=== PATIENT | female | born 1990 | race Caucasian/White ===

== ENCOUNTER 2019-05-29 17:33 | Outpatient (CLI) | payer OTHER, SELFPAY ==
--- NOTE | ~2019-05-29 | XR_ITS ---
EXAMINATION: XR foot RT min 3V EXAM DATE: 05/29/2019 17:55 INDICATION: Pain in right first metatarsal region, after kicking ball. Initial encounter. TECHNIQUE: Right foot dorsoplantar, lateral and oblique projections obtained and reviewed. There is no prior study for comparison. FINDINGS: Right metatarsal bones unremarkable. There are no acute fractures or dislocations identifi ed. There is no subcutaneous gas. The soft tissue is unremarkable. There are no radiopaque foreig n bodies. IMPRESSION: 1. Unremarkable XR foot RT min 3V exam. Reviewed, dictated and finalized at location A.
== END 2019-05-29 17:34 | disposition home or self-care (01) ==
LOC: ANHIMG 17:42
PROVIDERS: PCP Internal Medicine; Visit Provider Physician Assistant
DX: S99.921A Unspecified injury of right foot, initial encounter (principal)
CPT/HCPCS: 73630

== ENCOUNTER 2019-09-03 17:40 | Emergency (ER) | payer OTHER, SELFPAY ==
--- NOTE | ~2019-09-03 | XR_ITS ---
XR foot RT min 3V 09/03/2019 18:22 Indication: Right foot pain Procedure: 4 views right foot Comparison: 05/29/2019 Findings: No fracture, subluxation or dislocation. Lisfranc joint intact. No significant soft tissue abnormality. No radiopaque foreign bodies. Impression: 1: No acute bone or joint abnormality. Reviewed, dictated and finalized at location A. Impression: 1: No acute bone or joint abnormality.
--- NOTE | 2019-09-03 17:53 | ED.GENADULT ---
HPI - General Adult General Chief complaint: Extremity Injury, Lower Stated complaint: right big toe injury Time Seen by Provider: 09/03/19 18:01 Source: patient Mode of arrival: ambulatory Limitations: no limitations History of Present Illness HPI narrative: 29-year-old female patient presents to the [facility] with complaints of right great toe pain x3 weeks. Patient states about 3 weeks ago she was at work and kicked a medicine ball and since then has been having pain to the right great toe. Patient states it hurts worse when flexing the toe back towards the foot. Patient denies any numbness or tingling. Denies any ankle pain. Patient states she has been walking on it with a steady gait. Related Data Home Medications Medication Instructions Recorded Confirmed norgestrel-ethinyl estradiol 1 tablet PO DAILY 02/05/19 09/03/19 [Low-Ogestrel (28)] Allergies Allergy/AdvReac Type Severity Reaction Status Date / Time No Known Allergies Allergy Verified 09/03/19 18:01 Review of Systems Review of Systems: Narrative: CONSTITUTIONAL: Denies fever, chills, or sweats. EYES: Denies visual changes, redness, or discharge. ENT: Denies rhinorrhea, congestion, sore throat, or otalgia. CARDIOVASCULAR: Denies chest pain, palpitations, or edema. RESPIRATORY: Denies cough or dyspnea. GASTROINTESTINAL: Denies abdominal pain, nausea, vomiting, or diarrhea. GENITOURINARY: Denies dysuria or hematuria. SKIN: Denies rash or itching. MUSCULOSKELETAL: Denies back pain, joint pain, or myalgia. Positive right great toe pain NEUROLOGIC: Denies headache, numbness, or weakness. PSYCHIATRIC: Denies anxiety or depression. [facility] Family History Family History Father Hypertension Family history of elevated blood lipids Mother Patient's mother is in good health Sibling Patient's brother is in good health Social History Social History Smoking status: Never smoker Second hand tobacco smoke exposure: Yes Alcohol intake: never Comments At the time of my signature I agree with nursing past medical history, surgical, social, and family history. There is no relevant family history pertinent to the presenting complaint. Exam Narrative: Exam Narrative: GENERAL: Well-appearing, well-nourished, and in no acute distress. HEAD: Normocephalic, atraumatic. EYES: PERRLA and EOMI. ENT: Nares clear, no rhinorrhea or epistaxis. Mucous membranes moist. NECK: Supple. No lymphadenopathy CHEST: Clear to auscultation. No respiratory distress. HEART: Regular rate and rhythm. No murmur heard. Normal peripheral pulses. ABDOMEN: Soft, nontender, nondistended, normal active bowel sounds. EXTREMITIES: Patient able to bear weight and ambulate without pain. No surface trauma, ecchymosis, erythema, lesions, ulcers or break in skin integrity. The R foot is without obvious asymmetry or deformity when compared to the L foot. Patient does have some swelling to the lateral side of the left great toe. No bony step-off, tender to palpation over the right first metatarsal., No tenderness over the midfoot or hindfoot or sole. Pain with dorsiflexion of the right great toe, no pain is noted during inversion/eversion. Distal motor and neurovascular status are intact SKIN: Warm, dry, no rash. NEURO: No focal deficits. Alert and oriented x3. Course Reevaluation(s) Reevaluation #1: Reevaluated patient. Discussed with her that her x-ray is negative. Discussed with her that we will go ahead and Balbir wrap the foot to see if it helps with the pain and swelling. Discussed patient she can take Tylenol and ibuprofen as needed for the pain as well as elevates the foot. Discussed patient if she has continued difficulty with the foot that she will need to see her primary doctor. Patient verbalized understanding denies any other questions or concerns at this time. Date:
[2019-09-03 17:58] VITALS: BP 98/64; PULSE 90; RESP 18; TEMP 37.6; O2SAT 99
== END 2019-09-03 18:35 | disposition home or self-care (01) ==
PROVIDERS: Emergency Provider Nurse Practitioner Family; PCP Internal Medicine
DX: M79.674 Pain in right toe(s) (principal)
CPT/HCPCS: 73630; 99213; G0463

== ENCOUNTER 2019-09-07 16:26 | Outpatient (CLI) | payer OTHER, SELFPAY ==
[2019-09-07 17:32] LABS: Add Urine Microscopic? YES; Appearance Urine Clear (Clear); Bacteria Urine Trace /hpf; Bilirubin Urine Negative (Negative); Blood Urine 1+ (Negative); Color Urine Yellow (Yellow); Glucose Urine UA Negative (Negative); Ketones Urine Negative (Negative); Leukocyte Esterase Ur Negative LEU/UL (NEGATIVE); Mucus Urine Heavy /lpf; Nitrate Urine Negative (Negative); Protein Urine Negative (Negative); RBC Urine 0-2 /hpf (0-2); Specific Grav Ur 1.018 (1.001-1.035); Squamous Epithelial Cell Urine Few /hpf (Few); Urobilinogen Urine Negative mg/dL (<2.0); WBC Urine 0-3 /hpf (0-3)
== END 2019-09-07 16:27 | disposition home or self-care (01) ==
PROVIDERS: PCP Internal Medicine; Visit Provider Physician Assistant
DX: M54.5 Low back pain (principal); R68.83 Chills (without fever)
CPT/HCPCS: 81001; 87086

== ENCOUNTER 2020-01-22 11:09 | Outpatient (CLI) | payer OTHER, SELFPAY ==
--- NOTE | ~2020-01-22 | XR_ITS ---
EXAMINATION: XR chest 2V EXAM DATE: 01/22/2020 11:28 INDICATION: R06.02 - Shortness of breath TECHNIQUE: Frontal and lateral projections of the chest obtained and reviewed. Comparison is made to prior examination from 05/16/2012. FINDINGS: The lungs are clear. There are no pleural effusions. The cardiomediastinal silhouette is within normal limits. There is no pneumothorax suspected. The bones and soft tissues are unremarkab le. IMPRESSION: Unremarkable chest x-ray exam. Reviewed, dictated and finalized at location B. [employer]
== END 2020-01-22 11:10 | disposition home or self-care (01) ==
PROVIDERS: PCP Physician Assistant; Visit Provider Physician Assistant
DX: R06.02 Shortness of breath (principal)
CPT/HCPCS: 71046

== ENCOUNTER → 2020-04-24 07:00 | Outpatient (CLI) | payer OTHER, SELFPAY ==
[2020-04-24 20:38] LABS: SARS-CoV-2 RNA PCR Negative
== END ==
PROVIDERS: PCP Internal Medicine; Visit Provider Physician Assistant
DX: Z20.822 Contact with and (suspected) exposure to COVID-19 (principal)
CPT/HCPCS: C9803; U0003; U0005

== ENCOUNTER 2020-06-02 12:32 | Outpatient (CLI) | payer OTHER, SELFPAY ==
--- NOTE | ~2020-06-02 | US_ITS ---
EXAMINATION: US soft tissue groin LT DATE: 06/02/2020 13:49 INDICATION: Left groin mass. TECHNIQUE: Multiple grayscale and Doppler ultrasound images of the left inguinal region were obtained . COMPARISON: None FINDINGS: There is a normal lymph node in the left inguinal region in the patient's area of concern. The patient does not currently feel an abnormal lump. IMPRESSION: 1. No abnormal mass or lymphadenopathy. Reviewed, dictated and finalized at location A.
== END 2020-06-02 12:33 | disposition home or self-care (01) ==
PROVIDERS: PCP Internal Medicine; Visit Provider Student in an Organized Health Care Education/Training Program
DX: R22.9 Localized swelling, mass and lump, unspecified (principal)
CPT/HCPCS: 76882

== ENCOUNTER 2020-07-13 13:03 | Emergency (ER) | payer OTHER, SELFPAY ==
[2020-07-13 13:10] VITALS: BP 103/68; PULSE 90; RESP 16; TEMP 36.8; O2SAT 100
--- NOTE | 2020-07-13 13:15 | ED.URI ---
HPI - URI/Sore Throat General Chief Complaint: Dizziness Stated Complaint: Congestion,Dizzy Time Seen by Provider: 07/13/20 13:15 Source: patient and RN notes reviewed Mode of arrival: ambulatory Limitations: no limitations History of Present Illness HPI Narrative: 29 yo female presents to the [facility] for fatigue and dizziness when she lays down. States that she had Covid test that was negative yesterday. Denies any chance of . Has a history of vertigo which she had to see physical therapy for. Patient states that on Tuesday she had some vomiting and diarrhea Tuesday. Was hot and cold all day with generalized fatigue. Since she just has not felt good. Related Data Home Medications Medication Instructions Recorded Confirmed norgestrel-ethinyl estradiol 1 tablet PO DAILY 02/05/19 06/27/20 [Low-Ogestrel (28)] Allergies Allergy/AdvReac Type Severity Reaction Status Date / Time No Known Allergies Allergy Verified 06/25/20 14:06 Review of Systems Review of Systems: All systems reviewed & are unremarkable except as noted in HPI and below Constitutional: Constitutional: Reports chills and Reports fatigue Eyes: Eyes: Reports no additional eye complaints, Denies change in vision and Denies photophobia ENT: Reports system reviewed and no additional complaints, except as documented, Reports as per HPI, Reports dizziness, Denies nasal congestion and Denies sore throat Cardiovascular: Cardiovascular: Reports no additional cardiovascular complaints and Denies chest pain Respiratory: Respiratory: Reports no additional respiratory complaints, Denies cough, Denies dyspnea and Denies wheezing Gastrointestinal: Gastrointestinal: Reports no additional gastrointestinal complaints, Denies abdominal pain, Denies nausea and Denies vomiting Musculoskeletal: Musculoskeletal: Reports no additional musculoskeletal complaints and Denies back pain Integumentary/Breasts: Skin/Breast: Reports system reviewed and no additional complaints, except as docu Neurologic: Reports vertigo (History), Reports dizziness and Denies syncope Psychiatric: Psychiatric: Reports no additional psychiatric complaints Endocrine: Endocrine: Reports no additional endocrine complaints [facility] Family History Family History Father Hypertension Family history of elevated blood lipids Mother Patient's mother is in good health Sibling Patient's brother is in good health Social History Social History Smoking status: Never smoker Second hand tobacco smoke exposure: Yes Alcohol intake: never Comments At the time of my signature, I reviewed and agree with the nursing past medical, surgical, social, and family history. There is no relevant family history pertinent to the patient complaint. Exam Const: General: healthy appearing, no acute distress and alert Nutritional Appearance: well nourished Orientation/consciousness: patient oriented x3 Limitations: no limitations HENMT: Head: normal to inspection Ears: external ears normal, TM normal on the left and TM abnormal bulging and wth effusion (Right side) serous General nose exam: Normal external nose present Face and sinus: normal facial exam and sinus tenderness Mouth: Yes moist mucous membranes Throat: posterior oropharynx normal and uvula midline Eyes: Pupils: Equal, round and reactive pupils present Chest: Chest palpation & inspection: normal inspection of the chest Resp: Effort & Inspection: normal respiratory effort Auscultation: clear to auscultation bilaterally Cardio: Rate: regular rate Rhythm: regular rhythm GI: GI Palp: Yes Soft to palpation : General: Yes no CVA tenderness Back/Spine/Pelvis: Back: no CVA tenderness Skin: General skin exam: normal color Rashes: no rashes Neuro: General: patient oriented x3 and moves all extremities Speech: normal speech Gait
[2020-07-13 13:30] VITALS: BP 103/71; BP 89/58; BP 99/58; PULSE 107; PULSE 108; PULSE 94
== END 2020-07-13 13:47 | disposition home or self-care (01) ==
PROVIDERS: Emergency Provider Nurse Practitioner; PCP Internal Medicine
DX: E86.0 Dehydration (principal); H65.01 Acute serous otitis media, right ear
CPT/HCPCS: 99213; G0463

== ENCOUNTER 2020-10-16 12:41 | Emergency (ER) | payer OTHER, SELFPAY ==
[2020-10-16 12:45] VITALS: BP 107/63; PULSE 82; RESP 15; TEMP 36.8; O2SAT 99
--- NOTE | 2020-10-16 13:09 | ED.EAR ---
HPI - Ear Problem General Chief complaint: Ear Stated complaint: Rt ear pain Source: patient and RN notes reviewed Mode of arrival: ambulatory History of Present Illness HPI Narrative: This is a 30-year-old female who presented to urgent care with complaints of ear pain for 3 days. Patient notes that she has a history of having a bulging TM but has never had an ear infection. Patient did not take anything at home to relieve her symptoms. The patient denies SOB, CP, palpitation, extremity numbness, lightheadedness, dizziness, constipation, diarrhea, hearing loss , ear discharge ,chills, or fever. Patient taught that she could have possibly lost her back into her tragus piercing no foreign object found in her ear Related Data Home Medications Medication Instructions Recorded Confirmed norgestrel-ethinyl estradiol 1 tablet PO DAILY 02/05/19 10/16/20 [Low-Ogestrel (28)] Allergies Allergy/AdvReac Type Severity Reaction Status Date / Time No Known Allergies Allergy Verified 10/16/20 12:47 Review of Systems Review of Systems: A 14 organ system Review of Systems was performed and pertinent positives included in the HPI, otherwise remaining ROS is negative. [facility] Family History Family History Father Hypertension Family history of elevated blood lipids Mother Patient's mother is in good health Sibling Patient's brother is in good health Social History Social History Smoking status: Never smoker Second hand tobacco smoke exposure: Yes Alcohol intake: never Gender identity (if verbalized by the patient): Female Exam Narrative: GENERAL: This is a well-nourished, well-developed patient, in no apparent distress. HEAD: normocephalic, atraumatic. EYES: PERRL. Sclera clear/white. Vision is grossly intact. EARS: External ears normal, auditory canals clear and without drainage, TMs erythematous and edematous without perforation. Hearing grossly intact. NOSE: External nose normal with no obvious nasal discharge, nares without redness, no rhinorrhea. THROAT: Mucous membranes moist, posterior pharynx clear. NECK: Neck supple, non-tender without lymphadenopathy, masses or thyromegaly. CARDIOVASCULAR: Regular rate and rhythm without murmurs, gallops, or rubs. RESPIRATORY: Clear to auscultation. Breath sounds equal bilaterally. No wheezes, rales, or rhonchi. GASTROINTESTINAL: Abdomen soft, non-tender, nondistended. Bowel sounds are active. No hepato-splenomegaly, or palpable masses. No guarding. SKIN: warm, intact with no suspicious lesions or rash, good texture and turgor. NEURO: awake, alert, and oriented to person, place and time. There were no obvious focal neurologic abnormalities. Steady gait EXTREMITIES: Normal range of motion. No edema. No calf tenderness. Negative Homans sign bilaterally. BACK: Nontender without deformity or crepitance. No flank tenderness. Course Course Emergency Course: Augmentin x7 days Vital Signs Vital signs: Vital Signs Temperature 98.3 F 10/16/20 12:45 Pulse Rate 82 10/16/20 12:45 Respiratory Rate 15 10/16/20 12:45 Blood Pressure 107/63 10/16/20 12:45 Pulse Oximetry 99 10/16/20 12:45 Temperature 98.3 F 10/16/20 12:45 Pulse Rate 82 10/16/20 12:45 Respiratory Rate 15 10/16/20 12:45 Blood Pressure 107/63 10/16/20 12:45 Pulse Oximetry 99 10/16/20 12:45 Medical Decision Making Differential Diagnosis Differential Diagnosis: Otitis media, otitis externa, foreign body object Vital Signs Vital Signs: Vital Signs Temperature 98.3 F 10/16/20 12:45 Pulse Rate 82 10/16/20 12:45 Respiratory Rate 15 10/16/20 12:45 Blood Pressure 107/63 10/16/20 12:45 Pulse Oximetry 99 10/16/20 12:45 Temperature 98.3 F 10/16/20 12:45 Pulse Rate 82 10/16/20 12:45 Respiratory Rate 15 10/16/20 12:45 Blood Pressure 107/63 08
== END 2020-10-16 13:03 | disposition home or self-care (01) ==
LOC: EXPTROY 12:47
PROVIDERS: Emergency Provider Nurse Practitioner; PCP Internal Medicine
DX: H66.91 Otitis media, unspecified, right ear (principal)
CPT/HCPCS: 99213; G0463

== ENCOUNTER 2020-11-09 18:45 | Emergency (ER) | payer OTHER, SELFPAY ==
--- NOTE | 2020-11-09 18:52 | ED.UPPEXIN ---
HPI - Extremity Injury (Upper) General Chief Complaint: Extremity Injury, Upper Stated Complaint: left thumb pain Time Seen by Provider: 11/09/20 18:52 Source: patient and RN notes reviewed Mode of arrival: ambulatory Limitations: no limitations History of Present Illness HPI narrative: 30-year-old female presents to the [facility] with left thumb pain, redness and inflammation around the fingernail. Does get her nails done on a regular basis. Has been soaking it for the couple of days and not getting any better. Redness noted to the radial aspect left thumb. Fluctuant area noted. Related Data Home Medications Medication Instructions Recorded Confirmed norgestrel-ethinyl estradiol 1 tablet PO DAILY 02/05/19 11/09/20 [Low-Ogestrel (28)] Allergies Allergy/AdvReac Type Severity Reaction Status Date / Time No Known Allergies Allergy Verified 11/09/20 18:47 Review of Systems Review of Systems: All systems reviewed & are unremarkable except as noted in HPI and below Constitutional: Constitutional: Reports no additional constitutional complaints, Denies chills and Denies fever(s) Eyes: Eyes: Reports no additional eye complaints ENT: Reports system reviewed and no additional complaints, except as documented Cardiovascular: Cardiovascular: Reports no additional cardiovascular complaints Respiratory: Respiratory: Reports no additional respiratory complaints Gastrointestinal: Gastrointestinal: Reports no additional gastrointestinal complaints Genitourinary: Genitourinary: Reports no additional female genitourinary complaints Musculoskeletal: Musculoskeletal: Reports no additional musculoskeletal complaints Integumentary/Breasts: Skin/Breast: Reports as per HPI and Reports erythema (left thumb) Neurologic: Reports system reviewed and no additional complaints, except as documented Psychiatric: Psychiatric: Reports no additional psychiatric complaints Allergic/Immunologic: Allergic/Immunologic: Reports no additional allergic/immunologic complaints [facility] Past Medical History Medical History No significant medical problems Family History Family History Father Hypertension Family history of elevated blood lipids Mother Patient's mother is in good health Sibling Patient's brother is in good health Social History Social History Smoking status: Never smoker Second hand tobacco smoke exposure: Yes Alcohol intake: never Gender identity (if verbalized by the patient): Female Comments At the time of my signature, I reviewed and agree with the nursing past medical, surgical, social, and family history. There is no relevant family history pertinent to the patient complaint. Exam Const: General: healthy appearing, no acute distress and alert Nutritional Appearance: well nourished Orientation/consciousness: patient oriented x3 Limitations: no limitations HENMT: Head: normal to inspection Eyes: Conjunctivae: conjunctivae normal Pupils: Equal, round and reactive pupils present Neck: Neck: normal visual inspection Chest: Chest palpation & inspection: normal inspection of the chest Resp: Effort & Inspection: normal respiratory effort Cardio: Rate: regular rate Back/Spine/Pelvis: Back: no CVA tenderness Skin: General skin exam: normal color Other: Paronychia, redness and swelling noted to the radial aspect left thumb Neuro: General: patient oriented x3, moves all extremities, no meningeal signs and no focal motor deficits Speech: normal speech Extrem: General: normal to inspection Psych: Appearance: grossly normal and well kempt Mental Status: mental status grossly normal Affect: normal affect Attitude: cooperative Thought content: Yes Normal thought content present Course Course Emergency Course: Discharge instructions reviewed with tomas
[2020-11-09 18:54] VITALS: BP 103/60; PULSE 83; RESP 16; TEMP 36.2; O2SAT 99
[2020-11-09] MEDS: LIDOCAINE HCL 1% LOCAL INJ 20 ML VIAL 5 ML INFILTRATE (19:04)
[2020-11-09 19:42] VITALS: BP 112/68; PULSE 56; RESP 16; O2SAT 96
--- NOTE | 2020-11-09 19:43 | PC.NURSE ---
89 PT STATES SHE FELT HOT AND NAUSEATED. SMALL EMESIS. PROVIDER AWARE. COOL CLOTHS TO NECK AND FOREHEAD. 1943 VS REASSESED. VS STABLE. PT CALLED HER MOTHER FOR A RIDE HOME.
== END 2020-11-09 19:55 | disposition home or self-care (01) ==
PROVIDERS: Emergency Provider Nurse Practitioner; PCP Internal Medicine
DX: L03.012 Cellulitis of left finger (principal)
CPT/HCPCS: 10060; 87070; 87075; 87077; 87186; 87205; 99213; G0463

== ENCOUNTER 2021-04-26 17:58 | Emergency (ER) | payer OTHER, SELFPAY ==
--- NOTE | 2021-04-26 18:09 | ED.URI ---
HPI - URI/Sore Throat General Chief Complaint: Ear Stated Complaint: ear pain Time Seen by Provider: 04/26/21 18:18 Source: patient, family, RN notes reviewed and old records reviewed Mode of arrival: ambulatory Limitations: no limitations History of Present Illness HPI Narrative: 30-year-old female presents to the [facility] with complaints of ear pain for [address] Ann for same in January. Has been diagnosed in the past with serous otitis. Denies fevers, nausea, vomiting. No abdominal pain or chest pain. No sinus or upper respiratory issues Related Data Home Medications Medication Instructions Recorded Confirmed norgestrel-ethinyl estradiol 1 tablet PO DAILY 02/05/19 04/26/21 [Low-Ogestrel (28)] escitalopram oxalate 20 mg tablet 20 mg PO DAILY 01/16/21 04/26/21 Allergies Allergy/AdvReac Type Severity Reaction Status Date / Time No Known Allergies Allergy Verified 04/26/21 18:23 Review of Systems Review of Systems: All systems reviewed & are unremarkable except as noted in HPI and below Constitutional: Constitutional: Reports no additional constitutional complaints, Denies chills, Denies fever(s) and Denies headache(s) Eyes: Eyes: Reports no additional eye complaints ENT: Reports as per HPI, Denies vertigo, Denies dizziness, Denies headache(s), Denies nasal congestion and Denies sore throat Comments: Bilateral ear pain x1 week Cardiovascular: Cardiovascular: Reports no additional cardiovascular complaints, Denies chest pain, Denies syncope, Denies rapid heart rate and Denies dyspnea Respiratory: Respiratory: Reports no additional respiratory complaints, Denies cough, Denies dyspnea and Denies wheezing Gastrointestinal: Gastrointestinal: Reports no additional gastrointestinal complaints, Denies abdominal pain, Denies diarrhea, Denies nausea and Denies vomiting Musculoskeletal: Musculoskeletal: Reports no additional musculoskeletal complaints and Denies numbness Integumentary/Breasts: Skin/Breast: Reports system reviewed and no additional complaints, except as docu Neurologic: Reports system reviewed and no additional complaints, except as documented, Denies vertigo, Denies dizziness, Denies syncope, Denies headache(s), Denies focal weakness and Denies numbness Psychiatric: Psychiatric: Reports no additional psychiatric complaints Allergic/Immunologic: Allergic/Immunologic: Reports no additional allergic/immunologic complaints and Denies wheezing PMFSH Past Medical History Medical History No significant medical problems Family History Family History Father Hypertension Family history of elevated blood lipids Mother Patient's mother is in good health Sibling Patient's brother is in good health Social History Social History Smoking status: Never smoker Second hand tobacco smoke exposure: Yes Alcohol intake: never Gender identity (if verbalized by the patient): Female Comments At the time of my signature, I reviewed and agree with the nursing past medical, surgical, social, and family history. There is no relevant family history pertinent to the patient complaint. Exam Const: General: cooperative, healthy appearing, no acute distress, well developed and alert Nutritional Appearance: well nourished Orientation/consciousness: patient oriented x3 Limitations: no limitations HENMT: Head: normal to inspection Ears: external ears normal, TM's normal bilaterally (Left side), EAC's normal and TM abnormal with fluid behind the TM on the right General nose exam: Normal external nose present and Normal nasal mucous membranes and turbinates present Mouth: Yes Normal oral and palatal mucosa present Throat: posterior oropharynx normal, uvula midline and no uvular edema Eyes: Conjunctivae: conjunctivae normal Pupils: Equal, r
[2021-04-26 18:10] VITALS: BP 100/61; PULSE 72; RESP 16; TEMP 36.9; O2SAT 99
== END 2021-04-26 18:30 | disposition home or self-care (01) ==
PROVIDERS: Emergency Provider Nurse Practitioner; PCP Internal Medicine
DX: H65.01 Acute serous otitis media, right ear (principal); H69.93 Unspecified Eustachian tube disorder, bilateral
CPT/HCPCS: 99211; G0463

== ENCOUNTER 2021-06-22 16:02 | Emergency (ER) | payer OTHER, SELFPAY ==
[2021-06-22 16:25] VITALS: BP 103/60; PULSE 81; RESP 18; TEMP 36.7; O2SAT 100
--- NOTE | 2021-06-22 16:54 | ED.URI ---
HPI - URI/Sore Throat General Chief Complaint: Upper Respiratory Infection Stated Complaint: rt ear pain,sorethroat Time Seen by Provider: 06/22/21 16:54 Source: patient Mode of arrival: ambulatory Limitations: no limitations History of Present Illness HPI Narrative: 30-year-old female presents with complaint of sinus congestion, sinus pressure/pain for 1 week. Has been taking Flonase and Claritin-D. Began having pain to right ear today. No fever or chills. Denies nausea vomiting diarrhea. No cough or chest pain. No concern for COVID, no COVID contact. All symptoms reviewed and negative except as noted above. Related Data Home Medications Medication Instructions Recorded Confirmed norgestrel-ethinyl estradiol 1 tablet PO DAILY 02/05/19 06/22/21 [Low-Ogestrel (28)] escitalopram oxalate 20 mg tablet 20 mg PO DAILY 01/16/21 06/22/21 Allergies Allergy/AdvReac Type Severity Reaction Status Date / Time No Known Allergies Allergy Verified 06/22/21 16:34 Review of Systems Review of Systems: CONSTITUTIONAL: Denies fever, chills, or sweats. EYES: Denies visual changes, redness, or discharge. ENT: Denies rhinorrhea, sore throat. Reports sinus congestion, sinus pain and right ear pain. CARDIOVASCULAR: Denies chest pain, palpitations, or edema. RESPIRATORY: Denies cough or dyspnea. GASTROINTESTINAL: Denies abdominal pain, nausea, vomiting, or diarrhea. GENITOURINARY: Denies dysuria or hematuria. SKIN: Denies rash or itching. MUSCULOSKELETAL: Denies back pain, joint pain, or myalgia. NEUROLOGIC: Denies headache, numbness, or weakness. PSYCHIATRIC: Denies anxiety or depression. All other systems reviewed are negative, except as documented in HPI. [facility] Past Medical History Medical History No significant medical problems Family History Family History Father Hypertension Family history of elevated blood lipids Mother Patient's mother is in good health Sibling Patient's brother is in good health Social History Social History Smoking status: Never smoker Second hand tobacco smoke exposure: Yes Alcohol intake: never Gender identity (if verbalized by the patient): Female Comments At time of signature, agree with nursing past medical, surgical, social and family history. There is no relevant family history pertinent to the presenting complaint. Exam Narrative: GENERAL: This is a well-nourished, well-developed patient, in no apparent distress. HEAD: normocephalic, atraumatic. EYES: PERRL. Sclera clear/white. Vision is grossly intact. EARS: External ears normal, auditory canals clear and without drainage. Left TM normal without perforation. Right TM is erythematous, bulging with fluid without perforation. NOSE: External nose normal with no obvious nasal discharge, moderate congestion with bilateral frontal maxillary sinus tenderness. THROAT: Mucous membranes moist, posterior pharynx clear. NECK: Neck supple, non-tender without lymphadenopathy, masses or thyromegaly. CARDIOVASCULAR: Regular rate and rhythm without murmurs, gallops, or rubs. RESPIRATORY: Clear to auscultation. Breath sounds equal bilaterally. No wheezes, rales, or rhonchi. SKIN: warm, Dry, intact with no suspicious lesions or rash, good texture and turgor. NEURO: awake, alert, and oriented to person, place and time. There were no obvious focal neurologic abnormalities. EXTREMITIES: Normal range of motion to all extremities. Course Course Level of Care: Express Care Visit Vital Signs Vital signs: Vital Signs Temperature 36.7 C 06/22/21 16:25 Pulse Rate 81 06/22/21 16:25 Respiratory Rate 18 06/22/21 16:25 Blood Pressure 103/60 06/22/21 16:25 Pulse Oximetry 100 06/22/21 16:25 Temperature 36.7 C 06/22/21 16:25 Pulse Rate 81 06/22/21 16:25
== END 2021-06-22 17:00 | disposition home or self-care (01) ==
PROVIDERS: Emergency Provider Nurse Practitioner Family; PCP Internal Medicine
DX: J01.90 Acute sinusitis, unspecified (principal); H65.01 Acute serous otitis media, right ear; F32.A Depression, unspecified
CPT/HCPCS: 99213; G0463

== ENCOUNTER 2021-08-24 12:48 | Emergency (ER) | payer OTHER, SELFPAY ==
--- NOTE | 2021-08-24 12:56 | ED.URI ---
HPI - URI/Sore Throat General Chief Complaint: Upper Respiratory Infection Stated Complaint: Congestion,Cough,Sore Throat Time Seen by Provider: 08/24/21 12:57 Source: patient Mode of arrival: ambulatory Limitations: no limitations History of Present Illness HPI Narrative: Ms. Hampton is a 31-year-old female patient presenting to the clinic today with complaints of cough, congestion, and sore throat x1 day. She reports her symptoms began last night with a low-grade temp of 99 9, nonproductive cough, nasal congestion, and a sore throat. She denies any known exposure to anybody with COVID, flu, or strep. MD elicited complaint: sore throat and nasal congestion Related Data Home Medications Medication Instructions Recorded Confirmed norgestrel 0.3 mg-ethinyl 1 tablet PO DAILY 02/05/19 08/24/21 estradiol 30 mcg tablet (Low-Ogestrel (28)) escitalopram oxalate 20 mg tablet 20 mg PO DAILY 01/16/21 08/24/21 Allergies Allergy/AdvReac Type Severity Reaction Status Date / Time No Known Allergies Allergy Verified 08/24/21 13:17 Review of Systems Review of Systems: Pertinent positives per HPI. Patient denies any rash, headache, visual changes, dizziness, shortness of breath, chest pain, palpitations, nausea, vomiting, diarrhea, constipation, abdominal pain, or any urinary issues. PMFSH Past Medical History Medical History No significant medical problems Family History Family History Father Hypertension Family history of elevated blood lipids Mother Patient's mother is in good health Sibling Patient's brother is in good health Social History Social History Smoking status: Never smoker Second hand tobacco smoke exposure: Yes Alcohol intake: never Gender identity (if verbalized by the patient): Female Comments At the time of my signature, I reviewed and agree with the nursing past medical, surgical, social, and family history. There is no relevant family history pertinent to the patient complaint. Exam Narrative: General: Well-developed, well nourished, in no apparent distress Head: Normocephalic, atraumatic Eyes: Pupils equally round and reactive to light bilaterally, EOM intact, sclera and conjunctive clear, no discharge, lids normal Ears: TMs intact and clear, ear canals clear, no drainage, grossly hearing normal. Nose: Nares patent, clear nasal discharge, mild inflammation, no sinus tenderness. Mouth: Oral pharynx without lesions or masses, good dentition, MMM. Postnasal drip Neck: Supple, trachea midline, no enlargement of anterior or posterior cervical nodes, no thyroid masses or goiter palpable. Cardio: Regular rate and rhythm, s1 and s2 normal, no murmur appreciated. Resp: Clear to auscultation bilaterally, no rhonchi, rales, wheezing or rubs Course Course Emergency Course: Portions of this record may have been created with voice recognition software. Level of Care: Express Care Visit Vital Signs Vital signs: Vital signs reviewed MDM - URI/Sore Throat MDM Narrative Medical decision making narrative: At the time of visit patient is resting comfortably on exam table. Strep test was completed and was negative in the clinic. COVID test was completed and was positive. Paxlovid antibodies were considered however patient was have a possible severe interaction due to her control so this was not prescribed. Supportive measures were discussed with the patient she voiced understanding of discharge instructions and agrees to the treatment plan. Differential Diagnosis Differential diagnosis: Likely upper respiratory infection, sinusitis, viral infection, bronchitis, influenza, pharyngitis and other (COVID) Discharge Plan Discharge Clinical Impression: COVID-19 Patient Disposition: Home,
[2021-08-24 13:07] VITALS: BP 103/82; PULSE 89; RESP 18; TEMP 37.3; O2SAT 99
== END 2021-08-24 13:30 | disposition home or self-care (01) ==
PROVIDERS: Emergency Provider Nurse Practitioner Family; PCP Internal Medicine
DX: U07.1 COVID-19 (principal); F32.A Depression, unspecified
CPT/HCPCS: 87081; 87426; 87880; 99213; C9803; G0463

== ENCOUNTER 2021-10-18 15:15 | Emergency (ER) | payer OTHER, SELFPAY ==
[2021-10-18 15:35] VITALS: BP 108/63; PULSE 83; RESP 18; TEMP 36.1; O2SAT 99
--- NOTE | 2021-10-18 15:35 | ED.URI ---
HPI - URI/Sore Throat General Chief Complaint: Upper Respiratory Infection Stated Complaint: Sore throat, ear pain Source: patient, RN notes reviewed and old records reviewed Mode of arrival: ambulatory Limitations: no limitations History of Present Illness HPI Narrative: 31-year-old female who presents to [facility] care with complaint of sore throat and ear pain since Tuesday and some sinus drainage. Patient denies any known fevers chills or sweats has had COVID in February of 2021 and has been vaccinated for COVID. 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 MD elicited complaint: sore throat, rhinorrhea and other (ear pain) Onset (ago): day(s) (2) Treatments prior to arrival: ibuprofen and cold medicine Related Data Home Medications Medication Instructions Recorded Confirmed norgestrel 0.3 mg-ethinyl 1 tablet PO DAILY 10/18/21 10/18/21 estradiol 30 mcg tablet (Delma (28)) Allergies Allergy/AdvReac Type Severity Reaction Status Date / Time No Known Allergies Allergy Verified 10/18/21 15:23 Review of Systems Review of Systems: CONSTITUTIONAL: Denies fever, chills, or sweats. EYES: Denies visual changes, redness, or discharge. ENT: Positive for clear rhinorrhea, congestion, sore throat, bilateral otalgia, positive exposure to strep CARDIOVASCULAR: Denies chest pain, palpitations, or edema. RESPIRATORY: Denies cough or dyspnea. GASTROINTESTINAL: Denies abdominal pain, nausea, vomiting, or diarrhea. GENITOURINARY: Denies dysuria or hematuria. SKIN: Denies rash or itching. MUSCULOSKELETAL: Denies back pain, joint pain, or myalgia. NEUROLOGIC: Denies headache, numbness, or weakness. PSYCHIATRIC:Positive for history of anxiety or depression. All systems reviewed & are unremarkable except as noted in HPI and below PMFSH Past Medical History Medical History (Updated 10/22/21 @ 09:34 by Rosibel Ball NP) Bronchitis COVID-18 March 2021 Depression Surgical History Surgical History (Updated 10/22/21 @ 09:29 by Rosibel Ball NP) H/O dilation and curettage Family History Family History Father Hypertension Family history of elevated blood lipids Mother Patient's mother is in good health Sibling Patient's brother is in good health Social History Social History Smoking status: Never smoker Second hand tobacco smoke exposure: Yes Alcohol intake: never Gender identity (if verbalized by the patient): Female Comments At time of signature agree with nursing documentation of past medical, surgical, social and family history. There is no relevant family history pertinent to presenting complaint. Exam Narrative: GENERAL: Well-appearing, well-nourished, and in no acute distress. HEAD: Normocephalic, atraumatic. EYES: PERRLA and EOMI. ENT: Nares red with clear rhinorrhea no epistaxis. Mucous membranes moist.TM's normal with good light reflex, throat red with no lesions or exudates no swelling noted NECK: Supple.no lymphadenopathy CHEST: Clear to auscultation. No respiratory distress.SAO2 99% on room air HEART: Regular rate and rhythm. No murmur heard. Normal peripheral pulses. ABDOMEN: Soft, nontender, nondistended, normal active bowel sounds. EXTREMITIES: Normal range of motion. No edema. SKIN: Warm, dry, no rash. NEURO: No focal deficits. Alert and oriented x3. Course Course Level of Care: Express Care Visit Vital Signs Vital signs: Vital Signs Temperature 36.1 C L 10/18/21 15:35 Pulse Rate 83 10/18/21 15:35 Respiratory Rate 18 10/18/21 15:35 Blood Pressure 108/63 10/18/21 15:35 Pulse Oximetry 99 10/18/21 15:35 Oxygen Delivery Room Air 10/18/21 15:35 Temperature 36.1 C L 10/18/21 15:35 Pulse Rate 83 10/18/21 15:35 Respiratory Rate 18
== END 2021-10-18 16:34 | disposition home or self-care (01) ==
PROVIDERS: Emergency Provider Registered Nurse
DX: J06.9 Acute upper respiratory infection, unspecified (principal); J02.9 Acute pharyngitis, unspecified; Z20.818 Contact with and (suspected) exposure to other bacterial communicable diseases
CPT/HCPCS: 87081; 99213; G0463

== ENCOUNTER 2021-12-23 09:25 | Emergency (ER) | payer OTHER, SELFPAY ==
[2021-12-23 09:43] VITALS: BP 98/59; PULSE 88; RESP 16; TEMP 36.5; O2SAT 99
--- NOTE | 2021-12-23 10:07 | ED.EYEPROB ---
HPI - Eye Problem General Chief complaint: Eye Problems Stated complaint: Right Eye Pain Time Seen by Provider: 12/23/21 09:50 Source: patient Mode of arrival: ambulatory Limitations: no limitations History of Present Illness HPI Narrative: Melani is a 31-year-old female patient presenting to the clinic today with complaints of right eye pain. She reports that symptoms started yesterday. Noticed that she had some eye watering this morning but no purulent discharge. Related Data Home Medications Medication Instructions Recorded Confirmed norgestrel 0.3 mg-ethinyl 1 tablet PO DAILY 10/18/21 10/18/21 estradiol 30 mcg tablet (Delma (28)) Allergies Allergy/AdvReac Type Severity Reaction Status Date / Time No Known Allergies Allergy Verified 12/23/21 09:43 Review of Systems Review of Systems: Pertinent positives per HPI. Patient denies any fever, chills, rash, headache, visual changes, dizziness, cough, runny nose, sore throat, shortness of breath, chest pain, palpitations, nausea, vomiting, diarrhea, constipation, abdominal pain, or any urinary issues. PMFSH Past Medical History Medical History (Updated 12/23/21 @ 10:10 by Chintan Avila APRN) Bronchitis COVID-18 March 2021 Depression Surgical History Surgical History (Updated 10/22/21 @ 09:29 by Rosibel Ball NP) H/O dilation and curettage Family History Family History Father Hypertension Family history of elevated blood lipids Mother Patient's mother is in good health Sibling Patient's brother is in good health Social History Social History Smoking status: Never smoker Second hand tobacco smoke exposure: Yes Alcohol intake: never Gender identity (if verbalized by the patient): Female Comments At the time of my signature, I reviewed and agree with the nursing past medical, surgical, social, and family history. There is no relevant family history pertinent to the patient complaint. Exam Narrative: General: Well-developed, well nourished, in no apparent distress Head: Normocephalic, atraumatic Eyes: Pupils equally round and reactive to light bilaterally, EOM intact, left sclera and conjunctive clear, right sclera mildly injected and conjunctiva injected,no discharge, lids normal Ears: TMs intact and clear, ear canals clear, no drainage, grossly hearing normal. Nose: Nares patent, no discharge, no inflammation, no sinus tenderness. Mouth: Oropharynx without lesions or masses, good dentition, MMM. Neck: Supple, trachea midline, no enlargement of anterior or posterior cervical nodes, no thyroid masses or goiter palpable. Cardio: Regular rate and rhythm, s1 and s2 normal, no murmur appreciated. Resp: Clear to auscultation bilaterally anteriorly and posteriorly, no rhonchi, rales, wheezing or rubs Course Course Emergency Course: Portions of this record may have been created with voice recognition software. Level of Care: Express Care Visit Vital Signs Vital signs: Vital Signs Temperature 36.5 C 12/23/21 09:43 Pulse Rate 88 12/23/21 09:43 Respiratory Rate 16 12/23/21 09:43 Blood Pressure 98/59 L 12/23/21 09:43 Pulse Oximetry 99 12/23/21 09:43 Oxygen Delivery Room Air 12/23/21 09:43 Temperature 36.5 C 12/23/21 09:43 Pulse Rate 88 12/23/21 09:43 Respiratory Rate 16 12/23/21 09:43 Blood Pressure 98/59 L 12/23/21 09:43 Pulse Oximetry 99 12/23/21 09:43 Oxygen Delivery Room Air 12/23/21 09:43 Vital signs reviewed Procedures Other Procedure Procedure 1: Other Procedure: Topical anesthetic was instilled with good anesthesia using 1gtt of opth anesthetic agent (tetracaine). Fluorescein stain of the right eye was performed. patient had corneal abrasion at the right medial eye near the inner canthus, NO FB, ulcer or dendrit
== END 2021-12-23 10:12 | disposition home or self-care (01) ==
PROVIDERS: Emergency Provider Nurse Practitioner Family; PCP Internal Medicine
DX: S05.01XA Injury of conjunctiva and corneal abrasion without foreign body, right eye, initial encounter (principal); X58.XXXA Exposure to other specified factors, initial encounter; Z86.16 Personal history of COVID-19
CPT/HCPCS: 99213; A9270; G0463

== ENCOUNTER 2022-02-11 16:31 | Emergency (ER) | payer OTHER, SELFPAY ==
[2022-02-11 16:46] VITALS: BP 95/69; PULSE 71; RESP 18; TEMP 36.7; O2SAT 99
--- NOTE | 2022-02-11 17:04 | ED.URI ---
HPI - URI/Sore Throat General Chief Complaint: Upper Respiratory Infection Stated Complaint: bodyache,fever Time Seen by Provider: 02/11/22 17:04 Source: patient, RN notes reviewed and old records reviewed Mode of arrival: ambulatory Limitations: no limitations History of Present Illness HPI Narrative: 31-year-old female presents to the [facility] with complaints of body aches and fevers of 101 since last night. Patient reports only taking Tylenol. No other symptoms. Denies cough, chest pain, shortness of breath. States that her boss from her return to work until she is tested for COVID and flu. MD elicited complaint: fever Related Data Home Medications Medication Instructions Recorded Confirmed No Home Medications 02/11/22 02/11/22 Allergies Allergy/AdvReac Type Severity Reaction Status Date / Time No Known Allergies Allergy Verified 02/11/22 17:08 Review of Systems Review of Systems: All systems reviewed & are unremarkable except as noted in HPI and below Constitutional: Constitutional: Reports as per HPI, Reports body ache(s) and Reports fever(s) Eyes: Eyes: Reports no additional eye complaints ENT: Reports system reviewed and no additional complaints, except as documented Cardiovascular: Cardiovascular: Reports no additional cardiovascular complaints, Denies chest pain and Denies dyspnea Respiratory: Respiratory: Reports as per HPI, Denies chest congestion, Reports cough and Denies dyspnea Gastrointestinal: Gastrointestinal: Reports no additional gastrointestinal complaints, Denies abdominal pain, Denies nausea and Denies vomiting Musculoskeletal: Musculoskeletal: Reports no additional musculoskeletal complaints Integumentary/Breasts: Skin/Breast: Reports system reviewed and no additional complaints, except as docu Neurologic: Reports system reviewed and no additional complaints, except as documented Psychiatric: Psychiatric: Reports no additional psychiatric complaints Allergic/Immunologic: Allergic/Immunologic: Reports no additional allergic/immunologic complaints [facility] Past Medical History Medical History (Updated 02/11/22 @ 17:45 by Genet Rubio APRN) Bronchitis COVID-18 March 2021 Depression Surgical History Surgical History H/O dilation and curettage Family History Family History Father Hypertension Family history of elevated blood lipids Mother Patient's mother is in good health Sibling Patient's brother is in good health Social History Social History Smoking status: Never smoker Second hand tobacco smoke exposure: Yes Alcohol intake: never Gender identity (if verbalized by the patient): Female Comments At the time of my signature, I reviewed and agree with the nursing past medical, surgical, social, and family history. There is no relevant family history pertinent to the patient complaint. Exam Const: General: cooperative, healthy appearing, comfortable, no acute distress, well developed, alert and well nourished Nutritional Appearance: well nourished Orientation/consciousness: patient oriented x3 Limitations: no limitations HENMT: Head: normal to inspection Ears: hearing grossly normal bilaterally and external ears normal Face/Nose/Sinus: Normal external nose present, Normal nares present, Normal nasal mucous membranes and turbinates present and normal facial exam Face and sinus: normal facial exam Mouth: Yes Normal oral and palatal mucosa present, Yes lip normal and Yes moist mucous membranes Throat: posterior oropharynx normal and uvula midline Eyes: General: appearance normal, both eyes and all related structures Alignment and Position: alignment normal Periorbital: periorbital findings normal Conjunctivae: conjunctivae normal Pupils: Equal, round and reactive pupils present EOM: E
== END 2022-02-11 17:51 | disposition home or self-care (01) ==
PROVIDERS: Emergency Provider Nurse Practitioner; PCP Internal Medicine
DX: J06.9 Acute upper respiratory infection, unspecified (principal); Z20.822 Contact with and (suspected) exposure to COVID-19; Z86.16 Personal history of COVID-19
CPT/HCPCS: 87426; 87804; 99213; C9803; G0463

== ENCOUNTER 2022-02-16 20:41 | Emergency (ER) | payer OTHER, SELFPAY ==
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
[2022-02-16 20:58] VITALS: BP 110/76; PULSE 100; RESP 20; TEMP 37.1; O2SAT 100
[2022-02-16 22:50] VITALS: BP 134/84; PULSE 84; RESP 16; TEMP 36.8; O2SAT 100
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
== END 2022-02-16 23:20 | disposition home or self-care (01) ==
PROVIDERS: Emergency Provider Nurse Practitioner Family; PCP Internal Medicine
DX: S13.4XXA Sprain of ligaments of cervical spine, initial encounter (principal); S39.012A Strain of muscle, fascia and tendon of lower back, initial encounter; Z86.16 Personal history of COVID-19; V49.40XA Driver injured in collision with unspecified motor vehicles in traffic accident, initial encounter
CPT/HCPCS: 72100; 73030; 81025; 99284

== ENCOUNTER 2022-02-24 11:20 | Outpatient (CLI) | payer OTHER, SELFPAY ==
--- NOTE | ~2022-02-24 | XR_ITS ---
EXAMINATION:XR cervical spine 4-5V DATE: 02/24/2022 11:39 INDICATION: Neck pain TECHNIQUE: AP, lateral, lateral swimmers and odontoid views of the cervical spine are provided. COMPARISON: None FINDINGS: There is reversal of the normal cervical lordosis which may be positional or due to muscula r spasm. Alignment is normal. The odontoid is intact. No fracture is identified. Vertebral body heigh ts and disk spaces are normal. Prevertebral soft tissues are normal. IMPRESSION: 1. Reversal of the normal cervical lordosis which may be positional or due to muscular spasm. No acut e osseous abnormality. Reviewed, dictated and finalized at location B. O MAINTAINER IMPRESSION: 1. Reversal of the normal cervical lordosis which may be positional or due to m uscular spasm. No acute osseous abnormality.
== END 2022-02-24 11:21 | disposition home or self-care (01) ==
LOC: ANHIMG 11:23
PROVIDERS: PCP Internal Medicine; Visit Provider Physician Assistant
DX: M54.2 Cervicalgia (principal)
CPT/HCPCS: 72050

== ENCOUNTER 2022-03-10 13:19 | Emergency (ER) | payer OTHER, SELFPAY ==
[2022-03-10 13:28] VITALS: BP 94/63; PULSE 71; RESP 18; TEMP 36.6; O2SAT 100
--- NOTE | 2022-03-10 13:51 | ED.URI ---
HPI - URI/Sore Throat General Chief Complaint: Upper Respiratory Infection Stated Complaint: Sore Throat,Headache Time Seen by Provider: 03/10/22 13:51 Source: patient Mode of arrival: ambulatory Limitations: no limitations History of Present Illness HPI Narrative: 31-year-old female presents with complaint of sore throat, fatigue, body aches, headache for 4 days. Afebrile. Denies nausea vomiting diarrhea. Reports throat pain is getting progressively worse. Is concerned that she has strep throat. 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 All systems reviewed and negative except as noted above. Related Data Home Medications Medication Instructions Recorded Confirmed No Home Medications 03/10/22 03/10/22 Allergies Allergy/AdvReac Type Severity Reaction Status Date / Time No Known Allergies Allergy Verified 03/10/22 13:28 Review of Systems Review of Systems: CONSTITUTIONAL: Denies fever, chills, or sweats. reports fatigue. EYES: Denies visual changes, redness, or discharge. ENT: Denies rhinorrhea, congestion . Reports sore throat. Denies otalgia. CARDIOVASCULAR: Denies chest pain, palpitations, or edema. RESPIRATORY: Denies cough or dyspnea. GASTROINTESTINAL: Denies abdominal pain, nausea, vomiting, or diarrhea. GENITOURINARY: Denies dysuria or hematuria. SKIN: Denies rash or itching. MUSCULOSKELETAL: Denies back pain, joint pain, or myalgia. NEUROLOGIC: Reports headache. Reports numbness, or weakness. PSYCHIATRIC: Denies anxiety or depression. All other systems reviewed are negative, except as documented in HPI. [facility] Past Medical History Medical History Bronchitis COVID-18 March 2021 Depression Surgical History Surgical History H/O dilation and curettage Family History Family History Father Hypertension Family history of elevated blood lipids Mother Patient's mother is in good health Sibling Patient's brother is in good health Social History Social History Smoking status: Never smoker Second hand tobacco smoke exposure: Yes Alcohol intake: never Lack of Transportation: No Lack of Food: Never True Current Housing: I Have Housing Concerned About Future Housing: No Difficulty Paying Gas/Electric Bills: No Difficulty Paying for Meds: No Currently Unemployed: No Education: High School Diploma/GED Difficulty w/ Childcare or Family Care: No Gender identity (if verbalized by the patient): Female Comments At time of signature, agree with nursing past medical, surgical, social and family history. There is no relevant family history pertinent to the presenting complaint. Exam Narrative: GENERAL: This is a well-nourished, well-developed patient, in no apparent distress. HEAD: normocephalic, atraumatic. EYES: PERRL. Sclera clear/white. Vision is grossly intact. EARS: External ears normal, auditory canals clear and without drainage, TMs normal without perforation. Hearing grossly intact. NOSE: External nose normal with no obvious nasal discharge, nares without redness, no rhinorrhea. THROAT: Mucous membranes moist, erythema and swelling to pharynx. No exudates. NECK: Neck supple, With tender cervical lymphadenopathy. Denies masses or thyromegaly. CARDIOVASCULAR: Regular rate and rhythm without murmurs, gallops, or rubs. RESPIRATORY: Clear to auscultation. Breath sounds equal bilaterally. No wheezes, rales, or rhonchi. GASTROINTESTINAL: Abdomen soft, non-tender, nondistended. Bowel sounds are active. No hepato-splenomegaly, or palpable masses. No guarding. SKIN: warm, Dry, intact with no suspicious lesions or rash, good texture and turgor. NEURO: awake, alert, and oriented to person, place and time. There were no obvious focal neurologic abnormalities. EXTREM
== END 2022-03-10 14:00 | disposition home or self-care (01) ==
PROVIDERS: Emergency Provider Nurse Practitioner Family; PCP Internal Medicine
DX: J02.9 Acute pharyngitis, unspecified (principal); Z20.822 Contact with and (suspected) exposure to COVID-19; Z86.16 Personal history of COVID-19
CPT/HCPCS: 87081; 87426; 87880; 99213; C9803; G0463

== ENCOUNTER 2022-04-23 13:45 | Outpatient (RCR) | payer OTHER, SELFPAY ==
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
--- NOTE | 2022-04-23 14:35 | PTOPDC ---
Assessment and note entered by Fannie Knight, PT Evaluation Information Assessment Status Discharge Diagnosis cervicalgia Onset Feb 16, 2022 Subjective Information Ying reports: neck is better, but still tight on the L side; headaches are less intense; able to do all work and home things; with using the computer neck gets tight; doing exercises at home; ready to be done with therapy, can continue doing exercises at home. Reported Pain Level Pain Score Self Report Additional Pain Score Comments pain range of 2-4/10 in the past week; tight, stiff L side neck; increase pain with working and using computer, most stiff when wake up in AM; decrease pain with stretching, heat; is not taking any pain meds; mild headaches in samaritan~ 1x/day, few hours duration; self assessment functional score of 14% limitation with the Neck Disability Index. Assessment PT Clinical Summary Ying has received 6 PT sessions. Compared to the initial evaluation: pain rating is the same at 2-4/10; headaches with less intensity and duration; self assessment score improved from 26% to 12% limitation; cervical rotation ROM to R and L have increased, but still reports tight; cervical flexion continues to increase pain the most; cervical - thoracic strength has increased; She has been educated on home exercises and correct body mechanics and posture. And has a good understanding of this. The goals were partially met. Discharge PT services. She is to continue with her home exercises. Plan of Care PT Services Indicated No
== END 2022-04-23 15:10 | disposition home or self-care (01) ==
LOC: ANHPT 13:45
PROVIDERS: PCP Internal Medicine; Visit Provider Physician Assistant
DX: M54.2 Cervicalgia (principal)
CPT/HCPCS: 97014; 97110; 97140; 97161; G0283

== ENCOUNTER 2022-08-11 08:24 | Emergency (ER) | payer OTHER, SELFPAY | END 2022-08-11 09:13 | disposition home or self-care (01) | PROVIDERS: Emergency Provider Nurse Practitioner Family; PCP Internal Medicine | DX: J02.9 Acute pharyngitis, unspecified (principal) | CPT/HCPCS: 87070; 87081; 87880; 99213; G0463 ==

== ENCOUNTER 2022-08-18 15:26 | Outpatient (CLI) | payer OTHER, SELFPAY ==
--- NOTE | ~2022-08-18 | MR_ITS ---
MRI of the cervical spine Clinical History: Cervicalgia Technique: Axial T2-weighted and gradient images, and sagittal T1-weighted, T2-weighted, and STIR goran ges were acquired. Findings: There is no fracture or subluxation of the cervical spine. There is reversal normal cervica l lordosis. Intraosseous hemangioma present in the C4 vertebral body. No suspicious bone marrow signa l abnormality seen. At C2-C3, there is no disc bulge or herniation. No spinal canal stenosis, cord compression, or neural foraminal narrowing. At C3-C4, there is no disc bulge or herniation. No spinal canal stenosis, cord compression, or neural foraminal narrowing. At C4-C5, there is no disc bulge or herniation. No spinal canal stenosis, cord compression, or neural foraminal narrowing. At C5-C6, there is no disc bulge or herniation. No spinal canal stenosis, cord compression, or neural foraminal narrowing. At C6-C7, there is no significant disc bulge or herniation. No spinal canal stenosis, cord compressio n, or neural foraminal narrowing. No abnormal signal seen in the spinal cord. Paravertebral soft tissues are unremarkable. Impression: Mild reversal of the normal cervical lordosis, otherwise essentially unremarkable exam. Reviewed, dictated and finalized at location . Impression: Mild reversal of the normal cervical lordosis, otherwise essentially unremarkab le exam.
== END 2022-08-18 15:27 | disposition home or self-care (01) ==
PROVIDERS: PCP Internal Medicine; Visit Provider Nurse Practitioner Family
DX: M54.2 Cervicalgia (principal)
CPT/HCPCS: 72141

== ENCOUNTER 2022-09-13 14:07 | Outpatient (CLI) | payer OTHER, SELFPAY ==
--- NOTE | ~2022-09-13 | MR_ITS ---
MRI of the lumbar spine Clinical History: Back pain Technique: Axial T2-weighted images, and sagittal T1-weighted, T2-weighted, and T2 fat-sat images wer e acquired. Findings: There is no fracture or subluxation of the lumbar spine. Vertebral bodies maintain normal h eight and alignment. No bone marrow signal abnormality seen. No disc bulge or herniation seen at any lumbar level. There are mild facet joint degenerative changes throughout the lumbar spine. No spinal canal stenosis identified in level. There is mild left neural foraminal narrowing at L4-L5. Remaining neural foramina are preserved in the lumbar spine. Paravertebral soft tissues are unremarkable. Impression: Mild degenerative spondylosis, as above. Mild left neural foraminal narrowing at L4-L5. Reviewed, dictated and finalized at location . Impression: Mild degenerative spondylosis, as above. Mild left neural foraminal narrowing a t L4-L5.
== END 2022-09-13 14:08 | disposition home or self-care (01) ==
PROVIDERS: PCP Internal Medicine; Visit Provider Nurse Practitioner Family
DX: M54.50 Low back pain, unspecified (principal); M47.896 Other spondylosis, lumbar region
CPT/HCPCS: 72148

== ENCOUNTER 2022-10-25 09:24 | Emergency (ER) | payer OTHER, SELFPAY ==
--- NOTE | ~2022-10-25 | XR_ITS ---
EXAMINATION: XR shoulder LT min 2V DATE: 10/25/2022 09:49 INDICATION: Left shoulder pain post fall from a radiograph TECHNIQUE: AP internally and externally rotated, AP oblique externally rotated and transscapular Y vi ews of the left shoulder were obtained. COMPARISON: None FINDINGS: Normal alignment. No fracture. Glenohumeral joint is normal. Acromioclavicular joint is normal. Soft tissues are unremarkable. IMPRESSION: Negative left shoulder radiographs. Reviewed, dictated and finalized at location A.
[2022-10-25 09:37] VITALS: BP 97/64; PULSE 89; RESP 16; TEMP 37.4; O2SAT 100
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
== END 2022-10-25 10:18 | disposition home or self-care (01) ==
PROVIDERS: Emergency Provider Nurse Practitioner Family; PCP Internal Medicine
DX: S46.912A Strain of unspecified muscle, fascia and tendon at shoulder and upper arm level, left arm, initial encounter (principal); W19.XXXA Unspecified fall, initial encounter; Z86.16 Personal history of COVID-19
CPT/HCPCS: 73030; 99213; A4565; G0463

== ENCOUNTER 2023-01-24 14:47 | Emergency (ER) | payer OTHER, SELFPAY ==
[2023-01-24 14:51] VITALS: BP 98/62; PULSE 86; RESP 16; TEMP 36.3; O2SAT 100
--- NOTE | 2023-01-24 15:05 | ED.URI ---
HPI - URI/Sore Throat General Chief Complaint: Ear Stated Complaint: Bilateral Ear Irritation Time Seen by Provider: 01/24/23 14:58 Source: patient and RN notes reviewed Mode of arrival: ambulatory Limitations: no limitations History of Present Illness HPI Narrative: Patient presents today complaining of 2 day history of cough, postnasal drip, nasal congestion, bilateral ear pain and pressure. Hearing is normal. Denies fever, nausea, vomiting, diarrhea, shortness of breath. She has been using Zyrtec and saline nasal spray without much relief and currently rates her pain 4/10. Related Data Home Medications Medication Instructions Recorded Confirmed Control Pill 1 pill PO DAILY 01/24/23 01/24/23 Allergies Allergy/AdvReac Type Severity Reaction Status Date / Time No Known Allergies Allergy Verified 01/24/23 14:49 Review of Systems Review of Systems: CONSTITUTIONAL: Denies body aches, fever, chills, or sweats. EYES: Denies visual changes, redness, or discharge. ENT: Denies rhinorrhea, sore throat.+ postnasal drip, congestion, bilateral ear pain CARDIOVASCULAR: Denies chest pain, palpitations, or edema. RESPIRATORY: Denies dyspnea.+ cough GASTROINTESTINAL: Denies abdominal pain, nausea, vomiting, or diarrhea. GENITOURINARY: Denies dysuria or hematuria. SKIN: Denies rash, itching, or wounds. MUSCULOSKELETAL: Denies back pain, joint pain, or myalgia. NEUROLOGIC: Denies headache, numbness, tingling, or weakness. PSYCH: Denies depression or anxiety. [facility], [facility] Past Medical History Medical History Bronchitis COVID-18 March 2021 Depression Surgical History Surgical History H/O dilation and curettage Family History Family History Father Hypertension Family history of elevated blood lipids Mother Patient's mother is in good health Sibling Patient's brother is in good health Social History Social History Smoking status: Never smoker Second hand tobacco smoke exposure: Yes Alcohol intake: never Substance use: unknown Lack of Transportation: No Lack of Food: Never True Current Housing: I Have Housing Concerned About Future Housing: No Difficulty Paying Gas/Electric Bills: No Difficulty Paying for Meds: No Currently Unemployed: No Education: High School Diploma/GED Difficulty w/ Childcare or Family Care: No Gender identity (if verbalized by the patient): Female Comments At time of signature, I have reviewed and agree with nursing past medical, surgical, social and family history unless otherwise noted. Please see nursing chart for further information. There is no relevant family history pertinent to the presenting complaint Exam Narrative: GENERAL: Well-appearing, well-nourished, and in no acute distress. HEAD: Normocephalic, atraumatic. EYES: EOMI. No redness or drainage. Conjunctivae normal. ENT: Mucous membranes pink and moist. Nares congested. No rhinorrhea. Bilateral TMs are retracted and green color without evidence of bacterial infection. Throat normal. Uvula midline. NECK: Normal AROM. Supple. No lymphadenopathy. CHEST: No respiratory distress. Clear to auscultation. HEART: Regular rate and rhythm. No murmur appreciated. EXTREMITIES: Normal range of motion. No edema. SKIN: Warm, dry, no rash. Capillary refill normal. Normal skin turgor. NEURO: No focal deficits. Alert and oriented x3. Gait steady. PSYCH: Normal affect. No signs of depression or anxiety. Course Course Level of Care: Express Care Visit Vital Signs Vital signs: Vital Signs Temperature 97.3 F L 01/24/23 14:51 Pulse Rate 86 01/24/23 14:51 Respiratory Rate 16 01/24/23 14:51 Blood Pressure 98/62 L 01/24/23 14:51 Pulse O
== END 2023-01-24 15:11 | disposition home or self-care (01) ==
PROVIDERS: Emergency Provider Nurse Practitioner; PCP Internal Medicine
DX: J06.9 Acute upper respiratory infection, unspecified (principal); Z86.16 Personal history of COVID-19
CPT/HCPCS: 99211; G0463

== ENCOUNTER 2023-02-03 12:06 | Emergency (ER) | payer SELFPAY ==
--- NOTE | ~2023-02-03 | CT_ITS ---
EXAMINATION: CT abdomen pelvis w con DATE: 02/03/2023 17:59 INDICATION: Right lower quadrant abdominal pain. TECHNIQUE: Computed tomography (CT) of the abdomen and pelvis was performed with 100 mL Omnipaque 350 intravenous contrast. Automated exposure control and iterative reconstruction technique were employe d. The dose-length product was 192.43 mGy-cm. COMPARISON: CT abdomen and pelvis 08/01/2009 FINDINGS: The visualized portions of the lung bases are clear without pneumonia or pleural effusion. The heart size is normal. No pericardial effusion. There is a 7 mm cyst in the liver. The gallbladder , spleen, pancreas, adrenal glands, and kidneys are normal. The appendix is normal. There is fat stra nding around a diverticulum in ascending colon, consistent with diverticulitis. There is trace ascite s in right paracolic gutter. There are no pathologically enlarged lymph nodes. The bones are unremark able. IMPRESSION: 1. Acute diverticulitis of ascending colon. No perforation or abscess. Reviewed, dictated and finalized at location E. SITOLOGIST
[2023-02-03 12:08] VITALS: BP 106/69; PULSE 105; RESP 18; TEMP 37.7; O2SAT 99
[2023-02-03 14:50] VITALS: BP 112/61; PULSE 73; RESP 16; O2SAT 100
--- NOTE | 2023-02-03 16:54 | ED.ABDPAIN ---
HPI - Abdominal Pain General Chief Complaint: Abdominal Pain Stated Complaint: Right lower abdominal pain Time Seen by Provider: 02/03/23 16:53 Source: patient Mode of arrival: ambulatory Limitations: no limitations History of Present Illness HPI narrative: patient is a very pleasant 32 year old female with past medical hx as noted below who presents to the ED today for evaluation of RLQ pain that started suddenly 2 days ago with nausea. denies vomiting. denies diarrhea or constipation. denies fever. has had mild chills. denies chance of , vaginal discharge/bleeding, urinary symptoms, flank pain. ate this morning and that did not bother the pain. positioning does seem to make it worse. Related Data Home Medications Medication Instructions Recorded Confirmed Control Pill 1 pill PO DAILY 01/24/23 01/24/23 Allergies Allergy/AdvReac Type Severity Reaction Status Date / Time No Known Allergies Allergy Verified 02/03/23 12:11 Review of Systems Review of Systems: CONSTITUTIONAL: +chills. Denies fever sweats. EYES: Denies visual changes, redness, or discharge. ENT: Denies rhinorrhea, congestion, sore throat, or otalgia. CARDIOVASCULAR: Denies chest pain, palpitations, or edema. RESPIRATORY: Denies cough or dyspnea. GASTROINTESTINAL: RLQ pain, nausea. denies vomiting, diarrhea, constipation. GENITOURINARY: Denies dysuria or hematuria. SKIN: Denies rash or itching. MUSCULOSKELETAL: Denies back pain, joint pain, or myalgia. NEUROLOGIC: Denies headache, numbness, or weakness. PSYCHIATRIC: Denies anxiety or depression. All systems reviewed & are unremarkable except as noted in HPI and below PMFSH Past Medical History Medical History Bronchitis COVID-18 March 2021 Depression Surgical History Surgical History H/O dilation and curettage Family History Family History Father Hypertension Family history of elevated blood lipids Mother Patient's mother is in good health Sibling Patient's brother is in good health Social History Social History Smoking status: Never smoker Second hand tobacco smoke exposure: Yes Alcohol intake: never Substance use: unknown Lack of Transportation: No Lack of Food: Never True Current Housing: I Have Housing Concerned About Future Housing: No Difficulty Paying Gas/Electric Bills: No Difficulty Paying for Meds: No Currently Unemployed: No Education: High School Diploma/GED Difficulty w/ Childcare or Family Care: No Gender identity (if verbalized by the patient): Female Exam Narrative: GENERAL: Well-appearing, well-nourished, and in no acute distress. HEAD: Normocephalic, atraumatic. EYES: PERRLA and EOMI. ENT: Nares clear, no rhinorrhea or epistaxis. Mucous membranes moist. NECK: Supple. CHEST: Clear to auscultation. No respiratory distress. HEART: Regular rate and rhythm. No murmur heard. Normal peripheral pulses. ABDOMEN: TTP to RLQ and mid abdomen. no rebound or guarding. no significant McBurney's sign. bowel sounds active. no distention. soft abdomen EXTREMITIES: Normal range of motion. No edema. SKIN: Warm, dry, no rash. NEURO: No focal deficits. Alert and oriented x3. CN II-XII grossly intact PSYCH: Normal mood and affect. Course Vital Signs Vital signs: Vital Signs Temperature 99.8 F H 02/03/23 12:08 Pulse Rate 105 H 02/03/23 12:08 Respiratory Rate 18 02/03/23 12:08 Blood Pressure 106/69 02/03/23 12:08 Pulse Oximetry 99 02/03/23 12:08 Oxygen Delivery Room Air 02/03/23 12:08 Temperature 99.8 F H 02/03/23 12:08 Pulse Rate 63 02/03/23 19:39 Respiratory Rate 14 02/03/23 19:39 Blood Pressure 114/72 02/03/23 19:39 Pulse Oximetry 100 1
[2023-02-03 17:07] VITALS: BP 112/72; PULSE 96; RESP 16; O2SAT 100
[2023-02-03] MEDS: SODIUM CHLORIDE 0.9% IV 1,000 ML 999 ML IV CONT ×2 (17:12→18:37)
[2023-02-03] MEDS: ONDANSETRON INJ 4 MG/2 ML VIAL IV PUSH (17:13)
[2023-02-03] MEDS: FAMOTIDINE 20 MG/2 ML VIAL IV PUSH (17:13)
[2023-02-03] MEDS: KETOROLAC 30 MG/ML VIAL (*BKC) IV PUSH (17:13)
[2023-02-03 17:18] LABS: Basophils Percent Auto 0.2 % (0.2-1.2); Eosinophils Percent Auto 0.2 % (0-4.4); Hematocrit 39.1 % (37.0-47.0); Hemoglobin 12.7 g/dL (12.0-15.0); Immature Granulocyte Absolute 0.06 K/mm3 (0.00-0.031); Immature Granulocyte Percent A 0.4 % (0-0.5); Lymphocytes Absolute Auto 2.28 K/mm3 (0.9-3.2); Lymphocytes Percent Auto 15.2 % (18.3-44.2); Mean Corpuscular HGB Conc 32.5 g/dl (32-36); Mean Corpuscular Hemoglobin 30.9 pg (26-34); Mean Corpuscular Volume 95.1 fl (80-100); Mean Platelet Volume 9.9 fl (7.4-10.4); Monocytes Percent Auto 6.5 % (2.6-8.5); Neutrophils Absolute Auto 11.6 K/mm3 (1.3-6.7); Neutrophils Percent Auto 77.5 % (45.5-73.1); Platelet Count Result 225 k/mm3 (150-375); Red Blood Count 4.11 M/mm3 (4.2-5.4); Red Cell Distribution Width 12.6 % (11.5-14.5)
[2023-02-03 17:21] LABS: Appearance Urine Clear (Clear); Bilirubin Urine Negative (Negative); Blood Urine Negative (Negative); Color Urine Yellow (Yellow); Glucose Urine UA Negative (Negative); Ketones Urine Negative (Negative); Leukocyte Esterase Ur Negative LEU/UL (Negative); Nitrate Urine Negative (Negative); Protein Urine Negative (Negative); pH Urine 7.5 (5.0-9.0)
[2023-02-03 17:26] LABS: Lactic Acid Reflex 0.7 mmol/L (0.7-2.0)
[2023-02-03 17:29] LABS: Add Urine Microscopic? NO
[2023-02-03 17:37] LABS: Alanine Aminotransferase 10 U/L (6-35); Albumin Level 4.2 g/dL (3.5-5.1); Alkaline Phosphatase 61 U/L (38-126); Anion Gap 5 mmol/L (8-16); Aspartate Amino Transferase 17 U/L (14-36); Bilirubin,Total 0.6 mg/dL (0.2-1.3); Blood Urea Nitrogen 9 mg/dL (7-17); Calcium 8.5 mg/dL (8.4-10.2); Carbon Dioxide 27 mmol/L (22-30); Chloride 104 mmol/L (98-107); Estimated CRCL calculation 85 ml/min; Estimated Glomerular Filt Rate > 60; Glucose 98 mg/dL (65-110); Lipase 136 U/L (23-300); Potassium 3.7 mmol/L (3.4-5.0); Sodium 136 mmol/L (137-145)
[2023-02-03 17:40] LABS: Pregnancy On Board Control Positive; Urine Pregnancy Test Negative
[2023-02-03] MEDS: MORPHINE SULFATE (*CRX) 2 MG/ML INJ IV PUSH (18:38)
[2023-02-03] MEDS: metroNIDAZOLE 500 MG/ISO 100ML 500 MG/100 ML BAG 100 MG IVPB (18:38)
[2023-02-03] MEDS: CIPROFLOXACIN 500 MG TAB PO (19:01)
[2023-02-03 19:39] VITALS: BP 114/72; PULSE 63; RESP 14; O2SAT 100
== END 2023-02-03 19:41 | disposition home or self-care (01) ==
PROVIDERS: Emergency Provider Nurse Practitioner; PCP Internal Medicine
DX: K57.32 Diverticulitis of large intestine without perforation or abscess without bleeding (principal); K76.89 Other specified diseases of liver; Z86.16 Personal history of COVID-19
CPT/HCPCS: 36415; 74177; 80053; 81003; 81025; 83605; 83690; 85025; 96361; 96365; 96375; 99284; A9270; J1836; J1885; J2270; J2405; J7030; Q9967

== ENCOUNTER 2023-02-05 11:15 | Emergency (ER) | payer BC, SELFPAY ==
--- NOTE | ~2023-02-05 | CT_ITS ---
EXAMINATION: CT abdomen pelvis w con DATE: 02/05/2023 13:47 INDICATION: abdominal pain, fever TECHNIQUE: Computed tomography (CT) of the abdomen and pelvis was performed with 100 mL Omnipaque-350 intravenous contrast. Automated exposure control and iterative reconstruction technique were employe d. The dose-length product was 191.46 mGy-cm. COMPARISON: 02/03/2023. FINDINGS: Lower thorax: Unremarkable Liver: Normal. Biliary/Gallbladder: Gallbladder is normal. No bile duct dilation. Pancreas: No mass or duct dilation. Spleen: Normal. Adrenals:No mass. Kidneys: No suspicious mass, obstructing stone, or hydronephrosis. GI tract: Redemonstration of an inflamed diverticulum projecting off the posterior aspect of the asce nding colon, with persistent but slightly improved adjacent inflammatory stranding and fluid. No absc ess. No free air. No small or large bowel dilation. Normal appendix. Mesentery/Peritoneum: No ascites, mass, or free air. Retroperitoneum: No mass. Pelvis: Pelvic organs are within normal limits. Small volume free pelvic fluid, within physiologic ra nge, but increased in volume since the prior study. Soft Tissues: Soft tissues and body wall unremarkable. Bones: No acute osseous finding. IMPRESSION: Redemonstration of uncomplicated descending colonic diverticulitis, with persistent but slightly impr emmy adjacent inflammation and inflammatory fluid. No free air or abscess. Increasing, nonspecific small volume free pelvic fluid. Reviewed, dictated and finalized at location K. 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 No adelaida e air or abscess. Increasing, nonspecific small volume free pelvic fluid.
[2023-02-05 11:17] VITALS: BP 106/61; PULSE 103; RESP 18; TEMP 36.6; O2SAT 99
[2023-02-05 12:19] VITALS: BP 117/73; PULSE 113; RESP 18; O2SAT 99
--- NOTE | 2023-02-05 12:30 | ED.ABDPAIN ---
HPI - Abdominal Pain General Chief Complaint: Abdominal Pain Stated Complaint: diverticulitis flare up Time Seen by Provider: 02/05/23 12:22 History of Present Illness HPI narrative: Patient is a healthy 32-year-old female here with abdominal pain. She states that she had some right-sided abdominal pain for the last 4-5 days. She was here 2 days ago and diagnosed with acute diverticulitis. She was started on ciprofloxacin and Flagyl which she has been compliant with. She notes that since being discharged from this facility she has had some progressive worsening symptoms on that right side of her abdomen which seems to be extending higher upwards towards her diaphragm. She noted she has been running temperatures of 99 F at home, last night her temperature reached 100.5 F. she has not taken anything today for her fever. She has had some associated vomiting and nausea. She did take Zofran prior to presentation to the emergency department and her nausea seems to be okay at this time. No urinary symptoms. No vaginal bleeding or discharge. This is her 1st bout of diverticulitis. No prior upper or lower endoscopy. She does have a family history of recurrent diverticulitis in her father. No personal or family history of ulcerative colitis or Crohn's. Related Data Home Medications Medication Instructions Recorded Confirmed Control Pill 1 pill PO DAILY 01/24/23 01/24/23 Allergies Allergy/AdvReac Type Severity Reaction Status Date / Time No Known Allergies Allergy Verified 02/05/23 12:22 Review of Systems Review of Systems: All systems reviewed & are unremarkable except as noted in HPI and below PMFSH Past Medical History Medical History Bronchitis COVID-18 March 2021 Depression Surgical History Surgical History H/O dilation and curettage Family History Family History Father Hypertension Family history of elevated blood lipids Mother Patient's mother is in good health Sibling Patient's brother is in good health Social History Social History Smoking status: Never smoker Second hand tobacco smoke exposure: Yes Alcohol intake: never Substance use: unknown Lack of Transportation: No Lack of Food: Never True Current Housing: I Have Housing Concerned About Future Housing: No Difficulty Paying Gas/Electric Bills: No Difficulty Paying for Meds: No Currently Unemployed: No Education: High School Diploma/GED Difficulty w/ Childcare or Family Care: No Gender identity (if verbalized by the patient): Female Exam Narrative: GENERAL: Well-appearing, well-nourished, and in no acute distress. HEAD: Normocephalic, atraumatic. EYES: PERRLA and EOMI. ENT: Nares clear. Mucous membranes moist. NECK: Supple. CHEST: Clear to auscultation. No respiratory distress. HEART: Regular rate and rhythm. Normal peripheral pulses. ABDOMEN: Soft, Tender in the right lower and right upper quadrant. No rebound or guarding. No CVA tenderness. EXTREMITIES: Normal range of motion. No edema. SKIN: Warm, dry, no rash. NEURO: No focal deficits. Alert and oriented x3. PSYCH: Normal mood and affect. Course Course Emergency Course: Chart review performed. Patient here with abdominal pain, fever and vomiting. Triage vitals show tachycardia, afebrile. She was seen in this ED on 02/03/[address] showed acute diverticulitis. She was discharged on cipro/flagyl with PCP follow up. Bedside test today was negative. Patient seen evaluated, nontoxic appearing. She is tachycardic and has been having a fever at home despite being compliant with her antibiotics. She did take a dose of her antibiotics earlier today as well as some Zofran
[2023-02-05 12:33] LABS: Basophils Percent Auto 0.2 % (0.2-1.2); Eosinophils Percent Auto 0.1 % (0-4.4); Hematocrit 38.4 % (37.0-47.0); Hemoglobin 12.5 g/dL (12.0-15.0); Immature Granulocyte Absolute 0.04 K/mm3 (0.00-0.031); Immature Granulocyte Percent A 0.4 % (0-0.5); Lymphocytes Absolute Auto 1.49 K/mm3 (0.9-3.2); Lymphocytes Percent Auto 13.7 % (18.3-44.2); Mean Corpuscular HGB Conc 32.6 g/dl (32-36); Mean Corpuscular Hemoglobin 31.6 pg (26-34); Mean Corpuscular Volume 97.2 fl (80-100); Mean Platelet Volume 10.1 fl (7.4-10.4); Monocytes Absolute Auto 0.7 K/mm3 (0.1-0.6); Neutrophils Absolute Auto 8.7 K/mm3 (1.3-6.7); Neutrophils Percent Auto 79.6 % (45.5-73.1); Platelet Count Result 204 k/mm3 (150-375); Red Blood Count 3.95 M/mm3 (4.2-5.4); Red Cell Distribution Width 12.3 % (11.5-14.5); White Blood Count 10.9 K/mm3 (4.5-10.0)
[2023-02-05 12:44] LABS: Alanine Aminotransferase 12 U/L (6-35); Alkaline Phosphatase 61 U/L (38-126); Anion Gap 11 mmol/L (8-16); Aspartate Amino Transferase 19 U/L (14-36); Bilirubin,Total 0.9 mg/dL (0.2-1.3); Blood Urea Nitrogen 8 mg/dL (7-17); Calcium 8.4 mg/dL (8.4-10.2); Carbon Dioxide 22 mmol/L (22-30); Chloride 104 mmol/L (98-107); Estimated Glomerular Filt Rate > 60; Glucose 71 mg/dL (65-110); Lipase 88 U/L (23-300); Potassium 3.5 mmol/L (3.4-5.0); Sodium 137 mmol/L (137-145)
[2023-02-05 12:53] LABS: Add Urine Microscopic? YES; Appearance Urine Clear (Clear); Bilirubin Urine 1+ (Negative); Blood Urine 1+ (Negative); Color Urine Dark Yellow (Yellow); Glucose Urine UA Negative (Negative); Ketones Urine 3+ mg/dL (Negative); Leukocyte Esterase Ur 1+ LEU/UL (Negative); Nitrate Urine Negative (Negative); Protein Urine 1+ mg/dL (Negative); Urobilinogen Urine 0.2 mg/dL (<2.0)
[2023-02-05] MEDS: SODIUM CHLORIDE 0.9% IV 1,000 ML 999 ML IV CONT (12:53)
[2023-02-05 12:55] LABS: Squamous Epithelial Cell Urine Moderate /hpf (Few); WBC Urine 0-3 /hpf
[2023-02-05 12:56] LABS: Bacteria Urine 1+ /hpf
[2023-02-05 13:18] LABS: Lactic Acid Reflex 0.7 mmol/L (0.7-2.0)
[2023-02-05 13:19] LABS: INR 1.2; Prothrombin Time 15.8 Seconds (11.1-14.7)
[2023-02-05 13:20] LABS: Partial Thromboplastin Time 31.8 SECONDS (22.3-36.8)
[2023-02-05 13:33] LABS: CRP 17.1 mg/dL (<1.0)
[2023-02-05 13:44] LABS: Influenza A QL RT-PCR Negative (Negative); Influenza B QL RT-PCR Negative (Negative); RSV RNA, RT-PCR Negative (Negative); SARS-CoV-2 RNA PCR Negative (Negative)
[2023-02-05 15:14] VITALS: BP 117/75; PULSE 89; RESP 15; O2SAT 99
== END 2023-02-05 15:15 | disposition home or self-care (01) ==
PROVIDERS: Emergency Provider Student in an Organized Health Care Education/Training Program; PCP Internal Medicine
DX: K57.32 Diverticulitis of large intestine without perforation or abscess without bleeding (principal); Z20.822 Contact with and (suspected) exposure to COVID-19; Z86.16 Personal history of COVID-19
CPT/HCPCS: 36415; 74177; 80053; 81001; 81025; 83605; 83690; 85025; 85610; 85730; 86140; 87637; 96360; 99284; J7030; Q9967

== ENCOUNTER 2023-05-02 07:25 | Emergency (ER) | payer BC, MEDICAID, SELFPAY ==
--- NOTE | ~2023-05-02 | CT_ITS ---
EXAMINATION: CT abdomen pelvis w con DATE: 05/02/2023 08:55 INDICATION: Right lower quadrant abdominal pain TECHNIQUE: Computed tomography (CT) of the abdomen and pelvis was performed with 100 mL Omnipaque-350 intravenous contrast. Automated exposure control and iterative reconstruction technique were employe d. The dose-length product was 191.55 mGy-cm. COMPARISON: 02/05/2023 FINDINGS: Lung bases are clear. Heart size is normal. No pericardial or pleural effusion. Focal hepatic steatos is at the ligamentum teres. There is an additional unchanged 8 mm low-attenuation likely cyst or vitor ngioma in the left hepatic lobe. Gallbladder, spleen, pancreas, bilateral adrenal glands and kidneys are normal. There are few scattered diverticula along the sigmoid colon without adjacent inflammatory stranding to suggest diverticulitis. Small bowel and appendix are normal. There is some haziness to the fat surrounding the bladder which is also suspicious for cystitis. Uterus and bilateral adnexa ar e unremarkable. Small amount of likely physiologic free fluid in the cul-de-sac. No abscess or free i ntraperitoneal gas.. No pathologically enlarged abdominal or pelvic lymphadenopathy. Bones are unrema rkable. IMPRESSION: 1. Mild haziness to the fat surrounding the bladder suspicious for cystitis. Correlate with urinalysi s. Reviewed, dictated and finalized at location A. 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 Mild haziness to the fat surrounding the bladder suspicious for cystitis. Co rrelate with urinalysis.
[2023-05-02 07:38] VITALS: BP 104/76; PULSE 83; RESP 19; TEMP 36.8; O2SAT 99
[2023-05-02 08:00] LABS: Basophils Percent Auto 0.3 % (0.2-1.2); Eosinophils Absolute Auto 0.1 K/mm3 (0-0.3); Eosinophils Percent Auto 0.6 % (0-4.4); Hematocrit 38.4 % (37.0-47.0); Hemoglobin 12.4 g/dL (12.0-15.0); Immature Granulocyte Absolute 0.03 K/mm3 (0.00-0.031); Immature Granulocyte Percent A 0.3 % (0-0.5); Lymphocytes Absolute Auto 1.61 K/mm3 (0.9-3.2); Lymphocytes Percent Auto 18.1 % (18.3-44.2); Mean Corpuscular HGB Conc 32.3 g/dl (32-36); Mean Corpuscular Hemoglobin 31.5 pg (26-34); Mean Corpuscular Volume 97.5 fl (80-100); Mean Platelet Volume 9.8 fl (7.4-10.4); Monocytes Absolute Auto 0.4 K/mm3 (0.1-0.6); Monocytes Percent Auto 4.3 % (2.6-8.5); Neutrophils Absolute Auto 6.8 K/mm3 (1.3-6.7); Neutrophils Percent Auto 76.4 % (45.5-73.1); Platelet Count Result 211 k/mm3 (150-375); Red Blood Count 3.94 M/mm3 (4.2-5.4); Red Cell Distribution Width 13.5 % (11.5-14.5); White Blood Count 8.9 K/mm3 (4.5-10.0)
[2023-05-02 08:04] LABS: Appearance Urine Turbid (Clear); Bacteria Urine None Seen /hpf; Bilirubin Urine 1+ (Negative); Blood Urine 3+ (Negative); Color Urine Dark Yellow (Yellow); Glucose Urine UA Negative (Negative); Ketones Urine Trace mg/dL (Negative); Leukocyte Esterase Ur 2+ LEU/UL (Negative); Nitrate Urine Negative (Negative); Non Pathogenic Casts 0-2; Protein Urine 3+ mg/dL (Negative); RBC Urine >100 /hpf (0-2); Specific Grav Ur 1.028 (1.001-1.035); Squamous Epithelial Cell Urine Few /hpf (Few); WBC Urine >100 /hpf
[2023-05-02 08:10] LABS: Add Urine Microscopic? YES
--- NOTE | 2023-05-02 08:11 | ED.ABDPAIN ---
HPI - Abdominal Pain General Chief Complaint: Abdominal Pain Stated Complaint: abdominal pain Time Seen by Provider: 05/02/23 07:39 History of Present Illness HPI narrative: Patient is a 32-year-old female who presents ER with right lower quadrant abdominal pain. Ongoing over last 2 days. This morning she developed dysuria and hematuria with it. Reports initially it felt similar to her diverticulitis that she has had in the past. No fevers or chills or sweats. No flank pain. No history of kidney stones. She is without constipation diarrhea. Related Data Home Medications Medication Instructions Recorded Confirmed Control Pill 1 pill PO DAILY 01/24/23 01/24/23 Allergies Allergy/AdvReac Type Severity Reaction Status Date / Time No Known Allergies Allergy Verified 05/02/23 07:43 Review of Systems Review of Systems: All systems reviewed & are unremarkable except as noted in HPI and below Constitutional: Constitutional: Denies chills, Denies fatigue and Denies fever(s) ENT: Reports system reviewed and no additional complaints, except as documented Cardiovascular: Cardiovascular: Reports no additional cardiovascular complaints Respiratory: Respiratory: Reports no additional respiratory complaints Gastrointestinal: Gastrointestinal: Reports abdominal pain, Denies constipation, Denies diarrhea, Denies nausea and Denies vomiting Genitourinary: Genitourinary: Reports hematuria, Reports dysuria and Denies flank pain PMFSH Past Medical History Medical History (Updated 05/02/23 @ 09:22 by Stew Senior MD) Bronchitis COVID-18 March 2021 Depression Diverticulitis large intestine w/o perforation or abscess w/o bleeding RLQ abdominal tenderness Surgical History Surgical History H/O dilation and curettage Family History Family History Father Hypertension Family history of elevated blood lipids Mother Patient's mother is in good health Sibling Patient's brother is in good health Social History Social History Smoking status: Never smoker Second hand tobacco smoke exposure: Yes Alcohol intake: never Substance use: unknown Lack of Transportation: No Lack of Food: Never True Current Housing: I Have Housing Concerned About Future Housing: No Difficulty Paying Gas/Electric Bills: No Difficulty Paying for Meds: No Currently Unemployed: No Education: High School Diploma/GED Difficulty w/ Childcare or Family Care: No Gender identity (if verbalized by the patient): Female Exam Narrative: GENERAL: Well-appearing, well-nourished, and in no acute distress. HEAD: Normocephalic, atraumatic. ENT: Mucous membranes moist. CHEST: Clear to auscultation. No respiratory distress. HEART: Regular rate and rhythm. Normal peripheral pulses. ABDOMEN: Soft, mild RLQ tenderness, nondistended, normal active bowel sounds. EXTREMITIES: Normal range of motion. No edema. NEURO: Alert and oriented x3. PSYCH: Normal mood and affect. Course Course Emergency Course: Patient resting comfortably. Informed of results. Discussed outpatient treatment with a cephalosporin and need for follow-up with PCP if symptoms are worsening. Patient verbalized understanding. Vital Signs Vital signs: Vital Signs Temperature 98.3 F 05/02/23 07:38 Pulse Rate 83 05/02/23 07:38 Respiratory Rate 19 05/02/23 07:38 Blood Pressure 104/76 05/02/23 07:38 Pulse Oximetry 99 05/02/23 07:38 Oxygen Delivery Room Air 05/02/23 07:38 Temperature 98.3 F 05/02/23 07:38 Pulse Rate 83 05/02/23 07:38 Respiratory Rate 19 05/02/23 07:38 Blood Pressure 104/76 05/02/23 07:38 Pulse Oximetry 99 05/02/23 07:38 Oxygen Delivery Room Air 05/02/23 07:38 MDM - Abdominal Pain Lab Data 05/02/23 07:52
[2023-05-02 08:14] LABS: Alanine Aminotransferase 16 U/L (6-35); Albumin Level 3.7 g/dL (3.5-5.1); Alkaline Phosphatase 54 U/L (38-126); Anion Gap 2 mmol/L (8-16); Aspartate Amino Transferase 22 U/L (14-36); Bilirubin,Total 0.8 mg/dL (0.2-1.3); Blood Urea Nitrogen 12 mg/dL (7-17); Calcium 8.2 mg/dL (8.4-10.2); Carbon Dioxide 26 mmol/L (22-30); Chloride 107 mmol/L (98-107); Estimated CRCL calculation 85 ml/min; Estimated Glomerular Filt Rate > 60; Glucose 104 mg/dL (65-110); Lipase 130 U/L (23-300); Potassium 3.6 mmol/L (3.4-5.0); Sodium 135 mmol/L (137-145)
[2023-05-02 09:00] VITALS: BP 98/73; PULSE 69; RESP 16; O2SAT 100
[2023-05-02 09:56] VITALS: BP 98/63; PULSE 76; RESP 18; TEMP 36.6; O2SAT 100
== END 2023-05-02 09:59 | disposition home or self-care (01) ==
PROVIDERS: Emergency Provider Emergency Medicine; PCP Internal Medicine
DX: N30.01 Acute cystitis with hematuria (principal); Z86.16 Personal history of COVID-19
CPT/HCPCS: 36415; 74177; 80053; 81001; 81025; 83690; 85025; 87077; 87086; 87088; 87186; 99284; Q9967

== ENCOUNTER 2023-05-05 01:01 | Day surgery (SDC) | payer BC, MEDICAID, SELFPAY ==
[2023-04-18 13:55] VITALS: BMI 20.8
--- NOTE | 2023-05-03 10:27 | SUR.PREOP ---
Patient called regarding upcoming procedure. Reviewed preop instructions, appointment times, and procedure prep.
[2023-05-05 12:20] VITALS: BP 104/66; PULSE 90; RESP 20; TEMP 36.7; O2SAT 100
--- NOTE | 2023-05-05 12:25 | WPDANESEPPF ---
Anes - Initial Pre Proc Eval Procedure: Operation Date: 05/05/23 13:30 Proposed Procedures p Colonoscopy - David Giron MD Date/Time: 05/05/23 12:25 Surgeon: David Giron MD Pre Op Diagnosis: Right Lower Quad abdom.tenderness, Diverticulitis Patient Data Age: 32 Gender: F Height: 1.55 m Weight: 48.9 kg Last Vital Signs Temp 98.1 F 05/05/23 12:20 Pulse 90 05/05/23 12:20 Resp 20 05/05/23 12:20 BP 104/66 05/05/23 12:20 Pulse Ox 100 05/05/23 12:20 O2 Del Method Room Air 05/05/23 12:20 Allergies Allergy/AdvReac Type Severity Reaction Status Date / Time No Known Allergies Allergy Verified 05/05/23 12:18 Home Medications Medication Instructions Recorded Confirmed Type Control Pill 1 pill PO DAILY 01/24/23 01/24/23 History cefuroxime axetil 500 mg tablet 500 mg PO BID #14 tabs 05/02/23 Rx phenazopyridine 200 mg tablet 200 mg PO TID 6 doses #6 tabs 05/02/23 Rx (Pyridium) Patient hx anesthesia problems: none Family hx anesthesia problems: none Results Review: All pre-operative results and documents have been reviewed as part of the pre-operative evaluation. [facility] Past Medical History Medical History (Updated 05/03/23 @ 00:00 by Renato Sharma) Bronchitis COVID-18 March 2021 Depression Diverticulitis large intestine w/o perforation or abscess w/o bleeding RLQ abdominal tenderness Surgical History Surgical History H/O dilation and curettage Family History Family History Father Hypertension Family history of elevated blood lipids Mother Patient's mother is in good health Sibling Patient's brother is in good health Social History Social History (Reviewed 01/24/23 @ 15:07 by Sugar Navas, [facility], ) Smoking status: Never smoker Second hand tobacco smoke exposure: Yes Alcohol intake: never Substance use: unknown Lack of Transportation: No Lack of Food: Never True Current Housing: I Have Housing Concerned About Future Housing: No Difficulty Paying Gas/Electric Bills: No Difficulty Paying for Meds: No Currently Unemployed: No Education: High School Diploma/GED Difficulty w/ Childcare or Family Care: No Gender identity (if verbalized by the patient): Female Anes - Evrichard Final PreProcedure Day of Procedure 05/05/23 12:25 Patient weight: normal Heart: regular rate and rhythm Lungs: clear to auscultation Airway: Mallampati scale class II Neurological: alert and oriented Last oral intake: >/= 8 hours ASA classification: II Emergent: no Anesthetic plan: proceed Anesthesia type and monitoring: general GIVS and standard monitoring Results Review: All pre-operative results and documents have been reviewed as part of the pre-operative evaluation. Informed Consent: The patient's anesthetic plan and its attendant risks and benefits were discussed with the patient/family/POA. Questions were solicited and answers provided to the satisfaction of the patient/family/POA.
[2023-05-05] MEDS: LACTATED RINGERS 1,000 ML 150 ML IV CONT (12:32)
--- NOTE | 2023-05-05 12:35 | PM.HPGS ---
History of Present Illness History of Present Illness Consent: Risks, benefits, and alternatives have been discussed and questions answered. Patient agrees to proceed with procedure. Chief complaint: Right Lower Quad abdom.tenderness, Diverticulitis Narrative: Ying Hmapton is a 32 year old female with h/o diverticulitis in ascending colon treated with abx, never had colonoscopy Review of Systems Constitutional: Constitutional: Denies headache(s) and Denies weakness Eyes: Eyes: Denies blurry vision ENT: Reports Normal hearing present, Denies headache(s) and Denies neck pain Cardiovascular: Cardiovascular: Denies chest pain and Denies dyspnea Respiratory: Respiratory: Denies dyspnea Gastrointestinal: Gastrointestinal: Reports no additional gastrointestinal complaints Genitourinary: Genitourinary: Denies dysuria Musculoskeletal: Musculoskeletal: Denies neck pain Integumentary/Breasts: Skin/Breast: Denies dry skin Neurologic: Reports Normal hearing present, Denies headache(s) and Denies weakness Psychiatric: Psychiatric: Denies anxiety Endocrine: Endocrine: Denies change in body appearance Hematologic/Lymphatic: Hematologic/Lymphatic: Denies easy bleeding Allergic/Immunologic: Allergic/Immunologic: Denies urticaria PMFSH Past Medical History Medical History (Updated 05/03/23 @ 00:00 by Renato Sharma) Bronchitis COVID-18 March 2021 Depression Diverticulitis large intestine w/o perforation or abscess w/o bleeding RLQ abdominal tenderness Surgical History Surgical History H/O dilation and curettage Family History Family History Father Hypertension Family history of elevated blood lipids Mother Patient's mother is in good health Sibling Patient's brother is in good health Social History Social History Smoking status: Never smoker Second hand tobacco smoke exposure: Yes Alcohol intake: never Substance use: unknown Lack of Transportation: No Lack of Food: Never True Current Housing: I Have Housing Concerned About Future Housing: No Difficulty Paying Gas/Electric Bills: No Difficulty Paying for Meds: No Currently Unemployed: No Education: High School Diploma/GED Difficulty w/ Childcare or Family Care: No Gender identity (if verbalized by the patient): Female Meds Home Medications and Allergies Home Medications Medication Instructions Recorded Confirmed Type Control Pill 1 pill PO DAILY 01/24/23 01/24/23 History cefuroxime axetil 500 mg tablet 500 mg PO BID #14 tabs 05/02/23 Rx phenazopyridine 200 mg tablet 200 mg PO TID 6 doses #6 tabs 05/02/23 Rx (Pyridium) Allergies Allergy/AdvReac Type Severity Reaction Status Date / Time No Known Allergies Allergy Verified 05/05/23 12:18 Vital Signs Vital Signs - 24 hr 05/05/23 12:20 Temperature 98.1 F Pulse Rate 90 Respiratory Rate 20 Blood Pressure 104/66 Pulse Oximetry 100 Oxygen Delivery Room Air Exam Const: General: comfortable and no acute distress HENMT: Face/Nose/Sinus: Normal nares present Eyes: General: appearance normal, both eyes and all related structures Neck: Neck: no JVD Resp: Auscultation: clear to auscultation bilaterally Cardio: Rate: regular rate Rhythm: regular rhythm GI: Inspection: non-distended GI Palp: Yes Soft to palpation Skin: General skin exam: normal color Neuro: General: gait normal Speech: normal speech Extrem: General: normal to inspection Psych: Mental Status: mental status grossly normal Assessment and Plan Assessment and plan (1) Diverticulitis large intestine w/o perforation or abscess w/o bleeding: Code(s): K57.32 - Diverticulitis of large intestine without perforation or abscess without bleeding Status: Acute Assessment
[2023-05-05 12:52] VITALS: BP 86/58; PULSE 86; RESP 22; O2SAT 100
[2023-05-05 13:02] VITALS: BP 103/71; PULSE 78; RESP 20; O2SAT 100
[2023-05-05 13:12] VITALS: BP 102/49; PULSE 89; RESP 23; O2SAT 100
== END 2023-05-05 13:23 | disposition home or self-care (01) ==
PROVIDERS: PCP Internal Medicine; Visit Provider Internal Medicine Gastroenterology
PROC: 0DJD8ZZ Inspection of Lower Intestinal Tract, Via Natural or Artificial Opening Endoscopic (ICD-10-PCS; CPT 45378; principal; 2023-05-05 13:30)
DX: K57.30 Diverticulosis of large intestine without perforation or abscess without bleeding (principal); Z87.19 Personal history of other diseases of the digestive system
CPT/HCPCS: 45378; J2001; J2704; J7120

== ENCOUNTER 2023-05-19 13:29 | Outpatient (CLI) | payer BC, MEDICAID, SELFPAY ==
[2023-05-19 14:06] LABS: Hemoglobin 13.1 g/dL (12.0-15.0); Mean Corpuscular Hemoglobin 31.2 pg (26-34); Mean Corpuscular Volume 97.6 fl (80-100); Mean Platelet Volume 10.2 fl (7.4-10.4); Platelet Count Result 256 k/mm3 (150-375); Red Cell Distribution Width 13.2 % (11.5-14.5); White Blood Count 7.8 K/mm3 (4.5-10.0)
[2023-05-19 14:19] LABS: Appearance Urine Clear (Clear); Bacteria Urine None Seen /hpf; Bilirubin Urine Negative (Negative); Blood Urine Trace (Negative); Color Urine Yellow (Yellow); Glucose Urine UA Negative (Negative); Ketones Urine Negative (Negative); Leukocyte Esterase Ur 1+ LEU/UL (Negative); Nitrate Urine Negative (Negative); Non Pathogenic Casts 0-2; Protein Urine Negative (Negative); RBC Urine 0-2 /hpf (0-2); Squamous Epithelial Cell Urine Moderate /hpf (Few); Urobilinogen Urine 0.2 mg/dL (<2.0); pH Urine 5.5 (5.0-9.0)
[2023-05-19 14:23] LABS: Add Urine Microscopic? YES
== END 2023-05-19 13:30 | disposition home or self-care (01) ==
LOC: ANHLAB 13:30
PROVIDERS: PCP Internal Medicine; Visit Provider Nurse Practitioner
DX: K57.32 Diverticulitis of large intestine without perforation or abscess without bleeding (principal)
CPT/HCPCS: 36415; 85027; 87086

== ENCOUNTER 2023-07-06 08:33 | Outpatient (CLI) | payer BC, SELFPAY ==
--- NOTE | ~2023-07-06 | CT_ITS ---
EXAMINATION: CT abdomen pelvis w con DATE: 07/06/2023 09:11 INDICATION: Right lower quadrant abdominal pain. TECHNIQUE: Computed tomography (CT) of the abdomen and pelvis was performed with 100 mL Omnipaque 350 intravenous contrast. Automated exposure control and iterative reconstruction technique were employe d. The dose-length product was 196.23 mGy-cm. COMPARISON: CT abdomen and pelvis 05/02/2023 FINDINGS: The visualized portions of the lung bases are clear without pneumonia or pleural effusion. The heart size is normal. No pericardial effusion. There is a 6 mm cyst in the liver. The gallbladder , spleen, pancreas, adrenal glands, and kidneys are normal. There are no dilated loops of bowel. The appendix is normal. There is a 1.7 cm degenerating corpus luteum cyst in right ovary. There is physio logic fluid in the pelvis. There are no pathologically enlarged lymph nodes. The bones are unremarkab le. IMPRESSION: 1. No specific etiology for the patient's symptoms. Reviewed, dictated and finalized at location A.
== END 2023-07-06 08:34 | disposition home or self-care (01) ==
LOC: ANHIMG 08:35
PROVIDERS: PCP Internal Medicine; Visit Provider Nurse Practitioner
DX: R10.31 Right lower quadrant pain (principal); Z87.19 Personal history of other diseases of the digestive system
CPT/HCPCS: 74177; Q9967

== ENCOUNTER 2023-08-16 10:26 | Emergency (ER) | payer BC, SELFPAY ==
--- NOTE | 2023-08-16 10:31 | ED.URI ---
HPI - URI/Sore Throat General Chief Complaint: Ear Stated Complaint: rt ear pain Time Seen by Provider: 08/16/23 10:34 Source: patient, RN notes reviewed and old records reviewed Mode of arrival: ambulatory Limitations: no limitations History of Present Illness HPI Narrative: 32-year-old female presents to the [facility] with complaints of right ear pain for 3 days. Has had sinus congestion and pressure for a month. Has been taking allergy medication. Also states that she has tried taking some Sudafed. Denies any fevers. Pressure a crust maxillary and frontal sinuses. Denies chest pain or shortness of breath. Treatments prior to arrival: cold medicine Related Data Allergies Allergy/AdvReac Type Severity Reaction Status Date / Time No Known Allergies Allergy Verified 08/16/23 10:32 Review of Systems Review of Systems: All systems reviewed & are unremarkable except as noted in HPI and below Constitutional: Constitutional: Reports no additional constitutional complaints Eyes: Eyes: Reports no additional eye complaints ENT: Reports as per HPI, Reports otalgia, Reports nasal congestion, Reports sinus pressure and Denies sore throat Cardiovascular: Cardiovascular: Reports no additional cardiovascular complaints, Denies chest pain and Denies dyspnea Respiratory: Respiratory: Reports no additional respiratory complaints, Denies chest congestion, Denies cough and Denies dyspnea Gastrointestinal: Gastrointestinal: Reports no additional gastrointestinal complaints, Denies abdominal pain, Denies nausea and Denies vomiting Musculoskeletal: Musculoskeletal: Reports no additional musculoskeletal complaints Integumentary/Breasts: Skin/Breast: Reports system reviewed and no additional complaints, except as docu Neurologic: Reports system reviewed and no additional complaints, except as documented Psychiatric: Psychiatric: Reports no additional psychiatric complaints Allergic/Immunologic: Allergic/Immunologic: Reports no additional allergic/immunologic complaints [facility] Past Medical History Medical History Bronchitis COVID-18 March 2021 Depression Diverticulitis large intestine w/o perforation or abscess w/o bleeding RLQ abdominal pain RLQ abdominal tenderness Surgical History Surgical History H/O dilation and curettage Family History Family History Father Hypertension Family history of elevated blood lipids Mother Patient's mother is in good health Sibling Patient's brother is in good health Social History Social History Smoking status: Never smoker Second hand tobacco smoke exposure: Yes Alcohol intake: never Substance use: unknown Lack of Transportation: No Lack of Food: Never True Current Housing: I Have Housing Concerned About Future Housing: No Difficulty Paying Gas/Electric Bills: No Difficulty Paying for Meds: No Currently Unemployed: No Education: High School Diploma/GED Difficulty w/ Childcare or Family Care: No Gender identity (if verbalized by the patient): Female Comments At the time of my signature, I reviewed and agree with the nursing past medical, surgical, social, and family history. There is no relevant family history pertinent to the patient complaint. Exam Const: General: cooperative, healthy appearing, comfortable, no acute distress, well developed, alert and well nourished Nutritional Appearance: well nourished Orientation/consciousness: patient oriented x3 Limitations: no limitations HENMT: Head: normal to inspection Ears: hearing grossly normal bilaterally, external ears normal, EAC's normal, mastoids normal, no periauricular adenopathy and TM abnormal erythematous on the right (mild pink ) and with fluid behind the TM bilateral; with
[2023-08-16 10:37] VITALS: BP 95/64; PULSE 70; RESP 18; TEMP 36.7; O2SAT 100
== END 2023-08-16 10:46 | disposition home or self-care (01) ==
PROVIDERS: Emergency Provider Nurse Practitioner; PCP Internal Medicine
DX: J01.40 Acute pansinusitis, unspecified (principal); H65.03 Acute serous otitis media, bilateral; Z86.16 Personal history of COVID-19
CPT/HCPCS: 99213; G0463

== ENCOUNTER 2024-02-15 08:15 | Observation (INO) | payer BC, SELFPAY ==
[2024-02-15] VITALS (7 sets, daily range): BP systolic 91–102; BP diastolic 45–61; PULSE 92–103; TEMP 36.6
--- NOTE | 2024-02-15 08:47 | P.HP_ITS ---
H&P: HPI History of Present Illness Date/Time: 02/15/24 08:47 Chief Complaint: Contractions Narrative: 33 y/o at 25 weeks with placenta previa. Everyone at home has diarrhea and nausea/vomiting. She had diarrhea all night and had two episodes of emesis. Has had irregular contractions. Has had some brown discharge, but no overt bleeding. No fever. Was hospitalized for bleeding, contractions at [facility], received steroids there. She is followed by [facility] Past Medical History Medical History RLQ abdominal pain RLQ abdominal tenderness Diverticulitis large intestine w/o perforation or abscess w/o bleeding Depression Bronchitis COVID-18 March 2021 Surgical History Surgical History H/O dilation and curettage Family History Family History Father Hypertension Family history of elevated blood lipids Mother Patient's mother is in good health Sibling Patient's brother is in good health Social History Social History Smoking status: Never smoker Second hand tobacco smoke exposure: Yes Alcohol intake: never Substance use: unknown Lack of Transportation: No Lack of Food: Never True Current Housing: I Have Housing Concerned About Future Housing: No Difficulty Paying Gas/Electric Bills: No Difficulty Paying for Meds: No Currently Unemployed: No Education: High School Diploma/GED Difficulty w/ Childcare or Family Care: No Gender identity (if verbalized by the patient): Female Meds Home Medications and Allergies Allergies Allergy/AdvReac Type Severity Reaction Status Date / Time No Known Allergies Allergy Verified 11/11/23 07:44 Vital Signs Vital Signs - 24 hr 02/15/24 08:01 02/15/24 08:15 02/15/24 08:30 Pulse Rate 97 103 H 93 Blood Pressure 101/59 L 102/61 91/51 L Exam GI: Other: Soft, gravid. NST good variability. TOCO: irregular contractions : Other: Cervix not examined Extrem: Other: Nontender, no edema Assessment and Plan Assessment and plan (1) Diarrhea: Code(s): R19.7 - Diarrhea, unspecified Status: Acute Assessment and Plan: A: IUP at 25 weeks with previa, now with viral gastroenteritis and likely dehydration, irregular contractions, no bleeding. P: IV hydration, Zofran. Watch closely. (2) Nausea and vomiting during : Code(s): O21.9 - Vomiting of , unspecified Status: Acute (3) Placenta previa: Code(s): O44.00 - Complete placenta previa NOS or without hemorrhage, unspecified trimester Status: Acute
[2024-02-15] MEDS: DEXTROSE 5%/0.45% SOD CHL 1,000 ML 250 ML IV CONT (08:48)
[2024-02-15] MEDS: ONDANSETRON INJ 4 MG/2 ML VIAL IV PUSH (08:54)
[2024-02-15 08:57] LABS: Add Urine Microscopic? YES; Appearance Urine Turbid (Clear); Bacteria Urine 3+ /hpf; Bilirubin Urine Negative (Negative); Blood Urine 3+ (Negative); Color Urine Yellow (Yellow); Glucose Urine UA Negative (Negative); Ketones Urine Negative (Negative); Leukocyte Esterase Ur 1+ LEU/UL (Negative); Nitrate Urine Negative (Negative); Non Pathogenic Casts 0-2; Protein Urine Trace mg/dL (Negative); RBC Urine 0-2 /hpf (0-2); Specific Grav Ur 1.022 (1.001-1.035); Squamous Epithelial Cell Urine Many /hpf (Few); Urobilinogen Urine 0.2 mg/dL (<2.0); pH Urine 5.5 (5.0-9.0)
[2024-02-15] MEDS: NIFEdipine 10 MG CAPSULE PO ×2 (10:28→11:33)
--- NOTE | 2024-02-15 13:39 | OBADM ---
This patient, Ying Hampton, admitted to the OB room OB Post 116 for observation. Patient/family oriented to hospital policies and general routines including ID bracelet, bed and alarms, visiting hours, pain management, procedures, bathroom and other care routines, personal items, smoking policy, room service/diet, and visiting hours. Patient/Family are encouraged to report perceived risks to care and to ask questions if they do not understand what they are told or what they should do.
== END 2024-02-15 13:25 | disposition home or self-care (01) ==
LOC: ANHOBPP 02-16 07:49
PROVIDERS: Admitting Provider Obstetrics & Gynecology; PCP Internal Medicine; Visit Provider Obstetrics & Gynecology
DX: O47.02 False labor before 37 completed weeks of gestation, second trimester (principal); O99.612 Diseases of the digestive system complicating pregnancy, second trimester; A08.4 Viral intestinal infection, unspecified; O44.02 Complete placenta previa NOS or without hemorrhage, second trimester; Z3A.25 25 weeks gestation of pregnancy; Z86.16 Personal history of COVID-19
CPT/HCPCS: 81001; 87086; 96361; 96374; A9270; G0378; G0379; J2405

== ENCOUNTER 2024-04-25 00:15 | Inpatient (IN) | payer BC, MEDICAID, SELFPAY ==
[2024-04-25] VITALS (68 sets, daily range): BP systolic 94–125; BP diastolic 61–85; PULSE 75–151; RESP 16–20; TEMP 36.1–37.2; O2SAT 93–100; BMI 24.2; BMI 25.0
--- NOTE | ~2024-04-25 | XR_ITS ---
Supine view of the abdomen Clinical history: Status post emergency section, instrument count Findings: Bowel gas pattern is nonspecific. No evidence for obstruction or free air. No abnormal mass lesion or calcification is seen. Osseous structures are intact. Impression: No radiopaque foreign body. No significant abnormality seen. Reviewed, dictated and finalized at [facility]. D MECHANIC/SITE LEAD Impression: No radiopaque foreign body. No significant abnormality seen.
--- OUTSIDE RECORDS SUMMARY | 2024-04-25 00:22 | XMS_ITS | Clinical Summary ---
Author Organization [employer] Address [address] [place] [address] Care Team Providers Care Fine Wire Drawer Name Role Phone Severino Wooten DO Primary Care Provider [phone] Source Comments [employer],non-owned Affiliates and Associated Physician Practices is amultiple site organization consisting of ambulatory clinics and hospital sitesin [place], [place], [place] and [place]. This disclosure is being madepursuant to the Care Everywhere program and may not contain all information available regarding this patient. Last updated 17.[employer] Allergies No known active allergies Medications * Be aware that medications may not be up to date on this document. Alwaysverify current medications with the patient. Medication Sig Dispensed Refills Start Date End Date Status Vit-Fe Fumarate-FA ( vitamin) 28-0.8 MG tabletIndication s: Take 1 (one) tablet by mouth once daily Reasons: Active NIFEdipine (Procardia) 10 MG capsuleIndicatio ns:Premature Labor Take 1 (one) capsule by mouth every 6 hours Reasons: Early Labor 180 capsule 2 02/20/2024 Active ferrous sulfate 325 (65 FE) MG tablet Take 1 (one) tablet by mouth once daily Active valACYclovir (Valtrex) 500 MG tablet Take 1 (one) tablet by mouth 2 times daily 60 tablet 1 04/19/2024 Active valACYclovir (Valtrex) 500 MG tablet Take 1 (one) tablet by mouth once daily 30 tablet 04/03/2024 5 Discontinued (Dose Adjustment) metroNIDAZOLE (Flagyl) 500 MG tablet Take 1 (one) tablet by mouth 2 times daily for 7 days 14 tablet 04/11/2024 5 valACYclovir (Valtrex) 500 MG tablet Take 1 (one) tablet by mouth 2 times daily 60 tablet 1 04/11/2024 5 Discontinued (Reorder) Active Problems Problem Noted Date Diagnosed Date Request for sterilization 04/18/2024 Overview (04/18/2024): Request denied by Ethics committee Abdominal cramping affecting History of precipitous labor and delivery 2024 Funic presentation 04/03/2024 Iron deficiency anemia during 03/22/19 25 Supervision of high risk , antepartum 1 04/22/2023 History of premature rupture of membranes in previous , currently in third trimester 02/20/2024 Anemia affecting in third trimester Multigravida of advanced maternal age in third t rimester 02/20/2024 History of herpes labialis 02/20/2024 Overview (04/18/2024): Denies genital outbreaks, has Rx if has oral outbreak History of abnormal cervical Pap smear 4 Overview (04/18/2024): 08/2023: LSIL HPV neg; plan repeat pap smear in a year Placenta previa antepartum 02/09/2024 Overview (04/18/2024): Admitted in early January for vaginal bleeding and contractions. S/p ANCS 01/30- History of delivery, currently Estimated Date of Delivery Comme nts Yes 05/27/2024 Based on last me nstrual period of 08/21/2023 Resolved Problems Problem Noted Date Diagnosed Date Resolved Date History of PROM in p revious , currently 03/20/2024 04/03/2024 Vaginal bleeding in 01/31/2024 02/20/2024 Pre-op testing 01/04/2020 02/20/2024 care following vaginal delivery 04/22/2018 02/20/2024 premature rupture of membranes in third trimester 04/12/2018 04/18/2018 Lymphatic malformation 10/26/201702/19 Encounters Date Type Department Care Team Description 04/25/2024 10:40 AM DIRECT CARE STAFFER Hospital Encounter [facility] [address] [place] [address] Adriana Redman APRN-CNP 04/24/2024 9:40 AM DIRECT CARE STAFFER visit [facility] [address] [place] [address] Steffanie Arnold MD GA: 35w2d 04/24/2024 8:23 AM DIRECT CARE STAFFER Hospital Encounter [facility]/ [facility]UATION UNIT [address] [place] [address] Santos Ledezma DO 04/24/2024 8:15 AM DIRECT CARE STAFFER Hospital Encounter [facility] [address] [place] [address] Santos Ledezma DO SHUTTLE THREADER 04/24/2024 Travel 04/19/2024 Telephone [facility] [address] [place] [address] Adriana Redman APRN-CNP Coordination Of Care 04/17/2024 11:00 AM DIRECT CARE STAFFER Procedure visit [facility] [address] [place] [address] Presentation of cord, single or unspecified fetus (HCC) ; Placenta previa antepartum (HCC) 04/17/2024 9:40 AM DIRECT CARE STAFFER visit [facility] [address] [place] [address] Steffanie Arnold MD GA: 34w2d 04/17/2024 8:15 AM DIRECT CARE STAFFER - 04/17/2024 11:59 PM DIRECT CARE STAFFER Hospital Encounter [facility]/ [facility]ATION UNIT [address] [place] [address] Brian Ashton MD Discharge Disposition: Home or Self Care 04/17/2024 Telephone [facility] [address] [place] [phone] Steffanie Arnold MD Appointment 04/17/2024 Travel 04/16/2024 Telephone [facility] [address] [place] [phone] Steffanie Arnold MD Appointment 04/16/2024 Telephone [facility] [address] [place] [phone] Caro, Brianda Gutierrez MD Reschedule Appointment (SEEKING TO JAMES 04/17/24 US & OV TO APPT FOR TODAY 04/16/24 IF POSS. PLS CALL TO DISCUSS IT CAN BE DONE DUE LACK OF TENTERER.) 04/10/2024 5:04 AM DIRECT CARE STAFFER - 04/11/2024 3:36 PM DIRECT CARE STAFFER Hospital Encounter [facility] 5E ANTEPARTUM/MOTHER BABY [address] [place] [address] Santos Ledezma DO Obstetrics Discharge Disposition: Home or Self Care 04/04/2024 10:50 AM DIRECT CARE STAFFER - 04/04/2024 11:59 PM DIRECT CARE STAFFER Hospital Encounter [facility] [address] [place] [address] Adriana Redman APRN-CNP Discharge Disposition: Home or Self Care 04/04/2024 Travel 04/03/2024 10:40 AM DIRECT CARE STAFFER visit [facility] [address] [place] [address] Adriana Redman APRN-CNP GA: 32w2d 04/03/2024 9:45 AM DIRECT CARE STAFFER - 04/03/2024 11:59 PM DIRECT CARE STAFFER Hospital Encounter [facility]ER[facility]/ EVALUATION UNIT [address] [place] [address] Santos Ledezma DO SHUTTLE THREADER Discharge Disposition: Home or Self Care 04/03/2024 Travel 03/28/2024 10:40 AM DIRECT CARE STAFFER - 03/28/2024 11:59 PM DIRECT CARE STAFFER Hospital Encounter [facility] [address] [place] [address] Adriana Redman APRN-CNP Discharge Disposition: Home or Self Care 03/28/2024 Travel 03/21/2024 10:40 AM DIRECT CARE STAFFER - 03/21/2024 11:59 PM DIRECT CARE STAFFER Hospital Encounter [facility] [address] [place] [address] Adriana Redman APRN-CNP Discharge Disposition: Home or Self Care 03/21/2024 Telephone [facility] [address] [place] [address] Steffanie Arnold MD Pain Back; Side Effect 03/21/2024 [facility] [address], [address] [place] [address] Adriana Redman APRN-CNP Supervision of high-risk of elderly multigravida (>= 35 years old at time of delivery) ([facility]) 03/20/2024 10:40 AM DIRECT CARE STAFFER visit [facility] [address] [place] [address] Steffanie Arnold MD GA: 30w2d 03/20/2024 Travel 03/07/2024 11:00 AM DIRECT CARE STAFFER visit [facility] [address] [place] [address] Ave [address] [place] [address] GA: 28w3d 03/07/2024 10:15 AM DIRECT CARE STAFFER Procedure visit [facility] [address] [place] [address] Ave [address] [place] [address] Encounter for follow-up ultrasound of anatomy ([facility]) ; Supervision of high-risk of elderly multigravida (>= 35 years old at time of delivery) ([facility]); Placenta previa in second trimester ([facility]); History of premature rupture of membranes in previous , currently in second trimester ([facility]); History of delivery, currently (HCC); Vaginal bleeding in (HCC); Placenta previa in third trimester (HCC) 03/07/2024 Orders Only [facility] [address] [place] [address] Adriana Redman APRN-CNP 03/07/2024 Travel 02/21/2024 Telephone [facility] [address] [place] [address] Adriana Redman APRN-KAUSHAL Coordination Of Care 02/20/2024 11:00 AM DIRECT CARE STAFFER visit [facility] [address] [place] [address] Adriana Redman APRN-KAUSHAL GA: 26w1d 02/20/2024 Travel 02/15/2024 Telephone [facility] [address] [place] [address] Angel Carroll MD Reschedule Appointment 02/15/2024 Telephone [facility] [address] [place] [phone] Steffanie Arnold MD Question 02/09/2024 1:40 PM DIRECT CARE STAFFER visit [facility] [address] [place] [address] GA: 24w4d 02/09/2024 Travel 02/06/2024 Telephone [facility]/ [facility]ATION UNIT [address] [place] [address] Talya Mayo RN Hospital Follow-up 02/06/2024 Telephone [facility] [address] [place] [address] Brian Ashton MD Coordination Of Care 02/01/2024 Telephone [facility]/ [facility]ATION UNIT [address] [place] [address] Talya Mayo RN Hospitalization 01/31/2024 5:13 PM DIRECT CARE STAFFER - 02/05/2024 1:15 PM DIRECT CARE STAFFER Hospital Encounter [facility] 5E ANTEPARTUM/MOTHER BABY [address] [place] [address] Annie Rodriguez MD SHUTTLE THREADER Discharge Disposition: Home or Self Care 01/31/2024 Travel from Last 3 Months Immunizations Name Administration Dates Next Due Covid Moderna primary monova lent 12+ yr 0.5mL 05/17/2020,04/19/2020 DT (AGE 0-7) 09/22/1993, 0,04/04/1989, 989,1988 HEP B VACCINE, PED/ADOL 07/14/1998,02/12/1998, HIB VACCINE 10/23/1991 INFLUENZA VACCINE, QUADR. (F LUZONE; FLULAVAL; FLUARIX; AFLURIA QUADRIVALENT; 6MO+), 0.5 ML (IIV4) 04/14/2018 INFLUENZA VACCINE, TRIV. (FL UZONE; FLULAVAL; FLUARIX; AFLURIA TRIVALENT; 6MO+), 0.5 ML (IIV3) 11/25/2023 MMR VACCINE 09/22/1993,11/21/1989 POLIO OPV 09/22/1993, 0,04/04/1989, 989,1988 RSV ABRYSVO PREG OR 60y+ 0.5mL 04/17/2024 TDAP (7yrs+) 03/20/2024,04/15/2018 Family History Medical History Relation Name Comments Hypertension Father Relation Name Status Comments Father Alive Mother Alive Social History Tobacco Use Types Packs/Day Years Used Date Smoking Tobacco: Never Smokeless Tobacco: Never Tobacco Cessation:Counseling Given: Not Answered Alcohol Use Standard Drinks/Week Comments No 0 (1 standard drink = 0.6 oz pur e alcohol) Overall Financial Resource Strain (CARDIA) Answe r Date Recorded How hard is it for you to pa y for the very basics like food, housing, medical care, and heating? Not hard at all 04/10/2024 PHQ-2 Answer Date Recorded Patient Health Questionnaire-2 Score 0 03/28/2024 [facility] Occup[facility] ional [facility] - Occupational Stress Questionnaire Answer Date Recorded Do you feel stress - tense, restless, nervous, or anxious, or unable to sleep at night because your mind is troubled all the time - these days? Not at all 04/10/2024 Hunger Vital Sign Answer Date Recorded Within the past 12 months, y ou worried that your food would run out before you got the money to buy more. Never true 04/10/19 25 Within the past 12 months, t he food you bought just didn't last and you didn't have money to get more. Never true 04/10/2024 PRAPARE - Transportation Answer Date Re corded In the past 12 months, has l ack of transportation kept you from medical appointments or from getting medications? No 03/31 In the past 12 months, has l ack of transportation kept you from meetings, work, or from getting things needed for daily living? No 04/10/2024 Housing Stability Vital Sign Answer Francesco e Recorded In the last 12 months, was t here a time when you were not able to pay the mortgage or rent on time? No 04/10/2024 In the past 12 months, how m any times have you moved where you were living? 0 04/10/2024 At any time in the past 12 m [facility], were you homeless or living in a longterm (including now)? No 04/10/2024 Education Answer Date Recorded What is the highest level of school you have completed or the highest degree you have received? Some college, no degree 02/09/2024 Estimated Date of Delivery Comme nts Yes 05/27/2024 Based on last me nstrual period of 08/21/2023 Sex and Gender Information Value Date Recorded Sex Assigned at Not on file Gender Identity Not on file Sexual Orientation Not on file Last Filed Vital Signs Vital Sign Reading Time Taken Comments Blood Pressure 102/64 04/24/2024 10:21 AM DIRECT CARE STAFFER Pulse 80 04/04/2024 11:51 AM DIRECT CARE STAFFER Temperature 36.8 C (98.3 F) 04/11/2024 12:17 PM DIRECT CARE STAFFER Respiratory Rate 17 04/11/2024 12:17 PM DIRECT CARE STAFFER Oxygen Saturation 98% 04/11/2024 12:17 PM DIRECT CARE STAFFER Inhaled Oxygen Concentration - - Weight 59 kg (130 lb) 04/24/2024 10:21 AM DIRECT CARE STAFFER Height 154.9 cm (5' 1) 04/24/2024 10:21 AM DIRECT CARE STAFFER Body Mass Index 24.56 04/24/2024 10:21 AM DIRECT CARE STAFFER Plan of Treatment Upcoming Encounters Date Type Department Care Team (Late st Contact Info) Description 04/25/2024 10:40 AM DIRECT CARE STAFFER Hospital Encounter [facility] [address] [place] [address] Adriana Redman, SHELL MAKER LOCKSTITCH-YOUTH CAREER SPECIALIST [address] [place] [phone] 05/01/2024 10:15 AM DIRECT CARE STAFFER Procedure visit [facility] [address] [place], [place] [address] [address] [place] [phone] 05/01/2024 11:00 AM DIRECT CARE STAFFER visit [facility] [address] [place] [address] 05/01/2024 11:00 AM DIRECT CARE STAFFER Procedure visit [facility] [address] [place] [address] [place] [phone] 05/27/2024 Hospital Encounter [facility] 5 LDR [address] [place] [address] Obstetrics Health Maintenance Due Date Last Done Comments PAP SMEAR 1988 COVID-19 VACCINE ( season) 2023 05/17/2020, 04/19/2020 DTAP/TDAP/TD VACCINES (8 - Td or Tdap) 03/20/2034 03/20/2024, 04/15/2018, 09/22/1993, Additional history exists ZOSTER VACCINE (1 of 2) 2038 HIB VACCINE Completed 10/23/1991 HEPATITIS B VACCINE Completed 07/14/1998, 02/12/1998, 01/13/1998 INFLUENZA VACCINE Completed 11/25/2023, 04/14/2018 HIV SCREENING Completed 02/20/2024 OB-ONE HOUR GLUCOSE Completed 02/20/2024 OB-TDAP CURRENT Completed 03/20/2024, DEPRESSION SCREENING Completed 03/21/2024, 02/09/20 HEPATITIS C SCREENING Completed 03/21/2024 OB-GROUP B STREP SCREEN Completed 04/10/2024, 04/12 Respiratory Syncytial Virus (RSV) Vaccine Pt: or over 60 yrs Completed 04/17/2024 HPV VACCINE Aged Out No longer eligi ble based on patient's age to complete this topic MENINGOCOCCAL (Group B) VACCINE Aged Out No longer eligible based on patient's age to complete this topic MENINGOCOCCAL VACCINE Aged Out No amado zhou eligible based on patient's age to complete this topic PNEUMOCOCCAL VACCINE Aged Out No long er eligible based on patient's age to complete this topic Procedures Procedure Name Priority Date/Time Associated Diagnosis Comments URINALYSIS - POINT OF CARE (AMB) [facility] Routine 04/24/2024 10:19 AM DIRECT CARE STAFFER Supervision of high risk , antepartum (HCC) BIOPHYSICAL PROFILE W NST Routine 04/24/2024 8:30 AM DIRECT CARE STAFFER URINALYSIS - POINT OF CARE (AMB) [facility] Routine 04/17/2024 10:35 AM DIRECT CARE STAFFER Supervision of high risk , antepartum (HCC) Placenta previa antepartum (HCC) SONOGRAM - TRANSVAGINAL Routine 04/17/2024 9:07 AM DIRECT CARE STAFFER IMAGING/RADIOLOGY/XRA Y RESULTS ORDER 04/12/2024 6:50 PM DIRECT CARE STAFFER TYPE + SCREEN PANEL STAT 04/10/2024 8 :55 AM DIRECT CARE STAFFER CBC W AUTO DIFFERENTIAL STAT 04/10/2024 8:55 AM DIRECT CARE STAFFER Abdominal cramping affecting (HCC) CULTURE STREP B Routine 04/10/2024 8:55 AM DIRECT CARE STAFFER Abdominal cramping affecting (HCC) SONOGRAM - LIMITED Routine 04/10/2024 8: 22 AM DIRECT CARE STAFFER URINALYSIS REFLEX MICROSCOPIC REFLEX CULTURE STAT 04/10/2024 6:33 AM DIRECT CARE STAFFER Abdominal cramping affecting (HCC) CULTURE URINE STAT 04/10/2024 6:33 AM DIRECT CARE STAFFER Abdominal cramping affecting (HCC) URINALYSIS AUTO - POINT OF CARE (AMB) [facility] Routine 04/03/2024 11:17 AM DIRECT CARE STAFFER Placenta previa antepartum ([facility]) SONOGRAM - COMPLETE Routine 04/03/2024 9 :56 AM DIRECT CARE STAFFER Encounter for ultrasound to assess growth ([facility]) Encounter for follow-up ultrasound of anatomy ([facility]) History of premature rupture of membranes (PROM) in previous , currently in third trimester ([facility]) Placenta previa antepartum ([facility]) Multigravida of advanced maternal age in third trimester ([facility]) HEPATITIS C ANTIBODY MONTY 03/21/2024 11:17 AM DIRECT CARE STAFFER Multigravida of advanced maternal age in second trimester ([facility]) CULTURE URINE Routine 03/20/2024 11:53 AM DIRECT CARE STAFFER History of delivery, currently ([facility]) Supervision of high-risk of elderly multigravida (>= 35 years old at time of delivery) ([facility]) Asymptomatic microscopic hematuria URINALYSIS AUTO - POINT OF CARE (AMB) [facility] Routine 03/20/2024 10:45 AM DIRECT CARE STAFFER History of delivery, currently ([facility]) Supervision of high-risk of elderly multigravida (>= 35 years old at time of delivery) ([facility]) URINALYSIS AUTO - POINT OF CARE (AMB) [facility] Routine 03/07/2024 10:30 AM DIRECT CARE STAFFER Placenta previa in third trimester ([facility]) SONOGRAM - COMPLETE Routine 03/07/2024 9 :36 AM DIRECT CARE STAFFER Supervision of high-risk of elderly multigravida (>= 35 years old at time of delivery) ([facility]) History of premature rupture of membranes in previous , currently in second trimester ([facility]) History of delivery, currently ([facility]) Vaginal bleeding in ([facility]) Encounter for follow-up ultrasound of anatomy ([facility]) Placenta previa in third trimester ([facility]) IRON + TIBC + FERRITIN Routine 02/20/2024 11:06 AM DIRECT CARE STAFFER Supervision of high-risk of elderly multigravida (>= 35 years old at time of delivery) ([facility]) HIV-1 HIV-2 ANTIBODY + HIV P24 AG PANEL Routine 02/20/2024 11:06 AM DIRECT CARE STAFFER Supervision of high-risk of elderly multigravida (>= 35 years old at time of delivery) ([facility]) TREPONEMA PALLIDUM POS REFLX RPR Routine 02/20/2024 11:06 AM DIRECT CARE STAFFER Supervision of high-risk of elderly multigravida (>= 35 years old at time of delivery) ([facility]) GTT 1 HR (50G) GESTATIONAL SCREEN Routine 02/20/2024 11:06 AM DIRECT CARE STAFFER Supervision of high-risk of elderly multigravida (>= 35 years old at time of delivery) ([facility]) CBC W AUTO DIFFERENTIAL Routine 02/20/2024 11:06 AM DIRECT CARE STAFFER Supervision of high-risk of elderly multigravida (>= 35 years old at time of delivery) ([facility]) URINALYSIS AUTO - POINT OF CARE (AMB) [facility] Routine 02/20/2024 11:00 AM DIRECT CARE STAFFER Supervision of high-risk of elderly multigravida (>= 35 years old at time of delivery) ([facility]) URINALYSIS AUTO - POINT OF CARE (AMB) [facility] Routine 02/09/2024 1:31 PM DIRECT CARE STAFFER Vaginal bleeding in ([facility]) IMAGING/RADIOLOGY/XRA Y RESULTS ORDER 02/06/2024 5:09 PM DIRECT CARE STAFFER TYPE + SCREEN PANEL Routine 02/03/2024 1 2:00 AM DIRECT CARE STAFFER CBC W/O DIFFERENTIAL Routine 02/03/2024 12:00 AM DIRECT CARE STAFFER PREPARE RBC LEUKOREDUCED UNIT Routine 02/02/2024 7:31 AM DIRECT CARE STAFFER NONSTRESS TEST Routine 02/01/2024 4:19 PM DIRECT CARE STAFFER SONOGRAM - LIMITED Routine 02/01/2024 8: 05 AM DIRECT CARE STAFFER COAGULATION PANEL W D-DIMER AM Draw 02/01/2024 3:44 AM DIRECT CARE STAFFER CBC W/O DIFFERENTIAL AM Draw 02/01/2024 3:44 AM DIRECT CARE STAFFER MAGNESIUM BLOOD Routine 01/31/2024 10:04 PM DIRECT CARE STAFFER COAGULATION PANEL W D-DIMER Timed 01/31/2024 10:04 PM DIRECT CARE STAFFER CBC W/O DIFFERENTIAL Timed 01/31/2024 10:04 PM DIRECT CARE STAFFER BLOOD TYPE VERIFICATION Routine 01/31/2024 6:37 PM DIRECT CARE STAFFER COMPREHENSIVE METABOLIC PANEL STAT 01/31/2024 6:37 PM DIRECT CARE STAFFER TRICHOMONAS VAGINALIS AMPLIFIED PROBE STAT 01/31/2024 6:20 PM DIRECT CARE STAFFER Vaginal bleeding in (HCC) CHLAMYDIA + GC AMPLIFIED PROBE STAT 01/31/2024 6:20 PM DIRECT CARE STAFFER Vaginal bleeding in (HCC) TYPE + SCREEN PANEL STAT 01/31/2024 5 :59 PM DIRECT CARE STAFFER COAGULATION PANEL W D-DIMER STAT 01/31/2024 5:59 PM DIRECT CARE STAFFER Vaginal bleeding in (HCC) CBC W AUTO DIFFERENTIAL STAT 01/31/2024 5:59 PM DIRECT CARE STAFFER Vaginal bleeding in (HCC) from Last 3 Months Results * URINALYSIS - POINT OF CARE (AMB) [facility] (04/24/2024 10:19 AM DIRECT CARE STAFFER) Only the most recent of2 resultswithin the time period is included. Specific [place] UA 1.[address] [facility] [address] pH UA 7.[address] [facility] [address] WBC UA n [facility] [address] Nitrite UA n [facility] [address] Protein UA tr [facility] [address] Glucose [facility]A n [facility] [address] Ketones UA POCT n [facility] [address] Urobilinogen UA n [facility] [address] Bilirubin UA POCT n [facility] [address] Blood Urine POCT n [facility] [address] Urine URINE / Unknown 04/24/2024 1 0:19 AM DIRECT CARE STAFFER Steffanie Arnold MD LAB - POINT OF CARE ORDERABLES [facility] [address] [place] [address], [facility] [phone] * BIOPHYSICAL PROFILE W NST (04/24/2024 8:30 AM DIRECT CARE STAFFER) Linked Results Indication ======== Low lying placenta Funic presentation Incomplete anatomy H/O Vaginal bleeding in 2nd trimester History ====== OB History 3. Para 2 Maternal Assessment = Physical Exam Height 155 cm, 5 ft 1 in. Weight 61 kg, 134 lb. Initial weight 58 kg, 127 lb. BMI 25.32 kg/m . Initial BMI 24.00 kg/m . Weight gain 3 kg, 7 lb Method ====== Transabdominal ultrasound examination. View: Sufficient ========= [place] . Number of fetuses: 1 Dating ====== Date Details Gest. age ERIKA LMP 08/21/2023 35 w + 2 d 05/27/2024 Stated ERIKA 35 w + 2 d 05/27/2024 Assigned dating based on the LMP, selected on 03/07/2024 35 w + 2 d 05/27/2024 General Evaluation Cardiac activity present. FHR 141 bpm. Presentation: cephalic Placenta: Placental site: right lateral. Placental [id number] os distance 12 mm Amniotic Fluid Assessment ===== Amount of AF: normal MVP 5.3 cm. ROSALINA 12.5 cm. Q1 3.4 cm, Q2 3.3 cm, Q3 5.3 cm, Q4 0.5 cm Biophysical Profile 2: breathing movements 2: Gross body movements 2: tone 2: Amniotic fluid volume NST: reactive 12/07 Biophysical profile score Non Stress Test NST interpretation: reactive. Test duration 22 min. Baseline FHR 150 bpm. Baseline variability: moderate. Accelerations: present. Decelerations: absent. Uterine activity: absent Growth Overview = Exam date GA BPD (mm) HC (mm) AC (mm) FL (mm) HL (mm) EFW (g) 03/07/2024 28w 3d 64.9 1% 250.8 3% 259.2 87% 50.3 7% 44.9 5% 1241 40% 04/03/2024 32w 2d 75.2 3% 295.6 23% 297.5 86% 56.6 1% 51.8 8% 1912 35% Anatomy The following structures appear normal: Abdomen Stomach. Kidneys. Bladder. sex: male. Maternal Structures Cervix Cervical length 2.16 cm Impression ========= Here today for reevaluation of placenta location due to history of low-lying placenta with funic presentation. Patient also has a follow up visit at [facility] today. She has no complaints denies any leakage of fluid rupture membranes or vaginal bleeding. Denies any ongoing contractions. Single, live, intrauterine at 35w 2d Amniotic fluid volume: normal Biophysical profile: reassuring 12/07 Transvaginal cervical length measures 2.2 cm Closed. No funneling Funic presentation Low-lying right lateral placenta: placental edge measures 12.0 mm from the internal cervical os. Comment ======== The above was discussed with Ms. Hampton who understood all questions were answered she was reassured. She will continue with her current precautions including pelvic rest. Follow-up ======== Management and further follow-up including timing of delivery to be determined by MFM providers at [facility] office. To continue with previa precautions along with pelvic rest. labor precautions along with kick counts and was instructed when to follow up with OB triage either at her nearest [facility] or here at [facility]. Thank you for allowing us to partake in your patient's care. Coding ====== Procedures 99272: US Uterus Limited 79767: Biophysical Profile W NST 37770: US Preg Uterus Transvaginal [employer] PACS Anatomical Region Laterality Modality Other 04/24/2024 8:30 AM DIRECT CARE STAFFER Freddy Armando MD [facility] ORDERABLES * SONOGRAM - TRANSVAGINAL (04/17/2024 9:07 AM DIRECT CARE STAFFER) Linked Results Indication ======== Low lying placenta Funic presentation Incomplete anatomy H/O Vaginal bleeding in 2nd trimester History ====== OB History 3. Para 2 Maternal Assessment Physical Exam Height 155 cm, 5 ft 1 in. Weight 63 kg, 138 lb. Initial weight 58 kg, 127 lb. BMI 26.08 kg/m . Initial BMI 24.00 kg/m . Weight gain 5 kg, 11 lb Method ====== Transabdominal and transvaginal ultrasound. View: Sufficient ========= [place] . Number of fetuses: 1 Dating ====== Date Details Gest. age ERIKA LMP 08/21/2023 34 w + 2 d 05/27/2024 Stated ERIKA 34 w + 2 d 05/27/2024 Assigned dating based on the LMP, selected on 03/07/2024 34 w + 2 d 05/27/2024 General Evaluation Cardiac activity present. FHR 127 bpm. Presentation: cephalic Placenta: Placental site: right lateral, placental edge measuring 2.4-3.0 cm from internal os Amniotic fluid: Amount of AF: normal. MVP 5.4 cm. ROSALINA 18.1 cm. Q1 5.0 cm, Q2 3.9 cm, Q3 3.9 cm, Q4 5.4 cm Anatomy The following structures appear normal: Abdomen Stomach. Kidneys. Bladder. sex: male. Maternal Structures Cervix reassuring Approach - Transvaginal: Cervical length 3.30 cm Impression ========= TVUS evaluation performed to evaluate placental edge and better visualization of lower uterine segment Single, live, intrauterine at 34w 2d Amniotic fluid volume: normal Transvaginal cervical length is reassuring On TVUS assessment today - placental edge could not be very clearly visualized given the low position of the head, with inferior edge noted to be measuring 2.4-3.0 cm from internal os Follow-up ======== Follow up ultrasound in 1 week to assess placental location Coding ====== Procedures 35504: US Uterus Limited 84179: US Preg Uterus Transvaginal [employer] PACS Anatomical Region Laterality Modality Other 04/17/2024 9:07 AM DIRECT CARE STAFFER Steffanie Arnold MD [facility] ORDERABLES * IMAGING RADIOLOGY XRAY RESULTS ORDER (04/12/2024 6:50 PM DIRECT CARE STAFFER) Only the most recent of2 resultswithin the time period is included. Anatomical Region Laterality Modality Other Narrative 04/12/2024 6:50 PM DIRECT CARE STAFFER Ordered by an unspecified provider. Scanned Document IMAGING * CULTURE STREP B (04/10/2024 8:55 AM DIRECT CARE STAFFER) Culture Strep B Negative for beta-hemolytic Streptococcus Group B EVELIN 04/13/2024 4:37 PM DIRECT CARE STAFFER [facility] MICROBIOLOGY Microbiology MISCELLANEOUS SAMPLES / Unknown Collection / Unknown 04/10/2024 8:55 AM DIRECT CARE STAFFER 04/10/2024 9:05 AM DIRECT CARE STAFFER Santos Ledezma DO LAB - MICROBIOLOGY O RDERABLES [facility] MICROBIOLOGY [address] [phone] * TYPE + SCREEN PANEL (04/10/2024 8:55 AM DIRECT CARE STAFFER) Only the most recent of3 resultswithin the time period is included. Pathologist [facility] ABO Rh A POS 04/10/2024 9:50 AM DIRECT CARE STAFFER [facility] Comment:History checked. Antibody Screen NEG 9:50 AM DIRECT CARE STAFFER [facility] Blood Bank BLOOD SPECIMEN / Unknown Venipuncture / Unknown 04/10/2024 8:55 AM DIRECT CARE STAFFER 04/10/2024 9:05 AM DIRECT CARE STAFFER Santos Ledezma DO LAB - BLOOD BANK ORD ERABLES [facility] [address] [place] [address], [facility] [phone] * (ABNORMAL) CBC W AUTO DIFFERENTIAL (04/10/2024 8:55 AM DIRECT CARE STAFFER) Only the most recent of3 resultswithin the time period is included. WBC 11.8(H) 4.0 - 10.7 x10E9/L 04/10/2024 9:19 AM DIRECT CARE STAFFER [facility] RBC Count 3.70(L) 3.90 - 5.20 x10E12/L 04/10/2024 9:19 AM [facility] Hemoglobin 11.8(L) 11.9 - 15.8 g/dL 04/10/2024 9:19 AM [facility] Hematocrit 34.8 34.8 - 46.1 % 04/10/2024 9:19 AM [facility] MCV 94.1 80.0 - 98.0 fL 04/10/2024 9:19 AM [facility] MCH 31.9 26.7 - 33.6 pg 04/10/2024 9:19 AM [facility] MCHC 33.9 31.7 - 36.3 g/dL 04/10/2024 9:19 AM [facility] RDW-CV 13.4 11.3 - 14.8 % 04/10/2024 9:19 AM [facility] Platelet Count 180 150 - 420 x10E9/L 04/10/2024 9:19 AM [facility] MPV 10.6 7.8 - 11.4 fL 04/10/2024 9:19 AM [facility] Neutrophil % 86.4(H) 41.0 - 74.0 % 04/10/2024 9:19 AM [facility] Lymphocyte % 7.3(L) 17.0 - 47.0 % 04/10/2024 9:19 AM [facility] Monocyte % 5.0 3.0 - 11.0 % 04/10/2024 9:19 AM [facility] Eosinophil % 0.1 0.0 - 7.0 % 04/10/2024 9:19 AM [facility] Basophil % 0.2 0.0 - 1.6 % 04/10/2024 9:19 AM [facility] Immature Granulocytes % 1.0 0.0 - 1.0 % 04/10/2024 9:19 AM [facility] Neutrophil Absolute 10.16(H) 1.60 - 7.50 x10E9/L 04/10/2024 9:19 AM [facility] Lymphocyte Absolute 0.86(L) 1.00 - 4.40 x10E9/L 04/10/2024 9:19 AM [facility] Monocyte Absolute 0.59 0.15 - 1.00 x10E9/L 04/10/2024 9:19 AM DIRECT CARE STAFFER [facility] Eosinophil Absolute 0.01 0.00 - 0.60 x10E9/L 04/10/2024 9:19 AM DIRECT CARE STAFFER [facility] Basophil Absolute 0.02 0.00 - 0.13 x10E9/L 04/10/2024 9:19 AM DIRECT CARE STAFFER [facility] Blood BLOOD SPECIMEN / Unknown Venipuncture / Unknown 04/10/2024 8:55 AM DIRECT CARE STAFFER 04/10/2024 9:05 AM DIRECT CARE STAFFER Santos Ledezma DO LAB - HEMATOLOGY ORD ERABLES [facility] [address] [place], [place] [id number] * SONOGRAM - LIMITED (04/10/2024 8:22 AM DIRECT CARE STAFFER) Only the most recent of2 resultswithin the time period is included. Linked Results Indication ======== Low lying placenta Funic presentation Incomplete anatomy H/O Vaginal bleeding in 2nd trimester History ====== OB History 3. Para 2 Maternal Assessment = Physical Exam Height 155 cm, 5 ft 1 in. Weight 60 kg, 132 lb. Initial weight 58 kg, 127 lb. BMI 24.94 kg/m . Initial BMI 24.00 kg/m . Weight gain 2 kg, 5 lb Method ====== Transabdominal and transvaginal ultrasound. View: Sufficient ========= [place] . Number of fetuses: 1 Dating ====== Date Details Gest. age ERIKA LMP 08/21/2023 33 w + 2 d 05/27/2024 Stated ERIKA 33 w + 2 d 05/27/2024 Assigned dating based on the LMP, selected on 03/07/2024 33 w + 2 d 05/27/2024 General Evaluation Cardiac activity present. FHR 166 bpm. Presentation: cephalic Placenta: Placental site: low-lying, right lateral. Placental envr-iq-gmaajira os distance 15 mm Amniotic fluid: Amount of AF: normal. MVP 7.4 cm. ROSALINA 12.2 cm. Q1 0.0 cm, Q2 0.0 cm, Q3 4.8 cm, Q4 7.4 cm Anatomy The following structures appear normal: Abdomen Stomach. Kidneys. Bladder. sex: male. Maternal Structures Cervix reassuring Approach - Transvaginal: Cervical length 3.46 cm Impression ========= Single, live, intrauterine at 33w 2d Amniotic fluid volume: normal Transvaginal cervical length is reassuring Comment ======== The patient was inpatient at the time of the study TVUS evaluation performed to evaluate placental location TVUS shows right lateral placenta measuring between 14 to 16 mm from the internal cervical os. There is also funic presentation that could be presenting ahead of the head. No evidence of vasa previa. Follow-up ======== Follow up as clinically indicated per inpatient team. Coding ====== Procedures 33905: US Uterus Limited 59295: US Preg Uterus Transvaginal [employer] PACS Anatomical Region Laterality Modality Other 04/10/2024 8:22 AM DIRECT CARE STAFFER Santos Ledezma DO [facility] ORDERABLES * (ABNORMAL) URINALYSIS REFLEX MICROSCOPIC REFLEX CULTURE (04/10/2024 6:33 AM DIRECT CARE STAFFER) Color UA Yellow Yellow, Straw 04/10/2024 6:59 AM DIRECT CARE STAFFER [facility] Clarity UA Turbid(A) Clear 04/10/2024 6:59 AM DIRECT CARE STAFFER [facility] Glucose UA Normal Normal 04/10/2024 6:59 AM DIRECT CARE STAFFER [facility] Bilirubin UA Negative Negative 04/10/2024 6:59 AM DIRECT CARE STAFFER [facility] Ketone UA Trace(A) Negative 04/10/2024 6:59 AM DIRECT CARE STAFFER [facility] Specific [place] UA 1.018 1.005 - 1.030 04/10/2024 6:59 AM [facility] Blood UA Trace(A) Negative 04/10/2024 6:59 AM [facility] pH UA 6.0 5.0 - 9.0 pH 04/10/2024 6:59 AM [facility] Protein UA Trace(A) Negative 04/10/2024 6:59 AM [facility] Urobilinogen UA Normal Normal mg/dL 04/10/2024 6:59 AM [facility] Nitrite UA Negative Negative 04/10/2024 6:59 AM [facility] Leukocyte UA 250 SHARON/uL(A) Negative 04/10/2024 6:59 AM [facility] RBC UA 11-20(A) 0 - 5 # /hpf 04/10/2024 6:59 AM [facility] WBC UA 0-5 0 - 5 # /hpf 04/10/2024 6:59 AM [facility] Bacteria UA Trace(A) None Seen 04/10/2024 6:59 AM [facility] Squamous Epithelial Cells 6-10(A) 0 - 5 /hpf 04/10/2024 6:59 AM [facility] Mucus UA 4+ /LPF 04/10/2024 6:59 AM [facility] Hyaline Casts 0-2 0 - 2 /LPF 04/10/2024 6:59 AM [facility] Urine URINE SPECIMEN OBTAINED BY CLEAN CATCH PROCEDURE / Unknown Collection / Unknown 04/10/2024 6:33 AM DIRECT CARE STAFFER 04/10/2024 6:40 AM DIRECT CARE STAFFER Narrative [facility] - 04/10/2024 6:59 AM DIRECT CARE STAFFER Santos Ledezma DO LAB - URINALYSIS ORD ERABLES [facility] [address] [place] [address] * CULTURE URINE (04/10/2024 6:33 AM DIRECT CARE STAFFER) Only the most recent of2 resultswithin the time period is included. Culture Urine <10,000 CFU/mL urogenital ramon EVELIN 04/11/2024 1:08 PM [facility] Urine URINE SPECIMEN OBTAINED BY CLEAN CATCH PROCEDURE / Unknown Collection / Unknown 04/10/2024 6:33 AM DIRECT CARE STAFFER 04/10/2024 6:40 AM DIRECT CARE STAFFER Santos Ledezma DO LAB - MICROBIOLOGY O RDERABLES [facility] [address] [place] [address], [facility] [phone] * (ABNORMAL) URINALYSIS AUTO - POINT OF CARE (AMB) STL (04/03/2024 11:17 AM DIRECT CARE STAFFER) Clarity UA POCT clear [facility] [address] Color UA POCT yellow [facility] [address] Leukocyte UA neg Negative [facility] [address] Nitrite UA POCT neg Negative [facility] [address] Urobilinogen UA 0.1 0.1 - 1.0 [facility] [address] Protein UA POCT trace Negative [facility] [address] pH UA 7.0 5.0 - 8.0 pH units [facility] [address] Blood UA trace Negative [facility] [address] Specific [place] UA POCT 1.000(A) 1.002 - 1.[address] [facility] [address] Ketone UA neg Negative [facility] [address] Bilirubin UA POCT neg Negative [facility] [address] Glucose UA neg Negative [facility] [address] Expiration Date 03/29/2024 [facility] [address] Lot # [id number] [facility] [address] QC Verified Yes Yes [facility] [address] Urine URINE / Unknown 04/03/2024 1 1:17 AM DIRECT CARE STAFFER Adriana Redman [employer] LAB - POINT OF CARE ORDERABLES [facility] [address] [place] [address], [place] [phone] * SONOGRAM - COMPLETE (04/03/2024 9:56 AM DIRECT CARE STAFFER) Only the most recent of2 resultswithin the time period is included. Linked Results Indication ======== Evaluation of growth & placenta location Placenta previa Incomplete anatomy (LVOT) H/O Vaginal bleeding in 2nd trimester History ====== OB History 3. Para 2 Maternal Assessment Physical Exam Height 155 cm, 5 ft 1 in. Weight 59 kg, 131 lb. Initial weight 58 kg, 127 lb. BMI 24.75 kg/m . Initial BMI 24.00 kg/m . Weight gain 2 kg, 4 lb Method ====== Transabdominal and transvaginal ultrasound. View: Sufficient ========= [place] . Number of fetuses: 1 Dating ====== Date Details Gest. age ERIKA LMP 08/21/2023 32 w + 2 d 05/27/2024 Stated ERIKA 32 w + 2 d 05/27/2024 U/S 04/03/2024 based upon AC, BPD, Femur, HC 31 w + 4 d 06/01/2024 Assigned dating based on the LMP, selected on 03/07/2024 32 w + 2 d 05/27/2024 General Evaluation Cardiac activity present. FHR 138 bpm. Presentation: cephalic Placenta: Placental site: right lateral low lying. Placental rltt-lg-dgfrouhc os distance 15 mm Amniotic fluid: Amount of AF: normal. MVP 7.7 cm. ROSALINA 10.2 cm. Q1 7.7 cm, Q2 2.6 cm, Q3 0.0 cm, Q4 0.0 cm Biometry BPD 75.2 mm 30w 1d 3% Hadlock HC 295.6 mm 32w 5d 23% Hadlock AC 297.5 mm 33w 5d 86% Hadlock Femur 56.6 mm 29w 5d 1% Hadlock Humerus 51.8 mm 30w 1d 8% Alvin HC / AC 0.99 Weight Calculation: EFW 1,912 g 35% Hadlock EFW (lb,oz) 4 lb 3 oz EFW by Hadlock ([id number]) appropriate Growth Overview Exam date GA BPD (mm) HC (mm) AC (mm) FL (mm) HL (mm) EFW (g) 03/07/2024 28w 3d 64.9 1% 250.8 3% 259.2 87% 50.3 7% 44.9 5% 1241 40% 04/03/2024 32w 2d 75.2 3% 295.6 23% 297.5 86% 56.6 1% 51.8 8% 1912 35% Anatomy The following structures appear normal: Abdomen Stomach. Kidneys. Bladder. The following structures could not be adequately visualized: Heart / Thorax LVOT view. sex: male. Maternal Structures Cervix Normal Approach - Transvaginal: Cervical length 3.52 cm Funneling absent Impression ========= Here today for interval growth ultrasound and placenta location due to previously noted placenta previa. She had no complaints denies any leakage of fluid rupture membranes vaginal bleeding or contractions. She reported good movements. She also has a follow-up visit at [facility] today. Single, live, intrauterine at 32w 2d size is appropriate for the gestational age Amniotic fluid volume: normal Right lateral low lying placenta with funic presentation Transvaginal cervical length appears normal measuring 3.5 cm long and closed. No funneling No major malformations were seen within the limits of ultrasound. Comment ======== The biometry showing good interval growth estimated weight is appropriate for the gestational age. TVS: Right lateral low-lying placenta measuring 15 mm from the internal cervical os. There is also funic presentation could presenting ahead of the head however no evidence of a vasa previa. The LVOT still remains suboptimally visualized due to positioning. The above was discussed with Ms. Hampton who understood all questions were answered she was reassured. She is to continue with previa precautions. If membranes were to rupture she is to immediately report to our institution or nearest hospital depending if she is in labor or not. If either the low-lying placenta or funic presentation were to proceed she is to proceed with a primary section. Follow-up ======== To return in 3-4 weeks for placenta location and depending on those findings will also determine further management including mode of delivery. labor and preeclampsia precautions along with kick counts. Previa precautions along with pelvic rest. Thank you for allowing us to partake in your patient's care. Coding ====== Procedures 72072: [place] [address]: [place] Preg Uterus Transvaginal [facility] PACS Anatomical Region Laterality Modality Other 04/03/2024 9:56 AM DIRECT CARE STAFFER Freddy Armando MD [facility] ORDERABLES * HEPATITIS C ANTIBODY (03/21/2024 11:17 AM DIRECT CARE STAFFER) Pathologist [facility] HCV Antibody Screen Non Reactive Non Reactive 03/21/2024 12:11 PM DIRECT CARE STAFFER [facility] Blood BLOOD SPECIMEN / Unknown Venipuncture / Unknown 03/21/2024 11:17 AM DIRECT CARE STAFFER 03/21/2024 11:23 AM DIRECT CARE STAFFER Narrative [facility] - 03/21/2024 12:11 PM DIRECT CARE STAFFER Non Reactive - Antibodies to Hepatitis C virus (HCV) were not detected, result does not exclude early acute HCV infection. Adriana Redman [employer] [facility] LAB - CHEMISTR Y ORDERABLES [facility] [address] [place] [address] * URINALYSIS AUTO - POINT OF CARE (AMB) [facility] (03/20/2024 10:45 AM DIRECT CARE STAFFER) Only the most recent of4 resultswithin the time period is included. Glucose UA [address] [facility] [address] Bilirubin UA POCT neg [facility] [address] Ketones UA POCT neg [facility] [address] Specific [place] UA 1.025 [facility] [address] Blood Urine POCT pos [facility] [address] pH UA 6.0 [facility] [address] Protein UA trace [facility] [address] Urobilinogen UA neg [facility] [address] Nitrite UA neg [facility] [address] WBC UA neg [facility] [address] Urine URINE / Unknown 03/20/2024 1 0:45 AM DIRECT CARE STAFFER Adriana Redman [employer] [facility] LAB - POINT OF CARE ORDERABLES [facility] [address] [place] [address], [facility] [phone] * GTT 1 HR (50G) GESTATIONAL SCREEN (02/20/2024 11:06 AM DIRECT CARE STAFFER) Glucose Gestational Screen 80 <140 mg/dL [facility] Comment: Test Performed at: [employer] [facility] [address] [place] [address] JAMIE WARREN MD Blood BLOOD SPECIMEN / Unknown 02/20/2024 11:06 AM DIRECT CARE STAFFER 02/20/2024 11:07 AM DIRECT CARE STAFFER Adriana Redman [employer] LAB - CHEMISTR Y ORDERABLES Performing Organization Address City/[facility]/ZIP Co de Phone Number [facility] [address] [place] [address] * HIV-1 HIV-2 ANTIBODY + HIV P24 AG PANEL (02/20/2024 11:06 AM DIRECT CARE STAFFER) HIV Screen 4th Generation w Reflex NON-REACT KATE NON-REACT KATE [facility] Comment: HIV-1 antigen and HIV-1/HIV-2 antibodies were not detected. There is no laboratory evidence of HIV infection. PLEASE NOTE: This information has been disclosed to you from records whose confidentiality may be protected by state law. If your state requires such protection, then the state law prohibits you from making any further disclosure of the information without the specific written consent of the person to whom it pertains, or as otherwise permitted by law. A general authorization for the release of medical or other information is NOT sufficient for this purpose. For additional information please refer to http://education.[employer]/faq/SIV150 (This link is being provided for informational/ educational purposes only.) The performance of this assay has not been clinically validated in patients less than 2 years old. Test Performed at: [employer] [facility] [address] [facility] [place] [address] JAMIE WARREN MD Blood BLOOD SPECIMEN / Unknown 02/20/2024 11:06 AM DIRECT CARE STAFFER 02/20/2024 11:07 AM DIRECT CARE STAFFER [facility] - CHEMISTR Y ORDERABLES Performing Organization Address [facility] de Phone Number [facility] [address] [place] [address] * TREPONEMA PALLIDUM POS REFLX RPR (02/20/2024 11:06 AM DIRECT CARE STAFFER) Pathologist [facility] Treponema pallidum Antibody EIA NEGATIVE NEGATIVE [facility] Comment: No antibodies to T. pallidum (the agent causing syphilis) were detected in the specimen. This result, however, does not exclude very recent T. pallidum infection; testing of a second specimen, collected 2-4 weeks after this specimen, is recommended if the index of suspicion for recent infection is high. Test Performed at: [employer] [address] [address] GILDARDO DEGROOT Blood BLOOD SPECIMEN / Unknown 02/20/2024 11:06 AM DIRECT CARE STAFFER 02/20/2024 11:07 AM DIRECT CARE STAFFER Adri[facility] LAB - SEROLOGY ORDERABLES Performing Organization Address [facility] Co de Phone Number [facility] [address] [place] [address] * (ABNORMAL) IRON + TIBC + FERRITIN (02/20/2024 11:06 AM DIRECT CARE STAFFER) Pathologist [facility] Iron 54 40 - 190 mcg/dL [facility] TIBC 383 250 - 450 mcg/dL (calc) [facility] % Saturation 14(L) 16 - 45 % (calc) [facility] Ferritin 13(L) 16 - 154 ng/mL [facility] Comment: Test Performed at: [employer] [facility] [address] [place] [address] JAMIE WARREN MD Blood BLOOD SPECIMEN / Unknown 02/20/2024 11:06 AM DIRECT CARE STAFFER 02/20/2024 11:07 AM DIRECT CARE STAFFER Adriana Redman [employer] [facility] LAB - CHEMISTR Y ORDERABLES [employer] [address] [place] [address] * (ABNORMAL) CBC W/O DIFFERENTIAL (02/03/2024 12:00 AM DIRECT CARE STAFFER) Only the most recent of3 resultswithin the time period is included. WBC 12.5(H) 4.0 - 10.7 x10E9/L 02/03/2024 12:39 AM [facility] RBC Count 2.86(L) 3.90 - 5.20 x10E12/L 02/03/2024 12:39 AM [facility] Hemoglobin 9.1(L) 11.9 - 15.8 g/dL 02/03/2024 12:39 AM [facility] Hematocrit 27.3(L) 34.8 - 46.1 % 02/03/2024 12:39 AM [facility] MCV 95.5 80.0 - 98.0 fL 02/03/2024 12:39 AM [facility] MCH 31.8 26.7 - 33.6 pg 02/03/2024 12:39 AM [facility] MCHC 33.3 31.7 - 36.3 g/dL 02/03/2024 12:39 AM [facility] RDW-CV 12.8 11.3 - 14.8 % 02/03/2024 12:39 AM [facility] Platelet Count 188 150 - 420 x10E9/L 02/03/2024 12:39 AM [facility] MPV 10.2 7.8 - 11.4 fL 02/03/2024 12:39 AM [facility] Blood BLOOD SPECIMEN / Unknown Lab Venipuncture / Unknown 02/03/2024 02/03/2024 12:35 AM DIRECT CARE STAFFER Annie Rodriguez MD LAB - HEMATOLOGY OR DERABLES Performing Organization Address [facility] Co de Phone Number [facility] [address] [place] [address] * PREPARE (CROSSMATCH) RBC UNIT(S), 2 Units (02/02/2024 7:31 AM DIRECT CARE STAFFER) Unit Description AS1 LR PRBC [facility] Unit ABO A [facility] Unit Rh POS [facility] Product Number R02 [facility] Unit Donor # [id number] [facility] Unit Status released [facility] OD [facility] LAB Product Code [id number] [facility] Blood Type Barcode 6200 [facility] Expiration Date S [facility] Unit Description AS1 LR PRBC [facility] BLOOD [facility] Unit ABO A [facility] Unit Rh POS [facility]OD [facility] Product Number R02 [facility]OD [facility] Unit Donor # [id number] [facility] BLOOD [facility] LAB Unit Status released [facility] OD BANK LAB Product Code [id number] [facility] Blood Type Barcode 6200 [facility] Expiration Date S [facility] Blood Bank BLOOD SPECIMEN / Unknown 01/31/2024 6:19 PM DIRECT CARE STAFFER Eliu Velasquez MD LAB - BLOOD BANK ORD ERABLES Performing Organization Address City/[facility] Co de Phone Number [facility] BLOOD [facility] LAB [address] [phone] * NONSTRESS TEST (02/01/2024 4:19 PM DIRECT CARE STAFFER) Narrative Annie Rodriguez MD - 02/01/2024 4:19 PM DIRECT CARE STAFFER Theresa Naranjo MD 02/02/2024 6:14 AM Name: Ying Hampton Date of : 1990 Today's Date: 02/01/2024 Start: 1532 Stop: 1606 23w3d NST RESULTS ([place]) OBJECTIVE FINDINGS Temp: 98.2 F (36.8 C), , Resp: 18, BP: 102/57 NST Indication(s): Placenta Previa (complete previa) Uterine Irritability: No Contractions: Not present OBJECTIVE FINDINGS Movement: Present Monitoring Mode: External Baseline: 135 BPM Variability: Moderate Decelerations: None Accelerations: Yes OTHER INFORMATION Inpatient Interventions: None Brynn Ferraro RN Non-Stress Test [facility] Patient Name: Ying Hampton LMP: Patient's last menstrual period was 08/21/2023. Gestational Age: 23w4d as of 02/02/2024 Estimated Date of Delivery: 05/27/24 Indications: other Vaginal bleeding and painful ctx in setting of placenta previa NST date: 02/01/2024 NST duration: 1532- 1606 Interpretation: Baseline: 135 beats/minute mod variability Reactive Contractions: none Decelerations: none Impression and Plan: FWB reassuring, continue monitoring as scheduled. Theresa Naranjo MD 02/02/2024 6:13 AM Eliu Velasquez MD OB GYNE ORDERABLES * (ABNORMAL) COAGULATION PANEL W D-DIMER (02/01/2024 3:44 AM DIRECT CARE STAFFER) Only the most recent of3 resultswithin the time period is included. PT 13.2 12.1 - 14.8 sec 02/01/2024 4:26 AM [facility] INR 1.0 0.9 - 1.1 02/01/2024 4:26 AM [facility] PTT 22.3(L) 23.0 - 38.4 sec 02/01/2024 4:26 AM [facility] Fibrinogen 370 200 - 400 mg/dL 02/01/2024 4:26 AM [facility] D-Dimer 0.62(H) 0.27 - 0.50 ug/mL FEU 02/01/2024 4:26 AM [facility] Platelet Count 192 150 - 420 x10E9/L 02/01/2024 4:26 AM [facility] Blood BLOOD SPECIMEN / Unknown Venipuncture / Unknown 02/01/2024 3:44 AM DIRECT CARE STAFFER 02/01/2024 3:57 AM [facility] LABORAT[facility] - 02/01/2024 4:26 AM [facility] Conventional Warfarin Anticoagulant Therapy INR Reference Range: 2.0-3.0 Intensive Warfarin Anticoagulant Therapy INR Reference Range: 2.5-3.5 Heparin Therapeutic Range for PTT: 69.0 - 110.0 seconds. In the absence of clinical symptoms, a value less than or equal to 0.5 mcg/mL FEU significantly decreases the probability of PE/DVT (negative predictive value >95%). 1 mcg/ml FEU = 1 Fibrinogen Equivalent Unit (approximates 0.5 mcg/mL of D- dimer). ISTH DIAGNOSTIC SCORING SYSTEM FOR DIC ---- Score 0 1 2 3 Platelet Count (x10^3/uL) > 100 <100 < 50 N/A PT Prolongation above Upper limit of normal 0-3 3-6 > 6 N/A Range (seconds) Fibrinogen (mg/dL) >100 < 100 N/A N/A D-Dimer (mcg/mL FEU) < 0.50 N/A 0.50-5.0 > 5 Calculate Cumulative Score: > or = 5: compatible with overt DIC < 5: suggestive for non-overt DIC N/A = Non applicable Reference: Br. J. Haematol. 145:24-33,2008. Annie Rodriguez MD LAB - COAGULATION O RDERABLES Performing Organization Address City/[facility]/ZIP Co de Phone Number [facility] [address] [place] [phone] * (ABNORMAL) MAGNESIUM BLOOD (01/31/2024 10:04 PM DIRECT CARE STAFFER) [facility] Magnesium 5.6(HH) 1.6 - 2.6 mg/dL 01/31/2024 10:32 PM DIRECT CARE STAFFER [facility] Blood BLOOD SPECIMEN / Unknown Venipuncture / Unknown 01/31/2024 10:04 PM DIRECT CARE STAFFER 01/31/2024 10:13 PM DIRECT CARE STAFFER Annie Rodriguez MD LAB - CHEMISTRY ORD ERABLES Performing Organization Address City/[facility]/ZIP Co de Phone Number [facility] [address] [place] [phone] * BLOOD TYPE VERIFICATION (01/31/2024 6:37 PM DIRECT CARE STAFFER) Pathologist [facility] ABO Rh A POS 01/31/2024 7:1 5 PM DIRECT CARE STAFFER [facility] BLOOD BANK LAB Blood Bank BLOOD SPECIMEN / Unknown Venipuncture / Unknown 01/31/2024 6:37 PM DIRECT CARE STAFFER 01/31/2024 6:46 PM DIRECT CARE STAFFER Eliu Velasquez MD LAB - BLOOD BANK ORD ERABLES [facility] B[facility]OD [facility] [address] [place] [address], [facility] [phone] * (ABNORMAL) COMPREHENSIVE METABOLIC PANEL (01/31/2024 6:37 PM [facility]) [facility] Glucose 92 70 - 99 mg/dL 01/31/2024 7:06 PM [facility] Sodium 138 136 - 145 mmol/L 01/31/2024 7:06 PM [facility] Potassium 3.6 3.5 - 5.1 mmol/L 01/31/2024 7:06 PM [facility] Chloride 108(H) 98 - 107 mmol/L 01/31/2024 7:06 PM [facility] CO2 22 22 - 29 mmol/L 01/31/2024 7:06 PM [facility] Calcium 9.1 8.4 - 10.4 mg/dL 01/31/2024 7:06 PM [facility] Anion Gap 8 6 - 16 mmol/L 01/31/2024 7:06 PM [facility] BUN 6 5.3 - 18.7 mg/dL 01/31/2024 7:06 PM [facility] Creatinine 0.56(L) 0.57 - 1.11 mg/dL 01/31/2024 7:06 PM [facility] Alkaline Phosphatase 80 40 - 150 U/L 01/31/2024 7:06 PM [facility] ALT 29 0 - 55 U/L 01/31/2024 7:06 PM [facility] AST 30 5 - 34 U/L 01/31/2024 7:06 PM [facility] Protein Total 6.3(L) 6.4 - 8.3 gm/dL 01/31/2024 7:06 PM [facility] Albumin 3.1(L) 3.4 - 5.0 gm/dL 01/31/2024 7:06 PM [facility] Bilirubin Total 0.2 0.2 - 1.2 mg/dL 01/31/2024 7:06 PM DIRECT CARE STAFFER [facility] eGFR by CKD-EPI >90 >=90 mL/min/1.7 3 m2 01/31/2024 7:06 PM DIRECT CARE STAFFER [facility] Blood BLOOD SPECIMEN / Unknown Venipuncture / Unknown 01/31/2024 6:37 PM DIRECT CARE STAFFER 01/31/2024 6:46 PM DIRECT CARE STAFFER Eliu Velasquez MD LAB - CHEMISTRY DEVIN LYON Performing Organization Address [facility]/ZIP Co de Phone Number [facility] [address] [place] [address] * TRICHOMONAS VAGINALIS AMPLIFIED PROBE (01/31/2024 6:20 PM DIRECT CARE STAFFER) Trichomonas vaginalis Amplified Probe Negative Negative 02/01/2024 6:13 AM DIRECT CARE STAFFER [facility] Microbiology URINE / Unknown Collection / Unknown 01/31/2024 6:20 PM DIRECT CARE STAFFER 01/31/2024 6:37 PM DIRECT CARE STAFFER Narrative [facility] - 02/01/2024 6:13 AM DIRECT CARE STAFFER This test was developed and its performance characteristics determined by the [facility], [facility]. Urine specimens tested by the [facility] [place] have not been cleared or approved by the U.S. Food and Drug Administration (FDA). The laboratory is regulated under the Clinical Laboratory Improvement Amendments (CLIA) as qualified to perform high-complexity testing. This test is used for clinical purposes. It should not be regarded as investigational or for research. Results based on detection/no detection of ribosomal RNA by amplified method. Eliu Velasquez MD LAB - MICROBIOLOGY O RDERASOPHIA Performing Organization Address City/[facility]/ZIP Co de Phone Number [facility] [address] [phone] * CHLAMYDIA + GC AMPLIFIED PROBE (01/31/2024 6:20 PM DIRECT CARE STAFFER) Chlamydia Amplified Probe Negative Negative 02/01/2024 6:13 AM DIRECT CARE STAFFER [facility] GC Amplified Probe Negative Negative 02/01/2024 6:13 AM DIRECT CARE STAFFER [facility] Microbiology URINE / Unknown Collection / Unknown 01/31/2024 6:20 PM DIRECT CARE STAFFER 01/31/2024 6:37 PM DIRECT CARE STAFFER Narrative [facility] - 02/01/2024 6:13 AM DIRECT CARE STAFFER Results based on detection/no detection of ribosomal RNA by amplified method. Eliu Velasquez MD LAB - MICROBIOLOGY O RDERABLES [facility] [address] [place] [address], [facility] [phone] from Last 3 Months Advance Directives * Full Code (Latest Code Status on File) Date Activated Date Inactivated Comments 04/10/2024 8:05 AM 04/11/2024 4:36 PM * Full Code Date Activated Date Inactivated Comments 01/31/2024 6:16 PM 02/05/2024 3:06 PM * Full Code Date Activated Date Inactivated Comments 04/21/2018 10:46 AM 04/23/2018 4:38 PM * Full Code Date Activated Date Inactivated Comments 04/12/2018 12:22 PM 04/21/2018 10:46 AM 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
--- OUTSIDE RECORDS SUMMARY | 2024-04-25 00:22 | XMS_ITS | Patient Health Summary ---
Author Organization [facility] Address [address] [place] [address] Care Team Providers Care Paper Production Engineer Name Role Phone Severino Wooten DO Primary Care Provider [phone] Note [address] [facility],non-owned Affiliates and Associated Physician Practices is amultiple site organization consisting of ambulatory clinics and hospital sitesin [place], [place], [place] and [place]. This disclosure is being madepursuant to the Care Everywhere program and may not contain all information available regarding this patient. Last updated 17.[facility] Allergies No known active allergies Medications * Be aware that medications may not be up to date on this document. Alwaysverify current medications with the patient. * Vit-Fe Fumarate-FA ( vitamin) 28-0.8 MG tablet Take 1 (one) tablet by mouth once daily Reasons: * NIFEdipine (Procardia) 10 MG capsule(Started 02/20/2024) Take 1 (one) capsule by mouth every 6 hours Reasons: Early Labor 2 refills by 02/19/2025 * ferrous sulfate 325 (65 FE) MG tablet Take 1 (one) tablet by mouth once daily * valACYclovir (Valtrex) 500 MG tablet(Started 04/19/2024) Take 1 (one) tablet by mouth 2 times daily 1 refill by 04/19/2025 Ended Medications* valACYclovir (Valtrex) 500 MG tablet(Started 04/03/2024) (Discontinued) Take 1 (one) tablet by mouth once daily * metroNIDAZOLE (Flagyl) 500 MG tablet(Started 04/11/2024)() Take 1 (one) tablet by mouth 2 times daily for 7 days * valACYclovir (Valtrex) 500 MG tablet(Started 04/11/2024)(Discontinued) Take 1 (one) tablet by mouth 2 times daily 1 refill by 04/11/2025 Active Problems Problem Noted Date Diagnosed Date Request for sterilization 04/18/2024 Abdominal cramping affecting History of precipitous labor and delivery 2024 Funic presentation 04/03/2024 Iron deficiency anemia during 03/22/19 Supervision of high risk , antepartum 1 04/22/2023 History of premature rupture of membranes in previous , currently in third trimester 02/20/2024 Anemia affecting in third trimester Multigravida of advanced maternal age in third t rimester 02/20/2024 History of herpes labialis 02/20/2024 History of abnormal cervical Pap smear Placenta previa antepartum 02/09/2024 History of delivery, currently Resolved Problems Problem Noted Date Diagnosed Date Resolved Date History of PROM in p revious , currently 03/20/2024 04/03/2024 Vaginal bleeding in 01/31/2024 02/20/2024 Pre-op testing 01/04/2020 02/20/2024 care following vaginal delivery 04/22/2018 02/20/2024 premature rupture of membranes in third trimester 04/12/2018 04/18/2018 Lymphatic malformation 10/26/201702/19 Immunizations * Covid Moderna primary monovalent 12+ yr 0.5mL(Given 05/17/2020, 04/19/2020) * DT (AGE 0-7)(Given 09/22/1993, 02/10/1990, 04/04/1989, 01/06/1989, 1988) * HEP B VACCINE, PED/ADOL(Given 07/14/1998, 02/12/1998, 01/13/1998) * HIB VACCINE(Given 10/23/1991) * INFLUENZA VACCINE, QUADR. (FLUZONE; FLULAVAL; FLUARIX; AFLURIA QUADRIVALENT; 6MO+), 0.5 ML (IIV4)(Given 04/14/2018) * INFLUENZA VACCINE, TRIV. (FLUZONE; FLULAVAL; FLUARIX; AFLURIA TRIVALENT; 6MO+), 0.5 ML (IIV3)(Given 11/25/2023) * MMR VACCINE(Given 09/22/1993, 11/21/1989) * POLIO OPV(Given 09/22/1993, 02/10/1990, 04/04/1989, 01/06/1989, 1988) * RSV ABRYSVO PREG OR 60y+ 0.5mL(Given 04/17/2024) * TDAP (7yrs+)(Given 03/20/2024, 04/15/2018) Social History Tobacco Use Types Packs/Day Years [...] Recorded Patient Health Questionnaire-2 Score 0 03/28/2024 [facility] [place] of Occupat ional Health - Occupational Stress [...] any time in the past 12 m [facility], were you homeless or living in a usp (including now)? No 04/10/2024 Education Answer Date [...] Comments Blood Pressure 102/64 04/24/2024 10:21 AM CLINICAL INFORMATION SYSTEMS DIRECTOR Pulse 80 04/04/2024 11:51 AM CLINICAL INFORMATION SYSTEMS DIRECTOR Temperature 36.8 C (98.3 F) 04/11/2024 12:17 PM CLINICAL INFORMATION SYSTEMS DIRECTOR Respiratory Rate 17 04/11/2024 12:17 PM CLINICAL INFORMATION SYSTEMS DIRECTOR Oxygen Saturation 98% 04/11/2024 12:17 PM CLINICAL INFORMATION SYSTEMS DIRECTOR Inhaled Oxygen Concentration - - Weight 59 kg (130 lb) 04/24/2024 10:21 AM CLINICAL INFORMATION SYSTEMS DIRECTOR Height 154.9 cm (5' 1) 04/24/2024 10:21 AM CLINICAL INFORMATION SYSTEMS DIRECTOR Body Mass Index 24.56 04/24/2024 10:21 AM CLINICAL INFORMATION SYSTEMS DIRECTOR Procedures * URINALYSIS - POINT OF CARE (AMB) SLU(Performed 04/24/2024) Performed for Supervision of high risk , antepartum (HCC) * BIOPHYSICAL PROFILE W NST(Performed 04/24/2024) * URINALYSIS - POINT OF CARE (AMB) SLU(Performed 04/17/2024) Performed for Supervision of high risk , antepartum (HCC), Placenta previa antepartum (HCC) * SONOGRAM - TRANSVAGINAL(Performed 04/17/2024) * IMAGING/RADIOLOGY/XRAY RESULTS ORDER(Performed 04/12/2024) * TYPE + SCREEN PANEL(Performed 04/10/2024) * CBC W AUTO DIFFERENTIAL(Performed 04/10/2024) Performed for Abdominal cramping affecting (HCC) * CULTURE STREP B(Performed 04/10/2024) Performed for Abdominal cramping affecting (HCC) * SONOGRAM - LIMITED(Performed 04/10/2024) * URINALYSIS REFLEX MICROSCOPIC REFLEX CULTURE(Performed 04/10/2024) Performed for Abdominal cramping affecting (HCC) * CULTURE URINE(Performed 04/10/2024) Performed for Abdominal cramping affecting (HCC) * URINALYSIS AUTO - POINT OF CARE (AMB) STL(Performed 04/03/2024) Performed for Placenta previa antepartum (HCC) * SONOGRAM - COMPLETE(Performed 04/03/2024) Performed for Encounter for ultrasound to assess growth (HCC), Encounter for follow-up ultrasound of anatomy (HCC), History of premature rupture of membranes (PROM) in previous , currently in third trimester (HCC), Placenta previa antepartum (HCC), Multigravidaof advanced maternal age in third trimester (HCC) * HEPATITIS C ANTIBODY(Performed 03/21/2024) Performed for Multigravida of advanced maternal age in second trimester ([facility]) * CULTURE URINE(Performed 03/20/2024) Performed for History of delivery, currently ([facility]), Supervision of high-risk of elderly multigravida (>= 35 years old at time of delivery) ([facility]), Asymptomatic microscopic hematuria * URINALYSIS AUTO - POINT OF CARE (AMB) SLU(Performed 03/20/2024) Performed for History of delivery, currently (HCC), Supervision of high-risk of elderly multigravida (>= 35 years old at time of delivery) ([facility]) * URINALYSIS AUTO - POINT OF CARE (AMB) SLU(Performed 03/07/2024) Performed for Placenta previa in third trimester ([facility]) * SONOGRAM - COMPLETE(Performed 03/07/2024) Performed for Supervision of high-risk of elderly multigravida (>= 35 years old at time of delivery) ([facility]), History of premature rupture of membranes in previous , currently in second trimester (HCC), History of delivery, currently (HCC), Vaginal bleeding in (HCC), Encounter for follow-up ultrasound of anatomy ([facility]), Placenta previa in third trimester (HCC) * IRON + TIBC + FERRITIN(Performed 02/20/2024) Performed for Supervision of high-risk of elderly multigravida (>= 35 years old at time of delivery) ([facility]) * HIV-1 HIV-2 ANTIBODY + HIV P24 AG PANEL(Performed 02/20/2024) Performed for Supervision of high-risk of elderly multigravida (>= 35 years old at time of delivery) ([facility]) * TREPONEMA PALLIDUM POS REFLX RPR(Performed 02/20/2024) Performed for Supervision of high-risk of elderly multigravida (>= 35 years old at time of delivery) ([facility]) * GTT 1 HR (50G) GESTATIONAL SCREEN(Performed 02/20/2024) Performed for Supervision of high-risk of elderly multigravida (>= 35 years old at time of delivery) ([facility]) * CBC W AUTO DIFFERENTIAL(Performed 02/20/2024) Performed for Supervision of high-risk of elderly multigravida (>= 35 years old at time of delivery) ([facility]) * URINALYSIS AUTO - POINT OF CARE (AMB) SLU(Performed 02/20/2024) Performed for Supervision of high-risk of elderly multigravida (>= 35 years old at time of delivery) ([facility]) * URINALYSIS AUTO - POINT OF CARE (AMB) SLU(Performed 02/09/2024) Performed for Vaginal bleeding in ([facility]) * IMAGING/RADIOLOGY/XRAY RESULTS ORDER(Performed 02/06/2024) * TYPE + SCREEN PANEL(Performed 02/03/2024) * CBC W/O DIFFERENTIAL(Performed 02/03/2024) * PREPARE RBC LEUKOREDUCED UNIT(Performed 02/02/2024) * NONSTRESS TEST(Performed 02/01/2024) * SONOGRAM - LIMITED(Performed 02/01/2024) * COAGULATION PANEL W D-DIMER(Performed 02/01/2024) * CBC W/O DIFFERENTIAL(Performed 02/01/2024) * MAGNESIUM BLOOD(Performed 01/31/2024) * COAGULATION PANEL W D-DIMER(Performed 01/31/2024) * CBC W/O DIFFERENTIAL(Performed 01/31/2024) * BLOOD TYPE VERIFICATION(Performed 01/31/2024) * COMPREHENSIVE METABOLIC PANEL(Performed 01/31/2024) * TRICHOMONAS VAGINALIS AMPLIFIED PROBE(Performed 01/31/2024) Performed for Vaginal bleeding in ([facility]) * CHLAMYDIA + GC AMPLIFIED PROBE(Performed 01/31/2024) Performed for Vaginal bleeding in ([facility]) * TYPE + SCREEN PANEL(Performed 01/31/2024) * COAGULATION PANEL W D-DIMER(Performed 01/31/2024) Performed for Vaginal bleeding in ([facility]) * CBC W AUTO DIFFERENTIAL(Performed 01/31/2024) Performed for Vaginal bleeding in ([facility]) * SARS-COV-2 (COVID-19)+INFLU A+B AG (AMB) POC(Performed 04/10/2020) Performed for Viral upper respiratory tract infection * IR EMBOLIZATION TRANSCATH THPY(Performed 01/04/2020) Performed for Vascular malformation ([facility]) * PT-INR SLH(Performed 01/04/2020) Performed for AVM (arteriovenous malformation) ([facility]) * CBC W AUTO DIFFERENTIAL(Performed 01/04/2020) Performed for AVM (arteriovenous malformation) ([facility]) * HCG URINE QUALITATIVE - POCT (IP) INTERFACED(Performed 01/04/2020) * HCG URINE QUAL POCT NOTIFICATION(Performed 01/04/2020) Performed for Pre-op testing * IMAGING/RADIOLOGY/XRAY RESULTS ORDER(Performed 04/27/2018) * CBC W AUTO DIFFERENTIAL(Performed 04/22/2018) * PATHOLOGY TISSUE EXAM (STL)(Performed 04/21/2018) Performed for premature rupture of membranes with onset of labor within 24 hours of rupturein third trimester ([facility]) * BLOOD GASES CORD NANCY (ISTAT)(Performed 04/21/2018) * BLOOD GASES CORD ART (ISTAT)(Performed 04/21/2018) * NON-STRESS TEST(Performed 04/20/2018) * NON-STRESS TEST(Performed 04/20/2018) * TYPE + SCREEN PANEL(Performed 04/20/2018) * CBC W AUTO DIFFERENTIAL(Performed 04/20/2018) * NON-STRESS TEST(Performed 04/19/2018) * NON-STRESS TEST(Performed 04/19/2018) * NON-STRESS TEST(Performed 04/19/2018) * NON-STRESS TEST(Performed 04/17/2018) * NON-STRESS TEST(Performed 04/16/2018) * NON-STRESS TEST(Performed 04/15/2018) * NON-STRESS TEST(Performed 04/15/2018) * CBC W AUTO DIFFERENTIAL(Performed 04/15/2018) * NON-STRESS TEST(Performed 04/14/2018) * NON-STRESS TEST(Performed 04/14/2018) * URINE DRUG SCREEN IMMUNOASSAY(Performed 04/12/2018) * BLOOD TYPE VERIFICATION(Performed 04/12/2018) * TYPE + SCREEN PANEL(Performed 04/12/2018) * COMPREHENSIVE METABOLIC PANEL(Performed 04/12/2018) * CBC W AUTO DIFFERENTIAL(Performed 04/12/2018) * SONOGRAM - COMPLETE(Performed 04/12/2018) * URINALYSIS REFLEX MICROSCOPIC REFLEX CULTURE(Performed 04/12/2018) Performed for premature rupture of membranes in third trimester, unspecified duration to onset of labor (HCC) * CULTURE STREP B(Performed 04/12/2018) Performed for premature rupture of membranes in third trimester, unspecified duration to onset of labor (HCC) * CHLAMYDIA + GC AMPLIFIED PROBE(Performed 04/12/2018) Performed for premature rupture of membranes in third trimester, unspecified duration to onset of labor (HCC) * TRICHOMONAS RAPID TEST(Performed 04/12/2018) Performed for premature rupture of membranes in third trimester, unspecified duration to onset of labor (HCC) Results * URINALYSIS - POINT OF CARE (AMB) SLU (04/24/2024 10:19 AM CLINICAL INFORMATION SYSTEMS DIRECTOR) Only the most recent of2 resultswithin the time period is included. Specific [place] UA 1.[address] [facility] [address] pH UA 7.[address] [facility] [address] WBC UA n [facility] [address] Nitrite UA n [facility] [address] Protein UA tr [facility] [address] Glucose UA n [facility] [address] Ketones UA POCT n [facility] [address] Urobilinogen UA n [facility] [address] Bilirubin UA POCT n [facility] [address] Blood Urine POCT n [facility] [address] Urine URINE / Unknown 04/24/2024 1 0:19 AM CLINICAL INFORMATION SYSTEMS DIRECTOR Steffanie Arnold MD LAB - POINT OF CARE ORDERABLES [facility] [address] [facility] [place] [address] [phone] * BIOPHYSICAL PROFILE W NST (04/24/2024 8:30 AM CLINICAL INFORMATION SYSTEMS DIRECTOR) Linked Results Indication ======== Low lying placenta [...] cephalic Placenta: Placental site: right lateral. Placental aqlf-op-jpuejhyk os distance 12 mm Amniotic Fluid Assessment ===== Amount of AF: normal MVP 5.3 cm. ROSALINA 12.5 cm. Q1 3.4 cm, Q2 3.3 cm, Q3 5.3 cm, Q4 0.5 cm Biophysical Profile 2: breathing movements 2: Gross body movements 2: tone 2: Amniotic fluid volume NST: reactive 10/10 Biophysical profile score Non Stress Test NST [...] also has a follow up visit at [facility] be OG clinic today. She has no complaints denies any leakage of fluid rupture membranes or vaginal bleeding. Denies any ongoing contractions. Single, live, intrauterine at 35w 2d Amniotic fluid volume: normal Biophysical profile: reassuring 10 Transvaginal cervical length measures 2.2 cm Closed. [...] timing of delivery to be determined by [facility] providers at [facility] office. To continue with previa precautions along with pelvic rest. labor precautions along with kick counts and was instructed when to follow up with OB triage either at her nearest [facility] or here at [facility]. Thank you for allowing us to partake in your patient's care. Coding ====== Procedures 80361: US Uterus Limited 19520: Biophysical Profile W NST 77553: US Preg Uterus Transvaginal [facility] PACS Anatomical Region Laterality Modality Other 04/24/2024 8:30 AM CLINICAL INFORMATION SYSTEMS DIRECTOR Freddy Armando MD [facility] ORDERABLES * SONOGRAM - TRANSVAGINAL (04/17/2024 9:07 AM CLINICAL INFORMATION SYSTEMS DIRECTOR) Linked Results Indication ======== Low lying placenta [...] to assess placental location Coding ====== Procedures [id number]: US Uterus Limited 31118: US Preg Uterus Transvaginal [facility] PACS Anatomical Region Laterality Modality Other 04/17/2024 9:07 AM CLINICAL INFORMATION SYSTEMS DIRECTOR Steffanie Arnold MD [facility] ORDERABLES * IMAGING RADIOLOGY XRAY RESULTS ORDER (04/12/2024 6:50 PM CLINICAL INFORMATION SYSTEMS DIRECTOR) Only the most recent of3 resultswithin the time period is included. Anatomical Region Laterality Modality Other Narrative 04/12/2024 6:50 PM CLINICAL INFORMATION SYSTEMS DIRECTOR Ordered by an unspecified provider. Scanned Document IMAGING * CULTURE STREP B (04/10/2024 8:55 AM CLINICAL INFORMATION SYSTEMS DIRECTOR) Only the most recent of2 resultswithin the time period is included. Culture Strep B Negative for beta-hemolytic Streptococcus Group B EVELIN 04/13/2024 4:37 PM CLINICAL INFORMATION SYSTEMS DIRECTOR [facility] MICROBIOLOGY Microbiology MISCELLANEOUS SAMPLES / Unknown Collection / Unknown 04/10/2024 8:55 AM CLINICAL INFORMATION SYSTEMS DIRECTOR 04/10/2024 9:05 AM CLINICAL INFORMATION SYSTEMS DIRECTOR Santos Ledezma DO LAB - MICROBIOLOGY O RDERABLES [facility] MICROBIOLOGY [address] [place] [address], [facility] [phone] * TYPE + SCREEN PANEL (04/10/2024 8:55 AM CLINICAL INFORMATION SYSTEMS DIRECTOR) Only the most recent of5 resultswithin the time period is included. ABO Rh A POS 04/10/2024 9:50 AM [facility] Comment:History checked. Antibody Screen NEG 9:50 AM [facility] Blood Bank BLOOD SPECIMEN / Unknown Venipuncture / Unknown 04/10/2024 8:55 AM CLINICAL INFORMATION SYSTEMS DIRECTOR 04/10/2024 9:05 AM CLINICAL INFORMATION SYSTEMS DIRECTOR Santos Ledezma DO LAB - BLOOD BANK ORD ERABLES [facility] [address] [phone] * (ABNORMAL) CBC W AUTO DIFFERENTIAL (04/10/2024 8:55 AM [facility]) Only the most recent of8 resultswithin the time period is included. WBC 11.8(H) 4.0 - 10.7 x10E9/L 04/10/2024 9:19 AM [facility] RBC Count 3.70(L) 3.90 - 5.20 x10E12/L 04/10/2024 9:19 AM [facility] Hemoglobin 11.8(L) 11.9 - 15.8 g/dL 04/10/2024 9:19 AM [facility] Hematocrit 34.8 34.8 - 46.1 % 04/10/2024 9:19 AM [facility] MCV 94.1 80.0 - 98.0 fL 04/10/2024 9:19 AM [facility] MCH 31.9 26.7 - 33.6 pg 04/10/2024 9:19 AM [facility] MCHC 33.9 31.7 - 36.3 g/dL 04/10/2024 9:19 AM [facility] RDW-CV 13.4 11.3 - 14.8 % 04/10/2024 9:19 AM [facility] Platelet Count 180 150 - 420 x10E9/L 04/10/2024 9:19 AM [facility] MPV 10.6 7.8 - 11.4 fL 04/10/2024 9:19 AM [facility] Neutrophil % 86.4(H) 41.0 - 74.0 % 04/10/2024 9:19 AM [facility] Lymphocyte % 7.3(L) 17.0 - 47.0 % 04/10/2024 9:19 AM [facility] Monocyte % 5.0 3.0 - 11.0 % 04/10/2024 9:19 AM [facility] Eosinophil % 0.1 0.0 - 7.0 % 04/10/2024 9:19 AM [facility] Basophil % 0.2 0.0 - 1.6 % 04/10/2024 9:19 AM [facility] Immature Granulocytes % 1.0 0.0 - 1.0 % 04/10/2024 9:19 AM [facility] Neutrophil Absolute 10.16(H) 1.60 - 7.50 x10E9/L 04/10/2024 9:19 AM [facility] Lymphocyte Absolute 0.86(L) 1.00 - 4.40 x10E9/L 04/10/2024 9:19 AM [facility] Monocyte Absolute 0.59 0.15 - 1.00 x10E9/L 04/10/2024 9:19 AM [facility] Eosinophil Absolute 0.01 0.00 - 0.60 x10E9/L 04/10/2024 9:19 AM [facility] Basophil Absolute 0.02 0.00 - 0.13 x10E9/L 04/10/2024 9:19 AM [facility] Blood BLOOD SPECIMEN / Unknown Venipuncture / Unknown 04/10/2024 8:55 AM CLINICAL INFORMATION SYSTEMS DIRECTOR 04/10/2024 9:05 AM [facility] Santos Ledezma DO LAB - HEMATOLOGY ORD ERABLES [facility] [address] [place] [address] * SONOGRAM - LIMITED (04/10/2024 8:22 AM [facility]) Only the most recent of2 resultswithin the [...] Placenta: Placental site: low-lying, right lateral. Placental ppad-lo-zfqhyfiz os distance 15 mm Amniotic fluid: Amount [...] indicated per inpatient team. Coding ====== Procedures [id number]: US Uterus Limited 88001: US Preg Uterus Transvaginal [facility] PACS Anatomical Region Laterality Modality Other 04/10/2024 8:22 AM CLINICAL INFORMATION SYSTEMS DIRECTOR Santos Ledezma DO [facility] ORDERABLES * (ABNORMAL) URINALYSIS REFLEX MICROSCOPIC REFLEX CULTURE (04/10/2024 6:33 AM CLINICAL INFORMATION SYSTEMS DIRECTOR) Only the most recent of2 resultswithin the time period is included. Color UA Yellow Yellow, Straw 04/10/2024 6:59 AM CLINICAL INFORMATION SYSTEMS DIRECTOR [facility] Clarity UA Turbid(A) Clear 04/10/2024 6:59 AM CLINICAL INFORMATION SYSTEMS DIRECTOR [facility] Glucose UA Normal Normal 04/10/2024 6:59 AM CLINICAL INFORMATION SYSTEMS DIRECTOR [facility] Bilirubin UA Negative Negative 04/10/2024 6:59 AM CLINICAL INFORMATION SYSTEMS DIRECTOR [facility] Ketone UA Trace(A) Negative 04/10/2024 6:59 AM CLINICAL INFORMATION SYSTEMS DIRECTOR [facility] Specific [place] UA 1.018 1.005 - 1.030 04/10/2024 6:59 AM CLINICAL INFORMATION SYSTEMS DIRECTOR [facility] Blood UA Trace(A) Negative 04/10/2024 6:59 AM CLINICAL INFORMATION SYSTEMS DIRECTOR [facility] pH UA 6.0 5.0 - 9.0 pH 04/10/2024 6:59 AM CLINICAL INFORMATION SYSTEMS DIRECTOR [facility] Protein UA Trace(A) Negative 04/10/2024 6:59 AM CLINICAL INFORMATION SYSTEMS DIRECTOR [facility] Urobilinogen UA Normal Normal mg/dL 04/10/2024 6:59 AM CLINICAL INFORMATION SYSTEMS DIRECTOR [facility] Nitrite UA Negative Negative 04/10/2024 6:59 AM CLINICAL INFORMATION SYSTEMS DIRECTOR [facility] Leukocyte UA 250 SHARON/uL(A) Negative 04/10/2024 6:59 AM CLINICAL INFORMATION SYSTEMS DIRECTOR [facility] RBC UA 11-20(A) 0 - 5 # /hpf 04/10/2024 6:59 AM CLINICAL INFORMATION SYSTEMS DIRECTOR [facility] WBC UA 0-5 0 - 5 # /hpf 04/10/2024 6:59 AM CLINICAL INFORMATION SYSTEMS DIRECTOR [facility] Bacteria UA Trace(A) None Seen 04/10/2024 6:59 AM CLINICAL INFORMATION SYSTEMS DIRECTOR [facility] Squamous Epithelial Cells 6-10(A) 0 - 5 /hpf 04/10/2024 6:59 AM CLINICAL INFORMATION SYSTEMS DIRECTOR [facility] Mucus UA 4+ /LPF 04/10/2024 6:59 AM CLINICAL INFORMATION SYSTEMS DIRECTOR [facility] Hyaline Casts 0-2 0 - 2 /LPF 04/10/2024 6:59 AM CLINICAL INFORMATION SYSTEMS DIRECTOR [facility] Urine URINE SPECIMEN OBTAINED BY CLEAN CATCH PROCEDURE / Unknown Collection / Unknown 04/10/2024 6:33 AM CLINICAL INFORMATION SYSTEMS DIRECTOR 04/10/2024 6:40 AM CLINICAL INFORMATION SYSTEMS DIRECTOR Narrative [facility] - 04/10/2024 6:59 AM CLINICAL INFORMATION SYSTEMS DIRECTOR Santos Ledezma LAB - URINALYSIS ORD ERABLES Performing Organization Address City/[facility]/ZIP Co de Phone Number [facility] [address] [place] [address] * CULTURE URINE (04/10/2024 6:33 AM CLINICAL INFORMATION SYSTEMS DIRECTOR) Only the most recent of2 resultswithin the time period is included. Pathologist [facility] Culture Urine <10,000 CFU/mL urogenital ramon EVELIN 04/11/2024 1:08 PM CLINICAL INFORMATION SYSTEMS DIRECTOR [facility] MICROBIOLOGY Urine URINE SPECIMEN OBTAINED BY CLEAN CATCH PROCEDURE / Unknown Collection / Unknown 04/10/2024 6:33 AM CLINICAL INFORMATION SYSTEMS DIRECTOR 04/10/2024 6:40 AM CLINICAL INFORMATION SYSTEMS DIRECTOR Santos Ledezma LAB - MICROBIOLOGY O RDERABLES Performing Organization Address City/[facility]/ZIP Co de Phone Number [facility] MICROBIOLOG[facility] [address] [place] [address], [facility] [phone] * (ABNORMAL) URINALYSIS AUTO - POINT OF CARE (AMB) STL (04/03/2024 11:17 AM CLINICAL INFORMATION SYSTEMS DIRECTOR) Clarity UA POCT clear [facility] [address] Color UA POCT yellow [facility] [address] Leukocyte UA neg Negative [facility] [address] Nitrite UA POCT neg Negative [facility] [address] Urobilinogen UA 0.1 0.1 - 1.0 [facility] [address] Protein UA POCT trace Negative [facility] [address] pH UA 7.0 5.0 - 8.0 pH units [facility] [address] Blood UA trace Negative [facility] [address] Specific [place] UA POCT 1.000(A) 1.002 - 1.[address] [facility] [address] Ketone UA neg Negative [facility] [address] Bilirubin UA POCT neg Negative [facility] [address] Glucose UA neg Negative [facility] [address] Expiration Date 03/29/2024 [facility] [address] Lot # [id number] [facility] [address] QC Verified Yes Yes [facility] [address] Urine URINE / Unknown 04/03/2024 1 1:17 AM CLINICAL INFORMATION SYSTEMS DIRECTOR Adriana Redman USED [employer] [facility] CONSULTANT LAB - POINT OF CARE ORDERABLES Performing Organization Address City/State/[facility] Co de Phone Number [facility] [address] [place] [address], [facility] [phone] * SONOGRAM - COMPLETE (04/03/2024 9:56 AM CLINICAL INFORMATION SYSTEMS DIRECTOR) Only the most recent of3 resultswithin the time period is included. Linked [...] Placental site: right lateral low lying. Placental obea-lw-yiodpogd os distance 15 mm Amniotic fluid: Amount [...] 4 lb 3 oz EFW by Hadlock (STG-CY-XC-FL) appropriate Growth Overview Exam date [place] BPD [...] She also has a follow-up visit at [facility] today. Single, live, intrauterine at 32w 2d [...] positioning. The above was discussed with Ms. Tapiadale who understood all questions were answered she [...] in your patient's care. Coding ====== Procedures 20925: [place] [address]: [place] Preg Uterus Transvaginal T [facility] PACS Anatomical Region Laterality Modality Other 04/03/2024 9:56 AM CLINICAL INFORMATION SYSTEMS DIRECTOR Freddy Armando MD [facility] ORDERABLES * HEPATITIS C ANTIBODY (03/21/2024 11:17 AM CLINICAL INFORMATION SYSTEMS DIRECTOR) HCV Antibody Screen Non Reactive Non Reactive 03/21/2024 12:11 PM CLINICAL INFORMATION SYSTEMS DIRECTOR [facility] Blood BLOOD SPECIMEN / Unknown Venipuncture / Unknown 03/21/2024 11:17 AM CLINICAL INFORMATION SYSTEMS DIRECTOR 03/21/2024 11:23 AM CLINICAL INFORMATION SYSTEMS DIRECTOR Narrative [facility] - 03/21/2024 12:11 PM CLINICAL INFORMATION SYSTEMS DIRECTOR Non Reactive - Antibodies to Hepatitis C virus (HCV) were not detected, result does not exclude early acute HCV infection. Adriana Redman [facility] - CHEMISTR Y ORDERABLES [facility] [address] [place] [address] * URINALYSIS AUTO - POINT OF CARE (AMB) [facility] (03/20/2024 10:45 AM CLINICAL INFORMATION SYSTEMS DIRECTOR) Only the most recent of4 resultswithin the time period is included. Glucose UA 100 [facility] [address] Bilirubin UA POCT neg [facility] [address] Ketones UA POCT neg [facility] [address] Specific [place] UA 1.[address] [facility] [address] Blood Urine POCT pos [facility] [address] pH UA 6.[address] [facility] [address] Protein UA trace [facility] [address] Urobilinogen UA neg [facility] [address] Nitrite UA neg [facility] [address] WBC UA neg [facility] [address] Urine URINE / Unknown 03/20/2024 1 0:45 AM CLINICAL INFORMATION SYSTEMS DIRECTOR Adriana Redman USED [facility] - POINT OF CARE ORDERABLES [facility] [address] [place] [address] [phone] * GTT 1 HR (50G) GESTATIONAL SCREEN (02/20/2024 11:06 AM CLINICAL INFORMATION SYSTEMS DIRECTOR) Glucose Gestational Screen 80 <140 mg/dL [facility] Comment: Test Performed at: [facility] [place] [address] [place] [address] JAMIE WARREN MD Blood BLOOD SPECIMEN / Unknown 02/20/2024 11:06 AM CLINICAL INFORMATION SYSTEMS DIRECTOR 02/20/2024 11:07 AM CLINICAL INFORMATION SYSTEMS DIRECTOR Adriana Redman USED [employer] [facility] CONSULTANT LAB - CHEMISTR Y ORDERABLES Performing Organization Address [facility] Co de Phone Number [facility] [phone] [place] [address] * HIV-1 HIV-2 ANTIBODY + HIV P24 AG PANEL (02/20/2024 11:06 AM CLINICAL INFORMATION SYSTEMS DIRECTOR) Pathologist [facility] HIV Screen 4th Generation w Reflex NON-REACT [...] purpose. For additional information please refer to [email or web address] (This link is being provided for informational/ educational purposes only.) The performance of this assay has not been clinically validated in patients less than 2 years old. Test Performed at: [employer] [address] [place] [address] JAMIE WARREN MD Blood BLOOD SPECIMEN / Unknown 02/20/2024 11:06 AM CLINICAL INFORMATION SYSTEMS DIRECTOR 02/20/2024 11:07 AM CLINICAL INFORMATION SYSTEMS DIRECTOR Adriana Redman [facility] CONSULTANT LAB - CHEMISTR Y ORDERABLES Performing Organization Address [facility]/ZIP Co de Phone Number [facility] [[email or web address]] [phone] [place] [address] * TREPONEMA PALLIDUM POS REFLX RPR (02/20/2024 11:06 AM CLINICAL INFORMATION SYSTEMS DIRECTOR) Pathologist [facility] Treponema pallidum Antibody EIA NEGATIVE NEGATIVE [facility] Comment: No antibodies to T. pallidum (the agent causing syphilis) were detected in the specimen. This result, however, does not exclude very recent T. pallidum infection; testing of a second specimen, collected 2-4 weeks after this specimen, is recommended if the index of suspicion for recent infection is high. Test Performed at: [facility] [address] [address] GILDARDO DEGROOT Blood BLOOD SPECIMEN / Unknown 02/20/2024 11:06 AM CLINICAL INFORMATION SYSTEMS DIRECTOR 02/20/2024 11:07 AM CLINICAL INFORMATION SYSTEMS DIRECTOR Adriana Redman [facility] LAB - SEROLOGY ORDERABLES Performing Organization Address [facility] de Phone Number [address] [address] * (ABNORMAL) IRON + TIBC + FERRITIN (02/20/2024 11:06 AM CLINICAL INFORMATION SYSTEMS DIRECTOR) Pathologist [facility] Iron 54 40 - 190 mcg/dL [facility] TIBC 383 250 - 450 mcg/dL (calc) [facility] % Saturation 14(L) 16 - 45 % (calc) [facility] Ferritin 13(L) 16 - 154 ng/mL [facility] Comment: Test Performed at: [facility] [place] [address] [place] [address] JAMIE WARREN MD Blood BLOOD SPECIMEN / Unknown 02/20/2024 11:06 AM CLINICAL INFORMATION SYSTEMS DIRECTOR 02/20/2024 11:07 AM CLINICAL INFORMATION SYSTEMS DIRECTOR Adriana Redman [facility] - CHEMISTR Y ORDERABLES Performing Organization Address [facility] Co de Phone Number [address] [address] * (ABNORMAL) CBC W/O DIFFERENTIAL (02/03/2024 12:00 AM CLINICAL INFORMATION SYSTEMS DIRECTOR) Only the most recent of3 resultswithin the time period is included. Pathologist [facility] WBC 12.5(H) 4.0 - 10.7 x10E9/L 02/03/2024 12:39 AM CLINICAL INFORMATION SYSTEMS DIRECTOR [facility] RBC Count 2.86(L) 3.90 - 5.20 x10E12/L 02/03/2024 12:39 AM CLINICAL INFORMATION SYSTEMS DIRECTOR [facility] Hemoglobin 9.1(L) 11.9 - 15.8 g/dL 02/03/2024 12:39 AM [facility] Hematocrit 27.3(L) 34.8 - 46.1 % 02/03/2024 12:39 AM [facility] MCV 95.5 80.0 - 98.0 fL 02/03/2024 12:39 AM [facility] MCH 31.8 26.7 - 33.6 pg 02/03/2024 12:39 AM [facility] MCHC 33.3 31.7 - 36.3 g/dL 02/03/2024 12:39 AM [facility] RDW-CV 12.8 11.3 - 14.8 % 02/03/2024 12:39 AM [facility] Platelet Count 188 150 - 420 x10E9/L 02/03/2024 12:39 AM [facility] MPV 10.2 7.8 - 11.4 fL 02/03/2024 12:39 AM [facility] Blood BLOOD SPECIMEN / Unknown Lab Venipuncture / Unknown 02/03/2024 02/03/2024 12:35 AM CLINICAL INFORMATION SYSTEMS DIRECTOR Annie Rodriguez MD LAB - HEMATOLOGY OR DERABLES Performing Organization Address City/State/[facility] Co de Phone Number [facility] [address] [place], [place] [id number] * PREPARE (CROSSMATCH) RBC UNIT(S), 2 Units (02/02/2024 7:31 AM CLINICAL INFORMATION SYSTEMS DIRECTOR) Unit Description AS1 LR PRBC [facility] Unit ABO A [facility] Unit Rh POS [facility] Product Number R02 [facility] Unit Donor # [id number] [facility] LAB Unit Status released [facility] Product Code [id number] [facility] Blood Type Barcode 6200 [facility] Expiration Date [facility] Unit Description AS1 LR PRBC [facility] Unit ABO A [facility] Unit Rh POS [facility] Product Number R02 [facility] Unit Donor # [id number] [facility] Unit Status released [facility] Product Code [id number] [facility] Blood Type Barcode 6200 [facility] Expiration Date [facility] Blood Bank BLOOD SPECIMEN / Unknown 01/31/2024 6:19 PM CLINICAL INFORMATION SYSTEMS DIRECTOR Eliu Velasquez MD LAB - BLOOD BANK ORD ERABLES [facility] [address] [phone] * NONSTRESS TEST (02/01/2024 4:19 PM CLINICAL INFORMATION SYSTEMS DIRECTOR) Narrative Annie Rodriguez MD - 02/01/2024 4:19 PM CLINICAL INFORMATION SYSTEMS DIRECTOR Theresa Naranjo MD 02/02/2024 6:14 AM Name: Ying Tapiadarionluli Date of : 1990 Today's Date: 02/01/2024 [...] Interventions: None Brynn Ferraro RN Non-Stress Test [facility] Patient Name: Ying Hampton LMP: Patient's last [...] COAGULATION PANEL W D-DIMER (02/01/2024 3:44 AM [facility]) Only the most recent of3 resultswithin the time period is included. PT 13.2 12.1 - 14.8 sec 02/01/2024 4:26 AM [facility] INR 1.0 0.9 - 1.1 02/01/2024 4:26 AM [facility] PTT 22.3(L) 23.0 - 38.4 sec 02/01/2024 4:26 AM [facility] Fibrinogen 370 200 - 400 mg/dL 02/01/2024 4:26 AM [facility] D-Dimer 0.62(H) 0.27 - 0.50 ug/mL FEU 02/01/2024 4:26 AM [facility] Platelet Count 192 150 - 420 x10E9/L 02/01/2024 4:26 AM [facility] Blood BLOOD SPECIMEN / Unknown Venipuncture / Unknown 02/01/2024 3:44 AM CLINICAL INFORMATION SYSTEMS DIRECTOR 02/01/2024 3:57 AM [facility] - 02/01/2024 4:26 AM [facility] Conventional Warfarin Anticoagulant Therapy INR Reference Range: [...] = Non applicable Reference: Br. J. Haematol. 145:24-33,2009. Annie Rodriguez MD LAB - COAGULATION O RDERASOPHIA [facility] [address] [place] [address] * (ABNORMAL) MAGNESIUM BLOOD (01/31/2024 10:04 PM CLINICAL INFORMATION SYSTEMS DIRECTOR) Pathologist [facility] Magnesium 5.6(HH) 1.6 - 2.6 mg/dL 01/31/2024 10:32 PM CLINICAL INFORMATION SYSTEMS DIRECTOR [facility] Blood BLOOD SPECIMEN / Unknown Venipuncture / Unknown 01/31/2024 10:04 PM CLINICAL INFORMATION SYSTEMS DIRECTOR 01/31/2024 10:13 PM CLINICAL INFORMATION SYSTEMS DIRECTOR Annie Rodriguez MD LAB - CHEMISTRY ORD ERABLES [facility] [address] [place] [address] * BLOOD TYPE VERIFICATION (01/31/2024 6:37 PM CLINICAL INFORMATION SYSTEMS DIRECTOR) Only the most recent of2 resultswithin the time period is included. Pathologist [facility] ABO Rh A POS 01/31/2024 7:1 5 PM CLINICAL INFORMATION SYSTEMS DIRECTOR [facility] Blood Bank BLOOD SPECIMEN / Unknown Venipuncture / Unknown 01/31/2024 6:37 PM CLINICAL INFORMATION SYSTEMS DIRECTOR 01/31/2024 6:46 PM CLINICAL INFORMATION SYSTEMS DIRECTOR Eliu Velasquez MD LAB - BLOOD BANK ORD ERABLES [facility] [address] [place] [address] * (ABNORMAL) COMPREHENSIVE METABOLIC PANEL (01/31/2024 6:37 PM CLINICAL INFORMATION SYSTEMS DIRECTOR) Only the most recent of2 resultswithin the time period is included. Pathologist [facility] Glucose 92 70 - 99 mg/dL 01/31/2024 7:06 PM [facility] Sodium 138 136 - 145 mmol/L 01/31/2024 7:06 PM [facility] Potassium 3.6 3.5 - 5.1 mmol/L 01/31/2024 7:06 PM [facility] Chloride 108(H) 98 - 107 mmol/L 01/31/2024 7:06 PM [facility] CO2 22 22 - 29 mmol/L 01/31/2024 7:06 PM [facility] Calcium 9.1 8.4 - 10.4 mg/dL 01/31/2024 7:06 PM [facility] Anion Gap 8 6 - 16 mmol/L 01/31/2024 7:06 PM [facility] BUN 6 5.3 - 18.7 mg/dL 01/31/2024 7:06 PM [facility] Creatinine 0.56(L) 0.57 - 1.11 mg/dL 01/31/2024 7:06 PM [facility] Alkaline Phosphatase 80 40 - 150 U/L 01/31/2024 7:06 PM [facility] ALT 29 0 - 55 U/L 01/31/2024 7:06 PM [facility] AST 30 5 - 34 U/L 01/31/2024 7:06 PM [facility] Protein Total 6.3(L) 6.4 - 8.3 gm/dL 01/31/2024 7:06 PM [facility] Albumin 3.1(L) 3.4 - 5.0 gm/dL 01/31/2024 7:06 PM [facility] Bilirubin Total 0.2 0.2 - 1.2 mg/dL 01/31/2024 7:06 PM [facility] eGFR by CKD-EPI >90 >=90 mL/min/1.7 3 m2 01/31/2024 7:06 PM [facility] Blood BLOOD SPECIMEN / Unknown Venipuncture / Unknown 01/31/2024 6:37 PM CLINICAL INFORMATION SYSTEMS DIRECTOR 01/31/2024 6:46 PM [facility] Eliu Velasquez MD LAB - CHEMISTRY ZAYDAE CAMRON [facility] Organization Address City/State/ZIP Co de Phone Number [facility] [address] [place] [address] * TRICHOMONAS VAGINALIS AMPLIFIED PROBE (01/31/2024 6:20 PM [facility]) Trichomonas vaginalis Amplified Probe Negative Negative 02/01/2024 6:13 AM [facility] MICROBIOLOGY Microbiology URINE / Unknown Collection / Unknown 01/31/2024 6:20 PM CLINICAL INFORMATION SYSTEMS DIRECTOR 01/31/2024 6:37 PM CLINICAL INFORMATION SYSTEMS DIRECTOR Narrative [facility]CRO[facility] - 02/01/2024 6:13 AM CLINICAL INFORMATION SYSTEMS DIRECTOR This test was developed and its performance characteristics determined by the [facility] Microbiology Laboratory, [facility]. Urine specimens tested by the [facility] have not been cleared or approved by [...] Eliu Velasquez MD LAB - MICROBIOLOGY O ALISE Performing Organization Address [facility] Co de Phone Number [facility] [address] [place] [address], [facility] [phone] * CHLAMYDIA + GC AMPLIFIED PROBE (01/31/2024 6:20 PM CLINICAL INFORMATION SYSTEMS DIRECTOR) Pathologist [facility] Chlamydia Amplified Probe Negative Negative 02/01/2024 6:13 AM CLINICAL INFORMATION SYSTEMS DIRECTOR [facility] MICRO[facility]OLOGY GC Amplified Probe Negative Negative 02/01/2024 6:13 AM CLINICAL INFORMATION SYSTEMS DIRECTOR [facility] MICROBIOLOGY Microbiology URINE / Unknown Collection / Unknown 01/31/2024 6:20 PM CLINICAL INFORMATION SYSTEMS DIRECTOR 01/31/2024 6:37 PM CLINICAL INFORMATION SYSTEMS DIRECTOR Narrative [facility] MICROBIOLOGY - 02/01/2024 6:13 AM CLINICAL INFORMATION SYSTEMS DIRECTOR Results based on detection/no detection of ribosomal RNA by amplified method. Eliu Velasquez MD LAB - MICROBIOLOGY Debbie CARRERO Performing Organization Address [facility] Co de Phone Number [facility] [address] [place] [address], [facility] [phone] * SARS-COV-2 (COVID-19)+INFLU A+B AG (AMB) POC (04/10/2020 9:13 AM CLINICAL INFORMATION SYSTEMS DIRECTOR) Influenza A Antigen Rapid Negative Negative [facility] Influenza B Antigen Rapid Negative Negative [facility] SARS-CoV-2 Ag Negative Negative [facility] COVID Internal Control Acceptable Acceptable [facility] Lot # [id number] [facility] Expiration Date 11/02/2020 [facility] Instrument Serial Number [id number] [facility] Microbiology SPECIMEN FROM NASAL FOSSAE / Unknown 04/10/2020 9:13 AM CLINICAL INFORMATION SYSTEMS DIRECTOR Althea King USED CAR MAKE [employer] CONSULTANT LAB - POINT OF CARE ORDERABLES [facility] [address] [phone] * IR EMBOLIZATION TRANSCATH THPY (01/04/2020 8:42 AM CLINICAL INFORMATION SYSTEMS DIRECTOR) Anatomical Region Laterality Modality X-Ray Angiograph y 01/04/2020 5:03 PM CLINICAL INFORMATION SYSTEMS DIRECTOR Impressions 01/13/2020 5:18 PM CLINICAL INFORMATION SYSTEMS DIRECTOR Impression: 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 Percutaneous embolization with 1 cc of Sotradecol foam was performed. Since, there is only a small vascular malformation is noted on this visit, the patient was informed that a second session is needed only when she is symptomatic swelling. Any attempt during non-symptomatic time would not be beneficial. I, Dr. Chiquis Scott was present and performed the entire procedure. This report was electronically signed by JOSE SCOTT M.D. on 01/13/2020 5:18 PM . Narrative 01/13/2020 5:18 PM CLINICAL INFORMATION SYSTEMS DIRECTOR History:Ying Hampton is [id number]nukk medical historypresenting withleft wrist vascular malformation under considerationfor percutaneous embolization Remedial Reading Teacher: Dr. Chiquis Scott, attending physician. PROCEDURE: 1. Ultrasound-guided access of left lateral aspect of the wrist and venogram. 2. Percutaneous embolization with 1 mL of Sotradecol form. Anesthesia: 1. Local anesthesia-1 mm of 1 percent lidocaine 2. Intravenous analgesia with 50 mcg of fentanyl. Fluoroscopy time: 0.2 minutes Contrast: 2 mL of Isovue-300. Procedure in detail: The procedure, risks, benefits and alternate is were explained to the patient and informed consent was obtained. The patient was placed supine on the angiographic table. Limited ultrasound evaluation of left wrist demonstrated significant reduction in the size and extent of the previously demonstrated complex vascular malformation (seen better on the MRI). Upper patient, there is no significant pain over the last few months. Considering the lesser vascularity, these could be renal lymphatic malformation. A percutaneous access was marked on the lateral aspect of the wrist. The marked site and the skin around the region was prepped and draped in usual sterile manner. Patient received intravenous analgesia with the fentanyl. After anesthetizing with 1 percent lidocaine, a 21-gauge needle was advanced into the lesion area. Contrast injection was made to demonstrated no brisk flow in the wrist. It was decided to use of subtle sclerosant. Percutaneous embolization of this in a lymphatic malformation was performed with 1 mL of Sotradecol foam. Following injection, the needle was removed. Sterile dressing was applied. Procedure Note Jose Scott MD - 01/13/2020 History:Ying Hampton is [id number]bzltwhxxktvqg historypresenting withleft wrist vascular malformation under considerationfor percutaneous embolization Remedial Reading Teacher: Dr. Chiquis Scott, attending physician. PROCEDURE: 1. Ultrasound-guided access of left lateral aspect of the wrist and venogram. 2. Percutaneous embolization with 1 mL of Sotradecol form. Anesthesia: 1. Local anesthesia-1 mm of 1 percent lidocaine 2. Intravenous analgesia with 50 mcg of fentanyl. Fluoroscopy time: 0.2 minutes Contrast: 2 mL of Isovue-300. Procedure in detail: The procedure, risks, benefits and alternate iswere explained to the patient and informed consent was obtained. The patient was placed supine on the angiographic table. Limited ultrasound evaluation of left wrist demonstrated significant reduction in the size and extent of the previously demonstrated complex vascular malformation (seen better on the MRI). Upper patient, there isno significant pain over the last few months. Considering the lesser vascularity, these could be renal lymphatic malformation. A percutaneous access was marked on the lateral aspect of the wrist. The marked site and the skin around the region was preppedand draped in usual sterile manner. Patient received intravenous analgesia with the fentanyl. After anesthetizing with 1 percent lidocaine, a 21-gauge needle was advanced into the lesion area. Contrast injection was made to demonstrated nobrisk flow in the wrist. It was decided to use of subtle sclerosant. Percutaneous embolization of this in a lymphatic malformation was performed with 1 mL of Sotradecol foam. Following injection, the needle was removed. Sterile dressing was applied. 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 Percutaneousembolization with 1 cc of Sotradecol foam was performed. Since, there is only a small vascular malformation is noted on thisvisit, the patient was informed that a second session is needed only when sheis symptomatic swelling. Any attempt during non-symptomatic time would notbe beneficial. I, Dr. Chiquis Scott was present and performed the entire procedure. This report was electronically signed by JOSE SCOTT M.D. on 01/13/2020 5:18 PM . Jose Scott MD IR ORDERABLES * PT-INR [facility] (01/04/2020 7:40 AM CLINICAL INFORMATION SYSTEMS DIRECTOR) PT 12.1 12.1 - 14.8 Seconds 01/04/2020 8:27 AM [facility] INR 0.9 See Comment 01/04/2020 8:27 AM [facility] Comment:The suggested therap eutic range for standard coumadin (warfarin) therapy is an INR of 2.0-3.0. For high-risk patients (Mechanical Mitral Valve Prosthesis, etc.), the suggested prophylactic therapeutic range is an INR of 2.5-3.5. Blood BLOOD SPECIMEN / Unknown Venipuncture / Unknown 01/04/2020 7:40 AM CLINICAL INFORMATION SYSTEMS DIRECTOR 01/04/2020 7:58 AM CLINICAL INFORMATION SYSTEMS DIRECTOR Jose Scott MD LAB - COAGULATION ORDERABLES [facility] [address] [place] [address], [facility] [phone] * HCG URINE QUALITATIVE - POCT (IP) INTERFACED (01/04/2020 7:27 AM CLINICAL INFORMATION SYSTEMS DIRECTOR) HCG Qual Urine Negative Negative 01/04/2020 7:34 AM [facility] Urine URINE / Unknown 01/04/2020 7 :27 AM CLINICAL INFORMATION SYSTEMS DIRECTOR 01/04/2020 7:34 AM CLINICAL INFORMATION SYSTEMS DIRECTOR Jose Scott MD LAB - POINT OF CA RE ORDERABLES [address] [address], [facility] [phone] * HCG URINE QUAL POCT NOTIFICATION (01/04/2020 7:08 AM CLINICAL INFORMATION SYSTEMS DIRECTOR) Comment Notification Label Only - See Separate Report 01/04/2020 8:31 AM CLINICAL INFORMATION SYSTEMS DIRECTOR [facility] Urine URINE / Unknown 01/04/2020 7 :08 AM CLINICAL INFORMATION SYSTEMS DIRECTOR 01/04/2020 7:09 AM CLINICAL INFORMATION SYSTEMS DIRECTOR Zainab Banda MD LAB - URINALYSIS ORD ERABLES Performing Organization Address City/[facility]/ZIP Co de Phone Number [address] [address], [facility] [phone] * GROSS + MICRO EXAM (STL) (04/21/2018 6:37 PM CLINICAL INFORMATION SYSTEMS DIRECTOR) Case Report Surgical Pathology Report Case: [id number] Authorizing Provider: Lyndsay Montes De Oca APRN-CNM Collected: 04/21/2018 06:37 PM Ordering Location: [facility] Received: 04/22/2018 06:45 AM Pathologist: Ronny Mendez MD Specimen: Placenta Non 3rd Trimester 04/25/2018 4:38 PM CLINICAL INFORMATION SYSTEMS DIRECTOR [facility] Final Diagnosis 1. Placenta, delivery: -- Third trimester placenta, 400 g -- No evidence of villitis -- Pigment-laden macrophages seen, consistent with meconium staining. -- No evidence of chorioamnionitis -- 3-vessel umbilical cord with no evidence of vasculitis or funisitis SSD 04/25/2018 4:38 PM CLINICAL INFORMATION SYSTEMS DIRECTOR [facility] Gross Description Received in a container of formalin labeled Ying Hampton, and placenta is a placenta with attached umbilical cord and membranes. The ovoid placenta measures 17 x 15.5 x 3.6 cm. The cord measures 20 cm in length x 1.5 cm in diameter, contains three vessels, and inserts 4 cm from the margin. The surface is purple-blue and displays the usual vascular pattern. The membranes are purple-brown, thick and cloudy, and insert at the margin. The trimmed placenta weight is 400 g. The maternal surface displays grossly complete and intact cotyledons. The cotyledons are serially sectioned and display spongy red parenchyma. Pharmaceutical Process Engineer sections are submitted as follows: A1 - Umbilical cord and membranes A2 - surface A3 - Maternal surface JS/sm 04/25/2018 4:38 PM [facility] Microscopic Description Placental disc, membrane, and umbilical cord examined. 04/25/2018 4:38 PM [facility] Disclaimer All histochemical and/or immunohistochemical results are interpreted with controls that demonstrate appropriate staining reactions before reporting results. Note on use of immunocytochemistry reagents: This test was developed and its performance characteristic determined by [facility], Department of Laboratory Medicine. It has not been cleared or approved by the U.S. Food and Drug Administration (FDA). The FDA has determined that such clearance or approval is not necessary. The test is used for clinical purpose. It should not be regarded as investigational or for research. This laboratory is certified to perform high complexity testing. 04/25/2018 4:38 PM [facility] Embedded Images 04/25/2018 4:38 PM [facility] Pathology/Cytolo gy ENTIRE PLACENTA / Unknown Collection / Unknown 04/21/2018 6:37 PM CLINICAL INFORMATION SYSTEMS DIRECTOR 04/22/2018 6:45 AM [facility] Lyndsay Montes De Oca USED CAR MAKE READY MECHANIC-CNM LAB - PATHOLOGY/CY TOLOGY ORDERABLES [facility] [address] [place] [address] * (ABNORMAL) BLOOD GASES CORD NANCY (ISTAT) (04/21/2018 5:30 PM CLINICAL INFORMATION SYSTEMS DIRECTOR) pH Cord Venous POCT 7.34 7.28 - 7.40 pH 04/21/2018 6:30 PM [facility] pCO2 Cord Venous POCT 45 35 - 45 mmHg 04/21/2018 6:30 PM [facility] pO2 Cord Venous POCT 17(L) 22 - 33 mmHg 04/21/2018 6:30 PM [facility] HCO3 Cord Arterial POCT 24.5(H) 22 - 24 mmol/L 04/21/2018 6:30 PM [facility] BE Cord Venous POCT Calc -2 -6.4 - 1.6 mmol/L 04/21/2018 6:30 PM [facility] TCO2 Cord Venous POCT 26 22 - 30 mmol/L 04/21/2018 6:30 PM [facility] O2 Saturation % Cord Venous Calc POCT 21 % 04/21/2018 6:30 PM [facility] Site CORD NANCY 04/21/2018 6:30 PM [facility] Sample iSTAT CORD V 04/21/2018 6:30 PM [facility] Blood CORD BLOOD SPECIMEN / Unknown 04/21/2018 5:30 PM CLINICAL INFORMATION SYSTEMS DIRECTOR 04/21/2018 6:30 PM [facility] Garry Martin MD LAB - POINT OF CARE ORDERABLES [facility] [address] [place] [address] * (ABNORMAL) BLOOD GASES CORD ART (ISTAT) (04/21/2018 5:27 PM [facility]) pH Cord Arterial POCT 7.24 7.20 - 7.34 pH 04/21/2018 6:30 PM [facility] pCO2 Cord Arterial POCT 60.8(H) 45 - 55 mmHg 04/21/2018 6:30 PM [facility] pO2 Cord Arterial POCT 15 12 - 25 mmHg 04/21/2018 6:30 PM [facility] HCO3 Cord Arterial POCT 26.1(H) 22 - 24 mmol/L 04/21/2018 6:30 PM [facility] BE Cord Arterial POCT -3(L) -2.9 - 8.3 mmol/L 04/21/2018 6:30 PM [facility] TCO2 Cord Arterial POCT 28 mmol/L 04/21/2018 6:30 PM [facility] O2 Saturation Cord Art % Calc POCT 15 % 04/21/2018 6:30 PM [facility] Site CORD ART 04/21/2018 6:30 PM CLINICAL INFORMATION SYSTEMS DIRECTOR [facility] Sample iSTAT CORD A 04/21/2018 6:30 PM [facility] Blood CORD BLOOD SPECIMEN / Unknown 04/21/2018 5:27 PM CLINICAL INFORMATION SYSTEMS DIRECTOR 04/21/2018 6:30 PM CLINICAL INFORMATION SYSTEMS DIRECTOR Garry Martin MD LAB - POINT OF CARE ORDERABLES Performing Organization Address City/State/[facility] Co de Phone Number [facility] [address] [place] [address] * NON-STRESS TEST (04/20/2018 1:08 PM CLINICAL INFORMATION SYSTEMS DIRECTOR) Only the most recent of11 resultswithin the time period is included. Anatomical Region Laterality Modality Other Narrative 04/20/2018 1:08 PM Rekha Velázquez RN 04/19/2018 2:16 PM Name: Ying Hampton Date of : 1990 Today's Date: 04/19/2018 Start: 1016 End: 1051 NST RESULTS ([place]) OBJECTIVE FINDINGS , , , NST Indication(s): Premature rupture of membranes Uterine Irritability: Yes Contractions: Not present OBJECTIVE FINDINGS Movement: Present Monitoring Mode: External Baseline: 145 BPM Variability: Moderate Decelerations: None Accelerations: Yes OTHER INFORMATION Rekha Smith RN Noah Gutierrez MD [facility] ORDERABLES * DRUG SCREEN TOX URINE PANEL (04/12/2018 4:16 PM CLINICAL INFORMATION SYSTEMS DIRECTOR) Pathologist [facility] Amphetamines Screen Urine Not Detected Not Detected 04/12/2018 5:44 PM [facility] Barbiturates Screen Urine Not Detected Not Detected 04/12/2018 5:44 PM [facility] Benzodiazepines Screen Urine Not Detected Not Detected 04/12/2018 5:44 PM [facility] Cannabinoids Screen Urine Not Detected Not Detected 04/12/2018 5:44 PM [facility] Cocaine Screen Urine Not Detected Not Detected 04/12/2018 5:44 PM [facility] Methadone Screen Urine Not Detected Not Detected 04/12/2018 5:44 PM [facility] Opiate Screen Urine Not Detected Not Detected 04/12/2018 5:44 PM [facility] Phencyclidine Screen Urine Not Detected Not Detected 04/12/2018 5:44 PM [facility] Urine URINE / Unknown Collection / Unknown 04/12/2018 4:16 PM CLINICAL INFORMATION SYSTEMS DIRECTOR 04/12/2018 5:07 PM CLINICAL INFORMATION SYSTEMS DIRECTOR Narrative [facility] - 04/12/2018 5:44 PM CLINICAL INFORMATION SYSTEMS DIRECTOR This drug screen is designed for MEDICAL purposes only. It is not to be used for legal purposes, including but not limited to worker's comp, police investigations, occupational issues, child custody, etc. Any positive result is only presumptive and must be confirmed with a separate confirmatory test ordered by the physician. Drug Screening Test Cutoff Values: AMPHETAMINES 1000 ng/mL BARBITURATES 200 ng/mL BENZODIAZEPINES 200 ng/mL CANNABINOIDS(THC) 50 ng/mL COCAINE 300 ng/mL METHADONE 300 ng/mL OPIATES 300 ng/mL PHENCYCLIDINE(PCP)25 ng/mL Noah Gutierrez MD LAB - URINE CHEMISTR Y ORDERABLES Performing Organization Address City/[facility] Co de Phone Number [facility] [address] [place], [place] [id number] * TRICHOMONAS RAPID TEST (04/12/2018 11:45 AM CLINICAL INFORMATION SYSTEMS DIRECTOR) Trichomonas Rapid Test Negative Negative 04/12/2018 12:43 PM [facility] Microbiology VAGINAL SWAB / Unknown Collection / Unknown 04/12/2018 11:45 AM CLINICAL INFORMATION SYSTEMS DIRECTOR 04/12/2018 12:20 PM CLINICAL INFORMATION SYSTEMS DIRECTOR Valerie Nichole MD LAB - MICROBIOLOGY O RDERABLES Performing Organization Address City/[facility] Co de Phone Number [facility] [address] [place] [id number] * CHLAMYDIA + GC AMPLIFIED PROBE (04/12/2018 11:45 AM CLINICAL INFORMATION SYSTEMS DIRECTOR) Chlamydia Amplified Probe Negative Negative 04/13/2018 11:14 AM [facility] MICROBIOLOGY GC Amplified Probe Negative Negative 04/13/2018 11:14 AM [facility] MICROBIOLOGY Microbiology ENTIRE VAGINA / Unknown Collection / Unknown 04/12/2018 11:45 AM CLINICAL INFORMATION SYSTEMS DIRECTOR 04/12/2018 12:20 PM CLINICAL INFORMATION SYSTEMS DIRECTOR Narrative [facility] MICROBIOLOGY - 04/13/2018 11:14 AM CLINICAL INFORMATION SYSTEMS DIRECTOR Results based on detection/no detection of ribosomal RNA by amplified method. Valerie Nichole MD LAB - MICROBIOLOGY O RDERABLES [facility] MICROBIOLOGY [address] [place], [place] [address], [facility] [phone] Care Teams Paper Production Engineer Relationship Specialty Start Date End Date Severino Wooten DO [address] [facility] [address] [facility] [address] [place] [address] PCP - General 10/26/17
--- OUTSIDE RECORDS SUMMARY | 2024-04-25 00:22 | XMS_ITS | Encounter Summary ---
Author Organization [facility] Address [address] [place] [address] Care Team Providers Care Manager Commodities Name Role Phone Severino Wooten DO Primary Care Provider [phone] Reason for Visit * Reason Onset Date Comments Pain Back 03/21/2024 Side Effect 03/21/2024 Encounter Details Date Type Department Care Team (Late st Contact Info) Description 03/21/2024 Telephone [facility] [address] [place] [address] Steffanie Arnold MD [address] [place] [address] Pain Back; Side Effect Social History Tobacco Use Types Packs/Day Years Used Date Smoking Tobacco: Never Smokeless Tobacco: Never Alcohol Use Standard Drinks/Week Comments No 0 (1 standard drink = 0.6 oz pur e alcohol) Overall Financial Resource Strain (CARDIA) Answe r Date Recorded How hard is it for you to pa y for the very basics like food, housing, medical care, and heating? Not hard at all 01/31/2024 PHQ-2 Answer Date Recorded Patient Health Questionnaire-2 Score 0 03/21/2024 [facility] [place] of Occupat ional Health - Occupational Stress Questionnaire Answer Date Recorded Do you feel stress - tense, restless, nervous, or anxious, or unable to sleep at night because your mind is troubled all the time - these days? Not at all 01/31/2024 Hunger Vital Sign Answer Date Recorded Within the past 12 months, y ou worried that your food would run out before you got the money to buy more. Never true 01/31/20 24 Within the past 12 months, t he food you bought just didn't last and you didn't have money to get more. Never true 01/31/2024 PRAPARE - Transportation Answer Date Re corded In the past 12 months, has l ack of transportation kept you from medical appointments or from getting medications? No 04/2023 In the past 12 months, has l ack of transportation kept you from meetings, work, or from getting things needed for daily living? No 01/31/2024 Housing Stability Vital Sign Answer Francesco e Recorded In the last 12 months, was t here a time when you were not able to pay the mortgage or rent on time? No 01/31/2024 In the past 12 months, how m any times have you moved where you were living? 0 01/31/2024 At any time in the past 12 m [facility], were you homeless or living in a fci (including now)? No 01/31/2024 Education Answer Date Recorded What is the [...] on file Sexual Orientation Not on file documented as of this encounter Functional Status Functional Status Response Date of Assess ment Is person deaf or have serious hearing difficult y? No 01/31/2024 Is person blind or have serious difficulty seein g? No 01/31/2024 Does person have serious dif ficulty walking/climbing stairs? No 01/31/2024 Does person have difficulty dressing/bathing? No 01/31/2024 Does person have difficulty doing errands alone? No 01/31/2024 Cognitive Status Response Date of Assessm ent Does person have difficulty concentrating/remembering/making decisions? No 01/31/2024 documented as of this encounter Miscellaneous Notes * Telephone Encounter - Jada Stuart - 03/21/2024 2:43 PM CST Pt had iron infusion and now is having a lot of back pain and wants to know is this an normal side effect from injection. CB: [phone] E GANG SAWYER documented in this encounter Plan of Treatment Upcoming Encounters Date Type Department Care Team (Late st Contact Info) Description 04/25/2024 10:40 AM STONE GANG SAWYER Hospital Encounter [facility] [address] [place] [address] Adriana Redman, PET SITTING-INVESTIGATOR [address] [place] [address] 05/01/2024 10:15 AM STONE GANG SAWYER Procedure visit [facility] [address] [place] [address] 05/01/2024 11:00 AM STONE GANG SAWYER visit [facility] [address] [place] [address] 05/01/2024 11:00 AM STONE GANG SAWYER [facility] [address] [place] [address] Ave [address] [place] [phone] 05/27/2024 Hospital Encounter [facility] [address] [place] [address] Obstetrics documented as of this encounter Visit Diagnoses Not on filedocumented in this encounter Care Teams Manager Commodities Relationship Specialty Start Date End Date Severino Wooten DO [address] [facility] [address] [place] [address] PCP - General 10/26/17 documented as of this encounter
--- OUTSIDE RECORDS SUMMARY | 2024-04-25 00:23 | XMS_ITS | Encounter Summary ---
Author Organization [facility] Address [address] [facility] [place] [address] Care Team Providers Care Business Line Manager Name Role Phone Severino Wooten Primary Care Provider [phone] Encounter Details Date Type Department Care Team (Latest Contact Info) Description 04/24/2024 Travel Social History Tobacco Use Types Packs/Day Years [...] Recorded Patient Health Questionnaire-2 Score 0 03/28/2024 [facility] [place] of Occupat ional Health - Occupational Stress [...] any time in the past 12 m [facility], were you homeless or living in [...] or have serious hearing difficult y? No 04/10/2024 Is person blind or have serious difficulty seein g? No 04/10/2024 Does person have serious dif ficulty walking/climbing stairs? No 04/10/2024 Does person have difficulty dressing/bathing? No 04/10/2024 Does person have difficulty doing errands alone? No 04/10/2024 Cognitive Status Response Date of Assessm ent Does person have difficulty concentrating/remembering/making decisions? No 04/10/2024 documented as of this encounter Plan of Treatment Upcoming Encounters Date Type Department Care Team (Late st Contact Info) Description 04/25/2024 10:40 AM TECHNICAL TRAINING MANAGER Hospital Encounter [facility] [address] [place] [address] Adriana Redman, PRINTER [employer] SHOP-ORDNANCE TECHNICIAN [address] [place] [address] 05/01/2024 10:15 AM TECHNICAL TRAINING MANAGER Procedure visit [facility] HAND [address] [facility] [address] [place] [address] 05/01/2024 11:00 AM TECHNICAL TRAINING MANAGER visit [facility] [address] [place] [address] 05/01/2024 11:00 AM TECHNICAL TRAINING MANAGER Procedure visit [facility] RUG HOOKER HAND [address] [place] [address] 05/27/2024 Hospital Encounter [facility] [address] [place] [address] Obstetrics documented as of this encounter Visit Diagnoses Not on filedocumented in this encounter Care Teams Business Line Manager Relationship Specialty Start Date End Date Severino Wooten DO [address] [facility] [address] [phone] PCP - General 10/26/17 documented as of this encounter
--- OUTSIDE RECORDS SUMMARY | 2024-04-25 00:23 | XMS_ITS | Encounter Summary ---
Author Organization [facility] Address [address] [place] [address] Care Team Providers Care Paleontological Helper Name Role Phone Severino Wooten DO Primary Care Provider [phone] Reason for Visit * Reason Comments Non-stress Test Encounter Details Date Type Department Care Team (Late st Contact Info) Description 04/24/2024 8:23 AM CHIEF SCIENTIFIC OFFICER Hospital Encounter [facility] UNIT [address] [place] [address] Santos Ledezma DO [address] [place] [phone] Social History Tobacco Use Types Packs/Day Years [...] Recorded Patient Health Questionnaire-2 Score 0 03/28/2024 [facility] Occupat ional Health - Occupational Stress [...] the money to buy more. Never true 02/11/20 25 Within the past 12 months, t [...] No 04/10/2024 Housing Stability Vital Sign Answer Francesoc e Recorded In the last 12 months, was t here a time when you were not able to pay the mortgage or rent on time? No 04/10/2024 In the past 12 months, how m any times have you moved where you were living? 0 04/10/2024 At any time in the past 12 m [facility], were you homeless or living in a prison (including now)? No 04/10/2024 Education Answer Date [...] on file documented as of this encounter Last Filed Vital Signs Vital Sign Reading Time Taken Comments Blood Pressure 110/73 04/24/2024 9:50 AM CHIEF SCIENTIFIC OFFICER Pulse - - Temperature - - Respiratory Rate - - Oxygen Saturation - - Inhaled Oxygen Concentration - - Weight - - Height - - Body Mass Index - - documented in this encounter Functional Status Functional Status Response [...] st Contact Info) Description 04/25/2024 10:40 AM CHIEF SCIENTIFIC OFFICER Hospital Encounter [facility] [address] [place] [address] Adriana Redman, [facility] [address] [place] [address] 05/01/2024 10:15 AM CHIEF SCIENTIFIC OFFICER Procedure visit [facility] CEMENTING MACHINE OPERATOR [address] [place] [address] 05/01/2024 11:00 AM CHIEF SCIENTIFIC OFFICER visit [facility] - CEMENTING MACHINE OPERATOR [address] [place] [phone] 05/01/2024 11:00 AM CHIEF SCIENTIFIC OFFICER [facility] CEMENTING MACHINE OPERATOR [address] [place] [address] Ave [address] [place] [phone] 05/27/2024 Hospital Encounter [facility] [address] [place] [address] Obstetrics documented as of this encounter Visit Diagnoses Not on filedocumented in this encounter Care Teams Paleontological Helper Relationship Specialty Start Date End Date Severino Wooten DO [address] [facility] [address] [place] [address] PCP - General 10/26/17 documented as of this encounter
--- OUTSIDE RECORDS SUMMARY | 2024-04-25 00:23 | XMS_ITS | Encounter Summary ---
Author Organization [facility] Address [address] [facility] [place] [address] Care Team Providers Care Wardrobe Assistant Name Role Phone Severino Wooten Primary Care Provider [phone] Encounter Details Date Type Department Care Team (Late st Contact Info) Description 06/20/2019 Telephone [facility] [address] [facility] [phone] Ivis Borden, RN Social History Tobacco Use Types Packs/Day Years Used Date Smoking Tobacco: Never Smokeless Tobacco: Never Alcohol Use Standard Drinks/Week Comments No 0 (1 standard drink = 0.6 oz pur e alcohol) Sex and Gender Information Value Date Recorded Sex Assigned at Not on file Gender Identity Not on file Sexual Orientation Not on file documented as of this encounter Functional Status Functional Status Response Date of Assess ment Is person deaf or have serious hearing difficult y? No 04/12/2018 Is person blind or have serious difficulty seein g? No 04/12/2018 Does person have serious dif ficulty walking/climbing stairs? No 04/12/2018 Does person have difficulty dressing/bathing? No 04/12/2018 Does person have difficulty doing errands alone? No 04/12/2018 Cognitive Status Response Date of Assessm ent Does person have difficulty concentrating/remembering/making decisions? No 04/12/2018 documented as of this encounter Miscellaneous Notes * Telephone Encounter - Ivis Borden, RN - 06/20/2019 1:30 PM CDT Reached out to pt to let her know we are not scheduling non-emergent cases at this time due to Covid-19. Pt verbalized understanding. Pt has our contact information and encouraged to call with questions or concerns. documented in this encounter Plan of Treatment Upcoming Encounters Date Type Department Care Team (Late st Contact Info) Description 04/25/2024 10:40 AM INTEGRITY ENGINEER Hospital Encounter [facility] [address] [place] [address] Adriana Redman APRN-CONSULTING SERVICES PROJECT MANAGER [address] [place] [phone] 05/01/2024 10:15 AM INTEGRITY ENGINEER Procedure visit [facility] NODE JS DEVELOPER [address] [place] [address] Ave [address] [place] [address] 05/01/2024 11:00 AM INTEGRITY ENGINEER visit [facility] NODE JS DEVELOPER [address] [place] [address] [address] [place] [phone] 05/01/2024 11:00 AM INTEGRITY ENGINEER Procedure visit [facility] NODE JS DEVELOPER [address] [place] [address] [address] [place] [phone] 05/27/2024 Hospital Encounter [facility] [address] [place] [address] Obstetrics documented as of this encounter Visit Diagnoses Not on filedocumented in this encounter Additional Health Concerns Infection Onset Date Last Indicated Resolved Time COVID-19 Under Investigation 04/10/2020 04/10/2020 04/10/2020 9:17 AM INTEGRITY ENGINEER documented as of this encounter Care Teams Wardrobe Assistant Relationship Specialty Start Date End Date Severino Wooten DO [address] [facility] [address] [address] PCP - General 10/26/17 documented as of this encounter
--- OUTSIDE RECORDS SUMMARY | 2024-04-25 00:23 | XMS_ITS | Encounter Summary ---
Author Organization [facility] Address [address] [place] [address] Care Team Providers Care Community Relations Police Lieutenant Name Role Phone Jesuslul Severinomarc Ge DO Primary Care Provider [phone] Reason for Visit * Reason Onset Date Comments Coordination Of Care 04/19/2024 Encounter Details Date Type Department Care Team (Late st Contact Info) Description 04/19/2024 Telephone [facility] - DIRECTOR OF ACADEMIC [address] [facility] [address] [place] [address] Adriana Redman APRN-CLINICAL TRIALS ASSISTANT [address] [place] [address] Coordination Of Care Social History Tobacco Use Types Packs/Day Years [...] Recorded Patient Health Questionnaire-2 Score 0 03/28/2024 [facility] Occupat ional Health - Occupational Stress [...] any time in the past 12 m onths, were you homeless or living in a mcc (including now)? No 04/10/2024 Education Answer Date [...] st Contact Info) Description 04/25/2024 10:40 AM HEARING THERAPIST Hospital Encounter [facility] [address] [address] Adriana Redman [facility] [address] [place] [address] 05/01/2024 10:15 AM HEARING THERAPIST Procedure visit [facility] - DIRECTOR OF ACADEMIC [address] [place] [address] 05/01/2024 11:00 AM HEARING THERAPIST [facility] - DIRECTOR OF ACADEMIC [address] [place] [address] 05/01/2024 11:00 AM HEARING THERAPIST Procedure visit [facility] - DIRECTOR OF ACADEMIC [address] [place] [phone] 05/27/2024 Hospital Encounter [facility] [address] [place] [address] Obstetrics documented as of this encounter Visit Diagnoses Not on filedocumented in this encounter Care Teams Community Relations Police Lieutenant Relationship Specialty Start Date End Date Severino Wooten DO [address] [facility] [address] [place] [address] PCP - General 10/26/17 documented as of this encounter
--- OUTSIDE RECORDS SUMMARY | 2024-04-25 00:23 | XMS_ITS | Referral Summary ---
Author Organization [facility] Address [address] [place] [address] Care Team Providers Care Core Carrier Name Role Phone Severino Wooten DO Primary Care Provider [phone] Source Comments [facility],non-owned Affiliates and Associated Physician Practices is amultiple site organization consisting of ambulatory clinics and hospital sitesin [place], [place], [place] and [place]. This disclosure is being madepursuant to the Care Everywhere program and may not contain all information available regarding this patient. Last updated 17.[facility] Encounters Date Type Department Care Team Description 04/25/2024 10:40 AM OIL FIRE SPECIALIST Hospital Encounter [facility] [address] [place] [address] Adriana Redman APRN-CNP 04/24/2024 Travel 04/24/2024 8:23 AM OIL FIRE SPECIALIST Hospital Encounter [facility] [address] [place] [address] Santos Ledezma DO 04/24/2024 8:15 AM OIL FIRE SPECIALIST Hospital Encounter [facility] [address] [place] [address] Santos Ledezma DO MANAGER OF HOUSEKEEPING 04/24/2024 9:40 AM OIL FIRE SPECIALIST visit [facility] - MANAGER OF HOUSEKEEPING [address] [place] [address] Steffanie Arnold MD GA: 35w2d 04/19/2024 Telephone [facility] - MANAGER OF HOUSEKEEPING [address] [place] [phone] Adriana Redman APRN-WAITER/WAITRESS DINING CAR Coordination Of Care 04/17/2024 Telephone [facility] - MANAGER OF HOUSEKEEPING [address] [place] [phone] Steffanie Arnold MD Appointment 04/17/2024 11:00 AM OIL FIRE SPECIALIST Procedure visit [facility] - MANAGER OF HOUSEKEEPING [address] [place] [phone] Presentation of cord, single or unspecified fetus (HCC) ; Placenta previa antepartum (HCC) 04/17/2024 Travel 04/17/2024 8:15 AM OIL FIRE SPECIALIST - 04/17/2024 11:59 PM OIL FIRE SPECIALIST Hospital Encounter [facility] MATERNAL/ EVALUATION UNIT [address] [place] [address] Brian Ashton MD Discharge Disposition: Home or Self Care 04/17/2024 9:40 AM OIL FIRE SPECIALIST visit [facility] - MANAGER OF HOUSEKEEPING [address] [place] [address] Steffanie Arnold MD GA: 34w2d 04/16/2024 Telephone [facility] - MANAGER OF HOUSEKEEPING [address] [place] [address] Steffanie Arnold MD Appointment 04/16/2024 Telephone [facility] - MANAGER OF HOUSEKEEPING [address] [place] [phone] Brianda Elizondo MD Reschedule Appointment (SEEKING TO JAMES 04/17/24 US & OV TO APPT FOR TODAY 04/16/24 IF POSS. PLS CALL TO DISCUSS IT CAN BE DONE DUE LACK OF NEEDLE LOOM SETTER.) 04/10/2024 5:04 AM OIL FIRE SPECIALIST - 04/11/2024 3:36 PM OIL FIRE SPECIALIST Hospital Encounter [facility] 5E ANTEPARTUM/MOTHER BABY [address] [place] [address] Santos Ledezma DO Obstetrics Discharge Disposition: Home or Self Care 04/04/2024 Travel 04/04/2024 10:50 AM OIL FIRE SPECIALIST - 04/04/2024 11:59 PM OIL FIRE SPECIALIST Hospital Encounter [facility] [address] [place] [address] Adriana Redman APRN-CNP Discharge Disposition: Home or Self Care 04/03/2024 Travel 04/03/2024 10:40 AM OIL FIRE SPECIALIST visit [facility] - MANAGER OF HOUSEKEEPING [address] [place] [address] Adriana Redman APRN-CNP GA: 32w2d 04/03/2024 9:45 AM OIL FIRE SPECIALIST - 04/03/2024 11:59 PM OIL FIRE SPECIALIST Hospital Encounter [facility] MATERNAL/ EVALUATION UNIT [address] [place] [address] Santos Ledezma DO MANAGER OF HOUSEKEEPING Discharge Disposition: Home or Self Care 03/28/2024 Travel 03/28/2024 10:40 AM OIL FIRE SPECIALIST - 03/28/2024 11:59 PM OIL FIRE SPECIALIST Hospital Encounter [facility] [address] [place] [address] Adriana Redman APRN-CNP Discharge Disposition: Home or Self Care 03/21/2024 Telephone [facility] - MANAGER OF HOUSEKEEPING [address] [place] [address] Steffanie Arnold MD Pain Back; Side Effect 03/21/2024 Orders Only [facility] [address], [address] [place] [address] Adriana Redman APRN-CNP Supervision of high-risk of elderly multigravida (>= 35 years old at time of delivery) ([facility]) 03/21/2024 10:40 AM OIL FIRE SPECIALIST - 03/21/2024 11:59 PM OIL FIRE SPECIALIST Hospital Encounter [facility] [address] [place] [address] Adriana Redman APRN-CNP Discharge Disposition: Home or Self Care 03/20/2024 Travel 03/20/2024 10:40 AM OIL FIRE SPECIALIST visit [facility] - MANAGER OF HOUSEKEEPING [address] [place] [address] Steffanie Arnold MD GA: 30w2d 03/07/2024 [facility] Only [facility] [address] [place] [address] Adriana Redman APRN-CNP 03/07/2024 Travel 03/07/2024 11:00 AM OIL FIRE SPECIALIST visit [facility] - MANAGER OF HOUSEKEEPING [address] [place] [address] Ave [address] [place] [address] GA: 28w3d 03/07/2024 10:15 AM OIL FIRE SPECIALIST Procedure visit [facility] - MANAGER OF HOUSEKEEPING [address] [place], [place] [address]e [address] [place] [address] Encounter for follow-up ultrasound of anatomy ([facility]) ; Supervision of high-risk of elderly multigravida (>= 35 years old at time of delivery) ([facility]); Placenta previa in second trimester (HCC); History of premature rupture of membranes in previous , currently in second trimester (HCC); History of delivery, currently (HCC); Vaginal bleeding in ([facility]); Placenta previa in third trimester (HCC) 02/21/2024 Telephone [facility] - MANAGER OF HOUSEKEEPING [address] [place] [address] Ave [address] [place] [address] Adriana Redman APRN-CNP Coordination Of Care 02/20/2024 Travel 02/20/2024 11:00 AM OIL FIRE SPECIALIST visit [facility] - MANAGER OF HOUSEKEEPING [address] [place] [address] Adriana Redman APRN-CNP GA: 26w1d 02/15/2024 Telephone [facility] - MANAGER OF HOUSEKEEPING [address] [place] [address] Ave [address] [place] [address] Angel Carroll MD Reschedule Appointment 02/15/2024 Telephone [facility] - MANAGER OF HOUSEKEEPING [address] [place] [phone] Steffanie Arnlod MD Question 02/09/2024 Travel 02/09/2024 1:40 PM OIL FIRE SPECIALIST visit [facility] - MANAGER OF HOUSEKEEPING [address] [place] [phone] GA: 24w4d 02/06/2024 Telephone [facility] MATERNAL/ EVALUATION UNIT [facility] [place] [address] Talya Mayo, RN Hospital Follow-up 02/06/2024 Telephone [facility] - MANAGER OF HOUSEKEEPING [address] [place] [phone] Brian Ashton MD Coordination Of Care 01/31/2024 5:13 PM OIL FIRE SPECIALIST - 02/05/2024 1:15 PM OIL FIRE SPECIALIST Hospital Encounter [facility] 5E ANTEPARTUM/MOTHER BABY [address] [place] [address] Annie Rodriguez MD MANAGER OF HOUSEKEEPING Discharge Disposition: Home or Self Care 02/01/2024 Telephone [facility] MATERNAL/ EVALUATION UNIT [facility] [address] [place] [address] Talya Mayo RN Hospitalization 01/31/2024 Travel from Last 3 Months Allergies No known active allergies Medications * [...] denied by Ethics committee Abdominal cramping affecting 5 History of precipitous labor and delivery 2024 [...] for vaginal bleeding and contractions. S/p ANCS 3- 4 History of delivery, currently Estimated Date of [...] trimester 04/12/2018 04/18/2018 Lymphatic malformation 10/26/201702/19 Immunizations Name Administration Dates Next Due Covid [...] OR 60y+ 0.5mL 04/17/2024 TDAP (7yrs+) 03/20/2024,04/15/2018 Social History Tobacco Use Types Packs/Day Years [...] Recorded Patient Health Questionnaire-2 Score 0 03/28/2024 [facility] [place] [facility] Occupat ional Health - Occupational Stress [...] any time in the past 12 m [facility], were you homeless or living in a fci (including now)? No 04/10/2024 Education Answer Date [...] Comments Blood Pressure 102/64 04/24/2024 10:21 AM OIL FIRE SPECIALIST Pulse 80 04/04/2024 11:51 AM OIL FIRE SPECIALIST Temperature 36.8 C (98.3 F) 04/11/2024 12:17 PM OIL FIRE SPECIALIST Respiratory Rate 17 04/11/2024 12:17 PM OIL FIRE SPECIALIST Oxygen Saturation 98% 04/11/2024 12:17 PM OIL FIRE SPECIALIST Inhaled Oxygen Concentration - - Weight 59 kg (130 lb) 04/24/2024 10:21 AM OIL FIRE SPECIALIST Height 154.9 cm (5' 1) 04/24/2024 10:21 AM OIL FIRE SPECIALIST Body Mass Index 24.56 04/24/2024 10:21 AM OIL FIRE SPECIALIST Functional Status Functional Status Response Date of [...] person have difficulty concentrating/remembering/making decisions? No 04/10/2024 Plan of Treatment Upcoming Encounters Date Type Department Care Team (Late st Contact Info) Description 04/25/2024 10:40 AM OIL FIRE SPECIALIST Hospital Encounter [facility] [address] [address] Adriana Redman, LISBET-WAITER/WAITRESS DINING CAR [address] [place] [phone] 05/01/2024 10:15 AM OIL FIRE SPECIALIST Procedure visit [facility] - MANAGER OF HOUSEKEEPING [address] [place] [phone] 05/01/2024 11:00 AM OIL FIRE SPECIALIST visit [facility] - MANAGER OF HOUSEKEEPING [address] [place] [phone] 05/01/2024 11:00 AM OIL FIRE SPECIALIST Procedure visit [facility] - MANAGER OF HOUSEKEEPING [address] [place] [phone] 05/27/2024 Hospital Encounter [facility] 5 LDR [address] [place] [address] Obstetrics Procedures Procedure Name Priority Date/Time Associated Diagnosis Comments URINALYSIS - POINT OF CARE (AMB) [facility] Routine 04/24/2024 10:19 AM OIL FIRE SPECIALIST Supervision of high risk , antepartum (HCC) BIOPHYSICAL PROFILE W NST Routine 04/24/2024 8:30 AM OIL FIRE SPECIALIST URINALYSIS - POINT OF CARE (AMB) [facility] Routine 04/17/2024 10:35 AM OIL FIRE SPECIALIST Supervision of high risk , antepartum (HCC) Placenta previa antepartum (HCC) SONOGRAM - TRANSVAGINAL Routine 04/17/2024 9:07 AM OIL FIRE SPECIALIST IMAGING/RADIOLOGY/XRA Y RESULTS ORDER 04/12/2024 6:50 PM OIL FIRE SPECIALIST TYPE + SCREEN PANEL STAT 04/10/2024 8 :55 AM OIL FIRE SPECIALIST CBC W AUTO DIFFERENTIAL STAT 04/10/2024 8:55 AM OIL FIRE SPECIALIST Abdominal cramping affecting (HCC) CULTURE STREP B Routine 04/10/2024 8:55 AM OIL FIRE SPECIALIST Abdominal cramping affecting (HCC) SONOGRAM - LIMITED Routine 04/10/2024 8: 22 AM OIL FIRE SPECIALIST URINALYSIS REFLEX MICROSCOPIC REFLEX CULTURE STAT 04/10/2024 6:33 AM OIL FIRE SPECIALIST Abdominal cramping affecting (HCC) CULTURE URINE STAT 04/10/2024 6:33 AM OIL FIRE SPECIALIST Abdominal cramping affecting (HCC) URINALYSIS AUTO - POINT OF CARE (AMB) [facility] Routine 04/03/2024 11:17 AM OIL FIRE SPECIALIST Placenta previa antepartum (HCC) SONOGRAM - COMPLETE Routine 04/03/2024 9 :56 AM OIL FIRE SPECIALIST Encounter for ultrasound to assess growth (HCC) Encounter for follow-up ultrasound of anatomy (HCC) History of premature rupture of membranes (PROM) in previous , currently in third trimester (HCC) Placenta previa antepartum (HCC) Multigravida of advanced maternal age in third trimester (HCC) HEPATITIS C ANTIBODY MONTY 03/21/2024 11:17 AM OIL FIRE SPECIALIST Multigravida of advanced maternal age in second trimester ([facility]) CULTURE URINE Routine 03/20/2024 11:53 AM OIL FIRE SPECIALIST History of delivery, currently ([facility]) Supervision of high-risk of elderly multigravida (>= 35 years old at time of delivery) ([facility]) Asymptomatic microscopic hematuria URINALYSIS AUTO - POINT OF CARE (AMB) [facility] Routine 03/20/2024 10:45 AM OIL FIRE SPECIALIST History of delivery, currently ([facility]) Supervision of high-risk of elderly multigravida (>= 35 years old at time of delivery) ([facility]) URINALYSIS AUTO - POINT OF CARE (AMB) [facility] Routine 03/07/2024 10:30 AM OIL FIRE SPECIALIST Placenta previa in third trimester ([facility]) SONOGRAM - COMPLETE Routine 03/07/2024 9 :36 AM OIL FIRE SPECIALIST Supervision of high-risk of elderly multigravida (>= 35 years old at time of delivery) ([facility]) History of premature rupture of membranes in previous , currently in second trimester ([facility]) History of delivery, currently ([facility]) Vaginal bleeding in ([facility]) Encounter for follow-up ultrasound of anatomy ([facility]) Placenta previa in third trimester ([facility]) IRON + TIBC + FERRITIN Routine 02/20/2024 11:06 AM OIL FIRE SPECIALIST Supervision of high-risk of elderly multigravida (>= 35 years old at time of delivery) ([facility]) HIV-1 HIV-2 ANTIBODY + HIV P24 AG PANEL Routine 02/20/2024 11:06 AM OIL FIRE SPECIALIST Supervision of high-risk of elderly multigravida (>= 35 years old at time of delivery) ([facility]) TREPONEMA PALLIDUM POS REFLX RPR Routine 02/20/2024 11:06 AM OIL FIRE SPECIALIST Supervision of high-risk of elderly multigravida (>= 35 years old at time of delivery) ([facility]) GTT 1 HR (50G) GESTATIONAL SCREEN Routine 02/20/2024 11:06 AM OIL FIRE SPECIALIST Supervision of high-risk of elderly multigravida (>= 35 years old at time of delivery) ([facility]) CBC W AUTO DIFFERENTIAL Routine 02/20/2024 11:06 AM OIL FIRE SPECIALIST Supervision of high-risk of elderly multigravida (>= 35 years old at time of delivery) ([facility]) URINALYSIS AUTO - POINT OF CARE (AMB) [facility] Routine 02/20/2024 11:00 AM OIL FIRE SPECIALIST Supervision of high-risk of elderly multigravida (>= 35 years old at time of delivery) ([facility]) URINALYSIS AUTO - POINT OF CARE (AMB) [facility] Routine 02/09/2024 1:31 PM OIL FIRE SPECIALIST Vaginal bleeding in ([facility]) IMAGING/RADIOLOGY/XRA Y RESULTS ORDER 02/06/2024 5:09 PM OIL FIRE SPECIALIST TYPE + SCREEN PANEL Routine 02/03/2024 1 2:00 AM OIL FIRE SPECIALIST CBC W/O DIFFERENTIAL Routine 02/03/2024 12:00 AM OIL FIRE SPECIALIST PREPARE RBC LEUKOREDUCED UNIT Routine 02/02/2024 7:31 AM OIL FIRE SPECIALIST NONSTRESS TEST Routine 02/01/2024 4:19 PM OIL FIRE SPECIALIST SONOGRAM - LIMITED Routine 02/01/2024 8: 05 AM OIL FIRE SPECIALIST COAGULATION PANEL W D-DIMER AM Draw 02/01/2024 3:44 AM OIL FIRE SPECIALIST CBC W/O DIFFERENTIAL AM Draw 02/01/2024 3:44 AM OIL FIRE SPECIALIST MAGNESIUM BLOOD Routine 01/31/2024 10:04 PM OIL FIRE SPECIALIST COAGULATION PANEL W D-DIMER Timed 01/31/2024 10:04 PM OIL FIRE SPECIALIST CBC W/O DIFFERENTIAL Timed 01/31/2024 10:04 PM OIL FIRE SPECIALIST BLOOD TYPE VERIFICATION Routine 01/31/2024 6:37 PM OIL FIRE SPECIALIST COMPREHENSIVE METABOLIC PANEL STAT 01/31/2024 6:37 PM OIL FIRE SPECIALIST TRICHOMONAS VAGINALIS AMPLIFIED PROBE STAT 01/31/2024 6:20 PM OIL FIRE SPECIALIST Vaginal bleeding in (HCC) CHLAMYDIA + GC AMPLIFIED PROBE STAT 01/31/2024 6:20 PM OIL FIRE SPECIALIST Vaginal bleeding in (HCC) TYPE + SCREEN PANEL STAT 01/31/2024 5 :59 PM OIL FIRE SPECIALIST COAGULATION PANEL W D-DIMER STAT 01/31/2024 5:59 PM OIL FIRE SPECIALIST Vaginal bleeding in (HCC) CBC W AUTO DIFFERENTIAL STAT 01/31/2024 5:59 PM OIL FIRE SPECIALIST Vaginal bleeding in (HCC) from Last 3 Months Results * URINALYSIS - POINT OF CARE (AMB) [facility] (04/24/2024 10:19 AM OIL FIRE SPECIALIST) Only the most recent of2 resultswithin the time period is included. Specific [place] UA 1.[address] [facility] [address] pH [...] URINE / Unknown 04/24/2024 1 0:19 AM OIL FIRE SPECIALIST Steffanie Arnold MD LAB - POINT OF CARE ORDERABLES [facility] [address] [place] [address], [facility] [phone] * BIOPHYSICAL PROFILE W NST (04/24/2024 8:30 AM OIL FIRE SPECIALIST) Linked Results Indication ======== Low lying placenta [...] cephalic Placenta: Placental site: right lateral. Placental [id number] os distance 12 mm Amniotic Fluid Assessment [...] also has a follow up visit at [facility] be OG clinic today. She has no complaints denies any leakage of fluid rupture membranes or vaginal bleeding. Denies any ongoing contractions. Single, live, intrauterine at 35w 2d Amniotic fluid volume: normal Biophysical profile: reassuring 10/10 Transvaginal cervical length measures 2.2 cm Closed. No funneling Funic presentation Low-lying right lateral placenta: placental edge measures 12.0 mm from the internal cervical os. Comment ======== The above was discussed with Ms. [place] who understood all questions were answered she was reassured. She will continue with her current precautions including pelvic rest. Follow-up ======== Management and further follow-up including timing of delivery to be determined by [facility] providers at [facility] office. To continue with previa precautions along with pelvic rest. labor precautions along with kick counts and was instructed when to follow up with OB triage either at her nearest [facility] or here at [facility]. Thank you for allowing us to partake in your patient's care. Coding ====== Procedures 68728: [place] Uterus Limited 01336: Biophysical Profile W NST 61620: US Preg Uterus Transvaginal [facility] HUSLIA PACS Anatomical Region Laterality Modality Other 04/24/2024 8:30 AM OIL FIRE SPECIALIST Freddy Armando MD [facility] ORDERABLES * SONOGRAM - TRANSVAGINAL (04/17/2024 9:07 AM OIL FIRE SPECIALIST) Linked Results Indication ======== Low lying placenta [...] to assess placental location Coding ====== Procedures 48397: US Uterus Limited 07553: US Preg Uterus Transvaginal T [facility] HUSLIA PACS Anatomical Region Laterality Modality Other 04/17/2024 9:07 AM OIL FIRE SPECIALIST Steffanie Arnold MD [facility] ORDERABLES * IMAGING RADIOLOGY XRAY RESULTS ORDER (04/12/2024 6:50 PM OIL FIRE SPECIALIST) Only the most recent of2 resultswithin the time period is included. Anatomical Region Laterality Modality Other Narrative 04/12/2024 6:50 PM OIL FIRE SPECIALIST Ordered by an unspecified provider. Scanned Document IMAGING * CULTURE STREP B (04/10/2024 8:55 AM OIL FIRE SPECIALIST) Culture Strep B Negative for beta-hemolytic Streptococcus Group B EVELIN 04/13/2024 4:37 PM OIL FIRE SPECIALIST [facility] MICROBIOLOGY Microbiology MISCELLANEOUS SAMPLES / Unknown Collection / Unknown 04/10/2024 8:55 AM OIL FIRE SPECIALIST 04/10/2024 9:05 AM OIL FIRE SPECIALIST Santos Ledezma DO LAB - MICROBIOLOGY O RDERABLES [facility] MICROBIOLOGY [address] [place], [place] [address], [facility] [phone] * TYPE + SCREEN PANEL (04/10/2024 8:55 AM OIL FIRE SPECIALIST) Only the most recent of3 resultswithin the time period is included. Pathologist [facility] ABO Rh A POS 04/10/2024 9:[address] [facility] BLOOD BANK LAB Comment:History checked. Antibody Screen NEG 9:[address] [facility] LAB Blood Bank BLOOD SPECIMEN / Unknown Venipuncture / Unknown 04/10/2024 8:55 AM OIL FIRE SPECIALIST 04/10/2024 9:05 AM OIL FIRE SPECIALIST Santos Ledezma DO LAB - BLOOD BANK ORD ERABLES [facility] BLOOD BANK LAB [address] [phone] * (ABNORMAL) CBC W AUTO DIFFERENTIAL (04/10/2024 8:55 AM OIL FIRE SPECIALIST) Only the most recent of3 resultswithin the time period is included. Pathologist [facility] WBC 11.8(H) 4.0 - 10.7 x10E9/L 04/10/2024 9:[address] [facility] RBC Count 3.70(L) 3.90 - 5.20 x10E12/L 04/10/2024 9:[address] [facility] Hemoglobin 11.8(L) 11.9 - 15.8 g/dL 04/10/2024 9:[address] [facility] Hematocrit 34.8 34.8 - 46.1 % 04/10/2024 9:[address] [facility] MCV 94.1 80.0 - 98.0 fL 04/10/2024 9:[address] [facility] MCH 31.9 26.7 - 33.6 pg 04/10/2024 9:[address] [facility] MCHC 33.9 31.7 - 36.3 g/dL 04/10/2024 9:[address] [facility] RDW-CV 13.4 11.3 - 14.8 % 04/10/2024 9:[address] [facility] Platelet Count 180 150 - 420 x10E9/L 04/10/2024 9:[address] [facility] MPV 10.6 7.8 - 11.4 fL 04/10/2024 9:[address] [facility] Neutrophil % 86.4(H) 41.0 - 74.0 % 04/10/2024 9:[address] [facility] Lymphocyte % 7.3(L) 17.0 - 47.0 % 04/10/2024 9:[address] [facility] Monocyte % 5.0 3.0 - 11.0 % 04/10/2024 9:[address] [facility] Eosinophil % 0.1 0.0 - 7.0 % 04/10/2024 9:[address] [facility] Basophil % 0.2 0.0 - 1.6 % 04/10/2024 9:[address] [facility] Immature Granulocytes % 1.0 0.0 - 1.0 % 04/10/2024 9:[address] [facility] Neutrophil Absolute 10.16(H) 1.60 - 7.50 x10E9/L 04/10/2024 9:[address] [facility] Lymphocyte Absolute 0.86(L) 1.00 - 4.40 x10E9/L 04/10/2024 9:[address] [facility] Monocyte Absolute 0.59 0.15 - 1.00 x10E9/L 04/10/2024 9:[address] [facility] Eosinophil Absolute 0.01 0.00 - 0.60 x10E9/L 04/10/2024 9:[address] [facility] Basophil Absolute 0.02 0.00 - 0.13 x10E9/L 04/10/2024 9:[address] [facility] Blood BLOOD SPECIMEN / Unknown Venipuncture / Unknown 04/10/2024 8:55 AM OIL FIRE SPECIALIST 04/10/2024 9:05 AM [facility] Santos Ledezma DO LAB - HEMATOLOGY ORD ERABLES [facility] [address] [place] [address] * SONOGRAM - LIMITED (04/10/2024 8:22 AM [facility]) Only the most recent of2 resultswithin the [...] Placenta: Placental site: low-lying, right lateral. Placental [id number]-[id number] os distance 15 mm Amniotic fluid: Amount [...] indicated per inpatient team. Coding ====== Procedures [id number]: US Uterus Limited 93850: US Preg Uterus Transvaginal HUSLIA PACS Anatomical Region Laterality Modality Other 04/10/2024 8:22 AM OIL FIRE SPECIALIST Santos Ledezma [facility] ORDERABLES * (ABNORMAL) URINALYSIS REFLEX MICROSCOPIC REFLEX CULTURE (04/10/2024 6:33 AM OIL FIRE SPECIALIST) Color UA Yellow Yellow, Straw 04/10/2024 6:59 AM OIL FIRE SPECIALIST [facility] Clarity UA Turbid(A) Clear 04/10/2024 6:59 AM OIL FIRE SPECIALIST [facility] Glucose UA Normal Normal 04/10/2024 6:59 AM OIL FIRE SPECIALIST [facility] Bilirubin UA Negative Negative 04/10/2024 6:59 AM OIL FIRE SPECIALIST [facility] Ketone UA Trace(A) Negative 04/10/2024 6:59 AM OIL FIRE SPECIALIST [facility] LABORATORY Specific [place] UA 1.018 1.005 - 1.030 04/10/2024 6:59 AM OIL FIRE SPECIALIST [facility] Blood UA Trace(A) Negative 04/10/2024 6:59 AM OIL FIRE SPECIALIST [facility] pH UA 6.0 5.0 - 9.0 pH 04/10/2024 6:59 AM OIL FIRE SPECIALIST [facility] Protein UA Trace(A) Negative 04/10/2024 6:59 AM OIL FIRE SPECIALIST [facility] Urobilinogen UA Normal Normal mg/dL 04/10/2024 6:59 AM OIL FIRE SPECIALIST [facility] Nitrite UA Negative Negative 04/10/2024 6:59 AM OIL FIRE SPECIALIST [facility] Leukocyte UA 250 SHARON/uL(A) Negative 04/10/2024 6:59 AM OIL FIRE SPECIALIST [facility] RBC UA 11-20(A) 0 - 5 # /hpf 04/10/2024 6:59 AM OIL FIRE SPECIALIST [facility] WBC UA 0-5 0 - 5 # /hpf 04/10/2024 6:59 AM OIL FIRE SPECIALIST [facility] Bacteria UA Trace(A) None Seen 04/10/2024 6:59 AM OIL FIRE SPECIALIST [facility] Squamous Epithelial Cells 6-10(A) 0 - 5 /hpf 04/10/2024 6:59 AM OIL FIRE SPECIALIST [facility] Mucus UA 4+ /LPF 04/10/2024 6:59 AM OIL FIRE SPECIALIST [facility] Hyaline Casts 0-2 0 - 2 /LPF 04/10/2024 6:59 AM OIL FIRE SPECIALIST [facility] Urine URINE SPECIMEN OBTAINED BY CLEAN CATCH PROCEDURE / Unknown Collection / Unknown 04/10/2024 6:33 AM OIL FIRE SPECIALIST 04/10/2024 6:40 AM OIL FIRE SPECIALIST Narrative [facility] - 04/10/2024 6:59 AM OIL FIRE SPECIALIST Santos Ledezma LAB - URINALYSIS ORD ERABLES Performing Organization Address City/[facility]/ZIP Co de Phone Number [facility] [address] [place] [address] * CULTURE URINE (04/10/2024 6:33 AM OIL FIRE SPECIALIST) Only the most recent of2 resultswithin the time period is included. Pathologist [facility] Culture Urine <10,000 CFU/mL urogenital ramon EVELIN 04/11/2024 1:08 PM OIL FIRE SPECIALIST [facility] MICROBIOLOGY Urine URINE SPECIMEN OBTAINED BY CLEAN CATCH PROCEDURE / Unknown Collection / Unknown 04/10/2024 6:33 AM OIL FIRE SPECIALIST 04/10/2024 6:40 AM OIL FIRE SPECIALIST Santos Ledezma LAB - MICROBIOLOGY O RDERABLES Performing Organization Address City/[facility]/ZIP Co de Phone Number [facility]CROBIOLOG[facility] [address] [phone] * (ABNORMAL) URINALYSIS AUTO - POINT OF CARE (AMB) ST[facility] (04/03/2024 11:17 AM OIL FIRE SPECIALIST) Clarity UA POCT clear [facility] 10[facility] [...] Negative [facility] [address] Specific [place] UA POCT 1.000(A) 1.002 - 1.[address] [facility] [address] Ketone UA neg Negative [facility] [address] Bilirubin UA POCT neg Negative [facility] [address] Glucose UA neg Negative [facility] [address] Expiration Date 03/29/2024 [facility] [address] Lot # [id number] [facility] [address] QC Verified Yes Yes [facility] [address] Urine URINE / Unknown 04/03/2024 1 1:17 AM OIL FIRE SPECIALIST Adriana Remdan LUMBER YARD WORKER-WAITER/WAITRESS DINING CAR LAB - POINT OF CARE ORDERABLES [facility] [address] [place] [address], [facility] [phone] * SONOGRAM - COMPLETE (04/03/2024 9:56 AM OIL FIRE SPECIALIST) Only the most recent of2 resultswithin the [...] Placental site: right lateral low lying. Placental ezbp-td-ajudyijs os distance 15 mm Amniotic fluid: Amount [...] 4 lb 3 oz EFW by Hadlock ([id number]-FL) appropriate Growth Overview Exam date GA BPD [...] She also has a follow-up visit at [facility] today. Single, live, intrauterine at 32w 2d [...] in your patient's care. Coding ====== Procedures 13348: [place] [address]: [place] Preg Uterus Transvaginal Power Vision PACS Anatomical Region Laterality Modality Other 04/03/2024 9:56 AM OIL FIRE SPECIALIST Freddy Armando MD [facility] ORDERABLES * HEPATITIS C ANTIBODY (03/21/2024 11:17 AM OIL FIRE SPECIALIST) HCV Antibody Screen Non Reactive Non Reactive 03/21/2024 12:11 PM OIL FIRE SPECIALIST [facility] Blood BLOOD SPECIMEN / Unknown Venipuncture / Unknown 03/21/2024 11:17 AM OIL FIRE SPECIALIST 03/21/2024 11:23 AM OIL FIRE SPECIALIST Narrative [facility] - 03/21/2024 12:11 PM OIL FIRE SPECIALIST Non Reactive - Antibodies to Hepatitis C virus (HCV) were not detected, result does not exclude early acute HCV infection. Adriana Redman [facility] LAB - CHEMISTR Y ORDERABLES [facility] [address] [place] [address] * URINALYSIS AUTO - POINT OF CARE (AMB) [facility] (03/20/2024 10:45 AM OIL FIRE SPECIALIST) Only the most recent of4 resultswithin the time period is included. [facility] Glucose UA 100 [facility] [address] Bilirubin UA POCT neg [facility] [address] Ketones UA POCT neg [facility] [address] Specific [place] UA 1.025 [facility] [address] Blood Urine POCT pos [facility] [address] pH UA 6.0 [facility] [address] Protein UA trace [facility] [address] Urobilinogen UA neg [facility] [address] Nitrite UA neg [facility] [address] WBC UA neg [facility] [address] Urine URINE / Unknown 03/20/2024 1 0:45 AM OIL FIRE SPECIALIST Adriana Redman [facility] LAB - POINT OF CARE ORDERABLES [facility] [address] [place] [address], [facility] [phone] * GTT 1 HR (50G) GESTATIONAL SCREEN (02/20/2024 11:06 AM OIL FIRE SPECIALIST) Glucose Gestational Screen 80 <140 mg/dL [facility] Comment: Test Performed at: [facility] [address] [facility] [place] [place] [address] JAMIE WARREN MD Blood BLOOD SPECIMEN / Unknown 02/20/2024 11:06 AM OIL FIRE SPECIALIST 02/20/2024 11:07 AM OIL FIRE SPECIALIST Adriana Redman LUMBER YARD WORKER-WAITER/WAITRESS DINING CAR LAB - CHEMISTR Y ORDERABLES Performing Organization Address [facility] [place] [address] * HIV-1 HIV-2 ANTIBODY + HIV P24 AG PANEL (02/20/2024 11:06 AM OIL FIRE SPECIALIST) Pathologist [facility] HIV Screen 4th Generation w Reflex NON-REACT KATE NON-REACT KATE [employer] Comment: HIV-1 antigen and HIV-1/HIV-2 antibodies were [...] purpose. For additional information please refer to http://education.SMIC.Billboard Jungle/faq/AFE706 (This link is being provided for informational/ educational purposes only.) The performance of this assay has not been clinically validated in patients less than 2 years old. Test Performed at: [employer] [address] [facility] [place] [address] JAMIE WARREN MD Blood BLOOD SPECIMEN / Unknown 02/20/2024 11:06 AM OIL FIRE SPECIALIST 02/20/2024 11:07 AM OIL FIRE SPECIALIST Adriana Youssefscot VILLAREALN-WAITER/WAITRESS DINING CAR LAB - CHEMISTR Y ORDERABLES Performing Organization Address [facility] [place] [address] * TREPONEMA PALLIDUM POS REFLX RPR (02/20/2024 11:06 AM OIL FIRE SPECIALIST) Pathologist [facility] Treponema pallidum Antibody EIA NEGATIVE NEGATIVE [facility] Comment: No antibodies to T. pallidum (the agent causing syphilis) were detected in the specimen. This result, however, does not exclude very recent T. pallidum infection; testing of a second specimen, collected 2-4 weeks after this specimen, is recommended if the index of suspicion for recent infection is high. Test Performed at: [facility] [address] [address] GILDARDO Brody ZANE Blood BLOOD SPECIMEN / Unknown 02/20/2024 11:06 AM OIL FIRE SPECIALIST 02/20/2024 11:07 AM OIL FIRE SPECIALIST Adriana Redman [facility] LAB - SEROLOGY ORDERABLES Performing Organization Address [facility] Co de Phone Number [facility] [address] [place] [address] * (ABNORMAL) IRON + TIBC + FERRITIN (02/20/2024 11:06 AM OIL FIRE SPECIALIST) [facility] Iron 54 40 - 190 mcg/dL [facility] TIBC 383 250 - 450 mcg/dL (calc) [facility] % Saturation 14(L) 16 - 45 % (calc) [facility] Ferritin 13(L) 16 - 154 ng/mL [facility] Comment: Test Performed at: [facility] [place] [address] [place] [address] JAMIE WARREN MD Blood BLOOD SPECIMEN / Unknown 02/20/2024 11:06 AM OIL FIRE SPECIALIST 02/20/2024 11:07 AM OIL FIRE SPECIALIST Adriana Redman [facility] LAB - CHEMISTR Y ORDERABLES Performing Organization Address [facility] Co de Phone Number [facility] [address] [place] [address] * (ABNORMAL) CBC W/O DIFFERENTIAL (02/03/2024 12:00 AM OIL FIRE SPECIALIST) Only the most recent of3 resultswithin the time period is included. [facility] WBC 12.5(H) 4.0 - 10.7 x10E9/L 02/03/2024 12:39 AM OIL FIRE SPECIALIST [facility] RBC Count 2.86(L) 3.90 - 5.20 x10E12/L 02/03/2024 12:[address] [facility] Hemoglobin 9.1(L) 11.9 - 15.8 g/dL 02/03/2024 12:[address] [facility] Hematocrit 27.3(L) 34.8 - 46.1 % 02/03/2024 12:[address] [facility] MCV 95.5 80.0 - 98.0 fL 02/03/2024 12:[address] [facility] MCH 31.8 26.7 - 33.6 pg 02/03/2024 12:[address] [facility] MCHC 33.3 31.7 - 36.3 g/dL 02/03/2024 12:[address] [facility] RDW-CV 12.8 11.3 - 14.8 % 02/03/2024 12:[address] [facility] Platelet Count 188 150 - 420 x10E9/L 02/03/2024 12:[address] [facility] MPV 10.2 7.8 - 11.4 fL 02/03/2024 12:[address] [facility] Blood BLOOD SPECIMEN / Unknown Lab Venipuncture / Unknown 02/03/2024 02/03/2024 12:35 AM OIL FIRE SPECIALIST Annie Rodriguez MD LAB - HEMATOLOGY OR DERABLES Performing Organization Address [facility]/State/[facility] Co de Phone Number [facility] [address] [place] [address] * PREPARE (CROSSMATCH) RBC UNIT(S), 2 Units (02/02/2024 7:31 AM OIL FIRE SPECIALIST) Unit Description AS1 LR PRBC [facility] BLOOD [facility]ANK LAB Unit ABO A [facility] LAB Unit Rh POS [facility] Product Number R02 [facility]OD [facility] LAB Unit Donor # [id number] [facility] C BLOOD BANK LAB Unit Status released [facility] BLO OD BANK LAB Product Code [id number] [facility] BL OOD BANK LAB Blood Type Barcode 6200 [facility] B[facility]OD [facility] LAB Expiration Date S [facility] BLOOD [facility] LAB Unit Description AS1 LR PRBC [facility] B[facility]OD [facility] LAB Unit ABO A [facility] Unit Rh POS [facility] BLOOD [facility] LAB Product Number R02 [facility] BLOOD [facility] LAB Unit Donor # [id number] [facility] C BLOOD BANK LAB Unit Status released [facility] BLO OD BANK LAB Product Code [id number] [facility] BL OOD BANK LAB Blood Type Barcode 6200 [facility] BLOOD [facility] LAB Expiration Date [facility] BLOOD BANK LAB Blood Bank BLOOD SPECIMEN / Unknown 01/31/2024 6:19 PM OIL FIRE SPECIALIST Zane Velasquez MD LAB - BLOOD BANK ORD ERABLES [facility] BLOOD [facility]ANK LAB [address] [phone] * NONSTRESS TEST (02/01/2024 4:19 PM OIL FIRE SPECIALIST) Narrative Annie Rodriguez MD - 02/01/2024 4:19 PM OIL FIRE SPECIALIST Theresa Naranjo MD 02/02/2024 6:14 AM Name: [...] Interventions: None Brynn Ferraro RN Non-Stress Test [facility] Patient Name: Ying Hampton LMP: [...] scheduled. Theresa Naranjo MD 02/02/2024 6:13 AM Zane Velasquez MD OB [facility] ORDERABLES * (ABNORMAL) COAGULATION PANEL W D-DIMER (02/01/2024 3:44 AM OIL FIRE SPECIALIST) Only the most recent of3 resultswithin the time period is included. PT 13.2 12.1 - 14.8 sec 02/01/2024 4:[address] [facility] INR 1.0 0.9 - 1.1 02/01/2024 4:[address] [facility] PTT 22.3(L) 23.0 - 38.4 sec 02/01/2024 4:[address] [facility] Fibrinogen 370 200 - 400 mg/dL 02/01/2024 4:[address] [facility] D-Dimer 0.62(H) 0.27 - 0.50 ug/mL FEU 02/01/2024 4:[address] [facility] Platelet Count 192 150 - 420 x10E9/L 02/01/2024 4:[address] [facility] Blood BLOOD SPECIMEN / Unknown Venipuncture / Unknown 02/01/2024 3:44 AM OIL FIRE SPECIALIST 02/01/2024 3:57 AM [facility] LABORATORY - 02/01/2024 4:26 AM [facility] Conventional Warfarin Anticoagulant Therapy INR Reference Range: [...] Unit (approximates 0.5 mcg/mL of D- dimer). [facility] DIAGNOSTIC SCORING SYSTEM FOR DIC ---- Score [...] - COAGULATION O RDERABLES Performing Organization Address [facility]/ZIP Co de Phone Number [facility] [address] [place] [address] * (ABNORMAL) MAGNESIUM BLOOD (01/31/2024 10:04 PM OIL FIRE SPECIALIST) Magnesium 5.6(HH) 1.6 - 2.6 mg/dL 01/31/2024 10:32 PM OIL FIRE SPECIALIST [facility] Blood BLOOD SPECIMEN / Unknown Venipuncture / Unknown 01/31/2024 10:04 PM OIL FIRE SPECIALIST 01/31/2024 10:13 PM OIL FIRE SPECIALIST Annie Rodriguez MD LAB - CHEMISTRY ORD ERABLES Performing Organization Address [facility] Co de Phone Number [facility] [address] [place] [address] * BLOOD TYPE VERIFICATION (01/31/2024 6:37 PM OIL FIRE SPECIALIST) ABO Rh A POS 01/31/2024 7:1 5 PM OIL FIRE SPECIALIST [facility] BLOOD BANK LAB Blood Bank BLOOD SPECIMEN / Unknown Venipuncture / Unknown 01/31/2024 6:37 PM OIL FIRE SPECIALIST 01/31/2024 6:46 PM OIL FIRE SPECIALIST Zane Velasquez MD LAB - BLOOD BANK ORD ERABLES Performing Organization Address [facility] Co de Phone Number [facility] BLOOD BANK LAB [address] [place] [address] * (ABNORMAL) COMPREHENSIVE METABOLIC PANEL (01/31/2024 6:37 PM OIL FIRE SPECIALIST) Glucose 92 70 - 99 mg/dL 01/31/2024 7:06 PM OIL FIRE SPECIALIST [facility] Sodium 138 136 - 145 mmol/L 01/31/2024 7:[address] [facility] Potassium 3.6 3.5 - 5.1 mmol/L 01/31/2024 7:[address] [facility] Chloride 108(H) 98 - 107 mmol/L 01/31/2024 7:[address] [facility] CO2 22 22 - 29 mmol/L 01/31/2024 7:[address] [facility] Calcium 9.1 8.4 - 10.4 mg/dL 01/31/2024 7:[address] [facility] Anion Gap 8 6 - 16 mmol/L 01/31/2024 7:[address] [facility] BUN 6 5.3 - 18.7 mg/dL 01/31/2024 7:[address] [facility] Creatinine 0.56(L) 0.57 - 1.11 mg/dL 01/31/2024 7:[address] [facility] Alkaline Phosphatase 80 40 - 150 U/L 01/31/2024 7:[address] [facility] ALT 29 0 - 55 U/L 01/31/2024 7:[address] [facility] AST 30 5 - 34 U/L 01/31/2024 7:[address] [facility] Protein Total 6.3(L) 6.4 - 8.3 gm/dL 01/31/2024 7:[address] [facility] Albumin 3.1(L) 3.4 - 5.0 gm/dL 01/31/2024 7:[address] [facility] Bilirubin Total 0.2 0.2 - 1.2 mg/dL 01/31/2024 7:[address] [facility] eGFR by CKD-EPI >90 >=90 mL/min/1.7 3 m2 01/31/2024 7:[address] [facility] Blood BLOOD SPECIMEN / Unknown Venipuncture / Unknown 01/31/2024 6:37 PM OIL FIRE SPECIALIST 01/31/2024 6:46 PM [facility] Zane Velasquez MD LAB - CHEMISTRY ORDE CAM[facility] Organization Address City/State/ZIP Co de Phone Number [facility] [address] [place] [address] * TRICHOMONAS VAGINALIS AMPLIFIED PROBE (01/31/2024 6:20 PM [facility]) Trichomonas vaginalis Amplified Probe Negative Negative 02/01/2024 6:13 AM [facility] MICROBIOLOGY Microbiology URINE / Unknown Collection / Unknown 01/31/2024 6:20 PM OIL FIRE SPECIALIST 01/31/2024 6:37 PM OIL FIRE SPECIALIST Narrative [facility] MICROBIOLOGY - 02/01/2024 6:13 AM OIL FIRE SPECIALIST This test was developed and its performance characteristics determined by the [facility] Microbiology Laboratory, [facility]. Urine specimens tested by the [facility] have not been cleared or approved by the U.S. Food and Drug Administration (FDA). The laboratory is regulated under the Clinical Laboratory Improvement Amendments (CLIA) as qualified to perform high-complexity testing. This test is used for clinical purposes. It should not be regarded as investigational or for research. Results based on detection/no detection of ribosomal RNA by amplified method. Zane Velasquez MD LAB - MICROBIOLOGY O ALISE Performing Organization Address [facility]/ZIP Co de Phone Number [facility]CRO[facility] [address] [place] [address], [facility] [phone] * CHLAMYDIA + GC AMPLIFIED PROBE (01/31/2024 6:20 PM OIL FIRE SPECIALIST) Chlamydia Amplified Probe Negative Negative 02/01/2024 6:13 AM OIL FIRE SPECIALIST [facility] MICROBIOLOG[facility] GC Amplified Probe Negative Negative 02/01/2024 6:13 AM OIL FIRE SPECIALIST [facility] Microbiology URINE / Unknown Collection / Unknown 01/31/2024 6:20 PM OIL FIRE SPECIALIST 01/31/2024 6:37 PM OIL FIRE SPECIALIST Narrative [facility] MICROBIOLOG[facility] - 02/01/2024 6:13 AM OIL FIRE SPECIALIST Results based on detection/no detection of ribosomal RNA by amplified method. Zane Velasquez MD LAB - MICROBIOLOGY O ALISE Performing Organization Address City/[facility] Co de Phone Number [facility]CRO[facility] [address] [place] [address], [facility] [phone] from Last 3 Months Advance Directives * [...] 12:22 PM 04/21/2018 10:46 AM Care Teams Core Carrier Relationship Specialty Start Date End Date Severino Wooten, [address] [place], [place] [id number] PCP - General 10/26/17
--- OUTSIDE RECORDS SUMMARY | 2024-04-25 00:23 | XMS_ITS | Encounter Summary ---
Author Organization [facility] Address [address] [place] [address] Care Team Providers Care Interstate Planner Name Role Phone Severino Wooten DO Primary Care Provider [phone] Reason for Visit * Reason Comments Routine Visit Encounter Details Date Type Department Care Team (Late st Contact Info) Description 04/24/2024 9:40 AM FUNCTIONAL MENTAL DISABILITY TEACHER visit [facility] - COMIC BOOK WRITER [address] [facility] [address] [place] [address] Steffanie Arnold MD [address] [facility] [address] [place] [address] GA: [id number] Social History Tobacco Use Types Packs/Day Years [...] Recorded Patient Health Questionnaire-2 Score 0 03/28/2024 [place] [facility] [place] [facility] - Occupational Stress [...] money to buy more. Never true 04/10/19 Within the past 12 months, t he [...] [facility] the [facility] were you [facility] or living in a skilled nursing (including now)? No 04/10/2024 Education Answer Date [...] Comments Blood Pressure 102/64 04/24/2024 10:21 AM FUNCTIONAL MENTAL DISABILITY TEACHER Pulse - - Temperature - - Respiratory Rate - - Oxygen Saturation - - Inhaled Oxygen Concentration - - Weight 59 kg (130 lb) 04/24/2024 10:21 AM FUNCTIONAL MENTAL DISABILITY TEACHER Height 154.9 cm (5' 1) 04/24/2024 10:21 AM FUNCTIONAL MENTAL DISABILITY TEACHER Body Mass Index 24.56 04/24/2024 10:21 AM FUNCTIONAL MENTAL DISABILITY TEACHER documented in this encounter Functional Status Functional [...] st Contact Info) Description 04/25/2024 10:40 AM FUNCTIONAL MENTAL DISABILITY TEACHER Hospital Encounter [facility] [address] [place] [address] Adriana Redman, QUANTITATIVE DEVELOPER-ONLINE MARKETER [address] [place] [address] 05/01/2024 10:15 AM FUNCTIONAL MENTAL DISABILITY TEACHER Procedure visit [facility] - COMIC BOOK WRITER [address] [place] [address] 05/01/2024 11:00 AM FUNCTIONAL MENTAL DISABILITY TEACHER [facility] COMIC BOOK WRITER [address] [place] [phone] 05/01/2024 11:00 AM FUNCTIONAL MENTAL DISABILITY TEACHER Procedure visit [facility] - COMIC BOOK WRITER [address] [place] [address] Ave [address] [place] [phone] 05/27/2024 Hospital Encounter [facility] [address] [place] [address] Obstetrics documented as of this encounter Procedures Procedure Name Priority Date/Time Associated Diagnosis Comments URINALYSIS - POINT OF CARE (AMB) [facility] Routine 04/24/2024 10:19 AM FUNCTIONAL MENTAL DISABILITY TEACHER Supervision of high risk , antepartum (HCC) documented in this encounter Results * URINALYSIS - POINT OF CARE (AMB) [facility] (04/24/2024 10:19 AM FUNCTIONAL MENTAL DISABILITY TEACHER) Specific [place] UA 1.[address] [facility] [address] pH [...] URINE / Unknown 04/24/2024 1 0:19 AM FUNCTIONAL MENTAL DISABILITY TEACHER Steffanie Arnold MD LAB - POINT OF CARE ORDERABLES [facility] [address] [place] [address]RUST [phone] documented in this encounter Visit Diagnoses Diagnosis Supervision of high risk , antepartum (HCC)- Primary documented in this encounter Care Teams Interstate Planner Relationship Specialty Start Date End Date Severino Wooten DO [address] [facility] [address] [place] [address] PCP - General 10/26/17 documented as of this encounter
--- OUTSIDE RECORDS SUMMARY | 2024-04-25 00:23 | XMS_ITS | Clinical Summary ---
Author Organization [facility] Care Team Providers Care Enrollment Coordinator Name Role Phone Unavailable Primary Care Provider Unavailabl e Social History Tobacco Use Types Packs/Day Years Used Date Smoking Tobacco: Never Assessed Comments Unknown Sex and Gender Information Value Date Recorded Sex Assigned at Not on file Legal Sex Female 3:09 PM PLANT MECHANIC Gender Identity Not on file Sexual Orientation Not on file Plan of Treatment Health Maintenance Due Date Last Done Comments Hepatitis C Virus (HCV) Screening 1988 TdaP Immunization 1988 Pap Smear 2009 Cervical Cancer Screening (CCS) 2018 HPV/Cotest 2018 Influenza Immunization (#1) 2023 SARS-COV-2 Immunization ( season) 2023 05/17/2020, 04/19/2020 Respiratory Syncytial Virus (RSV) Immunization (Adult) (1 - 1-dose 75+ series) 08/17/2063 DTaP/Tdap/Td Immunization Discontinued 1993, 02/10/1990, 04/04/1989, Additional history exists Hepatitis B Immunization Completed 999, 02/12/1998, 01/13/1998 Meningococcal Immunization (ACWY) Aged Out No longer eligible based on patient's age to complete this topic Pneumococcal Immunization Combined Aged Out No longer eligible based on patient's age to complete this topic Rotavirus Immunization Aged Out No lo nger eligible based on patient's age to complete this topic
--- OUTSIDE RECORDS SUMMARY | 2024-04-25 00:23 | XMS_ITS | Encounter Summary ---
Author Organization [facility] Address [address] [place] [address] Care Team Providers Care Continuous Drier Helper Name Role Phone Severino Wooten DO Primary Care Provider [phone] Encounter Details Date Type Department Care Team (Late st Contact Info) Description 04/24/2024 8:15 AM CARDIOLOGY MANAGER Hospital Encounter [facility] MATERNAL/ EVALUATION UNIT [address] [place] [address] Santos Ledezma DO [address] [place] [address] NONDESTRUCTIVE TESTER Social History Tobacco Use Types Packs/Day Years [...] Recorded Patient Health Questionnaire-2 Score 0 03/28/2024 [facility] [place] of Occupat ional Health - Occupational Stress [...] were you homeless or living in a senior living (including now)? No 04/10/2024 Education Answer Date [...] st Contact Info) Description 04/25/2024 10:40 AM CARDIOLOGY MANAGER Hospital Encounter [facility] [address] [address] Adriana Redman APRN-BOARD MEMBER [address] [place] [address] 05/01/2024 10:15 AM CARDIOLOGY MANAGER Procedure visit [facility] - NONDESTRUCTIVE TESTER [address] [place] [address] 05/01/2024 11:00 AM CARDIOLOGY MANAGER [facility] - NONDESTRUCTIVE TESTER [address] [place] [address] Ave [address] [place] [address] 05/01/2024 11:00 AM CARDIOLOGY MANAGER Procedure visit [facility] - NONDESTRUCTIVE TESTER [address] [place] [address] Ave [address] [place] [address] 05/27/2024 Hospital Encounter [facility] [address] [place] [address] Obstetrics documented as of this encounter Procedures Procedure Name Priority Date/Time Associated Diagnosis Comments BIOPHYSICAL PROFILE W NST Routine 04/24/2024 8:30 AM CARDIOLOGY MANAGER documented in this encounter Results * BIOPHYSICAL PROFILE W NST (04/24/2024 8:30 AM CARDIOLOGY MANAGER) Linked Results Indication ======== Low lying placenta [...] ====== Transabdominal ultrasound examination. View: Sufficient ========= Schultz . Number of fetuses: 1 Dating ====== Date Details Gest. age ERIKA LMP 08/21/2023 35 w + 2 d 05/27/2024 Stated ERIKA 35 w + 2 d 05/27/2024 Assigned dating based on the LMP, selected on 03/07/2024 35 w + 2 d 05/27/2024 General Evaluation Cardiac activity present. FHR 141 bpm. Presentation: cephalic Placenta: Placental site: right lateral. Placental zraz-dy-smwcekor os distance 12 mm Amniotic Fluid Assessment [...] also has a follow up visit at [facility] be OG clinic today. She has [...] with OB triage either at her nearest [facility] or here at [facility]. Thank you for allowing us to partake in your patient's care. Coding ====== Procedures 41260: US Uterus Limited 91955: Biophysical Profile W NST 54233: US Preg Uterus Transvaginal Lycera PACS Anatomical Region Laterality Modality Other 04/24/2024 8:30 AM CARDIOLOGY MANAGER Freddy Armando MD M ORDERABLES documented in this encounter Visit Diagnoses Diagnosis Presentation of cord, single or unspecified fetus (HCC)- Primary Low-lying placenta in third trimester (HCC) Supervision of high-risk of elderly multigravida (HCC) Supervision of high-risk of elderly multigravida Encounter for screening for cervical length (HCC) documented in this encounter Care Teams Continuous Drier Helper Relationship Specialty Start Date End Date Severino Wooten DO [address] [place] [address] PCP - General 10/26/17 documented as of this encounter
--- OUTSIDE RECORDS SUMMARY | 2024-04-25 00:23 | XMS_ITS | Encounter Summary ---
Author Organization [facility] Address [address] [place] [address] Care Team Providers Care Production Lead Name Role Phone Severino Wooten DO Primary Care Provider [phone] Reason for Visit * Oncology Prior Authorization (Routine) - Authorized Specialty Diagnoses / Procedures Referred By Contac t Referred To Contact Diagnoses Anemia affecting in third trimester (HCC) Procedures [place] IRON SUCROSE INJECTION Adriana Redman APRN-CNP [address] [place] [address] [facility] [address] [address] Referral ID Status Reason Start Date Expiration Date V isits Requested Visits Authorized [id number] Authorized 03/07/2024 05/28/2024 1 5 Encounter Details Date Type Department Care Team (Late st Contact Info) Description 04/25/2024 10:40 AM [facility] Hospital Encounter [facility] [address] [id number] Adriana Redman APRN-PMO ANALYST [address] [place] [address] Social History Tobacco Use Types Packs/Day Years Used Date Smoking Tobacco: Never Smokeless Tobacco: Never Alcohol Use Standard Drinks/Week Comments No 0 (1 standard drink = 0.6 oz pur e alcohol) Overall Financial Resource Strain (CARDIA) Willye r Date Recorded How hard is it for you to pa y for the very basics like food, housing, medical care, and heating? Not hard at all 04/10/2024 PHQ-2 Answer Date Recorded Patient Health Questionnaire-2 Score 0 03/28/2024 [facility] [place] of Occupat ional Health - Occupational Stress [...] any time in the past 12 m [facility], were you homeless or living in a group home (including now)? No 04/10/2024 Education Answer Date [...] Care Team (Late st Contact Info) Description 05/01/2024 10:15 AM HOSPITAL INTERN Procedure visit [facility] - CORE MOUNTER [address] [place] [address] 05/01/2024 11:00 AM HOSPITAL INTERN visit [facility] - CORE MOUNTER [address] [place] [address] 05/01/2024 11:00 AM HOSPITAL INTERN Procedure visit [facility] - CORE MOUNTER [address] [place] [phone] 05/27/2024 Hospital Encounter [facility] [address] [place] [address] Obstetrics documented as of this encounter Visit Diagnoses Not on filedocumented in this encounter Care Teams Production Lead Relationship Specialty Start Date End Date Severino Wooten DO [address] [facility] [address] [facility] 21 [place] [address] PCP - General 10/26/17 documented as of this encounter
[2024-04-25] MEDS: FAMOTIDINE 20 MG/2 ML VIAL IV PUSH (00:47)
[2024-04-25] MEDS: ONDANSETRON INJ 4 MG/2 ML VIAL IV PUSH (00:47)
--- OUTSIDE RECORDS SUMMARY | 2024-04-25 00:52 | XMS_ITS | Encounter Summary ---
Author Organization [facility] Address [address] [place] [address] Care Team Providers Care Tool Grinding Machine Operator Name Role Phone Severino Wooten DO Primary Care Provider [phone] Reason for Visit * Reason Onset Date Comments Pain Back 03/21/2024 Side Effect 03/21/2024 Encounter Details Date Type Department Care Team (Late st Contact Info) Description 03/21/2024 Telephone [facility] - GROUP EXERCISE MANAGER [address] [place] [address] Steffanie Arnold MD [address] [employer] [address] [place] [address] Pain Back; Side Effect Social [...] Recorded Patient Health Questionnaire-2 Score 0 03/21/2024 [facility] [place] of Occupat ional Health - Occupational Stress [...] any time in the past 12 m [facility], were you homeless or living in a halfway (including now)? No 01/31/2024 Education Answer Date [...] an normal side effect from injection. CB: [phone] ATIONAL PARAPROFESSIONAL documented in this encounter Plan of Treatment Upcoming Encounters Date Type Department Care Team (Late st Contact Info) Description 04/25/2024 10:40 AM EDUCATIONAL PARAPROFESSIONAL Hospital Encounter [facility] [address] [place] [address] Adriana Redman, CAR REPAIRMAN-VOCATIONAL TRAINING DIRECTOR [address] [place] [address] 05/01/2024 10:15 AM EDUCATIONAL PARAPROFESSIONAL Procedure visit [facility] - GROUP EXERCISE MANAGER [address] [place] [address] 05/01/2024 11:00 AM EDUCATIONAL PARAPROFESSIONAL visit [facility] - GROUP EXERCISE MANAGER [address] [place] [address] 05/01/2024 11:00 AM EDUCATIONAL PARAPROFESSIONAL [facility] GROUP EXERCISE MANAGER [address] [place] [address] Ave [address] [place] [address] 05/27/2024 Hospital Encounter [facility] [address] [place] [address] Obstetrics documented as of this encounter Visit Diagnoses Not on filedocumented in this encounter Care Teams Tool Grinding Machine Operator Relationship Specialty Start Date End Date Severino Wooten DO [address] [facility] [address] [place] [address] PCP - General 10/26/17 documented as of this encounter
--- OUTSIDE RECORDS SUMMARY | 2024-04-25 00:52 | XMS_ITS | Encounter Summary ---
Author Organization [facility] Address [address] [place] [address] Care Team Providers Care Proposal Lead Writer Name Role Phone Severino Wooten DO Primary Care Provider [phone] Encounter Details Date Type Department Care Team (Latest Contact Info) Description 04/24/2024 8:15 AM MANAGER GAMING - 04/24/2024 8:22 AM MANAGER GAMING Hospital Encounter [facility] MATERNAL/ EVALUATION UNIT [address] [place] [address] Santos Ledezma DO [address] [place] [phone] MONITORING ENGINEER Discharge Disposition: Home or Self Care Social History Tobacco Use Types Packs/Day [...] Recorded Patient Health Questionnaire-2 Score 0 03/28/2024 [place] [place] of Occupat ional Health - Occupational Stress [...] time in the past 12 m [facility], were you homeless or living in a long term (including now)? No 04/10/2024 Education Answer Date [...] No 04/10/2024 documented as of this encounter Medications at Time of Discharge Medication Sig Dispensed Refills Start Date End Date ferrous sulfate 325 (65 FE) MG tablet Take 1 (one) tablet by mouth once daily NIFEdipine (Procardia) 10 MG capsuleIndications:Pre mature Labor Take 1 (one) capsule by mouth every 6 hours Reasons: Early Labor 180 capsule 2 02/20/2024 Vit-Fe Fumarate-FA ( vitamin) 28-0.8 MG tabletIndications:Preg ritesh Take 1 (one) tablet by mouth once daily Reasons: valACYclovir (Valtrex) 500 MG tablet Take 1 (one) tablet by mouth 2 times daily 60 tablet 1 04/19/2024 documented as of this encounter Plan of Treatment Upcoming Encounters Date Type Department Care Team (Late st Contact Info) Description 04/25/2024 10:40 AM MANAGER GAMING Hospital Encounter [facility] INFUSION CTR [address] [place] [address] Adriana Redman, POLICE COMMUNICATIONS OPERATOR-HOSPITAL SECRETARY [address] [place] [address] 05/01/2024 10:15 AM MANAGER GAMING Procedure visit [facility] - MONITORING ENGINEER [address] [place] [address] Ave [address] [place] [address] 05/01/2024 11:00 AM MANAGER GAMING [facility] - MONITORING ENGINEER [address] [place] [address] 05/01/2024 11:00 AM MANAGER GAMING Procedure visit [facility] - MONITORING ENGINEER [address] [place], [place] [address]e [address] [place] [phone] 05/27/[address] [facility] [address] [place] [address] Obstetrics documented as of this encounter Procedures Procedure Name Priority Date/Time Associated Diagnosis Comments BIOPHYSICAL PROFILE W NST Routine 04/24/2024 8:30 AM MANAGER GAMING documented in this encounter Results * BIOPHYSICAL PROFILE W NST (04/24/2024 8:30 AM MANAGER GAMING) Linked Results Indication ======== Low lying placenta [...] cephalic Placenta: Placental site: right lateral. Placental znph-ic-hfiwftne os distance 12 mm Amniotic Fluid Assessment [...] also has a follow up visit at [facility] be OG clinic today. She [...] timing of delivery to be determined by [facility] providers at [facility] office. To continue with previa precautions along with pelvic rest. labor precautions along with kick counts and was instructed when to follow up with OB triage either at her nearest [facility] or here at [facility]. Thank you for allowing us to partake in your patient's care. Coding ====== Procedures 57800: US Uterus Limited : Biophysical Profile W NST 79832: US Preg Uterus Transvaginal [facility] [place] PACS Anatomical Region Laterality Modality Other 04/24/2024 8:30 AM MANAGER GAMING Freddy Armando MD [facility] ORDERABLES documented in this encounter Visit Diagnoses Diagnosis Presentation of cord, single or unspecified fetus (HCC)- Primary Low-lying placenta in third trimester (HCC) Supervision of high-risk of elderly multigravida (HCC) Supervision of high-risk of elderly multigravida Encounter for screening for cervical length (HCC) documented in this encounter Care Teams Proposal Lead Writer Relationship Specialty Start Date End Date Severino Wooten DO [address] [facility] [address] [address] PCP - General 10/26/17 documented as of this encounter
--- OUTSIDE RECORDS SUMMARY | 2024-04-25 00:52 | XMS_ITS | Encounter Summary ---
Author Organization [facility] Address [address] [place] [address] Care Team Providers Care Superintendent Institution Name Role Phone Severino Wooten DO Primary Care Provider [phone] Reason for Visit * Oncology Prior Authorization (Routine) - Authorized Specialty Diagnoses / Procedures Referred By Contac t Referred To Contact Diagnoses Anemia affecting in third trimester (HCC) Procedures [place] IRON SUCROSE INJECTION Adriana Redman APRN-CNP [address] [place] [address] [facility] [address] [address] Referral ID Status Reason Start Date Expiration Date V isits Requested Visits Authorized [id number] Authorized 03/07/2024 05/28/2024 1 5 Encounter Details Date Type Department Care Team (Late st Contact Info) Description 04/25/2024 10:40 AM [facility] Hospital Encounter [facility] [address] [phone] Adriana Redman APRN-WAFER POLISHER [address] [place] [address] Social History Tobacco Use Types [...] Recorded Patient Health Questionnaire-2 Score 0 03/28/2024 [facility] [place] of Occupat ional Health - Occupational Stress [...] time in the past 12 m [facility], were you homeless or living in a retirement (including now)? No 04/10/2024 Education Answer Date [...] st Contact Info) Description 05/01/2024 10:15 AM BUSINESS CONSULTANT Procedure visit [facility] - IRONER OR PRESSER [address] [place] [address] 05/01/2024 11:00 AM BUSINESS CONSULTANT visit [facility] - IRONER OR PRESSER [address] [place] [address] 05/01/2024 11:00 AM BUSINESS CONSULTANT Procedure visit [facility] - IRONER OR PRESSER [address] [place] [address] 05/27/2024 Hospital Encounter [facility] [address] [place] [address] Obstetrics documented as of this encounter Visit Diagnoses Not on filedocumented in this encounter Care Teams Superintendent Institution Relationship Specialty Start Date End Date Severino Wooten DO [address] [facility] [address] [facility] [address] [place] [address] PCP - General 10/26/17 documented as of this encounter
--- OUTSIDE RECORDS SUMMARY | 2024-04-25 00:52 | XMS_ITS | Encounter Summary ---
Author Organization [facility] Address [address] [place] [address] Care Team Providers Care Chopping Machine Operator Name Role Phone Severino Wooten Primary Care Provider [phone] Encounter Details Date Type Department Care Team [...] Recorded Patient Health Questionnaire-2 Score 0 03/28/2024 [facility] [place] of Occupat ional Health - Occupational Stress [...] any time in the past 12 m [facility], were you homeless or living [...] st Contact Info) Description 04/25/2024 10:40 AM CLAIM EXAMINER Hospital Encounter [facility] [address] [place] [address] Adriana Redman, AUTO REFINISHER-ADVERTISING CONSULTANT [address] [place] [address] 05/01/2024 10:15 AM CLAIM EXAMINER Procedure visit [facility] - MANAGER BUSINESS SYSTEMS [address] [place] [address] 05/01/2024 11:00 AM CLAIM EXAMINER visit [facility] - MANAGER BUSINESS SYSTEMS [address] [place] [address] 05/01/2024 11:00 AM CLAIM EXAMINER Procedure visit [facility] - MANAGER BUSINESS SYSTEMS [address] [place] [address] 05/27/2024 Hospital Encounter [facility] [address] [place] [address] Obstetrics documented as of this encounter Visit Diagnoses Not on filedocumented in this encounter Care Teams Chopping Machine Operator Relationship Specialty Start Date End Date Severino Wooten DO [address] [facility] [address] [phone] PCP - General 10/26/17 documented as of this encounter
--- OUTSIDE RECORDS SUMMARY | 2024-04-25 00:52 | XMS_ITS | Clinical Summary ---
Author Organization [email or web address] Address [address] [place] [address] Care Team Providers Care Grain Commodity Manager Name Role Phone Severino Wooten DO Primary Care Provider [phone] Source Comments [email or web address],non-owned Affiliates and Associated Physician Practices is amultiple site organization consisting of ambulatory clinics and hospital sitesin [place], [place], [place] and [place]. This disclosure is being madepursuant to the Care Everywhere program and may not contain all information available regarding this patient. Last updated 17.[email or web address] Allergies No known active allergies Medications * [...] Department Care Team Description 04/25/2024 10:40 AM JOINT SEALER Hospital Encounter [facility] [address] [place] [address] Adriana Redman APRN-CNP 04/24/2024 9:40 AM JOINT SEALER visit [facility] - SUPERVISOR CIGAR MAKING MACHINE [address] [place] [address] Steffanie Arnold MD GA: 35w2d 04/24/2024 8:23 AM JOINT SEALER - 04/24/2024 11:59 PM JOINT SEALER Hospital Encounter [facility] [address] [place] [address] Santos Ledezma DO Discharge Disposition: Home or Self Care 04/24/2024 8:15 AM JOINT SEALER - 04/24/2024 8:22 AM JOINT SEALER Hospital Encounter [facility] [address] [place] [address] Santos Ledezma DO SUPERVISOR CIGAR MAKING MACHINE Discharge Disposition: Home or Self Care 04/24/2024 Travel 04/19/2024 Telephone [facility] - SUPERVISOR CIG[employer] MA[employer] MACHINE [address] [place] [address] Adriana Redman APRN-CNP Coordination Of Care 04/17/2024 11:00 AM JOINT SEALER Procedure visit [facility] - SUPERVISOR CIG[employer] MAKING MACHINE [address] [place] [address] Presentation of cord, single or unspecified fetus (HCC) ; Placenta previa antepartum (HCC) 04/17/2024 9:40 AM JOINT SEALER visit [facility] - SUPERVISOR CIG[employer] MAKING MACHINE [address] [place] [address] Steffanie Arnold MD GA: 34w2d 04/17/2024 8:15 AM JOINT SEALER - 04/17/2024 11:59 PM JOINT SEALER Hospital Encounter [facility] [address] [place] [address] Brian Ashton MD Discharge Disposition: Home or Self Care 04/17/2024 Telephone [facility] - SUPERVISOR [employer] MACHINE [address] [place] [phone] Steffanie Arnold MD Appointment 04/17/2024 Travel 04/16/2024 Telephone [facility] - SUPERVISOR [employer] MA[employer] MACHINE [address] [place] [phone] Steffanie Arnold MD Appointment 04/16/2024 Telephone [facility] - SUPERVISOR [employer] MA[employer] MACHINE [address] [place] [phone] Brianda Elizondo MD Reschedule Appointment (SEEKING TO JAMES 04/17/24 US & OV TO APPT FOR TODAY 04/16/24 IF POSS. 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.) 04/10/2024 5:04 AM JOINT SEALER - 04/11/2024 3:36 PM JOINT SEALER Hospital Encounter [facility]E ANTEPARTUM/MOTHER BABY [address] [place] [address] Santos Ledezma DO Obstetrics Discharge Disposition: Home or Self Care 04/04/2024 10:50 AM JOINT SEALER - 04/04/2024 11:59 PM JOINT SEALER Hospital Encounter [facility] [address] [place] [address] Adriana Redman APRN-CNP Discharge Disposition: Home or Self Care 04/04/2024 Travel 04/03/2024 10:40 AM JOINT SEALER visit [facility] - SUPERVISOR C[employer] MA[employer] MACHINE [address] [place] [phone] Adriana Redman APRN-CNP GA: 32w2d 04/03/2024 9:45 AM JOINT SEALER - 04/03/2024 11:59 PM JOINT SEALER Hospital Encounter [facility] [address] [facility] [place] [address] Polcaro, Santos, DO SUPERVISOR CIGAR MAKING MACHINE Discharge Disposition: Home or Self Care 04/03/2024 Travel 03/28/2024 10:40 AM JOINT SEALER - 03/28/2024 11:59 PM JOINT SEALER Hospital Encounter [facility] [address] [place] [address] Adriana Redman APRN-CNP Discharge Disposition: Home or Self Care 03/28/2024 Travel 03/21/2024 10:40 AM JOINT SEALER - 03/21/2024 11:59 PM JOINT SEALER Hospital Encounter [facility] [address] [place] [address] Adriana Redman APRN-CNP Discharge Disposition: Home or Self Care 03/21/2024 Telephone [facility] - SUPERVISOR CIG[employer] MAKING MACHINE [address] [place] [address] Steffanie Arnold MD Pain Back; Side Effect 03/21/2024 [facility] [address], [address] [place] [address] Adriana Redman APRN-CNP Supervision of high-risk of elderly multigravida (>= 35 years old at time of delivery) ([facility]) 03/20/2024 10:40 AM JOINT SEALER visit [facility] - SUPERVISOR CIGAR MAKING MACHINE [address] [place] [address] Steffanie Arnold MD GA: 30w2d 03/20/2024 Travel 03/07/2024 11:00 AM JOINT SEALER visit [facility] - SUPERVISOR CIGAR MAKING MACHINE [address] [place] [address] GA: 28w3d 03/07/2024 10:15 AM JOINT SEALER Procedure visit [facility] - SUPERVISOR CIGAR MAKING MACHINE [address] [place] [address] Encounter for follow-up ultrasound of anatomy ([facility]) ; Supervision of high-risk of elderly multigravida (>= 35 years old at time of delivery) (HCC); Placenta previa in second trimester (HCC); History of premature rupture of membranes in previous , currently in second trimester (HCC); History of delivery, currently (HCC); Vaginal bleeding in (HCC); Placenta previa in third trimester (HCC) 03/07/2024 Orders Only [facility] [address] [place] [address] Adriana Redman APRN-CNP 03/07/2024 Travel 02/21/2024 Telephone [facility] - SUPERVISOR CIGAR MAKING MACHINE [address] [place] [address] Adriana Redman APRN-CNP Coordination Of Care 02/20/2024 11:00 AM JOINT SEALER visit [facility] - SUPERVISOR CIGAR MAKING MACHINE [address] [place] [address] Adriana Redman APRN-CNP GA: 26w1d 02/20/2024 Travel 02/15/2024 Telephone [facility] - SUPERVISOR CIGAR MAKING MACHINE [address] [place] [address] Angel Carroll MD Reschedule Appointment 02/15/2024 Telephone [facility] - SUPERVISOR CIGAR MAKING MACHINE [address] [place] [phone] Steffanie Arnold MD Question 02/09/2024 1:40 PM JOINT SEALER visit [facility] - SUPERVISOR CIGAR MAKING MACHINE [address] [place] [address] GA: 24w4d 02/09/2024 Travel 02/06/2024 Telephone [facility] [address] [place] [address] Talya Mayo RN Hospital Follow-up 02/06/2024 Telephone [facility] - SUPERVISOR CIG[employer] MAKING MACHINE [address] [place] [address] Brian Ashton MD Coordination Of Care 02/01/2024 Telephone [facility] [address] [facility] [place] [address] Talya Mayo RN Hospitalization 01/31/2024 5:13 PM JOINT SEALER - 02/05/2024 1:15 PM JOINT SEALER Hospital Encounter [facility]E ANTEPARTUM/MOTHER BABY [address] [place] [address] Annie Rodriguez MD SUPERVISOR CIGAR MAKING MACHINE Discharge Disposition: Home or Self Care 01/31/2024 [...] Recorded Patient Health Questionnaire-2 Score 0 03/28/2024 [facility] - Occupational Stress [...] any time in the past 12 [address], were you homeless or living in a long-term (including now)? No 04/10/2024 Education Answer Date [...] Comments Blood Pressure 102/64 04/24/2024 10:21 AM JOINT SEALER Pulse 80 04/04/2024 11:51 AM JOINT SEALER Temperature 36.8 C (98.3 F) 04/11/2024 12:17 PM JOINT SEALER Respiratory Rate 17 04/11/2024 12:17 PM JOINT SEALER Oxygen Saturation 98% 04/11/2024 12:17 PM JOINT SEALER Inhaled Oxygen Concentration - - Weight 59 kg (130 lb) 04/24/2024 10:21 AM JOINT SEALER Height 154.9 cm (5' 1) 04/24/2024 10:21 AM JOINT SEALER Body Mass Index 24.56 04/24/2024 10:21 AM JOINT SEALER Plan of Treatment Upcoming Encounters Date Type Department Care Team (Late st Contact Info) Description 04/25/2024 10:40 AM JOINT SEALER Hospital Encounter [facility] [address] [address] Adriana Redman APRN-[facility] [address] [place] [address] 05/01/2024 10:15 AM JOINT SEALER Procedure visit [facility] - SUPERVISOR CIGAR MAKING MACHINE [address] [place] [address] [address] [place] [phone] 05/01/2024 11:00 AM JOINT SEALER [facility] SUPERVISOR CIGAR MAKING MACHINE [address] [place] [address] [place] [phone] 05/01/2024 11:00 AM JOINT SEALER [facility] - SUPERVISOR CIGAR MAKING MACHINE [address] [place], [place] [address] [address] [place] [phone] 05/27/2024 Hospital Encounter [facility] [address] [place] [address] Obstetrics Health Maintenance Due Date Last Done [...] CARE (AMB) [facility] Routine 04/24/2024 10:19 AM JOINT SEALER Supervision of high risk , antepartum (HCC) BIOPHYSICAL PROFILE W NST Routine 04/24/2024 8:30 AM JOINT SEALER URINALYSIS - POINT OF CARE (AMB) [facility] Routine 04/17/2024 10:35 AM JOINT SEALER Supervision of high risk , antepartum (HCC) Placenta previa antepartum (HCC) SONOGRAM - TRANSVAGINAL Routine 04/17/2024 9:07 AM JOINT SEALER IMAGING/RADIOLOGY/XRA Y RESULTS ORDER 04/12/2024 6:50 PM JOINT SEALER TYPE + SCREEN PANEL STAT 04/10/2024 8 :55 AM JOINT SEALER CBC W AUTO DIFFERENTIAL STAT 04/10/2024 8:55 AM JOINT SEALER Abdominal cramping affecting (HCC) CULTURE STREP B Routine 04/10/2024 8:55 AM JOINT SEALER Abdominal cramping affecting (HCC) SONOGRAM - LIMITED Routine 04/10/2024 8: 22 AM JOINT SEALER URINALYSIS REFLEX MICROSCOPIC REFLEX CULTURE STAT 04/10/2024 6:33 AM JOINT SEALER Abdominal cramping affecting (HCC) CULTURE URINE STAT 04/10/2024 6:33 AM JOINT SEALER Abdominal cramping affecting (HCC) URINALYSIS AUTO - POINT OF CARE (AMB) STL Routine 04/03/2024 11:17 AM JOINT SEALER Placenta previa antepartum (HCC) SONOGRAM - COMPLETE Routine 04/03/2024 9 :56 AM JOINT SEALER Encounter for ultrasound to assess growth (HCC) Encounter for follow-up ultrasound of anatomy ([facility]) History of premature rupture of membranes (PROM) in previous , currently in third trimester (HCC) Placenta previa antepartum (HCC) Multigravida of advanced maternal age in third trimester (HCC) HEPATITIS C ANTIBODY MONTY 03/21/2024 11:17 AM JOINT SEALER Multigravida of advanced maternal age in second trimester (HCC) CULTURE URINE Routine 03/20/2024 11:53 AM JOINT SEALER History of delivery, currently (HCC) Supervision of high-risk of elderly multigravida (>= 35 years old at time of delivery) ([facility]) Asymptomatic microscopic hematuria URINALYSIS AUTO - POINT OF CARE (AMB) [facility] Routine 03/20/2024 10:45 AM JOINT SEALER History of delivery, currently (HCC) Supervision of high-risk of elderly multigravida (>= 35 years old at time of delivery) ([facility]) URINALYSIS AUTO - POINT OF CARE (AMB) [facility] Routine 03/07/2024 10:30 AM JOINT SEALER Placenta previa in third trimester (HCC) SONOGRAM - COMPLETE Routine 03/07/2024 9 :36 AM JOINT SEALER Supervision of high-risk of elderly multigravida (>= 35 years old at time of delivery) ([facility]) History of premature rupture of membranes in previous , currently in second trimester ([facility]) History of delivery, currently ([facility]) Vaginal bleeding in ([facility]) Encounter for follow-up ultrasound of anatomy ([facility]) Placenta previa in third trimester ([facility]) IRON + TIBC + FERRITIN Routine 02/20/2024 11:06 AM JOINT SEALER Supervision of high-risk of elderly multigravida (>= 35 years old at time of delivery) ([facility]) HIV-1 HIV-2 ANTIBODY + HIV P24 AG PANEL Routine 02/20/2024 11:06 AM JOINT SEALER Supervision of high-risk of elderly multigravida (>= 35 years old at time of delivery) ([facility]) TREPONEMA PALLIDUM POS REFLX RPR Routine 02/20/2024 11:06 AM JOINT SEALER Supervision of high-risk of elderly multigravida (>= 35 years old at time of delivery) ([facility]) GTT 1 HR (50G) GESTATIONAL SCREEN Routine 02/20/2024 11:06 AM JOINT SEALER Supervision of high-risk of elderly multigravida (>= 35 years old at time of delivery) ([facility]) CBC W AUTO DIFFERENTIAL Routine 02/20/2024 11:06 AM JOINT SEALER Supervision of high-risk of elderly multigravida (>= 35 years old at time of delivery) ([facility]) URINALYSIS AUTO - POINT OF CARE (AMB) [facility] Routine 02/20/2024 11:00 AM JOINT SEALER Supervision of high-risk of elderly multigravida (>= 35 years old at time of delivery) ([facility]) URINALYSIS AUTO - POINT OF CARE (AMB) [facility] Routine 02/09/2024 1:31 PM JOINT SEALER Vaginal bleeding in ([facility]) IMAGING/RADIOLOGY/XRA Y RESULTS ORDER 02/06/2024 5:09 PM JOINT SEALER TYPE + SCREEN PANEL Routine 02/03/2024 1 2:00 AM JOINT SEALER CBC W/O DIFFERENTIAL Routine 02/03/2024 12:00 AM JOINT SEALER PREPARE RBC LEUKOREDUCED UNIT Routine 02/02/2024 7:31 AM JOINT SEALER NONSTRESS TEST Routine 02/01/2024 4:19 PM JOINT SEALER SONOGRAM - LIMITED Routine 02/01/2024 8: 05 AM JOINT SEALER COAGULATION PANEL W D-DIMER AM Draw 02/01/2024 3:44 AM JOINT SEALER CBC W/O DIFFERENTIAL AM Draw 02/01/2024 3:44 AM JOINT SEALER MAGNESIUM BLOOD Routine 01/31/2024 10:04 PM JOINT SEALER COAGULATION PANEL W D-DIMER Timed 01/31/2024 10:04 PM JOINT SEALER CBC W/O DIFFERENTIAL Timed 01/31/2024 10:04 PM JOINT SEALER BLOOD TYPE VERIFICATION Routine 01/31/2024 6:37 PM JOINT SEALER COMPREHENSIVE METABOLIC PANEL STAT 01/31/2024 6:37 PM JOINT SEALER TRICHOMONAS VAGINALIS AMPLIFIED PROBE STAT 01/31/2024 6:20 PM JOINT SEALER Vaginal bleeding in (HCC) CHLAMYDIA + GC AMPLIFIED PROBE STAT 01/31/2024 6:20 PM JOINT SEALER Vaginal bleeding in (HCC) TYPE + SCREEN PANEL STAT 01/31/2024 5 :59 PM JOINT SEALER COAGULATION PANEL W D-DIMER STAT 01/31/2024 5:59 PM JOINT SEALER Vaginal bleeding in (HCC) CBC W AUTO DIFFERENTIAL STAT 01/31/2024 5:59 PM JOINT SEALER Vaginal bleeding in (HCC) from Last 3 Months Results * URINALYSIS - POINT OF CARE (AMB) [facility] (04/24/2024 10:19 AM JOINT SEALER) Only the most recent of2 resultswithin the time period is included. Specific [place] UA 1.[address] [facility] [address] pH [...] URINE / Unknown 04/24/2024 1 0:19 AM JOINT SEALER Steffanie Arnold MD LAB - POINT OF CARE ORDERABLES [facility] [address] [place] [address], [place] [phone] * BIOPHYSICAL PROFILE W NST (04/24/2024 8:30 AM JOINT SEALER) Linked Results Indication ======== Low lying placenta [...] cephalic Placenta: Placental site: right lateral. Placental zrdq-bn-qesuodsz os distance 12 mm Amniotic Fluid Assessment [...] also has a follow up visit at [facility] be OG clinic today. She has [...] timing of delivery to be determined by [facility] providers at [facility] office. To continue with previa precautions along with pelvic rest. labor precautions along with kick counts and was instructed when to follow up with OB triage either at her nearest [facility] or here at [facility]. Thank you for allowing us to partake in your patient's care. Coding ====== Procedures 29582: [place] Uterus Limited 93827: Biophysical Profile W NST 52370: US Preg Uterus Transvaginal [facility] PACS Anatomical Region Laterality Modality Other 04/24/2024 8:30 AM JOINT SEALER Freddy Armando MD [facility] ORDERABLES * SONOGRAM - TRANSVAGINAL (04/17/2024 9:07 AM JOINT SEALER) Linked Results Indication ======== Low lying placenta [...] to assess placental location Coding ====== Procedures 32209: [place] Uterus Limited 01533: US Preg Uterus Transvaginal [email or web address] PACS Anatomical Region Laterality Modality Other 04/17/2024 9:07 AM JOINT SEALER Steffanie Arnold MD [facility] ORDERABLES * IMAGING RADIOLOGY XRAY RESULTS ORDER (04/12/2024 6:50 PM JOINT SEALER) Only the most recent of2 resultswithin the time period is included. Anatomical Region Laterality Modality Other Narrative 04/12/2024 6:50 PM JOINT SEALER Ordered by an unspecified provider. Scanned Document IMAGING * CULTURE STREP B (04/10/2024 8:55 AM JOINT SEALER) [facility] Culture Strep B Negative for beta-hemolytic Streptococcus Group B EVELIN 04/13/2024 4:[address] [facility] MICROBIOLOGY Microbiology MISCELLANEOUS SAMPLES / Unknown Collection / Unknown 04/10/2024 8:55 AM JOINT SEALER 04/10/2024 9:05 AM JOINT SEALER Santos Ledezma DO LAB - MICROBIOLOGY O RDERABLES [facility] MICROBIOLOGY [address] [phone] * TYPE + SCREEN PANEL (04/10/2024 8:55 AM JOINT SEALER) Only the most recent of3 resultswithin the time period is included. [facility] ABO Rh A POS 04/10/2024 9:50 AM JOINT SEALER [facility] Comment:History checked. Antibody Screen NEG 9:50 AM JOINT SEALER [facility] Blood Bank BLOOD SPECIMEN / Unknown Venipuncture / Unknown 04/10/2024 8:55 AM JOINT SEALER 04/10/2024 9:05 AM JOINT SEALER Santos Ledezma DO LAB - BLOOD BANK ORD ERABLES [facility] [address] [place], [place] [address] [phone] * (ABNORMAL) CBC W AUTO DIFFERENTIAL (04/10/2024 8:55 AM JOINT SEALER) Only the most recent of3 resultswithin the time period is included. [facility] WBC 11.8(H) 4.0 - 10.7 x10E9/L 04/10/2024 9:19 AM [facility] RBC Count 3.70(L) 3.90 - 5.20 x10E12/L 04/10/2024 9:19 AM [facility] Hemoglobin 11.8(L) 11.9 - 15.8 g/dL 04/10/2024 9:19 AM [facility] Hematocrit 34.8 34.8 - 46.1 % 04/10/2024 9:19 AM [facility] MCV 94.1 80.0 - 98.0 fL 04/10/2024 9:19 AM [facility] MCH 31.9 26.7 - 33.6 pg 04/10/2024 9:19 AM [facility] MCHC 33.9 31.7 - 36.3 g/dL 04/10/2024 9:19 AM [facility] RDW-CV 13.4 11.3 - 14.8 % 04/10/2024 9:19 AM [facility] Platelet Count 180 150 - 420 x10E9/L 04/10/2024 9:19 AM [facility] MPV 10.6 7.8 - 11.4 fL 04/10/2024 9:19 AM [facility] Neutrophil % 86.4(H) 41.0 - 74.0 % 04/10/2024 9:19 AM [facility] Lymphocyte % 7.3(L) 17.0 - 47.0 % 04/10/2024 9:19 AM [facility] Monocyte % 5.0 3.0 - 11.0 % 04/10/2024 9:19 AM [facility] Eosinophil % 0.1 0.0 - 7.0 % 04/10/2024 9:19 AM [facility] Basophil % 0.2 0.0 - 1.6 % 04/10/2024 9:19 AM [facility] Immature Granulocytes % 1.0 0.0 - 1.0 % 04/10/2024 9:19 AM [facility] Neutrophil Absolute 10.16(H) 1.60 - 7.50 x10E9/L 04/10/2024 9:19 AM [facility] Lymphocyte Absolute 0.86(L) 1.00 - 4.40 x10E9/L 04/10/2024 9:19 AM JOINT SEALER [facility] Monocyte Absolute 0.59 0.15 - 1.00 x10E9/L 04/10/2024 9:19 AM JOINT SEALER [facility] Eosinophil Absolute 0.01 0.00 - 0.60 x10E9/L 04/10/2024 9:19 AM JOINT SEALER [facility] Basophil Absolute 0.02 0.00 - 0.13 x10E9/L 04/10/2024 9:19 AM JOINT SEALER [facility] Blood BLOOD SPECIMEN / Unknown Venipuncture / Unknown 04/10/2024 8:55 AM JOINT SEALER 04/10/2024 9:05 AM JOINT SEALER Santos Ledezma DO LAB - HEMATOLOGY ORD ERABLES [facility] [address] [place], [place] [id number] * SONOGRAM - LIMITED (04/10/2024 8:22 AM JOINT SEALER) Only the most recent of2 resultswithin the [...] Placenta: Placental site: low-lying, right lateral. Placental vycw-cd-shbvecut os distance 15 mm Amniotic fluid: Amount [...] indicated per inpatient team. Coding ====== Procedures 23566: US Uterus Limited 05276: US Preg Uterus Transvaginal [facility] PACS Anatomical Region Laterality Modality Other 04/10/2024 8:22 AM JOINT SEALER Santos Ledezma DO [facility] ORDERABLES * (ABNORMAL) URINALYSIS REFLEX MICROSCOPIC REFLEX CULTURE (04/10/2024 6:33 AM JOINT SEALER) Color UA Yellow Yellow, Straw 04/10/2024 6:59 AM JOINT SEALER [facility] Clarity UA Turbid(A) Clear 04/10/2024 6:59 AM JOINT SEALER [facility] Glucose UA Normal Normal 04/10/2024 6:59 AM JOINT SEALER [facility] Bilirubin UA Negative Negative 04/10/2024 6:59 AM JOINT SEALER [facility] Ketone UA Trace(A) Negative 04/10/2024 6:59 AM [facility] Specific [place] UA 1.018 1.005 - 1.030 04/10/2024 6:59 AM [facility] Blood UA Trace(A) Negative 04/10/2024 6:59 AM [facility] pH UA 6.0 5.0 - 9.0 pH 04/10/2024 6:59 AM [facility] Protein UA Trace(A) Negative 04/10/2024 6:59 AM [facility] Urobilinogen UA Normal Normal mg/dL 04/10/2024 6:59 AM JOINT SEALER [facility] Nitrite UA Negative Negative 04/10/2024 6:59 AM [facility] Leukocyte UA 250 SHARON/uL(A) Negative 04/10/2024 6:59 AM [facility] RBC UA 11-20(A) 0 - 5 # /hpf 04/10/2024 6:59 AM [facility] WBC UA 0-5 0 - 5 # /hpf 04/10/2024 6:59 AM [facility] Bacteria UA Trace(A) None Seen 04/10/2024 6:59 AM [facility] Squamous Epithelial Cells 6-10(A) 0 - 5 /hpf 04/10/2024 6:59 AM [facility] Mucus UA 4+ /LPF 04/10/2024 6:59 AM [facility] Hyaline Casts 0-2 0 - 2 /LPF 04/10/2024 6:59 AM [facility] Urine URINE SPECIMEN OBTAINED BY CLEAN CATCH PROCEDURE / Unknown Collection / Unknown 04/10/2024 6:33 AM JOINT SEALER 04/10/2024 6:40 AM JOINT SEALER Narrative [facility] - 04/10/2024 6:59 AM JOINT SEALER Santos Ledezma DO LAB - URINALYSIS ORD ERABLES [facility] [address] [place] [id number] * CULTURE URINE (04/10/2024 6:33 AM JOINT SEALER) Only the most recent of2 resultswithin the time period is included. Culture Urine <10,000 CFU/mL urogenital ramon EVELIN 04/11/2024 1:[address] [facility] Urine URINE SPECIMEN OBTAINED BY CLEAN CATCH PROCEDURE / Unknown Collection / Unknown 04/10/2024 6:33 AM JOINT SEALER 04/10/2024 6:40 AM JOINT SEALER Santos Ledezma DO LAB - MICROBIOLOGY O RDERABLES [facility] [address] [place] [address], [place]UST [phone] * (ABNORMAL) URINALYSIS AUTO - POINT OF CARE (AMB) [facility] (04/03/2024 11:17 AM JOINT SEALER) Clarity UA POCT clear [facility] 1031 [...] Negative [facility] [address] Specific [place] UA POCT 1.000(A) 1.002 - 1.[address] [facility] [address] Ketone UA neg Negative [facility] [address] Bilirubin UA POCT neg Negative [facility] [address] Glucose UA neg Negative [facility] [address] Expiration Date 03/29/2024 [facility] [address] Lot # [id number] [facility] [address] QC Verified Yes Yes [facility] [address] Urine URINE / Unknown 04/03/2024 1 1:17 AM JOINT SEALER Adriana Redman PRINCIPAL TECHNICAL WRITER-CORPORATE COMPLIANCE MANAGER LAB - POINT OF CARE ORDERABLES [facility] [address] [place] [address], [place] [phone] * SONOGRAM - COMPLETE (04/03/2024 9:56 AM JOINT SEALER) Only the most recent of2 resultswithin the [...] 32 w + 2 d 05/27/2024 Stated EIRKA 32 w + 2 d 05/27/2024 U/S 04/03/2024 based upon AC, BPD, Femur, HC 31 w + 4 d 06/01/2024 Assigned dating based on the LMP, selected on 03/07/2024 32 w + 2 d 05/27/2024 General Evaluation Cardiac activity present. FHR 138 bpm. Presentation: cephalic Placenta: Placental site: right lateral low lying. Placental [id number] os distance 15 mm Amniotic fluid: Amount [...] 4 lb 3 oz EFW by Hadlock ([id number]) appropriate Growth Overview Exam date GA BPD [...] also has a follow-up visit at [facility] today. Single, live, intrauterine at 32w 2d [...] in your patient's care. Coding ====== Procedures 22530: [place] [address]: US Preg Uterus Transvaginal [facility] PACS Anatomical Region Laterality Modality Other 04/03/2024 9:56 AM JOINT SEALER Freddy Armando MD [facility] ORDERABLES * HEPATITIS C ANTIBODY (03/21/2024 11:17 AM JOINT SEALER) HCV Antibody Screen Non Reactive Non Reactive 03/21/2024 12:11 PM JOINT SEALER [facility] Blood BLOOD SPECIMEN / Unknown Venipuncture / Unknown 03/21/2024 11:17 AM JOINT SEALER 03/21/2024 11:23 AM JOINT SEALER Narrative [facility] - 03/21/2024 12:11 PM JOINT SEALER Non Reactive - Antibodies to Hepatitis C virus (HCV) were not detected, result does not exclude early acute HCV infection. Adriana Redman PRINCIPAL TECHNICAL WRITER-CORPORATE COMPLIANCE MANAGER LAB - CHEMISTR Y ORDERABLES [facility] [address] [place] [place] [address] * URINALYSIS AUTO - POINT OF CARE (AMB) [facility] (03/20/2024 10:45 AM JOINT SEALER) Only the most recent of4 resultswithin the time period is included. Glucose UA [address] [facility] [address] Bilirubin UA POCT neg [facility] [address] Ketones UA POCT neg [facility] [address] Specific [place] UA 1.[address] [facility] [address] Blood Urine POCT pos [facility] [address] pH UA 6.[address] [facility] [address] Protein UA trace [facility] [address] Urobilinogen UA neg [facility] [address] Nitrite UA neg [facility] [address] WBC UA neg [facility] [address] Urine URINE / Unknown 03/20/2024 1 0:45 AM JOINT SEALER Adriana [facility]man [facility] - POINT OF CARE ORDERABLES [facility] [address] [place] [address], [place] [phone] * GTT 1 HR (50G) GESTATIONAL SCREEN (02/20/2024 11:06 AM JOINT SEALER) Pathologist [facility] Glucose Gestational Screen 80 <140 mg/dL [facility] Comment: Test Performed at: [facility] [employer] [address] JAMIE [place] MD Blood BLOOD SPECIMEN / Unknown 02/20/2024 11:06 AM JOINT SEALER 02/20/2024 11:07 AM JOINT SEALER Adriana Redman [facility] LAB - CHEMISTR Y ORDERABLES [facility] [address] [place] [address] * HIV-1 HIV-2 ANTIBODY + HIV P24 AG PANEL (02/20/2024 11:06 AM JOINT SEALER) Pathologist [facility] HIV Screen 4th Generation w Reflex NON-REACT [...] purpose. For additional information please refer to http://education.Swapdom/faq/UIE081 (This link is being provided for informational/ educational purposes only.) The performance of this assay has not been clinically validated in patients less than 2 years old. Test Performed at: [facility] [address] [facility] [place] [address] JAMIE [place] MD Blood BLOOD SPECIMEN / Unknown 02/20/2024 11:06 AM JOINT SEALER 02/20/2024 11:07 AM JOINT SEALER Adriana Redman APRN-[facility] LAB - CHEMISTR Y ORDERABLES Performing Organization Address [facility] de Phone Number [facility] [address] [place] [address] * TREPONEMA PALLIDUM POS REFLX RPR (02/20/2024 11:06 AM JOINT SEALER) Pathologist [facility] Treponema pallidum Antibody EIA NEGATIVE NEGATIVE [facility] Comment: No antibodies to T. pallidum (the agent causing syphilis) were detected in the specimen. This result, however, does not exclude very recent T. pallidum infection; testing of a second specimen, collected 2-4 weeks after this specimen, is recommended if the index of suspicion for recent infection is high. Test Performed at: [facility] [place] [address] [place] [address] GILDARDO DEGROOT Blood BLOOD SPECIMEN / Unknown 02/20/2024 11:06 AM JOINT SEALER 02/20/2024 11:07 AM JOINT SEALER Adriana Redman APRN-[facility] LAB - SEROLOGY ORDERABLES Performing Organization Address [facility] Co de Phone Number [facility] [phone] [place] [phone] * (ABNORMAL) IRON + TIBC + FERRITIN (02/20/2024 11:06 AM JOINT SEALER) Pathologist [facility] Iron 54 40 - 190 mcg/dL [facility] TIBC 383 250 - 450 mcg/dL (calc) [facility] % Saturation 14(L) 16 - 45 % (calc) [facility] Ferritin 13(L) 16 - 154 ng/mL [facility] Comment: Test Performed at: [facility] [employer] [address] [address] JAMIE [place] MD Blood BLOOD SPECIMEN / Unknown 02/20/2024 11:06 AM JOINT SEALER 02/20/2024 11:07 AM JOINT SEALER Adriana Redman PRINCIPAL TECHNICAL WRITER-CORPORATE COMPLIANCE MANAGER LAB - CHEMISTR Y ORDERABLES [facility] [address] [place] [address] * (ABNORMAL) CBC W/O DIFFERENTIAL (02/03/2024 12:00 AM JOINT SEALER) Only the most recent of3 resultswithin the time period is included. Pathologist [facility] WBC 12.5(H) 4.0 - 10.7 x10E9/L 02/03/2024 12:39 AM [facility] RBC Count 2.86(L) 3.90 - 5.20 x10E12/L 02/03/2024 12:39 AM [facility] Hemoglobin 9.1(L) 11.9 - 15.8 g/dL 02/03/2024 12:39 AM [facility] Hematocrit 27.3(L) 34.8 - 46.1 % 02/03/2024 12:39 AM [facility] MCV 95.5 80.0 - 98.0 fL 02/03/2024 12:39 AM [facility] MCH 31.8 26.7 - 33.6 pg 02/03/2024 12:39 AM [facility] MCHC 33.3 31.7 - 36.3 g/dL 02/03/2024 12:39 AM [facility] RDW-CV 12.8 11.3 - 14.8 % 02/03/2024 12:39 AM [facility] Platelet Count 188 150 - 420 x10E9/L 02/03/2024 12:39 AM [facility] MPV 10.2 7.8 - 11.4 fL 02/03/2024 12:39 AM JOINT SEALER [facility] Blood BLOOD SPECIMEN / Unknown Lab Venipuncture / Unknown 02/03/2024 02/03/2024 12:35 AM JOINT SEALER Annie Rodriguez MD LAB - HEMATOLOGY OR DERABLES Performing Organization Address City/[facility]/ZIP Co de Phone Number [facility] [address] [place] [address] * PREPARE (CROSSMATCH) RBC UNIT(S), 2 Units (02/02/2024 7:31 AM JOINT SEALER) Unit Description AS1 LR PRBC [facility] Unit ABO A [facility] Unit Rh POS [facility] Product Number R02 [facility] Unit Donor # [id number] [facility] B[facility] Unit Status released [facility] OD BANK LAB Product Code [id number] [facility] Blood Type Barcode 6200 [facility] Expiration Date S [facility] Unit Description AS1 LR PRBC [facility] Unit ABO A [facility] Unit Rh POS [facility] Product Number R02 [facility] Unit Donor # [id number] [facility] BLOOD [facility] LAB Unit Status released [facility] Product Code [id number] [facility] Blood Type Barcode 6200 [facility] Expiration Date S [facility] Blood Bank BLOOD SPECIMEN / Unknown 01/31/2024 6:19 PM JOINT SEALER Eliu Velasquez MD LAB - BLOOD BANK ORD ERABLES Performing Organization Address City/[facility]/ZIP Co de Phone Number [facility]LOOD [facility] [address] [place] [address] * NONSTRESS TEST (02/01/2024 4:19 PM JOINT SEALER) Narrative Annie Rodriguez MD - 02/01/2024 4:19 PM JOINT SEALER Theresa Naranjo MD 02/02/2024 6:14 AM Name: [...] Interventions: None Brynn Ferraro RN Non-Stress Test [facility] Patient Name: Ying Hampton LMP: Patient's last [...] COAGULATION PANEL W D-DIMER (02/01/2024 3:44 AM JOINT SEALER) Only the most recent of3 resultswithin the time period is included. PT 13.2 12.1 - 14.8 sec 02/01/2024 4:26 AM JOINT SEALER [facility] INR 1.0 0.9 - 1.1 02/01/2024 4:26 AM JOINT SEALER [facility] PTT 22.3(L) 23.0 - 38.4 sec 02/01/2024 4:26 AM JOINT SEALER [facility] Fibrinogen 370 200 - 400 mg/dL 02/01/2024 4:26 AM [facility] D-Dimer 0.62(H) 0.27 - 0.50 ug/mL FEU 02/01/2024 4:26 AM [facility] Platelet Count 192 150 - 420 x10E9/L 02/01/2024 4:26 AM [facility] Blood BLOOD SPECIMEN / Unknown Venipuncture / Unknown 02/01/2024 3:44 AM JOINT SEALER 02/01/2024 3:57 AM JOINT SEALER [facility] - 02/01/2024 4:26 AM [facility] Conventional Warfarin Anticoagulant Therapy INR Reference [...] - COAGULATION O RDERABLES Performing Organization Address City/[facility]/ZIP Co de Phone Number [facility] [address] [place] [address] * (ABNORMAL) MAGNESIUM BLOOD (01/31/2024 10:04 PM JOINT SEALER) [facility] Magnesium 5.6(HH) 1.6 - 2.6 mg/dL 01/31/2024 10:32 PM JOINT SEALER [facility] Blood BLOOD SPECIMEN / Unknown Venipuncture / Unknown 01/31/2024 10:04 PM JOINT SEALER 01/31/2024 10:13 PM JOINT SEALER Annie Rodriguez MD LAB - CHEMISTRY ORD ERABLES Performing Organization Address City/[facility]/ZIP Co de Phone Number [facility] [address] [place] [address] * BLOOD TYPE VERIFICATION (01/31/2024 6:37 PM JOINT SEALER) Pathologist [facility] ABO Rh A POS 01/31/2024 7:1 5 PM [facility] Blood Bank BLOOD SPECIMEN / Unknown Venipuncture / Unknown 01/31/2024 6:37 PM JOINT SEALER 01/31/2024 6:46 PM [facility] Eliu Velasquez MD LAB - BLOOD BANK ORD ERABLES [facility] [address] [phone] * (ABNORMAL) COMPREHENSIVE METABOLIC PANEL (01/31/2024 6:37 PM JOINT SEALER) Pathologist [facility] Glucose 92 70 - 99 mg/dL 01/31/2024 7:06 PM [facility] Sodium 138 136 - 145 mmol/L 01/31/2024 7:06 PM [facility] Potassium 3.6 3.5 - 5.1 mmol/L 01/31/2024 7:06 PM [facility] Chloride 108(H) 98 - 107 mmol/L 01/31/2024 7:06 PM [facility] CO2 22 22 - 29 mmol/L 01/31/2024 7:06 PM [facility] Calcium 9.1 8.4 - 10.4 mg/dL 01/31/2024 7:06 PM [facility] Anion Gap 8 6 - 16 mmol/L 01/31/2024 7:06 PM [facility] BUN 6 5.3 - 18.7 mg/dL 01/31/2024 7:06 PM [facility] Creatinine 0.56(L) 0.57 - 1.11 mg/dL 01/31/2024 7:06 PM [facility] Alkaline Phosphatase 80 40 - 150 U/L 01/31/2024 7:06 PM [facility] ALT 29 0 - 55 U/L 01/31/2024 7:06 PM [facility] AST 30 5 - 34 U/L 01/31/2024 7:06 PM [facility] Protein Total 6.3(L) 6.4 - 8.3 gm/dL 01/31/2024 7:06 PM [facility] Albumin 3.1(L) 3.4 - 5.0 gm/dL 01/31/2024 7:06 PM JOINT SEALER [facility] Bilirubin Total 0.2 0.2 - 1.2 mg/dL 01/31/2024 7:06 PM JOINT SEALER [facility] eGFR by CKD-EPI >90 >=90 mL/min/1.7 3 m2 01/31/2024 7:06 PM JOINT SEALER [facility] Blood BLOOD SPECIMEN / Unknown Venipuncture / Unknown 01/31/2024 6:37 PM JOINT SEALER 01/31/2024 6:46 PM JOINT SEALER Eliu Velasquez MD LAB - CHEMISTRY DEVIN LYON Performing Organization Address City/[facility]/ZIP Co de Phone Number [facility] [address] [place] [address] * TRICHOMONAS VAGINALIS AMPLIFIED PROBE (01/31/2024 6:20 PM JOINT SEALER) Trichomonas vaginalis Amplified Probe Negative Negative 02/01/2024 6:13 AM JOINT SEALER [facility] Microbiology URINE / Unknown Collection / Unknown 01/31/2024 6:20 PM JOINT SEALER 01/31/2024 6:37 PM JOINT SEALER Narrative [facility] MICROBIOLOGY - 02/01/2024 6:13 AM JOINT SEALER This test was developed and its performance characteristics determined by the [facility], [facility]. Urine specimens tested by the [facility] [place] have not been cleared or approved by [...] Velasquez MD LAB - MICROBIOLOGY O RDERABLES [facility] MICROBIOLOGY [address] [place] [address], [place] [phone] * CHLAMYDIA + GC AMPLIFIED PROBE (01/31/2024 6:20 PM JOINT SEALER) Chlamydia Amplified Probe Negative Negative 02/01/2024 6:[address] [facility]CRO[facility]Y GC Amplified Probe Negative Negative 02/01/2024 6:[address] [facility]CRO[facility] Microbiology URINE / Unknown Collection / Unknown 01/31/2024 6:20 PM JOINT SEALER 01/31/2024 6:37 PM JOINT SEALER Narrative [facility]CRO[facility] - 02/01/2024 6:13 AM JOINT SEALER Results based on detection/no detection of ribosomal RNA by amplified method. Eliu Velasquez MD LAB - MICROBIOLOGY O RDERABLES [facility]CRO[facility] [address] [place] [address], [place] [phone] from Last 3 Months Advance Directives * [...] 12:22 PM 04/21/2018 10:46 AM Care Teams Grain Commodity Manager Relationship Specialty Start Date End Date Severino Wooten DO [address] [facility] [address] [facility] [address] [place] [address] PCP - General 10/26/17
--- OUTSIDE RECORDS SUMMARY | 2024-04-25 00:52 | XMS_ITS | Patient Health Summary ---
Author Organization [facility] [employer] Address [address] [place] [address] Care Team Providers Care Senior Tax Manager Name Role Phone Severino Wooten DO Primary Care Provider [phone] Note from [facility],non-owned Affiliates and Associated Physician Practices is amultiple site organization consisting of ambulatory clinics and hospital sitesin [place], [place], [place]. This disclosure is being madepursuant to the Care Everywhere program and may not contain all information available regarding this patient. Last updated 17.[facility] Allergies No known active allergies Medications * [...] Recorded Patient Health Questionnaire-2 Score 0 03/28/2024 [facility] ional [facility] - Occupational Stress [...] any time in the past 12 [facility], were you homeless or living in a [facility]p (including now)? No 04/10/2024 Education Answer Date [...] Comments Blood Pressure 102/64 04/24/2024 10:21 AM TOOL ANALYST Pulse 80 04/04/2024 11:51 AM TOOL ANALYST Temperature 36.8 C (98.3 F) 04/11/2024 12:17 PM TOOL ANALYST Respiratory Rate 17 04/11/2024 12:17 PM TOOL ANALYST Oxygen Saturation 98% 04/11/2024 12:17 PM TOOL ANALYST Inhaled Oxygen Concentration - - Weight 59 kg (130 lb) 04/24/2024 10:21 AM TOOL ANALYST Height 154.9 cm (5' 1) 04/24/2024 10:21 AM TOOL ANALYST Body Mass Index 24.56 04/24/2024 10:21 AM TOOL ANALYST Procedures * URINALYSIS - POINT OF CARE [...] of advanced maternal age in second trimester ([facility]) * CULTURE URINE(Performed 03/20/2024) Performed for History of delivery, currently ([facility]), Supervision of high-risk of elderly multigravida (>= 35 years old at time of delivery) ([facility]), Asymptomatic microscopic hematuria * URINALYSIS AUTO - POINT OF CARE (AMB) [facility](Performed 03/20/2024) Performed for History of delivery, currently (HCC), Supervision of high-risk of elderly multigravida (>= 35 years old at time of delivery) ([facility]) * URINALYSIS AUTO - POINT OF CARE (AMB) [facility](Performed 03/07/2024) Performed for Placenta previa in third trimester ([facility]) * SONOGRAM - COMPLETE(Performed 03/07/2024) Performed for Supervision of high-risk of elderly multigravida (>= 35 years old at time of delivery) ([facility]), History of premature rupture of membranes in previous , currently in second trimester (HCC), History of delivery, currently (HCC), Vaginal bleeding in (HCC), Encounter for follow-up ultrasound of anatomy ([facility]), Placenta previa in third trimester (HCC) * IRON + TIBC + FERRITIN(Performed 02/20/2024) Performed for Supervision of high-risk of elderly multigravida (>= 35 years old at time of delivery) ([facility]) * HIV-1 HIV-2 ANTIBODY + HIV P24 AG PANEL(Performed 02/20/2024) Performed for Supervision of high-risk of elderly multigravida (>= 35 years old at time of delivery) ([facility]) * TREPONEMA PALLIDUM POS REFLX RPR(Performed 02/20/2024) Performed for Supervision of high-risk of elderly multigravida (>= 35 years old at time of delivery) ([facility]) * GTT 1 HR (50G) GESTATIONAL SCREEN(Performed 02/20/2024) Performed for Supervision of high-risk of elderly multigravida (>= 35 years old at time of delivery) ([facility]) * CBC W AUTO DIFFERENTIAL(Performed 02/20/2024) Performed for Supervision of high-risk of elderly multigravida (>= 35 years old at time of delivery) ([facility]) * URINALYSIS AUTO - POINT OF CARE (AMB) [facility](Performed 02/20/2024) Performed for Supervision of high-risk of elderly multigravida (>= 35 years old at time of delivery) ([facility]) * URINALYSIS AUTO - POINT OF CARE (AMB) [facility](Performed 02/09/2024) Performed for Vaginal bleeding in ([facility]) * IMAGING/RADIOLOGY/XRAY RESULTS ORDER(Performed 02/06/2024) * TYPE [...] PROBE(Performed 01/31/2024) Performed for Vaginal bleeding in ([facility]) * CHLAMYDIA + GC AMPLIFIED PROBE(Performed 01/31/2024) Performed for Vaginal bleeding in ([facility]) * TYPE + SCREEN PANEL(Performed 01/31/2024) * COAGULATION PANEL W D-DIMER(Performed 01/31/2024) Performed for Vaginal bleeding in ([facility]) * CBC W AUTO DIFFERENTIAL(Performed 01/31/2024) Performed for Vaginal bleeding in ([facility]) * SARS-COV-2 (COVID-19)+INFLU A+B AG (AMB) POC(Performed 04/10/2020) Performed for Viral upper respiratory tract infection * IR EMBOLIZATION TRANSCATH THPY(Performed 01/04/2020) Performed for Vascular malformation ([facility]) * PT-INR [facility](Performed 01/04/2020) Performed for AVM (arteriovenous malformation) ([facility]) * CBC W AUTO DIFFERENTIAL(Performed 01/04/2020) Performed for AVM (arteriovenous malformation) ([facility]) * HCG URINE QUALITATIVE - POCT (IP) INTERFACED(Performed 01/04/2020) * HCG URINE QUAL POCT NOTIFICATION(Performed 01/04/2020) Performed for Pre-op testing * IMAGING/RADIOLOGY/XRAY RESULTS ORDER(Performed 04/27/2018) * CBC W AUTO DIFFERENTIAL(Performed 04/22/2018) * PATHOLOGY TISSUE EXAM (STL)(Performed 04/21/2018) Performed for premature rupture of membranes with onset of labor within 24 hours of rupturein third trimester ([facility]) * BLOOD GASES CORD NANCY (ISTAT)(Performed 04/21/2018) [...] OF CARE (AMB) [facility] (04/24/2024 10:19 AM TOOL ANALYST) Only the most recent of2 resultswithin the time period is included. Specific Coden UA 1.[address] [facility] [address] pH [...] URINE / Unknown 04/24/2024 1 0:19 AM TOOL ANALYST Steffanie Arnold MD LAB - POINT OF CARE ORDERABLES [facility] [address] [facility] [address] [phone] * BIOPHYSICAL PROFILE W NST (04/24/2024 8:30 AM TOOL ANALYST) Linked Results Indication ======== Low lying placenta [...] cephalic Placenta: Placental site: right lateral. Placental vhzu-mp-itmqqvia os distance 12 mm Amniotic Fluid Assessment [...] also has a follow up visit at [facility] be OG clinic today. She [...] timing of delivery to be determined by [facility] providers at [facility] office. To continue with previa precautions along with pelvic rest. labor precautions along with kick counts and was instructed when to follow up with OB triage either at her nearest [facility] or here at [facility]. Thank you for allowing us to partake in your patient's care. Coding ====== Procedures 53588: US Uterus Limited 08119: Biophysical Profile W NST 80899: US Preg Uterus Transvaginal [facility] PACS Anatomical Region Laterality Modality Other 04/24/2024 8:30 AM TOOL ANALYST Freddy Armando MD [facility] ORDERABLES * SONOGRAM - TRANSVAGINAL (04/17/2024 9:07 AM TOOL ANALYST) Linked Results Indication ======== Low lying placenta [...] to assess placental location Coding ====== Procedures 00215: US Uterus Limited 85370: US Preg Uterus Transvaginal [facility] [employer] PACS Anatomical Region Laterality Modality Other 04/17/2024 9:07 AM TOOL ANALYST Steffanie Arnold MD [facility] ORDERABLES * IMAGING RADIOLOGY XRAY RESULTS ORDER (04/12/2024 6:50 PM TOOL ANALYST) Only the most recent of3 resultswithin the time period is included. Anatomical Region Laterality Modality Other Narrative 04/12/2024 6:50 PM TOOL ANALYST Ordered by an unspecified provider. Scanned Document IMAGING * CULTURE STREP B (04/10/2024 8:55 AM TOOL ANALYST) Only the most recent of2 resultswithin the time period is included. Culture Strep B Negative for beta-hemolytic Streptococcus Group B EVELIN 04/13/2024 4:37 PM TOOL ANALYST [facility] MICROBIOLOGY Microbiology MISCELLANEOUS SAMPLES / Unknown Collection / Unknown 04/10/2024 8:55 AM TOOL ANALYST 04/10/2024 9:05 AM TOOL ANALYST Santos Ledezma DO LAB - MICROBIOLOGY O RDERABLES [facility] MICROBIOLOGY [address] [place] [address], [facility] [phone] * TYPE + SCREEN PANEL (04/10/2024 8:55 AM TOOL ANALYST) Only the most recent of5 resultswithin the time period is included. ABO Rh A POS 04/10/2024 9:50 AM [facility] Comment:History checked. Antibody Screen NEG 9:50 AM [facility] Blood Bank BLOOD SPECIMEN / Unknown Venipuncture / Unknown 04/10/2024 8:55 AM TOOL ANALYST 04/10/2024 9:05 AM TOOL ANALYST Santos Ledezma DO LAB - BLOOD BANK ORD ERABLES [facility] [address] [phone] * (ABNORMAL) CBC W AUTO DIFFERENTIAL (04/10/2024 8:55 AM [facility]) Only the most recent of8 resultswithin the time period is included. WBC 11.8(H) 4.0 - 10.7 x10E9/L 04/10/2024 9:19 AM [facility] RBC Count 3.70(L) 3.90 - 5.20 x10E12/L 04/10/2024 9:19 AM [facility] Hemoglobin 11.8(L) 11.9 - 15.8 g/dL 04/10/2024 9:19 AM [facility] Hematocrit 34.8 34.8 - 46.1 % 04/10/2024 9:19 AM [facility] MCV 94.1 80.0 - 98.0 fL 04/10/2024 9:19 AM [facility] MCH 31.9 26.7 - 33.6 pg 04/10/2024 9:19 AM [facility] MCHC 33.9 31.7 - 36.3 g/dL 04/10/2024 9:19 AM [facility] RDW-CV 13.4 11.3 - 14.8 % 04/10/2024 9:19 AM [facility] Platelet Count 180 150 - 420 x10E9/L 04/10/2024 9:19 AM [facility] MPV 10.6 7.8 - 11.4 fL 04/10/2024 9:19 AM [facility] Neutrophil % 86.4(H) 41.0 - 74.0 % 04/10/2024 9:19 AM [facility] Lymphocyte % 7.3(L) 17.0 - 47.0 % 04/10/2024 9:19 AM [facility] Monocyte % 5.0 3.0 - 11.0 % 04/10/2024 9:19 AM [facility] Eosinophil % 0.1 0.0 - 7.0 % 04/10/2024 9:19 AM [facility] Basophil % 0.2 0.0 - 1.6 % 04/10/2024 9:19 AM [facility] Immature Granulocytes % 1.0 0.0 - 1.0 % 04/10/2024 9:19 AM [facility] Neutrophil Absolute 10.16(H) 1.60 - 7.50 x10E9/L 04/10/2024 9:19 AM [facility] Lymphocyte Absolute 0.86(L) 1.00 - 4.40 x10E9/L 04/10/2024 9:19 AM [facility] Monocyte Absolute 0.59 0.15 - 1.00 x10E9/L 04/10/2024 9:19 AM [facility] Eosinophil Absolute 0.01 0.00 - 0.60 x10E9/L 04/10/2024 9:19 AM [facility] Basophil Absolute 0.02 0.00 - 0.13 x10E9/L 04/10/2024 9:19 AM [facility] Blood BLOOD SPECIMEN / Unknown Venipuncture / Unknown 04/10/2024 8:55 AM TOOL ANALYST 04/10/2024 9:05 AM [facility] Santos Ledezma DO LAB - HEMATOLOGY ORD ERABLES [facility] [address] [place] [address] * SONOGRAM - LIMITED (04/10/2024 8:22 AM [facility]) Only the most recent of2 resultswithin the [...] Placenta: Placental site: low-lying, right lateral. Placental wseq-cp-liojbjrj os distance 15 mm Amniotic fluid: Amount [...] indicated per inpatient team. Coding ====== Procedures 65972: US Uterus Limited 43479: US Preg Uterus Transvaginal . [facility] PACS Anatomical Region Laterality Modality Other 04/10/2024 8:22 AM TOOL ANALYST Santos Ledezma DO [facility] ORDERABLES * (ABNORMAL) URINALYSIS REFLEX MICROSCOPIC REFLEX CULTURE (04/10/2024 6:33 AM TOOL ANALYST) Only the most recent of2 resultswithin the time period is included. Color UA Yellow Yellow, Straw 04/10/2024 6:59 AM TOOL ANALYST [facility] Clarity UA Turbid(A) Clear 04/10/2024 6:59 AM TOOL ANALYST [facility] Glucose UA Normal Normal 04/10/2024 6:59 AM TOOL ANALYST [facility] Bilirubin UA Negative Negative 04/10/2024 6:59 AM TOOL ANALYST [facility] Ketone UA Trace(A) Negative 04/10/2024 6:59 AM TOOL ANALYST [facility] Specific Coden UA 1.018 1.005 - 1.030 04/10/2024 6:59 AM TOOL ANALYST [facility] Blood UA Trace(A) Negative 04/10/2024 6:59 AM TOOL ANALYST [facility] pH UA 6.0 5.0 - 9.0 pH 04/10/2024 6:59 AM TOOL ANALYST [facility] Protein UA Trace(A) Negative 04/10/2024 6:59 AM TOOL ANALYST [facility] Urobilinogen UA Normal Normal mg/dL 04/10/2024 6:59 AM TOOL ANALYST [facility] Nitrite UA Negative Negative 04/10/2024 6:59 AM TOOL ANALYST [facility] Leukocyte UA 250 SHARON/uL(A) Negative 04/10/2024 6:59 AM TOOL ANALYST [facility] RBC UA 11-20(A) 0 - 5 # /hpf 04/10/2024 6:59 AM TOOL ANALYST [facility] WBC UA 0-5 0 - 5 # /hpf 04/10/2024 6:59 AM TOOL ANALYST [facility] Bacteria UA Trace(A) None Seen 04/10/2024 6:59 AM TOOL ANALYST [facility] Squamous Epithelial Cells 6-10(A) 0 - 5 /hpf 04/10/2024 6:59 AM TOOL ANALYST [facility] Mucus UA 4+ /LPF 04/10/2024 6:59 AM TOOL ANALYST [facility] Hyaline Casts 0-2 0 - 2 /LPF 04/10/2024 6:59 AM TOOL ANALYST [facility] Urine URINE SPECIMEN OBTAINED BY CLEAN CATCH PROCEDURE / Unknown Collection / Unknown 04/10/2024 6:33 AM TOOL ANALYST 04/10/2024 6:40 AM TOOL ANALYST Narrative [facility] - 04/10/2024 6:59 AM TOOL ANALYST Santos Ledezma LAB - URINALYSIS ORD ERABLES Performing Organization Address City/[facility]/ZIP Co de Phone Number [facility] [address] [place] [address] * CULTURE URINE (04/10/2024 6:33 AM TOOL ANALYST) Only the most recent of2 resultswithin the time period is included. Pathologist [facility] Culture Urine <10,000 CFU/mL urogenital ramon EVELIN 04/11/2024 1:08 PM TOOL ANALYST [facility] MICROBIOLOGY Urine URINE SPECIMEN OBTAINED BY CLEAN CATCH PROCEDURE / Unknown Collection / Unknown 04/10/2024 6:33 AM TOOL ANALYST 04/10/2024 6:40 AM TOOL ANALYST Santos Ledezma LAB - MICROBIOLOGY O RDERABLES Performing Organization Address City/[facility]/ZIP Co de Phone Number [facility] MICROBIOLOG[facility] [address] [place] [address], [facility] [phone] * (ABNORMAL) URINALYSIS AUTO - POINT OF CARE (AMB) [facility] (04/03/2024 11:17 AM TOOL ANALYST) Clarity UA POCT clear [facility] [address] Color UA POCT yellow [facility] [address] Leukocyte UA neg Negative [facility] [address] Nitrite UA POCT neg Negative [facility] [address] Urobilinogen UA 0.1 0.1 - 1.0 [facility] [address] Protein UA POCT trace Negative [facility] [address] pH UA 7.0 5.0 - 8.0 pH units [facility] [address] Blood UA trace Negative [facility] [address] Specific Coden UA POCT 1.000(A) 1.002 - 1.[address] [facility] [address] Ketone UA neg Negative [facility] [address] Bilirubin UA POCT neg Negative [facility] [address] Glucose UA neg Negative [facility] [address] Expiration Date 03/29/2024 [facility] [address] Lot # [id number] [facility] [address] QC Verified Yes Yes [facility] [address] Urine URINE / Unknown 04/03/2024 1 1:17 AM TOOL ANALYST Adriana Redman J2EE DEVELOPER-HOG ROOM SUPERVISOR LAB - POINT OF CARE ORDERABLES Performing Organization Address City/State/[facility] Co de Phone Number [facility] [address] [place] [address], [facility] [phone] * SONOGRAM - COMPLETE (04/03/2024 9:56 AM TOOL ANALYST) Only the most recent of3 resultswithin the [...] Placental site: right lateral low lying. Placental kkch-bk-zaptekwv os distance 15 mm Amniotic fluid: Amount [...] 4 lb 3 oz EFW by Hadlock ([id number]) appropriate Growth Overview Exam date [place] BPD [...] She also has a follow-up visit at [facility] today. Single, live, intrauterine at 32w 2d [...] in your patient's care. Coding ====== Procedures 65665: [place] [address]: [place] Preg Uterus Transvaginal [facility] [employer] PACS Anatomical Region Laterality Modality Other 04/03/2024 9:56 AM TOOL ANALYST Freddy Armando MD [facility] ORDERABLES * HEPATITIS C ANTIBODY (03/21/2024 11:17 AM TOOL ANALYST) HCV Antibody Screen Non Reactive Non Reactive 03/21/2024 12:11 PM TOOL ANALYST [facility] Blood BLOOD SPECIMEN / Unknown Venipuncture / Unknown 03/21/2024 11:17 AM TOOL ANALYST 03/21/2024 11:23 AM TOOL ANALYST Narrative [facility] - 03/21/2024 12:11 PM TOOL ANALYST Non Reactive - Antibodies to Hepatitis C virus (HCV) were not detected, result does not exclude early acute HCV infection. Adriana Redman [facility] LAB - CHEMISTR Y ORDERABLES [facility] [address] [place] [address] * URINALYSIS AUTO - POINT OF CARE (AMB) [facility] (03/20/2024 10:45 AM TOOL ANALYST) Only the most recent of4 resultswithin the time period is included. Glucose UA 100 [facility] [address] Bilirubin UA POCT neg [facility] [address] Ketones UA POCT neg [facility] [address] Specific Coden UA 1.[address] [facility] [address] Blood Urine POCT pos [facility] [address] pH UA 6.[address] [facility] [address] Protein UA trace [facility] [address] Urobilinogen UA neg [facility] [address] Nitrite UA neg [facility] [address] WBC UA neg [facility] [address] Urine URINE / Unknown 03/20/2024 1 0:45 AM TOOL ANALYST Adriana Redman J2EE [facility]ELOPER[facility] LAB - POINT OF CARE ORDERABLES [facility] [address] [place] [address] [phone] * GTT 1 HR (50G) GESTATIONAL SCREEN (02/20/2024 11:06 AM TOOL ANALYST) Glucose Gestational Screen 80 <140 mg/dL [facility] Comment: Test Performed at: [facility] [place] [address] [place] [address] JAMIE WARREN MD Blood BLOOD SPECIMEN / Unknown 02/20/2024 11:06 AM TOOL ANALYST 02/20/2024 11:07 AM TOOL ANALYST Adriana Redman J2EE DEVELOPER-HOG ROOM SUPERVISOR LAB - CHEMISTR Y ORDERABLES Performing Organization Address [facility] Co de Phone Number [facility] [phone] [place] [address] * HIV-1 HIV-2 ANTIBODY + HIV P24 AG PANEL (02/20/2024 11:06 AM TOOL ANALYST) Pathologist [facility] HIV Screen 4th Generation w Reflex NON-REACT [...] purpose. For additional information please refer to http://education.Bridgestream.Fipeo/faq/XLO898 (This link is being provided for informational/ educational purposes only.) The performance of this assay has not been clinically validated in patients less than 2 years old. Test Performed at: [employer] [address] [place] [address] JAMIE WARREN MD Blood BLOOD SPECIMEN / Unknown 02/20/2024 11:06 AM TOOL ANALYST 02/20/2024 11:07 AM TOOL ANALYST Adriana Redman LISBET-HOG ROOM SUPERVISOR LAB - CHEMISTR Y ORDERABLES Performing Organization Address [facility]/ZIP Co de Phone Number [facility] [address] [place] [address] * TREPONEMA PALLIDUM POS REFLX RPR (02/20/2024 11:06 AM TOOL ANALYST) Pathologist [facility] Treponema pallidum Antibody EIA NEGATIVE NEGATIVE [facility] Comment: No antibodies to T. pallidum (the agent causing syphilis) were detected in the specimen. This result, however, does not exclude very recent T. pallidum infection; testing of a second specimen, collected 2-4 weeks after this specimen, is recommended if the index of suspicion for recent infection is high. Test Performed at: [facility] [address] [address] GILDARDO DEGROOT Blood BLOOD SPECIMEN / Unknown 02/20/2024 11:06 AM TOOL ANALYST 02/20/2024 11:07 AM TOOL ANALYST Adriana Redman [facility] LAB - SEROLOGY ORDERABLES Performing Organization Address [facility] de Phone Number [address] [address] * (ABNORMAL) IRON + TIBC + FERRITIN (02/20/2024 11:06 AM TOOL ANALYST) Pathologist [facility] Iron 54 40 - 190 mcg/dL [facility] TIBC 383 250 - 450 mcg/dL (calc) [facility] % Saturation 14(L) 16 - 45 % (calc) [facility] Ferritin 13(L) 16 - 154 ng/mL [facility] Comment: Test Performed at: [facility] [place] [address] [place] [address] JAMIE WARREN MD Blood BLOOD SPECIMEN / Unknown 02/20/2024 11:06 AM TOOL ANALYST 02/20/2024 11:07 AM TOOL ANALYST Adriana Redman [facility] LAB - CHEMISTR Y ORDERABLES Performing Organization Address [facility] Co de Phone Number [address] [address] * (ABNORMAL) CBC W/O DIFFERENTIAL (02/03/2024 12:00 AM TOOL ANALYST) Only the most recent of3 resultswithin the time period is included. Pathologist [facility] WBC 12.5(H) 4.0 - 10.7 x10E9/L 02/03/2024 12:39 AM TOOL ANALYST [facility] RBC Count 2.86(L) 3.90 - 5.20 x10E12/L 02/03/2024 12:39 AM TOOL ANALYST [facility] Hemoglobin 9.1(L) 11.9 - 15.8 g/dL 02/03/2024 12:39 AM [facility] Hematocrit 27.3(L) 34.8 - 46.1 % 02/03/2024 12:39 AM [facility] MCV 95.5 80.0 - 98.0 fL 02/03/2024 12:39 AM [facility] MCH 31.8 26.7 - 33.6 pg 02/03/2024 12:39 AM [facility] MCHC 33.3 31.7 - 36.3 g/dL 02/03/2024 12:39 AM [facility] RDW-CV 12.8 11.3 - 14.8 % 02/03/2024 12:39 AM [facility] Platelet Count 188 150 - 420 x10E9/L 02/03/2024 12:39 AM [facility] MPV 10.2 7.8 - 11.4 fL 02/03/2024 12:39 AM [facility] Blood BLOOD SPECIMEN / Unknown Lab Venipuncture / Unknown 02/03/2024 02/03/2024 12:35 AM TOOL ANALYST Annie Rodriguez MD LAB - HEMATOLOGY OR DERABLES Performing Organization Address City/State/[facility] Co de Phone Number [facility] [address] [place], [place] [phone] * PREPARE (CROSSMATCH) RBC UNIT(S), 2 Units (02/02/2024 7:31 AM TOOL ANALYST) Unit Description AS1 LR PRBC [facility] Unit ABO A [facility] Unit Rh POS [facility] Product [facility] R02 [facility] Unit Donor # [id number] [facility] Unit Status released [facility] Product [facility] [id number] [facility] Blood Type Barcode 6200 [facility]piration Date [facility] Unit Description AS1 LR PRBC [facility] Unit ABO A [facility] Unit Rh POS [facility] Product [facility] R02 [facility] Unit Donor # [id number] [facility] Unit Status released [facility] Product [facility] [id number] [facility] Blood Type Barcode 6200 [facility]piration [place] [facility] [place] [facility] [place] Bank BLOOD SPECIMEN / Unknown 01/31/2024 6:19 PM TOOL ANALYST Eliu Velasquez MD LAB - BLOOD BANK ORD ERABLES [facility] BLOOD BANK LAB [address] [phone] * NONSTRESS TEST (02/01/2024 4:19 PM TOOL ANALYST) Narrative Annie Rodriguez MD - 02/01/2024 4:19 PM TOOL ANALYST Theresa Naranjo MD 02/02/2024 6:14 AM Name: [...] Interventions: None Brynn Ferraro RN Non-Stress Test [facility] Patient Name: Ying Hampton LMP: Patient's [...] COAGULATION PANEL W D-DIMER (02/01/2024 3:44 AM [facility]) Only the most recent of3 resultswithin the time period is included. PT 13.2 12.1 - 14.8 sec 02/01/2024 4:26 AM [facility] INR 1.0 0.9 - 1.1 02/01/2024 4:26 AM [facility] PTT 22.3(L) 23.0 - 38.4 sec 02/01/2024 4:26 AM [facility] Fibrinogen 370 200 - 400 mg/dL 02/01/2024 4:26 AM [facility] D-Dimer 0.62(H) 0.27 - 0.50 ug/mL FEU 02/01/2024 4:26 AM [facility] Platelet Count 192 150 - 420 x10E9/L 02/01/2024 4:26 AM [facility] Blood BLOOD SPECIMEN / Unknown Venipuncture / Unknown 02/01/2024 3:44 AM TOOL ANALYST 02/01/2024 3:57 AM [facility] LABORATORY - 02/01/2024 4:26 AM [facility] Conventional Warfarin Anticoagulant Therapy INR [...] Rodriguez MD LAB - COAGULATION O RDERASOPHIA [facility] [address] [place] [address] * (ABNORMAL) MAGNESIUM BLOOD (01/31/2024 10:04 PM TOOL ANALYST) Pathologist [facility] Magnesium 5.6(HH) 1.6 - 2.6 mg/dL 01/31/2024 10:32 PM TOOL ANALYST [facility] Blood BLOOD SPECIMEN / Unknown Venipuncture / Unknown 01/31/2024 10:04 PM TOOL ANALYST 01/31/2024 10:13 PM TOOL ANALYST Annie Rodriguez MD LAB - CHEMISTRY ORD ERABLES [facility] [address] [place] [address] * BLOOD TYPE VERIFICATION (01/31/2024 6:37 PM TOOL ANALYST) Only the most recent of2 resultswithin the time period is included. Pathologist [facility] ABO Rh A POS 01/31/2024 7:1 5 PM TOOL ANALYST [facility] BLOOD BANK LAB Blood Bank BLOOD SPECIMEN / Unknown Venipuncture / Unknown 01/31/2024 6:37 PM TOOL ANALYST 01/31/2024 6:46 PM TOOL ANALYST Eliu Velasquez MD LAB - BLOOD BANK ORD ERABLES [facility] BLOOD BANK LAB [address] [place] [address] * (ABNORMAL) COMPREHENSIVE METABOLIC PANEL (01/31/2024 6:37 PM TOOL ANALYST) Only the most recent of2 resultswithin the time period is included. Pathologist [facility] Glucose 92 70 - 99 mg/dL 01/31/2024 7:06 PM [facility] Sodium 138 136 - 145 mmol/L 01/31/2024 7:06 PM [facility] Potassium 3.6 3.5 - 5.1 mmol/L 01/31/2024 7:06 PM [facility] Chloride 108(H) 98 - 107 mmol/L 01/31/2024 7:06 PM [facility] CO2 22 22 - 29 mmol/L 01/31/2024 7:06 PM [facility] Calcium 9.1 8.4 - 10.4 mg/dL 01/31/2024 7:06 PM [facility] Anion Gap 8 6 - 16 mmol/L 01/31/2024 7:06 PM [facility] BUN 6 5.3 - 18.7 mg/dL 01/31/2024 7:06 PM [facility] Creatinine 0.56(L) 0.57 - 1.11 mg/dL 01/31/2024 7:06 PM [facility] Alkaline Phosphatase 80 40 - 150 U/L 01/31/2024 7:06 PM [facility] ALT 29 0 - 55 U/L 01/31/2024 7:06 PM [facility] AST 30 5 - 34 U/L 01/31/2024 7:06 PM [facility] Protein Total 6.3(L) 6.4 - 8.3 gm/dL 01/31/2024 7:06 PM [facility] Albumin 3.1(L) 3.4 - 5.0 gm/dL 01/31/2024 7:06 PM [facility] Bilirubin Total 0.2 0.2 - 1.2 mg/dL 01/31/2024 7:06 PM [facility] eGFR by CKD-EPI >90 >=90 mL/min/1.7 3 m2 01/31/2024 7:06 PM [facility] Blood BLOOD SPECIMEN / Unknown Venipuncture / Unknown 01/31/2024 6:37 PM TOOL ANALYST 01/31/2024 6:46 PM [facility] Eliu Velasquez MD LAB - CHEMISTRY ZAYDAE CAM[facility] Organization Address City/State/ZIP Co de Phone Number [facility] [address] [place] [address] * TRICHOMONAS VAGINALIS AMPLIFIED PROBE (01/31/2024 6:20 PM [facility]) Trichomonas vaginalis Amplified Probe Negative Negative 02/01/2024 6:13 AM [facility] MICROBIOLOGY Microbiology URINE / Unknown Collection / Unknown 01/31/2024 6:20 PM TOOL ANALYST 01/31/2024 6:37 PM TOOL ANALYST Narrative [facility] MICROBIOLOGY - 02/01/2024 6:13 AM TOOL ANALYST This test was developed and its performance characteristics determined by the [facility] Microbiology Laboratory, [facility]. Urine specimens tested by the [facility] [place] have not been cleared or approved by [...] - MICROBIOLOGY O ALISE Performing Organization Address [facility] Co de Phone Number [facility] [address] [facility] [place] [address], [facility] [phone] * CHLAMYDIA + GC AMPLIFIED PROBE (01/31/2024 6:20 PM TOOL ANALYST) Pathologist [facility] Chlamydia Amplified Probe Negative Negative 02/01/2024 6:13 AM TOOL ANALYST [facility] MICROBIOLOG[facility] GC Amplified Probe Negative Negative 02/01/2024 6:13 AM TOOL ANALYST [facility] MICROBIOLOGY Microbiology URINE / Unknown Collection / Unknown 01/31/2024 6:20 PM TOOL ANALYST 01/31/2024 6:37 PM TOOL ANALYST Narrative [facility] MICROBIOLOGY - 02/01/2024 6:13 AM TOOL ANALYST Results based on detection/no detection of ribosomal RNA by amplified method. Eliu Velasquez MD LAB - MICROBIOLOGY Debbie CARRERO Performing Organization Address [facility] Co de Phone Number [facility] [address] [place] [address], [facility] [phone] * SARS-COV-2 (COVID-19)+INFLU A+B AG (AMB) POC (04/10/2020 9:13 AM TOOL ANALYST) Influenza A Antigen Rapid Negative Negative [facility] Influenza B Antigen Rapid Negative Negative [facility] SARS-CoV-2 Ag Negative Negative [facility] COVID Internal Control Acceptable Acceptable [facility] Lot # [id number] [facility] Expiration Date 11/02/2020 [facility] Instrument Serial Number [id number] [facility] Microbiology SPECIMEN FROM NASAL FOSSAE / Unknown 04/10/2020 9:13 AM TOOL ANALYST Althea King [employer] DEVELOPER[employer] RO[employer] SUPERVISOR LAB - POINT OF CARE ORDERABLES [facility] [address] [phone] * IR EMBOLIZATION TRANSCATH THPY (01/04/2020 8:42 AM TOOL ANALYST) Anatomical Region Laterality Modality X-Ray Angiograph y 01/04/2020 5:03 PM TOOL ANALYST Impressions 01/13/2020 5:18 PM TOOL ANALYST Impression: Markedly diminished vascular channels in the [...] 5:18 PM . Narrative 01/13/2020 5:18 PM TOOL ANALYST History:Ying Hampton is [id number] medical historypresenting withleft wrist vascular malformation under considerationfor percutaneous embolization Stator Connector: Dr. Chiquis Scott, attending physician. PROCEDURE: 1. [...] Scott MD - 01/13/2020 History:Ying Hampton is [id number] historypresenting withleft wrist vascular malformation under considerationfor percutaneous embolization Stator Connector: Dr. Chiquis Scott, attending physician. PROCEDURE: 1. [...] Jose Scott MD IR ORDERABLES * PT-INR [facility] (01/04/2020 7:40 AM TOOL ANALYST) PT 12.1 12.1 - 14.8 Seconds 01/04/2020 8:27 AM [facility] INR 0.9 See Comment 01/04/2020 8:27 AM [facility] Comment:The suggested therap eutic range for standard coumadin (warfarin) therapy is an INR of 2.0-3.0. For high-risk patients (Mechanical Mitral Valve Prosthesis, etc.), the suggested prophylactic therapeutic range is an INR of 2.5-3.5. Blood BLOOD SPECIMEN / Unknown Venipuncture / Unknown 01/04/2020 7:40 AM TOOL ANALYST 01/04/2020 7:58 AM TOOL ANALYST Jose Scott MD LAB - COAGULATION ORDERABLES [facility] [address] [place] [id number], [facility] [phone] * HCG URINE QUALITATIVE - POCT (IP) INTERFACED (01/04/2020 7:27 AM TOOL ANALYST) HCG Qual Urine Negative Negative 01/04/2020 7:34 AM [facility] Urine URINE / Unknown 01/04/2020 7 :27 AM TOOL ANALYST 01/04/2020 7:34 AM TOOL ANALYST Jose Scott MD LAB - POINT OF CA RE ORDERABLES [address] [address], [facility] [phone] * HCG URINE QUAL POCT NOTIFICATION (01/04/2020 7:08 AM TOOL ANALYST) Comment Notification Label Only - See Separate Report 01/04/2020 8:31 AM TOOL ANALYST [facility] Urine URINE / Unknown 01/04/2020 7 :08 AM TOOL ANALYST 01/04/2020 7:09 AM TOOL ANALYST Zainab Banda MD LAB - URINALYSIS ORD ERABLES Performing Organization Address City/[facility]/ZIP Co de Phone Number [address] [phone], [facility] [phone] * GROSS + MICRO EXAM (STL) (04/21/2018 6:37 PM TOOL ANALYST) Case Report Surgical Pathology Report Case: [id number] Authorizing Provider: Lyndsay Montes De Oca APRN-CNM Collected: 04/21/2018 06:37 PM Ordering Location: [facility] Received: 04/22/2018 06:45 AM Pathologist: Ronny Mendez MD Specimen: Placenta Non 3rd Trimester 04/25/2018 4:38 PM TOOL ANALYST [facility] Final Diagnosis 1. Placenta, delivery: -- Third trimester placenta, 400 g -- No evidence of villitis -- Pigment-laden macrophages seen, consistent with meconium staining. -- No evidence of chorioamnionitis -- 3-vessel umbilical cord with no evidence of vasculitis or funisitis SSD 04/25/2018 4:38 PM TOOL ANALYST [facility] Gross Description Received in a [...] serially sectioned and display spongy red parenchyma. Brick Stacker sections are submitted as follows: A1 - Umbilical cord and membranes A2 - surface A3 - Maternal surface JS/sm 04/25/2018 4:38 PM [facility] Microscopic Description Placental disc, membrane, and umbilical cord examined. 04/25/2018 4:38 PM [facility] Disclaimer All histochemical and/or immunohistochemical results are interpreted with controls that demonstrate appropriate staining reactions before reporting results. Note on use of immunocytochemistry reagents: This test was developed and its performance characteristic determined by [facility], Department of Laboratory Medicine. It has not been cleared or approved by the U.S. Food and Drug Administration (FDA). The FDA has determined that such clearance or approval is not necessary. The test is used for clinical purpose. It should not be regarded as investigational or for research. This laboratory is certified to perform high complexity testing. 04/25/2018 4:38 PM [facility] Embedded Images 04/25/2018 4:38 PM [facility] Pathology/Cytolo gy ENTIRE PLACENTA / Unknown Collection / Unknown 04/21/2018 6:37 PM TOOL ANALYST 04/22/2018 6:45 AM [facility] Lyndsay Montes De Oca J2EE DEVELOPER-CNM LAB - PATHOLOGY/CY TOLOGY ORDERABLES [facility] [address] [place] [address] * (ABNORMAL) BLOOD GASES CORD NANCY (ISTAT) (04/21/2018 5:30 PM TOOL ANALYST) pH Cord Venous POCT 7.34 7.28 - 7.40 pH 04/21/2018 6:30 PM [facility] pCO2 Cord Venous POCT 45 35 - 45 mmHg 04/21/2018 6:30 PM [facility] pO2 Cord Venous POCT 17(L) 22 - 33 mmHg 04/21/2018 6:30 PM [facility] HCO3 Cord Arterial POCT 24.5(H) 22 - 24 mmol/L 04/21/2018 6:30 PM [facility] BE Cord Venous POCT Calc -2 -6.4 - 1.6 mmol/L 04/21/2018 6:30 PM [facility] TCO2 Cord Venous POCT 26 22 - 30 mmol/L 04/21/2018 6:30 PM [facility] O2 Saturation % Cord Venous Calc POCT 21 % 04/21/2018 6:30 PM [facility] Site CORD NANCY 04/21/2018 6:30 PM [facility] Sample iSTAT CORD V 04/21/2018 6:30 PM [facility] Blood CORD BLOOD SPECIMEN / Unknown 04/21/2018 5:30 PM TOOL ANALYST 04/21/2018 6:30 PM [facility] Garry Matrin MD LAB - POINT OF CARE ORDERABLES [facility] [address] [place] [address] * (ABNORMAL) BLOOD GASES CORD ART (ISTAT) (04/21/2018 5:27 PM [facility]) pH Cord Arterial POCT 7.24 7.20 - 7.34 pH 04/21/2018 6:30 PM [facility] pCO2 Cord Arterial POCT 60.8(H) 45 - 55 mmHg 04/21/2018 6:30 PM [facility] pO2 Cord Arterial POCT 15 12 - 25 mmHg 04/21/2018 6:30 PM [facility] HCO3 Cord Arterial POCT 26.1(H) 22 - 24 mmol/L 04/21/2018 6:30 PM [facility] BE Cord Arterial POCT -3(L) -2.9 - 8.3 mmol/L 04/21/2018 6:30 PM [facility] TCO2 Cord Arterial POCT 28 mmol/L 04/21/2018 6:30 PM [facility] O2 Saturation Cord Art % Calc POCT 15 % 04/21/2018 6:30 PM [facility] Site CORD ART 04/21/2018 6:30 PM TOOL ANALYST [facility] Sample iSTAT CORD A 04/21/2018 6:30 PM [facility] Blood CORD BLOOD SPECIMEN / Unknown 04/21/2018 5:27 PM TOOL ANALYST 04/21/2018 6:30 PM TOOL ANALYST Garry Martin MD LAB - POINT OF CARE ORDERABLES Performing Organization Address City/State/[facility] Co de Phone Number [facility] [address] [place] [address] * NON-STRESS TEST (04/20/2018 1:08 PM TOOL ANALYST) Only the most recent of11 resultswithin the [...] INFORMATION Rekha Smith RN Noah Gutierrez MD [facility] ORDERABLES * DRUG SCREEN TOX URINE PANEL (04/12/2018 4:16 PM TOOL ANALYST) Pathologist [facility] Amphetamines Screen Urine Not Detected Not Detected 04/12/2018 5:44 PM [facility] Barbiturates Screen Urine Not Detected Not Detected 04/12/2018 5:44 PM [facility] Benzodiazepines Screen Urine Not Detected Not Detected 04/12/2018 5:44 PM [facility] Cannabinoids Screen Urine Not Detected Not Detected 04/12/2018 5:44 PM [facility] Cocaine Screen Urine Not Detected Not Detected 04/12/2018 5:44 PM [facility] Methadone Screen Urine Not Detected Not Detected 04/12/2018 5:44 PM [facility] Opiate Screen Urine Not Detected Not Detected 04/12/2018 5:44 PM [facility] Phencyclidine Screen Urine Not Detected Not Detected 04/12/2018 5:44 PM [facility] Urine URINE / Unknown Collection / Unknown 04/12/2018 4:16 PM TOOL ANALYST 04/12/2018 5:07 PM TOOL ANALYST Narrative [facility] - 04/12/2018 5:44 PM TOOL ANALYST This drug screen is designed for MEDICAL [...] URINE CHEMISTR Y ORDERABLES Performing Organization Address City/[facility] Co de Phone Number [facility] [address] [place], [place] [id number] * TRICHOMONAS RAPID TEST (04/12/2018 11:45 AM TOOL ANALYST) Trichomonas Rapid Test Negative Negative 04/12/2018 12:43 PM [facility] Microbiology VAGINAL SWAB / Unknown Collection / Unknown 04/12/2018 11:45 AM TOOL ANALYST 04/12/2018 12:20 PM TOOL ANALYST Valerie Nichole MD LAB - MICROBIOLOGY O RDERABLES Performing Organization Address City/[facility] Co de Phone Number [facility] [address] [place] [id number] * CHLAMYDIA + GC AMPLIFIED PROBE (04/12/2018 11:45 AM TOOL ANALYST) Chlamydia Amplified Probe Negative Negative 04/13/2018 11:14 AM [facility] MICROBIOLOG[facility] GC Amplified Probe Negative Negative 04/13/2018 11:14 AM [facility]CRO[facility]OLOG[facility] Microbiology ENTIRE VAGINA / Unknown Collection / Unknown 04/12/2018 11:45 AM TOOL ANALYST 04/12/2018 12:20 PM TOOL ANALYST Narrative [facility] MICROBIOLOGY - 04/13/2018 11:14 AM TOOL ANALYST Results based on detection/no detection of ribosomal RNA by amplified method. Valerie Nichole MD LAB - MICROBIOLOGY O RDERABLES [facility] MICROBIOLOGY [address] [place] [address], [facility] [phone] Care Teams Senior Tax Manager Relationship Specialty Start Date End Date Severino Wooten DO [address] [facility] [facility] [address] [address] [address] [facility] [address] [place] [address] PCP - General 10/26/17
--- OUTSIDE RECORDS SUMMARY | 2024-04-25 00:52 | XMS_ITS | Referral Summary ---
Author Organization [facility] Address [address] [place] [address] Care Team Providers Care Hoop Flaring Machine Operator Helper Name Role Phone Severino Wooten DO Primary Care Provider [phone] Source Comments [facility],non-owned Affiliates and Associated Physician Practices is amultiple site organization consisting of ambulatory clinics and hospital sitesin [place], [place], [place] and [place]. This disclosure is being madepursuant to the Care Everywhere program and may not contain all information available regarding this patient. Last updated 17.[facility] Encounters Date Type Department Care Team Description 04/25/2024 10:40 AM COMPUTER NUMERIC CONTROL SETTER Hospital Encounter [facility] [address] [place] [address] Adriana Redman APRN-KAUSHAL 04/24/2024 Travel 04/24/2024 8:23 AM COMPUTER NUMERIC CONTROL SETTER - 04/24/2024 11:59 PM COMPUTER NUMERIC CONTROL SETTER Hospital Encounter [facility] [address] [place] [address] Santos Ledezma DO Discharge Disposition: Home or Self Care 04/24/2024 8:15 AM COMPUTER NUMERIC CONTROL SETTER - 04/24/2024 8:22 AM COMPUTER NUMERIC CONTROL SETTER Hospital Encounter [facility] [address] [place] [address] Santos Ledezma DO MINERAL SURVEYOR Discharge Disposition: Home or Self Care 04/24/2024 9:40 AM COMPUTER NUMERIC CONTROL SETTER visit [facility] - MINERAL SURVEYOR [address] [place] [phone] Steffanie Arnold MD GA: 35w2d 04/19/2024 Telephone [facility] MINERAL SURVEYOR [address] [place] [phone] Adriana Redman APRN-[facility] Coordination Of Care 04/17/2024 Telephone [facility] MINERAL SURVEYOR [address] [place] [phone] Steffanie Arnold MD Appointment 04/17/2024 11:00 AM COMPUTER NUMERIC CONTROL SETTER Procedure visit [facility] MINERAL SURVEYOR [address] [place] [phone] Presentation of cord, single or unspecified fetus (HCC) ; Placenta previa antepartum (HCC) 04/17/2024 Travel 04/17/2024 8:15 AM COMPUTER NUMERIC CONTROL SETTER - 04/17/2024 11:59 PM COMPUTER NUMERIC CONTROL SETTER Hospital Encounter [facility] [address] [place] [address] Brian Ashton MD Discharge Disposition: Home or Self Care 04/17/2024 9:40 AM COMPUTER NUMERIC CONTROL SETTER visit [facility] - MINERAL SURVEYOR [address] [place] [phone] Steffanie Arnold MD GA: 34w2d 04/16/2024 Telephone [facility]AL SURVEY[facility] [address] [place] [phone] Steffanie Arnold MD Appointment 04/16/2024 Telephone [facility]ERAL SURVEYOR [address] [place] [phone] Brianda Elizondo MD Reschedule Appointment (SEEKING TO JAMES 04/17/24 US & OV TO APPT FOR TODAY 04/16/24 IF POSS. PLS CALL TO DISCUSS IT CAN BE DONE DUE LACK OF TECHNICAL SALES REPRESENTATIVE.) 04/10/2024 5:04 AM COMPUTER NUMERIC CONTROL SETTER - 04/11/2024 3:36 PM COMPUTER NUMERIC CONTROL SETTER Hospital Encounter [facility]E ANTEPARTUM/MOTHER BABY [address] [place] [address] Santos Ledezma DO Obstetrics Discharge Disposition: Home or Self Care 04/04/2024 Travel 04/04/2024 10:50 AM COMPUTER NUMERIC CONTROL SETTER - 04/04/2024 11:59 PM COMPUTER NUMERIC CONTROL SETTER Hospital Encounter [facility] [address] [place] [address] Adriana Redman APRN-CNP Discharge Disposition: Home or Self Care 04/03/2024 Travel 04/03/2024 10:40 AM COMPUTER NUMERIC CONTROL SETTER visit [facility]ERAL SURVEYOR [address] [facility] [address] [place] [phone] Adriana Redman APRN-CNP GA: 32w2d 04/03/2024 9:45 AM COMPUTER NUMERIC CONTROL SETTER - 04/03/2024 11:59 PM COMPUTER NUMERIC CONTROL SETTER Hospital Encounter [facility] [address] [facility] [place] [address] Santos Ledezma DO MINERAL SURVEYOR Discharge Disposition: Home or Self Care 03/28/2024 Travel 03/28/2024 10:40 AM COMPUTER NUMERIC CONTROL SETTER - 03/28/2024 11:59 PM COMPUTER NUMERIC CONTROL SETTER Hospital Encounter [facility] [address] [place] [address] Adriana Redman APRN-CNP Discharge Disposition: Home or Self Care 03/21/2024 Telephone [facility]ERAL SURVEYOR [address] [facility] [address] [place] [address] Stefafnie Arnold MD Pain Back; Side Effect 03/21/2024 Orders Only [facility] [address], [address] [place] [address] Adriana Redman APRN-CNP Supervision of high-risk of elderly multigravida (>= 35 years old at time of delivery) ([facility]) 03/21/2024 10:40 AM COMPUTER NUMERIC CONTROL SETTER - 03/21/2024 11:59 PM COMPUTER NUMERIC CONTROL SETTER Hospital Encounter [facility] [address] [place] [address] Adriana Redman APRN-CNP Discharge Disposition: Home or Self Care 03/20/2024 Travel 03/20/2024 10:40 AM COMPUTER NUMERIC CONTROL SETTER visit [facility] MINERAL SURVEYOR [address] [place] [address] Steffanie Arnold MD GA: 30w2d 03/07/2024 [facility] Only [facility] [address], [address] [place] [address] Adriana Redman APRN-CNP 03/07/2024 Travel 03/07/2024 11:00 AM COMPUTER NUMERIC CONTROL SETTER visit [facility] MINERAL SURVEYOR [address] [place] [address] GA: 28w3d 03/07/2024 10:15 AM COMPUTER NUMERIC CONTROL SETTER Procedure visit [facility] MINERAL SURVEYOR [address] [place] [phone] Encounter for follow-up ultrasound of anatomy ([facility]) ; Supervision of high-risk of elderly multigravida (>= 35 years old at time of delivery) ([facility]); Placenta previa in second trimester (HCC); History of premature rupture of membranes in previous , currently in second trimester (HCC); History of delivery, currently (HCC); Vaginal bleeding in (HCC); Placenta previa in third trimester (HCC) 02/21/2024 Telephone [facility] MINERAL SURVEYOR [address] [place] [address] Adriana Redman APRN-CNP Coordination Of Care 02/20/2024 Travel 02/20/2024 11:00 AM COMPUTER NUMERIC CONTROL SETTER visit [facility] - MINERAL SURVEYOR [address] [place] [address] Adriana Redman APRN-CNP GA: 26w1d 02/15/2024 Telephone [facility] - MINERAL SURVEYOR [address] [facility] [address] [place] [phone] Angel Carroll MD Reschedule Appointment 02/15/2024 Telephone [facility] - MINERAL SURVEYOR [address] [facility] [place] [phone] Steffanie Arnold MD Question 02/09/2024 Travel 02/09/2024 1:40 PM COMPUTER NUMERIC CONTROL SETTER visit [facility] - MINERAL SURVEYOR [address] [facility] [address] [place] [phone] GA: 24w4d 02/06/2024 Telephone [facility] [address] [facility] [place] [address] Talya Mayo RN Hospital Follow-up 02/06/2024 Telephone [facility] - MINERAL SURVEYOR [address] [facility] [address] [place] [phone] Brian Ashton MD Coordination Of Care 01/31/2024 5:13 PM COMPUTER NUMERIC CONTROL SETTER - 02/05/2024 1:15 PM COMPUTER NUMERIC CONTROL SETTER Hospital Encounter [facility] 5E ANTEPARTUM/MOTHER BABY [address] [place] [address] Annie Rodriguez MD MINERAL SURVEYOR Discharge Disposition: Home or Self Care 02/01/2024 Telephone [facility] [address] [place] [address]. [address] [place] [address] Talya Mayo RN Hospitalization 01/31/2024 Travel from [...] outbreak History of abnormal cervical Pap smear Overview (04/18/2024): 08/2023: LSIL HPV neg; plan repeat pap smear in a year Placenta previa antepartum 02/09/2024 Overview (04/18/2024): Admitted in early January for vaginal bleeding and contractions. S/p ANCS 01/30- 4 History of delivery, currently Estimated Date [...] Recorded Patient Health Questionnaire-2 Score 0 03/28/2024 [facility] [place] [facility] Occupat ional Health - Occupational Stress [...] any time in the past 12 m [facility], were you homeless or living [...] Comments Blood Pressure 102/64 04/24/2024 10:21 AM COMPUTER NUMERIC CONTROL SETTER Pulse 80 04/04/2024 11:51 AM COMPUTER NUMERIC CONTROL SETTER Temperature 36.8 C (98.3 F) 04/11/2024 12:17 PM COMPUTER NUMERIC CONTROL SETTER Respiratory Rate 17 04/11/2024 12:17 PM COMPUTER NUMERIC CONTROL SETTER Oxygen Saturation 98% 04/11/2024 12:17 PM COMPUTER NUMERIC CONTROL SETTER Inhaled Oxygen Concentration - - Weight 59 kg (130 lb) 04/24/2024 10:21 AM COMPUTER NUMERIC CONTROL SETTER Height 154.9 cm (5' 1) 04/24/2024 10:21 AM COMPUTER NUMERIC CONTROL SETTER Body Mass Index 24.56 04/24/2024 10:21 AM COMPUTER NUMERIC CONTROL SETTER Functional Status Functional Status Response Date of [...] st Contact Info) Description 04/25/2024 10:40 AM COMPUTER NUMERIC CONTROL SETTER Hospital Encounter [facility] [address] [address] Adriana Redman, HIGHWALL DRILL OPERATOR-SALES MERCHANDISER [address] [place] [phone] 05/01/2024 10:15 AM COMPUTER NUMERIC CONTROL SETTER Procedure visit [facility] - MINERAL SURVEYOR [address] [place], [place] [address] [address] 05/01/2024 11:00 AM COMPUTER NUMERIC CONTROL SETTER visit [facility] - MINERAL SURVEYOR [address] [place] [address] Ave [address] [place] [phone] 05/01/2024 11:00 AM COMPUTER NUMERIC CONTROL SETTER Procedure visit [facility] - MINERAL SURVEYOR [address] [place], [place] [address] [address] [place] [phone] 05/27/2024 Hospital Encounter [facility] 5 LDR [address] [place] [address] Obstetrics Procedures Procedure Name Priority Date/Time Associated Diagnosis Comments URINALYSIS - POINT OF CARE (AMB) [facility] Routine 04/24/2024 10:19 AM COMPUTER NUMERIC CONTROL SETTER Supervision of high risk , antepartum (HCC) BIOPHYSICAL PROFILE W NST Routine 04/24/2024 8:30 AM COMPUTER NUMERIC CONTROL SETTER URINALYSIS - POINT OF CARE (AMB) [facility] Routine 04/17/2024 10:35 AM COMPUTER NUMERIC CONTROL SETTER Supervision of high risk , antepartum (HCC) Placenta previa antepartum (HCC) SONOGRAM - TRANSVAGINAL Routine 04/17/2024 9:07 AM COMPUTER NUMERIC CONTROL SETTER IMAGING/RADIOLOGY/XRA Y RESULTS ORDER 04/12/2024 6:50 PM COMPUTER NUMERIC CONTROL SETTER TYPE + SCREEN PANEL STAT 04/10/2024 8 :55 AM COMPUTER NUMERIC CONTROL SETTER CBC W AUTO DIFFERENTIAL STAT 04/10/2024 8:55 AM COMPUTER NUMERIC CONTROL SETTER Abdominal cramping affecting (HCC) CULTURE STREP B Routine 04/10/2024 8:55 AM COMPUTER NUMERIC CONTROL SETTER Abdominal cramping affecting (HCC) SONOGRAM - LIMITED Routine 04/10/2024 8: 22 AM COMPUTER NUMERIC CONTROL SETTER URINALYSIS REFLEX MICROSCOPIC REFLEX CULTURE STAT 04/10/2024 6:33 AM COMPUTER NUMERIC CONTROL SETTER Abdominal cramping affecting (HCC) CULTURE URINE STAT 04/10/2024 6:33 AM COMPUTER NUMERIC CONTROL SETTER Abdominal cramping affecting (HCC) URINALYSIS AUTO - POINT OF CARE (AMB) STL Routine 04/03/2024 11:17 AM COMPUTER NUMERIC CONTROL SETTER Placenta previa antepartum (HCC) SONOGRAM - COMPLETE Routine 04/03/2024 9 :56 AM COMPUTER NUMERIC CONTROL SETTER Encounter for ultrasound to assess growth ([facility]) Encounter for follow-up ultrasound of anatomy ([facility]) History of premature rupture of membranes (PROM) in previous , currently in third trimester ([facility]) Placenta previa antepartum ([facility]) Multigravida of advanced maternal age in third trimester ([facility]) HEPATITIS C ANTIBODY MONTY 03/21/2024 11:17 AM COMPUTER NUMERIC CONTROL SETTER Multigravida of advanced maternal age in second trimester ([facility]) CULTURE URINE Routine 03/20/2024 11:53 AM COMPUTER NUMERIC CONTROL SETTER History of delivery, currently ([facility]) Supervision of high-risk of elderly multigravida (>= 35 years old at time of delivery) ([facility]) Asymptomatic microscopic hematuria URINALYSIS AUTO - POINT OF CARE (AMB) [facility] Routine 03/20/2024 10:45 AM COMPUTER NUMERIC CONTROL SETTER History of delivery, currently ([facility]) Supervision of high-risk of elderly multigravida (>= 35 years old at time of delivery) ([facility]) URINALYSIS AUTO - POINT OF CARE (AMB) [facility] Routine 03/07/2024 10:30 AM COMPUTER NUMERIC CONTROL SETTER Placenta previa in third trimester ([facility]) SONOGRAM - COMPLETE Routine 03/07/2024 9 :36 AM COMPUTER NUMERIC CONTROL SETTER Supervision of high-risk of elderly multigravida (>= 35 years old at time of delivery) ([facility]) History of premature rupture of membranes in previous , currently in second trimester ([facility]) History of delivery, currently ([facility]) Vaginal bleeding in ([facility]) Encounter for follow-up ultrasound of anatomy ([facility]) Placenta previa in third trimester ([facility]) IRON + TIBC + FERRITIN Routine 02/20/2024 11:06 AM COMPUTER NUMERIC CONTROL SETTER Supervision of high-risk of elderly multigravida (>= 35 years old at time of delivery) ([facility]) HIV-1 HIV-2 ANTIBODY + HIV P24 AG PANEL Routine 02/20/2024 11:06 AM COMPUTER NUMERIC CONTROL SETTER Supervision of high-risk of elderly multigravida (>= 35 years old at time of delivery) ([facility]) TREPONEMA PALLIDUM POS REFLX RPR Routine 02/20/2024 11:06 AM COMPUTER NUMERIC CONTROL SETTER Supervision of high-risk of elderly multigravida (>= 35 years old at time of delivery) ([facility]) GTT 1 HR (50G) GESTATIONAL SCREEN Routine 02/20/2024 11:06 AM COMPUTER NUMERIC CONTROL SETTER Supervision of high-risk of elderly multigravida (>= 35 years old at time of delivery) ([facility]) CBC W AUTO DIFFERENTIAL Routine 02/20/2024 11:06 AM COMPUTER NUMERIC CONTROL SETTER Supervision of high-risk of elderly multigravida (>= 35 years old at time of delivery) ([facility]) URINALYSIS AUTO - POINT OF CARE (AMB) [facility] Routine 02/20/2024 11:00 AM COMPUTER NUMERIC CONTROL SETTER Supervision of high-risk of elderly multigravida (>= 35 years old at time of delivery) ([facility]) URINALYSIS AUTO - POINT OF CARE (AMB) [facility] Routine 02/09/2024 1:31 PM COMPUTER NUMERIC CONTROL SETTER Vaginal bleeding in ([facility]) IMAGING/RADIOLOGY/XRA Y RESULTS ORDER 02/06/2024 5:09 PM COMPUTER NUMERIC CONTROL SETTER TYPE + SCREEN PANEL Routine 02/03/2024 1 2:00 AM COMPUTER NUMERIC CONTROL SETTER CBC W/O DIFFERENTIAL Routine 02/03/2024 12:00 AM COMPUTER NUMERIC CONTROL SETTER PREPARE RBC LEUKOREDUCED UNIT Routine 02/02/2024 7:31 AM COMPUTER NUMERIC CONTROL SETTER NONSTRESS TEST Routine 02/01/2024 4:19 PM COMPUTER NUMERIC CONTROL SETTER SONOGRAM - LIMITED Routine 02/01/2024 8: 05 AM COMPUTER NUMERIC CONTROL SETTER COAGULATION PANEL W D-DIMER AM Draw 02/01/2024 3:44 AM COMPUTER NUMERIC CONTROL SETTER CBC W/O DIFFERENTIAL AM Draw 02/01/2024 3:44 AM COMPUTER NUMERIC CONTROL SETTER MAGNESIUM BLOOD Routine 01/31/2024 10:04 PM COMPUTER NUMERIC CONTROL SETTER COAGULATION PANEL W D-DIMER Timed 01/31/2024 10:04 PM COMPUTER NUMERIC CONTROL SETTER CBC W/O DIFFERENTIAL Timed 01/31/2024 10:04 PM COMPUTER NUMERIC CONTROL SETTER BLOOD TYPE VERIFICATION Routine 01/31/2024 6:37 PM COMPUTER NUMERIC CONTROL SETTER COMPREHENSIVE METABOLIC PANEL STAT 01/31/2024 6:37 PM COMPUTER NUMERIC CONTROL SETTER TRICHOMONAS VAGINALIS AMPLIFIED PROBE STAT 01/31/2024 6:20 PM COMPUTER NUMERIC CONTROL SETTER Vaginal bleeding in (HCC) CHLAMYDIA + GC AMPLIFIED PROBE STAT 01/31/2024 6:20 PM COMPUTER NUMERIC CONTROL SETTER Vaginal bleeding in (HCC) TYPE + SCREEN PANEL STAT 01/31/2024 5 :59 PM COMPUTER NUMERIC CONTROL SETTER COAGULATION PANEL W D-DIMER STAT 01/31/2024 5:59 PM COMPUTER NUMERIC CONTROL SETTER Vaginal bleeding in (HCC) CBC W AUTO DIFFERENTIAL STAT 01/31/2024 5:59 PM COMPUTER NUMERIC CONTROL SETTER Vaginal bleeding in (HCC) from Last 3 Months Results * URINALYSIS - POINT OF CARE (AMB) [facility] (04/24/2024 10:19 AM COMPUTER NUMERIC CONTROL SETTER) Only the most recent of2 resultswithin the time period is included. Specific [place] UA 1.[address] [facility] [address] pH [...] URINE / Unknown 04/24/2024 1 0:19 AM COMPUTER NUMERIC CONTROL SETTER Steffanie Arnold MD LAB - POINT OF CARE ORDERABLES [facility] [address] [place] [address], [facility] [phone] * BIOPHYSICAL PROFILE W NST (04/24/2024 8:30 AM COMPUTER NUMERIC CONTROL SETTER) Linked Results Indication ======== Low lying placenta [...] cephalic Placenta: Placental site: right lateral. Placental ezhm-[id number]-[id number] os distance 12 mm Amniotic Fluid Assessment [...] has a follow up visit at [facility] be OG clinic today. She has no [...] ======== The above was discussed with Ms. Vargasbert who understood all questions were answered she was reassured. She will continue with her current precautions including pelvic rest. Follow-up ======== Management and further follow-up including timing of delivery to be determined by [facility] providers at [facility] office. To continue with previa precautions along with pelvic rest. labor precautions along with kick counts and was instructed when to follow up with OB triage either at her nearest [facility] or here at [facility]. Thank you for allowing us to partake in your patient's care. Coding ====== Procedures 56577: US Uterus Limited 01374: Biophysical Profile W NST 76119: US Preg Uterus Transvaginal [facility] PACS Anatomical Region Laterality Modality Other 04/24/2024 8:30 AM COMPUTER NUMERIC CONTROL SETTER Freddy Armando MD [facility] ORDERABLES * SONOGRAM - TRANSVAGINAL (04/17/2024 9:07 AM COMPUTER NUMERIC CONTROL SETTER) Linked Results Indication ======== Low lying placenta [...] to assess placental location Coding ====== Procedures 13591: US Uterus Limited 79878: US Preg Uterus Transvaginal [facility]steres PACS Anatomical Region Laterality Modality Other 04/17/2024 9:07 AM COMPUTER NUMERIC CONTROL SETTER Steffanie Arnold MD [facility] ORDERABLES * IMAGING RADIOLOGY XRAY RESULTS ORDER (04/12/2024 6:50 PM COMPUTER NUMERIC CONTROL SETTER) Only the most recent of2 resultswithin the time period is included. Anatomical Region Laterality Modality Other Narrative 04/12/2024 6:50 PM COMPUTER NUMERIC CONTROL SETTER Ordered by an unspecified provider. Scanned Document IMAGING * CULTURE STREP B (04/10/2024 8:55 AM COMPUTER NUMERIC CONTROL SETTER) Culture Strep B Negative for beta-hemolytic Streptococcus Group B EVELIN 04/13/2024 4:37 PM COMPUTER NUMERIC CONTROL SETTER [facility] MICROBIOLOGY Microbiology MISCELLANEOUS SAMPLES / Unknown Collection / Unknown 04/10/2024 8:55 AM COMPUTER NUMERIC CONTROL SETTER 04/10/2024 9:05 AM COMPUTER NUMERIC CONTROL SETTER Santos Ledezma DO LAB - MICROBIOLOGY O RDERABLES [facility] [address] [place] [address], [facility] [phone] * TYPE + SCREEN PANEL (04/10/2024 8:55 AM COMPUTER NUMERIC CONTROL SETTER) Only the most recent of3 resultswithin the time period is included. ABO Rh A POS 04/10/2024 9:[address] [facility] Comment:History checked. Antibody Screen NEG 9:[address] [facility] Blood Bank BLOOD SPECIMEN / Unknown Venipuncture / Unknown 04/10/2024 8:55 AM COMPUTER NUMERIC CONTROL SETTER 04/10/2024 9:05 AM COMPUTER NUMERIC CONTROL SETTER Santos Ledezma DO LAB - BLOOD BANK ORD ERABLES Performing Organization Address City/[facility]/ZIP Co de Phone Number [facility] [address] [place] [address], [facility] [phone] * (ABNORMAL) CBC W AUTO DIFFERENTIAL (04/10/2024 8:55 AM COMPUTER NUMERIC CONTROL SETTER) Only the most recent of3 resultswithin the time period is included. WBC 11.8(H) 4.0 - 10.7 x10E9/L 04/10/2024 9:[address] [facility] RBC Count 3.70(L) 3.90 - 5.20 x10E12/L 04/10/2024 9:[address] [facility] Hemoglobin 11.8(L) 11.9 - 15.8 g/dL 04/10/2024 9:[address] [facility] Hematocrit 34.8 34.8 - 46.1 % 04/10/2024 9:[address] [facility] MCV 94.1 80.0 - 98.0 fL 04/10/2024 9:[address] [facility] MCH 31.9 26.7 - 33.6 pg 04/10/2024 9:[address] [facility] MCHC 33.9 31.7 - 36.3 g/dL 04/10/2024 9:[address] [facility] RDW-CV 13.4 11.3 - 14.8 % 04/10/2024 9:[address] [facility] Platelet Count 180 150 - 420 x10E9/L 04/10/2024 9:[address] [facility] MPV 10.6 7.8 - 11.4 fL 04/10/2024 9:[address] [facility] Neutrophil % 86.4(H) 41.0 - 74.0 % 04/10/2024 9:[address] [facility] Lymphocyte % 7.3(L) 17.0 - 47.0 % 04/10/2024 9:[address] [facility] Monocyte % 5.0 3.0 - 11.0 % 04/10/2024 9:[address] [facility] Eosinophil % 0.1 0.0 - 7.0 % 04/10/2024 9:[address] [facility] Basophil % 0.2 0.0 - 1.6 % 04/10/2024 9:[address] [facility] Immature Granulocytes % 1.0 0.0 - 1.0 % 04/10/2024 9:[address] [facility] Neutrophil Absolute 10.16(H) 1.60 - 7.50 x10E9/L 04/10/2024 9:[address] [facility] Lymphocyte Absolute 0.86(L) 1.00 - 4.40 x10E9/L 04/10/2024 9:[address] [facility] Monocyte Absolute 0.59 0.15 - 1.00 x10E9/L 04/10/2024 9:[address] [facility] Eosinophil Absolute 0.01 0.00 - 0.60 x10E9/L 04/10/2024 9:[address] [facility] Basophil Absolute 0.02 0.00 - 0.13 x10E9/L 04/10/2024 9:[address] [facility] Blood BLOOD SPECIMEN / Unknown Venipuncture / Unknown 04/10/2024 8:55 AM COMPUTER NUMERIC CONTROL SETTER 04/10/2024 9:05 AM [facility] Santos Ledezma DO LAB - HEMATOLOGY ORD ERABLES [facility] [address] [place] [address] * SONOGRAM - LIMITED (04/10/2024 8:22 AM COMPUTER NUMERIC CONTROL SETTER) Only the most recent of2 resultswithin the [...] Placenta: Placental site: low-lying, right lateral. Placental [id number] os distance 15 mm Amniotic fluid: Amount [...] indicated per inpatient team. Coding ====== Procedures 71766: US Uterus Limited 96523: US Preg Uterus Transvaginal [facility] Asteres PACS Anatomical Region Laterality Modality Other 04/10/2024 8:22 AM COMPUTER NUMERIC CONTROL SETTER Santos Ledezma DO [facility] ORDERABLES * (ABNORMAL) URINALYSIS REFLEX MICROSCOPIC REFLEX CULTURE (04/10/2024 6:33 AM COMPUTER NUMERIC CONTROL SETTER) Color UA Yellow Yellow, Straw 04/10/2024 6:59 AM COMPUTER NUMERIC CONTROL SETTER [facility] Clarity UA Turbid(A) Clear 04/10/2024 6:59 AM COMPUTER NUMERIC CONTROL SETTER [facility] Glucose UA Normal Normal 04/10/2024 6:59 AM COMPUTER NUMERIC CONTROL SETTER [facility] Bilirubin UA Negative Negative 04/10/2024 6:59 AM COMPUTER NUMERIC CONTROL SETTER [facility] Ketone UA Trace(A) Negative 04/10/2024 6:59 AM COMPUTER NUMERIC CONTROL SETTER [facility] LABORATORY Specific [place]cer UA 1.018 1.005 - 1.030 04/10/2024 6:59 AM COMPUTER NUMERIC CONTROL SETTER [facility] Blood UA Trace(A) Negative 04/10/2024 6:59 AM COMPUTER NUMERIC CONTROL SETTER [facility] pH UA 6.0 5.0 - 9.0 pH 04/10/2024 6:59 AM COMPUTER NUMERIC CONTROL SETTER [facility] Protein UA Trace(A) Negative 04/10/2024 6:59 AM COMPUTER NUMERIC CONTROL SETTER [facility] Urobilinogen UA Normal Normal mg/dL 04/10/2024 6:59 AM COMPUTER NUMERIC CONTROL SETTER [facility] Nitrite UA Negative Negative 04/10/2024 6:59 AM COMPUTER NUMERIC CONTROL SETTER [facility] Leukocyte UA 250 SHARON/uL(A) Negative 04/10/2024 6:59 AM COMPUTER NUMERIC CONTROL SETTER [facility] RBC UA 11-20(A) 0 - 5 # /hpf 04/10/2024 6:59 AM COMPUTER NUMERIC CONTROL SETTER [facility] WBC UA 0-5 0 - 5 # /hpf 04/10/2024 6:59 AM COMPUTER NUMERIC CONTROL SETTER [facility] Bacteria UA Trace(A) None Seen 04/10/2024 6:59 AM COMPUTER NUMERIC CONTROL SETTER [facility] Squamous Epithelial Cells 6-10(A) 0 - 5 /hpf 04/10/2024 6:59 AM COMPUTER NUMERIC CONTROL SETTER [facility] Mucus UA 4+ /LPF 04/10/2024 6:59 AM COMPUTER NUMERIC CONTROL SETTER [facility] Hyaline Casts 0-2 0 - 2 /LPF 04/10/2024 6:59 AM COMPUTER NUMERIC CONTROL SETTER [facility] Urine URINE SPECIMEN OBTAINED BY CLEAN CATCH PROCEDURE / Unknown Collection / Unknown 04/10/2024 6:33 AM COMPUTER NUMERIC CONTROL SETTER 04/10/2024 6:40 AM COMPUTER NUMERIC CONTROL SETTER Narrative [facility] - 04/10/2024 6:59 AM COMPUTER NUMERIC CONTROL SETTER Santos Ledezma DO LAB - URINALYSIS ORD ERABLES Performing Organization Address [facility]/ZIP Co de Phone Number [facility] [address] [place] [address] * CULTURE URINE (04/10/2024 6:33 AM COMPUTER NUMERIC CONTROL SETTER) Only the most recent of2 resultswithin the time period is included. Culture Urine <10,000 CFU/mL urogenital ramon EVELIN 04/11/2024 1:08 PM COMPUTER NUMERIC CONTROL SETTER [facility] Urine URINE SPECIMEN OBTAINED BY CLEAN CATCH PROCEDURE / Unknown Collection / Unknown 04/10/2024 6:33 AM COMPUTER NUMERIC CONTROL SETTER 04/10/2024 6:40 AM COMPUTER NUMERIC CONTROL SETTER Santos Ledezma DO LAB - MICROBIOLOGY O RDERABLES [facility] [address] [place] [address], [facility] [phone] * (ABNORMAL) URINALYSIS AUTO - POINT OF CARE (AMB) STL (04/03/2024 11:17 AM COMPUTER NUMERIC CONTROL SETTER) Clarity UA POCT clear [facility] [...] Negative [facility] [address] Specific [place] UA POCT 1.000(A) 1.002 - 1.[address] [facility] [address] Ketone UA neg Negative [facility] [address] Bilirubin UA POCT neg Negative [facility] [address] Glucose UA neg Negative [facility] [address] Expiration Date 03/29/2024 [facility] [address] Lot # [id number] [facility] [address] QC Verified Yes Yes [facility] [address] Urine URINE / Unknown 04/03/2024 1 1:17 AM COMPUTER NUMERIC CONTROL SETTER Adriana Redman APRN-SALES [facility] LAB - POINT OF CARE ORDERABLES [facility] [address] [place] [address], [facility] [phone] * SONOGRAM - COMPLETE (04/03/2024 9:56 AM COMPUTER NUMERIC CONTROL SETTER) Only the most recent of2 resultswithin the [...] Placental site: right lateral low lying. Placental jhqs-vh-[id number] os distance 15 mm Amniotic fluid: Amount [...] 4 lb 3 oz EFW by [place]lock ([id number]) appropriate Growth Overview Exam date GA BPD [...] She also has a follow-up visit at [facility] today. Single, live, intrauterine [...] in your patient's care. Coding ====== Procedures [address]: [place] [address]: [place] Preg Uterus Transvaginal wutabout PACS Anatomical Region Laterality Modality Other 04/03/2024 9:56 AM COMPUTER NUMERIC CONTROL SETTER Freddy Armando MD [facility] ORDERABLES * HEPATITIS C ANTIBODY (03/21/2024 11:17 AM COMPUTER NUMERIC CONTROL SETTER) Pathologist [facility] HCV Antibody Screen Non Reactive Non Reactive 03/21/2024 12:11 PM COMPUTER NUMERIC CONTROL SETTER [facility] Blood BLOOD SPECIMEN / Unknown Venipuncture / Unknown 03/21/2024 11:17 AM COMPUTER NUMERIC CONTROL SETTER 03/21/2024 11:23 AM COMPUTER NUMERIC CONTROL SETTER Narrative [facility] - 03/21/2024 12:11 PM COMPUTER NUMERIC CONTROL SETTER Non Reactive - Antibodies to Hepatitis C virus (HCV) were not detected, result does not exclude early acute HCV infection. Adriana Redman APRN-[facility] LAB - CHEMISTR Y ORDERABLES Performing Organization Address City/[facility]/ZIP Co de Phone Number [facility] [address] [place] [address] * URINALYSIS AUTO - POINT OF CARE (AMB) [facility] (03/20/2024 10:45 AM COMPUTER NUMERIC CONTROL SETTER) Only the most recent of4 resultswithin the time period is included. Pathologist [facility] Glucose UA [address] [facility] [address] Bilirubin UA POCT neg [facility] [address] Ketones UA POCT neg [facility] [address] Specific [place]cer UA 1.025 [facility] [address] Blood Urine POCT pos [facility] [address] pH UA 6.[address] [facility] [address] Protein UA trace [facility] [address] Urobilinogen UA neg [facility] [address] Nitrite UA neg [facility] [address] WBC UA neg [facility] [address] Urine URINE / Unknown 03/20/2024 1 0:45 AM COMPUTER NUMERIC CONTROL SETTER Adriana Redman [facility] LAB - POINT OF CARE ORDERABLES [facility] [address] [place] [address] [phone] * GTT 1 HR (50G) GESTATIONAL SCREEN (02/20/2024 11:06 AM COMPUTER NUMERIC CONTROL SETTER) Glucose Gestational Screen 80 <140 mg/dL [facility] Comment: Test Performed at: [facility] [id number] [address] JAMIE WARREN MD Blood BLOOD SPECIMEN / Unknown 02/20/2024 11:06 AM COMPUTER NUMERIC CONTROL SETTER 02/20/2024 11:07 AM COMPUTER NUMERIC CONTROL SETTER Adriana Redman APRN-[facility]AL[facility] LAB - CHEMISTR Y ORDERABLES [facility] [address] [place] [address] * HIV-1 HIV-2 ANTIBODY + HIV P24 AG PANEL (02/20/2024 11:06 AM COMPUTER NUMERIC CONTROL SETTER) Pathologist [facility] HIV Screen 4th Generation [...] purpose. For additional information please refer to http://education.[employer]/faq/IEC491 (This link is being provided for informational/ educational purposes only.) The performance of this assay has not been clinically validated in patients less than 2 years old. Test Performed at: [facility] ARVINJulep Abdiaziz [place]E [place] [address] JAMIE WARREN MD Blood BLOOD SPECIMEN / Unknown 02/20/2024 11:06 AM COMPUTER NUMERIC CONTROL SETTER 02/20/2024 11:07 AM COMPUTER NUMERIC CONTROL SETTER Adriana Redman APRN-[facility] LAB - CHEMISTR Y ORDERABLES [place] [phone] * TREPONEMA PALLIDUM POS REFLX RPR (02/20/2024 11:06 AM COMPUTER NUMERIC CONTROL SETTER) [facility] Treponema pallidum Antibody EIA NEGATIVE NEGATIVE [facility] Comment: No antibodies to T. pallidum (the agent causing syphilis) were detected in the specimen. This result, however, does not exclude very recent T. pallidum infection; testing of a second specimen, collected 2-4 weeks after this specimen, is recommended if the index of suspicion for recent infection is high. Test Performed at: [facility] [place] [address] [place] [address] [facility] Blood BLOOD SPECIMEN / Unknown 02/20/2024 11:06 AM COMPUTER NUMERIC CONTROL SETTER 02/20/2024 11:07 AM COMPUTER NUMERIC CONTROL SETTER Adriana Redman APRNSALES [facility] LAB - SEROLOGY ORDERABLES Performing Organization Address [facility] [place] [address] * (ABNORMAL) IRON + TIBC + FERRITIN (02/20/2024 11:06 AM COMPUTER NUMERIC CONTROL SETTER) [facility] Iron 54 40 - 190 mcg/dL [facility] TIBC 383 250 - 450 mcg/dL (calc) [facility] % Saturation 14(L) 16 - 45 % (calc) [facility] Ferritin 13(L) 16 - 154 ng/mL [facility] Comment: Test Performed at: [facility] [address] [place] [address] JAMIE WARREN MD Blood BLOOD SPECIMEN / Unknown 02/20/2024 11:06 AM COMPUTER NUMERIC CONTROL SETTER 02/20/2024 11:07 AM COMPUTER NUMERIC CONTROL SETTER Adriana WILLIAMSON LAB - CHEMISTR Y ORDERABLES Performing Organization Address [facility] [place] [address] * (ABNORMAL) CBC W/O DIFFERENTIAL (02/03/2024 12:00 AM COMPUTER NUMERIC CONTROL SETTER) Only the most recent of3 resultswithin the time period is included. [facility] WBC 12.5(H) 4.0 - 10.7 x10E9/L 02/03/2024 12:[address] [facility] RBC Count 2.86(L) 3.90 - 5.20 x10E12/L 02/03/2024 12:[address] [facility] Hemoglobin 9.1(L) 11.9 - 15.8 g/dL 02/03/2024 12:[address] [facility] Hematocrit 27.3(L) 34.8 - 46.1 % 02/03/2024 12:[address] [facility] MCV 95.5 80.0 - 98.0 fL 02/03/2024 12:[address] [facility] MCH 31.8 26.7 - 33.6 pg 02/03/2024 12:[address] [facility] MCHC 33.3 31.7 - 36.3 g/dL 02/03/2024 12:[address] [facility] RDW-CV 12.8 11.3 - 14.8 % 02/03/2024 12:[address] [facility] Platelet Count 188 150 - 420 x10E9/L 02/03/2024 12:[address] [facility] MPV 10.2 7.8 - 11.4 fL 02/03/2024 12:[address] [facility] Blood BLOOD SPECIMEN / Unknown Lab Venipuncture / Unknown 02/03/2024 02/03/2024 12:35 AM [facility] Annie Rodriguez MD LAB - HEMATOLOGY OR DERABLES Performing Organization Address City/State/[facility] Co de Phone Number [facility] [address] [place] [address] * PREPARE (CROSSMATCH) RBC UNIT(S), 2 Units (02/02/2024 7:31 AM COMPUTER NUMERIC CONTROL SETTER) [facility] Unit Description AS1 LR PRBC [facility] Unit ABO A [facility] Unit Rh POS [facility] Product Number R02 [facility] Unit Donor # [id number] [facility] C [facility]OD B[facility] LAB Unit Status released [facility] OD BANK LAB Product Code [id number] [facility] Blood Type Barcode 6200 [facility] Expiration Date S [facility] Unit Description AS1 LR PRBC [facility] Unit ABO A [facility] Unit Rh POS [facility] Product Number R02 [facility] Unit Donor # [id number] [facility] Unit Status released [facility] Product Code [id number] [facility] Blood Type Barcode 6200 [facility] Expiration Date S [facility] Blood Bank BLOOD SPECIMEN / Unknown 01/31/2024 6:19 PM COMPUTER NUMERIC CONTROL SETTER Eliu Velasquez MD LAB - BLOOD BANK ORD ERABLES [facility] [address] [phone] * NONSTRESS TEST (02/01/2024 4:19 PM COMPUTER NUMERIC CONTROL SETTER) Narrative Annie Rodriguez MD - 02/01/2024 4:19 PM COMPUTER NUMERIC CONTROL SETTER Theresa Naranjo MD 02/02/2024 6:14 AM Name: [...] Interventions: None Brynn Ferraro RN Non-Stress Test [facility] Patient Name: Ying Hampton LMP: [...] COAGULATION PANEL W D-DIMER (02/01/2024 3:44 AM COMPUTER NUMERIC CONTROL SETTER) Only the most recent of3 resultswithin the time period is included. [facility] PT 13.2 12.1 - 14.8 sec 02/01/2024 4:[address] [facility] INR 1.0 0.9 - 1.1 02/01/2024 4:[address] [facility] PTT 22.3(L) 23.0 - 38.4 sec 02/01/2024 4:[address] [facility] Fibrinogen 370 200 - 400 mg/dL 02/01/2024 4:[address] [facility] D-Dimer 0.62(H) 0.27 - 0.50 ug/mL FEU 02/01/2024 4:[address] [facility] Platelet Count 192 150 - 420 x10E9/L 02/01/2024 4:[address] [facility] Blood BLOOD SPECIMEN / Unknown Venipuncture / Unknown 02/01/2024 3:44 AM COMPUTER NUMERIC CONTROL SETTER 02/01/2024 3:[address] [facility] - 02/01/2024 4:26 AM [facility] Conventional Warfarin Anticoagulant Therapy INR Reference [...] Unit (approximates 0.5 mcg/mL of D- dimer). IS DIAGNOSTIC SCORING SYSTEM FOR DIC ---- Score [...] - COAGULATION O RDERABLES Performing Organization Address [facility]/ZIP Co de Phone Number [facility] [address] [place] [address] * (ABNORMAL) MAGNESIUM BLOOD (01/31/2024 10:04 PM COMPUTER NUMERIC CONTROL SETTER) Magnesium 5.6(HH) 1.6 - 2.6 mg/dL 01/31/2024 10:32 PM COMPUTER NUMERIC CONTROL SETTER [facility] Blood BLOOD SPECIMEN / Unknown Venipuncture / Unknown 01/31/2024 10:04 PM COMPUTER NUMERIC CONTROL SETTER 01/31/2024 10:13 PM COMPUTER NUMERIC CONTROL SETTER Annie Rodriguez MD LAB - CHEMISTRY ORD ERABLES Performing Organization Address [facility] Co de Phone Number [facility] [address] [place] [address] * BLOOD TYPE VERIFICATION (01/31/2024 6:37 PM COMPUTER NUMERIC CONTROL SETTER) ABO Rh A POS 01/31/2024 7:1 5 PM COMPUTER NUMERIC CONTROL SETTER [facility] Blood Bank BLOOD SPECIMEN / Unknown Venipuncture / Unknown 01/31/2024 6:37 PM COMPUTER NUMERIC CONTROL SETTER 01/31/2024 6:46 PM COMPUTER NUMERIC CONTROL SETTER Eliu Velasquez MD LAB - BLOOD BANK ORD ERABLES Performing Organization Address City/[facility]/ZIP Co de Phone Number [facility] [address] [place] [id number] [place] [address] * (ABNORMAL) COMPREHENSIVE METABOLIC PANEL (01/31/2024 6:37 PM COMPUTER NUMERIC CONTROL SETTER) Glucose 92 70 - 99 mg/dL 01/31/2024 7:06 PM COMPUTER NUMERIC CONTROL SETTER [facility] Sodium 138 136 - 145 mmol/L 01/31/2024 7:06 PM COMPUTER NUMERIC CONTROL SETTER [facility] Potassium 3.6 3.5 - 5.1 mmol/L 01/31/2024 7:06 PM COMPUTER NUMERIC CONTROL SETTER [facility] Chloride 108(H) 98 - 107 mmol/L 01/31/2024 7:[address] [facility] CO2 22 22 - 29 mmol/L 01/31/2024 7:[address] [facility] Calcium 9.1 8.4 - 10.4 mg/dL 01/31/2024 7:[address] [facility] Anion Gap 8 6 - 16 mmol/L 01/31/2024 7:[address] [facility] BUN 6 5.3 - 18.7 mg/dL 01/31/2024 7:[address] [facility] Creatinine 0.56(L) 0.57 - 1.11 mg/dL 01/31/2024 7:[address] [facility] Alkaline Phosphatase 80 40 - 150 U/L 01/31/2024 7:[address] [facility] ALT 29 0 - 55 U/L 01/31/2024 7:[address] [facility] AST 30 5 - 34 U/L 01/31/2024 7:[address] [facility] Protein Total 6.3(L) 6.4 - 8.3 gm/dL 01/31/2024 7:[address] [facility] Albumin 3.1(L) 3.4 - 5.0 gm/dL 01/31/2024 7:[address] [facility] Bilirubin Total 0.2 0.2 - 1.2 mg/dL 01/31/2024 7:[address] [facility] eGFR by CKD-EPI >90 >=90 mL/min/1.7 3 m2 01/31/2024 7:[address] [facility] Blood BLOOD SPECIMEN / Unknown Venipuncture / Unknown 01/31/2024 6:37 PM COMPUTER NUMERIC CONTROL SETTER 01/31/2024 6:46 PM [facility] Eliu Velasquez MD LAB - CHEMISTRY DEVIN [facility] Organization Address City/State/ZIP Co de Phone Number [facility] [address] [place] [address] * TRICHOMONAS VAGINALIS AMPLIFIED PROBE (01/31/2024 6:20 PM COMPUTER NUMERIC CONTROL SETTER) Trichomonas vaginalis Amplified Probe Negative Negative 02/01/2024 6:13 AM COMPUTER NUMERIC CONTROL SETTER [facility] Microbiology URINE / Unknown Collection / Unknown 01/31/2024 6:20 PM COMPUTER NUMERIC CONTROL SETTER 01/31/2024 6:37 PM COMPUTER NUMERIC CONTROL SETTER Narrative [facility] - 02/01/2024 6:13 AM COMPUTER NUMERIC CONTROL SETTER This test was developed and its performance characteristics determined by the [facility], [facility]. Urine specimens tested by the [facility] have not been cleared or approved by [...] - MICROBIOLOGY O ALISE Performing Organization Address City/[facility]/ZIP Co de Phone Number [facility] [address] [place] [address], [facility] [phone] * CHLAMYDIA + GC AMPLIFIED PROBE (01/31/2024 6:20 PM COMPUTER NUMERIC CONTROL SETTER) Chlamydia Amplified Probe Negative Negative 02/01/2024 6:13 AM COMPUTER NUMERIC CONTROL SETTER [facility] GC Amplified Probe Negative Negative 02/01/2024 6:13 AM COMPUTER NUMERIC CONTROL SETTER [facility] Microbiology URINE / Unknown Collection / Unknown 01/31/2024 6:20 PM COMPUTER NUMERIC CONTROL SETTER 01/31/2024 6:37 PM COMPUTER NUMERIC CONTROL SETTER Narrative [facility] - 02/01/2024 6:13 AM COMPUTER NUMERIC CONTROL SETTER Results based on detection/no detection of ribosomal RNA by amplified method. Eliu Velasquez MD LAB - MICROBIOLOGY O ALISE [facility] [address] [place] [address], [facility] [phone] from Last 3 Months Advance Directives * [...] 12:22 PM 04/21/2018 10:46 AM Care Teams Hoop Flaring Machine Operator Helper Relationship Specialty Start Date End Date Severino Wooten DO [address] [facility] [address] [place] [address] PCP - General 10/26/17
--- OUTSIDE RECORDS SUMMARY | 2024-04-25 00:52 | XMS_ITS | Encounter Summary ---
Author Organization [facility] Address [address] [place] [address] Care Team Providers Care Nursing Program Chair Name Role Phone Severino Wooten DO Primary Care Provider [phone] Reason for Visit * Reason Comments Routine Visit Encounter Details Date Type Department Care Team (Late st Contact Info) Description 04/24/2024 9:40 AM FLEXOGRAPHIC PRINTING MACHINIST visit [facility] - PRE SALES TECHNICAL ENGINEER [address] [facility] [address] [place] [address] Steffanie Arnold MD [address] [facility] [address] [place] [address] GA: [id number] Social History Tobacco [...] Recorded Patient Health Questionnaire-2 Score 0 03/28/2024 [place] [place] [facility] - Occupational Stress [...] any time in the past 12 m [facility], were you homeless or living [...] Comments Blood Pressure 102/64 04/24/2024 10:21 AM FLEXOGRAPHIC PRINTING MACHINIST Pulse - - Temperature - - Respiratory Rate - - Oxygen Saturation - - Inhaled Oxygen Concentration - - Weight 59 kg (130 lb) 04/24/2024 10:21 AM FLEXOGRAPHIC PRINTING MACHINIST Height 154.9 cm (5' 1) 04/24/2024 10:21 AM FLEXOGRAPHIC PRINTING MACHINIST Body Mass Index 24.56 04/24/2024 10:21 AM FLEXOGRAPHIC PRINTING MACHINIST documented in this encounter Functional Status Functional [...] st Contact Info) Description 04/25/2024 10:40 AM FLEXOGRAPHIC PRINTING MACHINIST Hospital Encounter [facility] [address] [place] [address] Adriana Redman, CHIEF RISK OFFICER-CHILD AND FAMILY SERVICES WORKER [address] [place] [address] 05/01/2024 10:15 AM FLEXOGRAPHIC PRINTING MACHINIST Procedure visit [facility] - PRE SALES TECHNICAL ENGINEER [address] [place] [address] 05/01/2024 11:00 AM FLEXOGRAPHIC PRINTING MACHINIST [facility] - PRE SALES TECHNICAL ENGINEER [address] [place] [phone] 05/01/2024 11:00 AM FLEXOGRAPHIC PRINTING MACHINIST Procedure visit [facility] - PRE SALES TECHNICAL ENGINEER [address] [place] [address] Ave [address] [place] [phone] 05/27/2024 Hospital Encounter [facility] [address] [place] [address] Obstetrics documented as of this encounter Procedures Procedure Name Priority Date/Time Associated Diagnosis Comments URINALYSIS - POINT OF CARE (AMB) [facility] Routine 04/24/2024 10:19 AM FLEXOGRAPHIC PRINTING MACHINIST Supervision of high risk , antepartum (HCC) documented in this encounter Results * URINALYSIS - POINT OF CARE (AMB) [facility] (04/24/2024 10:19 AM FLEXOGRAPHIC PRINTING MACHINIST) Specific [place] UA 1.[address] [facility] [address] pH [...] URINE / Unknown 04/24/2024 1 0:19 AM FLEXOGRAPHIC PRINTING MACHINIST Steffanie Arnold MD LAB - POINT OF CARE ORDERABLES [facility] [address] [place] [address] [phone] documented in this encounter Visit Diagnoses Diagnosis Supervision of high risk , antepartum (HCC)- Primary documented in this encounter Care Teams Nursing Program Chair Relationship Specialty Start Date End Date Severino Wooten DO [address] [facility] [address] [place] [address] PCP - General 10/26/17 documented as of this encounter
--- OUTSIDE RECORDS SUMMARY | 2024-04-25 00:52 | XMS_ITS | Encounter Summary ---
Author Organization [facility] Address [address] [place] [place] [address] Care Team Providers Care Marker Shipments Name Role Phone Severino Wooten Primary Care Provider [phone] Encounter Details Date Type Department Care Team (Late st Contact Info) Description 06/20/2019 Telephone [facility] [address]L [address] [facility] [place] [phone] Ivis [place], RN Social History Tobacco Use [...] st Contact Info) Description 04/25/2024 10:40 AM TAIL RIPPER Hospital Encounter [facility] [address] [place] [address] Adriana Redman APRN-SUPERVISOR MULTIFOCAL LENS [address] [place] [phone] 05/01/2024 10:15 AM TAIL RIPPER Procedure visit [facility] - WINDING MACHINE OPERATOR [address] [place] [address] Ave [address] [place] [address] 05/01/2024 11:00 AM TAIL RIPPER visit [facility] - WINDING MACHINE OPERATOR [address] [place] [address] [address] [place] [phone] 05/01/2024 11:00 AM TAIL RIPPER Procedure visit [facility] - WINDING MACHINE OPERATOR [address] [place] [address] Ave [address] [place] [phone] 05/27/2024 Hospital Encounter [facility] [address] [place] [address] Obstetrics documented as of this encounter Visit Diagnoses Not on filedocumented in this encounter Additional Health Concerns Infection Onset Date Last Indicated Resolved Time COVID-19 Under Investigation 04/10/2020 04/10/2020 04/10/2020 9:17 AM TAIL RIPPER documented as of this encounter Care Teams Marker Shipments Relationship Specialty Start Date End Date Severino Wooten DO [address] [facility] [address] [address] PCP - General 10/26/17 documented as of this encounter
--- OUTSIDE RECORDS SUMMARY | 2024-04-25 00:52 | XMS_ITS | Encounter Summary ---
Author Organization [facility] Address [address] [place] [address] Care Team Providers Care Pet Crematory Worker Name Role Phone Severino Wooten DO Primary Care Provider [phone] Reason for Visit * Reason Comments Non-stress Test Encounter Details Date Type Department Care Team (Latest Contact Info) Description 04/24/2024 8:23 AM CHIEF PHARMACIST - 04/24/2024 11:59 PM CHIEF PHARMACIST Hospital Encounter [facility] MATERNAL/ EVALUATION UNIT [address] [facility]. [address] [place] [address] Santos Ledezma DO [address] [facility] [address] [place] [address] Discharge Disposition: Home or Self Care Social [...] Recorded Patient Health Questionnaire-2 Score 0 03/28/2024 [facility] [place] of Occupat ional Health - Occupational Stress [...] any time in the past 12 m [facility] [place], were you homeless or living in a [place] facility (including now)? No 04/10/2024 Education Answer Date [...] Blood Pressure 110/73 04/24/2024 9:50 AM CHIEF PHARMACIST Pulse - - Temperature - - Respiratory [...] Contact Info) Description 04/25/2024 10:40 AM CHIEF PHARMACIST Hospital Encounter [facility] [address] [address] Adriana Redman APRN-[facility] [address] [place] [phone] 05/01/2024 10:15 AM CHIEF PHARMACIST [facility] - PAD MACHINE OPERATOR [address] [place] [phone] 05/01/2024 11:00 AM [facility]IEF PHARMAC[facility] - PAD MACHINE OPERATOR [address] [place] [phone] 05/01/2024 11:00 AM CHIEF PHARMACIST Procedure visit [facility] - PAD MACHINE OPERATOR [address] [place] [address] [place] [phone] 05/27/2024 Hospital Encounter [facility] [address] [place] [address] Obstetrics documented as of this encounter Visit Diagnoses Not on filedocumented in this encounter Care Teams Pet Crematory Worker Relationship Specialty Start Date End Date Severino Wooten DO [address] [facility] 162 [facility] 21 [place] [address] PCP - General 10/26/17 documented as of this encounter
--- OUTSIDE RECORDS SUMMARY | 2024-04-25 00:52 | XMS_ITS | Encounter Summary ---
Author Organization [facility] Address [address] [place] [address] Care Team Providers Care Computer Analyst Name Role Phone Jesuslul Severinomarc Ge DO Primary Care Provider [phone] Reason for Visit * Reason Onset Date Comments Coordination Of Care 04/19/2024 Encounter Details Date Type Department Care Team (Late st Contact Info) Description 04/19/2024 Telephone [facility] - PATTERN DRUM MAKER [address] [facility] [address] [place] [address] Adriana Redman APRN-RADIO ASSEMBLER [address] [place] [address] Coordination Of Care Social History [...] Recorded Patient Health Questionnaire-2 Score 0 03/28/2024 [facility] [place] of Occupat ional Health - Occupational Stress [...] st Contact Info) Description 04/25/2024 10:40 AM PEDIATRIC DENTAL HYGIENIST Hospital Encounter [facility] [address] [address] Adriana Redman PST [facility] [address] [place] [phone] 05/01/2024 10:15 AM PEDIATRIC DENTAL HYGIENIST Procedure visit [facility] - PATTERN DRUM MAKER [address] [place] [address] 05/01/2024 11:00 AM PEDIATRIC DENTAL HYGIENIST [facility] PATTERN DRUM MAKER [address] [place] [phone] 05/01/2024 11:00 AM PEDIATRIC DENTAL HYGIENIST Procedure visit [facility] - PATTERN DRUM MAKER [address] [place] [phone] 05/27/2024 Hospital Encounter [facility] [address] [place] [address] Obstetrics documented as of this encounter Visit Diagnoses Not on filedocumented in this encounter Care Teams Computer Analyst Relationship Specialty Start Date End Date Severino Wooten DO [address] [facility] [address] [place] [address] PCP - General 10/26/17 documented as of this encounter
--- OUTSIDE RECORDS SUMMARY | 2024-04-25 00:53 | XMS_ITS | Clinical Summary ---
Author Organization [facility] Care Team Providers Care Teacher'S Assistant Name Role Phone Unavailable Primary Care Provider Unavailabl e Social History Tobacco Use Types Packs/Day Years Used Date Smoking Tobacco: Never Assessed Comments Unknown Sex and Gender Information Value Date Recorded Sex Assigned at Not on file Legal Sex Female 3:09 PM [employer] Gender Identity Not on file Sexual Orientation [...]
[2024-04-25] MEDS: AZITHROMYCIN 500 MG/NS 250 ML 500 MG/250 ML BAG 250 MG IVPB (00:58)
[2024-04-25] MEDS: ceFAZolin 2 GM/D5W 50 ML 2 GM/50 ML BAG IVPB (00:58)
[2024-04-25 01:02] LABS: Basophils Absolute Auto 0.1 K/mm3 (0.0-0.1); Basophils Percent Auto 0.4 % (0.2-1.2); Eosinophils Percent Auto 0.2 % (0-4.4); Hemoglobin 13.3 g/dL (12.0-15.0); Immature Granulocyte Absolute 0.14 K/mm3 (0.00-0.031); Lymphocytes Percent Auto 20.2 % (18.3-44.2); Mean Corpuscular HGB Conc 34.1 g/dl (32-36); Mean Corpuscular Hemoglobin 32.1 pg (26-34); Mean Corpuscular Volume 94.2 fl (80-100); Mean Platelet Volume 10.8 fl (7.4-10.4); Monocytes Percent Auto 7.2 % (2.6-8.5); Neutrophils Absolute Auto 9.5 K/mm3 (1.3-6.7); Platelet Count Result 193 k/mm3 (150-375); Red Blood Count 4.14 M/mm3 (4.2-5.4); Red Cell Distribution Width 13.4 % (11.5-14.5); White Blood Count 13.4 K/mm3 (4.5-10.0)
--- NOTE | 2024-04-25 01:40 | P.PCNOB_ITS ---
OB - Delivery Note Procedure Delivery date: 04/25/24 Pre-op diagnosis: Premature Rupture of Membranes and Umbilical Cord Prolapse Post-op Diagnosis: Same Induction method: None Delivery monitor: External FHT and External Uterine Prior to decision for section, ACOG/SMFM labor guidelines were considered and discussed with the patient and staff. Decision made to proceed with the section.: Yes Procedure Performed: Primary Surgeon: Macario Olivia MD Anesthesia type: General Description of Procedure/Findings: Patient was admitted 30/5 and 3 7th weeks gestation was contains rupture membranes prior to admission the had been complicated by placenta previa which resolved however funic presentation had been seen the day before exam showed indeed a cord prolapse. She progressed rapidly from 4-8 cm. Simmons catheter was placed 1 RN push the head from below to relieve pressure upon umbilical cord which was the vagina. [place] she was taken back prepped draped in sterilely. The patient was immediately placed under general anesthetic and low-transverse incision made this progressive layers the fascia the fascia incised midline upward outward fashion underlying muscles sharply dissected prior perineum like a clamps and by is the sharp dissection carried superior and inferiorly dome of the bladder bladder in placed bladder flap formed bladder blade returned low-transverse incision made head delivered in the DEEJAY position anterior posterior shoulder delivered spontaneously. Cord clamped was cut a passed off the table with cry placenta delivered intact with manual uterus delivered the abdomen wrapped in moist towel. After assuring no membranes or debris remained in the uterus, the uterus closed continuous running locking 0 Vicryl followed by 2nd running locking 0 Vicryl from lateral edge to lateral edge. Hemostasis was assured ovaries and tubes appeared within normal limits. The uterus returned to the abdomen. The incision appeared hemostatic. The the fascia closed with continuous running 0 Vicryl from lateral edge to lateral edge. Irrigation subcutaneous layer and the skin closed with clips QBL was 80cc. X-ray was called is a count was not done beforehand and appeared clear of any instruments or needles. The patient went recovery in satisfactory condition. All sponge, needle, instrument counts were noted on the with the x- ray patient went recovery in satisfactory Specimen: No Estimated Blood Loss: 80 Drains: No Packing: No Pathology: None sent Complications: No immediate complications Condition: Stable Disposition: PACU [place] Baby Date of : 04/25/24 Time of : 01:08 Gestational Age by Date: 33 Infant gender: Male presentation: vertex position: Right Occiput Anterior Placenta delivery description: Manual Removal Cord Vessel Description: 3 Vessels
--- NOTE | 2024-04-25 01:50 | PM.DS ---
DS: Admitting Diagnosis Discharge Date 04/26/2024 Admitting Diagnosis Pre term rupture of membranes/cord prolapse DS: Discharge Diagnosis Discharge Diagnosis (1) PROM (premature rupture of membranes): Code(s): O42.90 - Premature rupture of membranes, unspecified as to length of time between rupture and onset of labor, unspecified weeks of gestation Status: Acute (2) Umbilical cord prolapse: Code(s): O69.0XX0 - Labor and delivery complicated by prolapse of cord, not applicable or unspecified Status: Acute DS: Summary Hospital Course Reason for hospitalization: Patient was admitted at 35 and 3 7th weeks gestation with rupture of membranes and umbilical cord prolapse. She returned immediate were removed and primary section. Hospital Course: Patient's hospital course unremarkable. She remained afebrile. She was up, voiding without difficulty, eating regular diet, ambulating, and generally without complaints. Time Spent with Patient Time attestation: Total time spent providing and/or coordinating discharge services: Exam Const: General: cooperative, healthy appearing and comfortable Nutritional Appearance: average body habitus Orientation/consciousness: oriented to person, oriented to place and oriented to time HENMT: Head: normal to inspection Resp: Effort & Inspection: normal respiratory effort Cardio: Rate: regular rate Rhythm: regular rhythm Heart sounds: S1 normal heart sound present and S2 normal heart sound present GI: Inspection: normal to inspection and incision (Wound is clean dry and intact) Other: Soft, gravid. NST good variability. TOCO: irregular contractions : Other: Cervix not examined Extrem: Other: Nontender, no edema DS: Data Data Completed and Pending Labs on day of discharge: Labs from last 24 hours 04/25/24 00:55 WBC 13.4 H RBC 4.14 L Hgb 13.3 Hct 39.0 MCV 94.2 MCH 32.1 MCHC 34.1 RDW 13.4 Plt Count 193 MPV 10.8 H Immature Gran % (Auto) 1.0 H Neut % (Auto) 71.0 Lymph % (Auto) 20.2 [place] % (Auto) 7.2 Eos % (Auto) 0.2 Baso % (Auto) 0.4 Lymph # (Auto) 2.70 [place] # (Auto) 1.0 H Eos # (Auto) 0.0 Baso # (Auto) 0.1 Abs Immat Gran (auto) 0.14 H Absolute Neuts (auto) 9.5 H Absolute Nucleated RBC 0.000 Nucleated RBC % 0.0 RPR Titer Cancelled RPR Cancelled RPR Titer Add Testing Cancelled T.pallidum Ab (FTA-ABS) Cancelled T.pall Ab(FTA-ABS)Reflex Cancelled HIV 1&2 Ab/P24 Ag 4thGn Pending Rubella IgG Antibody Pending Blood Type A Positive Antibody Screen Pending Discharge Plan Discharge Attending physician on discharge: Macario Marroquin Discharging Clinician: Macario Marroqiun Patient Disposition: Home, Self-Care Activity: may shower, no straining and pelvic rest Diet: heart healthy Wound Care Instructions: follow printed instructions Patient Instructions: Antibiotic Form Patient Language: [place] Island[place] Stand Alone Forms: General Discharge Information Follow-up/Referrals: Macario Marroquin MD [Physician] - Discharge Medications: New hydrocodone-acetaminophen 5-325 mg tablet 1 tablet PO Q4H PRN (Reason: pain) Qty: 30 0RF Continued nifedipine 10 mg capsule 10 mg PO Q6H Qty: 30 0RF Date of admission: 04/25/24 00:15 Primary Care Provider: Tomer Machuca Admitting Provider: Macario Marroquin Attending physician on admission: Macario Marroquin Condition: Stable
[2024-04-25 01:52] LABS: HIV 1/2 Ab P24 Ag Result Negative (Negative)
[2024-04-25 02:00] LABS: Rubella IgG Antibody 19.6 IU/ML
[2024-04-25] MEDS: MORPHINE SULFATE INJ (*CRX) 10 MG/ML AMP 2 MG IV PUSH ×4 (02:00→02:51)
--- NOTE | 2024-04-25 02:02 | P.HP_ITS ---
H&P: HPI History of Present Illness Date/Time: 04/25/24 02:02 Chief Complaint: Rupture membranes at 35 weeks Narrative: 33-year-old multiparous patient admitted urgently with rupture of membranes. She had a low-lying placenta which apparently resolved however she went from 4-8 cm with ruptured membranes and cord prolapse was noted Review of Systems Review of Systems: All systems reviewed & are unremarkable except as noted in HPI and below Constitutional: Constitutional: Reports no additional constitutional complaints Eyes: Eyes: Reports no additional eye complaints ENT: Reports as per HPI, Reports otalgia, Reports nasal congestion, Reports sinus pressure and Denies sore throat Cardiovascular: Cardiovascular: Reports no additional cardiovascular complaints, Denies chest pain and Denies dyspnea Respiratory: Respiratory: Reports no additional respiratory complaints, Denies chest congestion, Denies cough and Denies dyspnea Gastrointestinal: Gastrointestinal: Reports no additional gastrointestinal complaints, Denies abdominal pain, Denies nausea and Denies vomiting Musculoskeletal: Musculoskeletal: Reports no additional musculoskeletal complaints Integumentary/Breasts: Skin/Breast: Reports system reviewed and no additional complaints, except as docu Neurologic: Reports system reviewed and no additional complaints, except as documented Psychiatric: Psychiatric: Reports no additional psychiatric complaints Allergic/Immunologic: Allergic/Immunologic: Reports no additional allergic/immunologic complaints [facility] Past Medical History Medical History RLQ abdominal pain RLQ abdominal tenderness Diverticulitis large intestine w/o perforation or abscess w/o bleeding Depression Bronchitis COVID-18 March 2021 Surgical History Surgical History H/O dilation and curettage Family History Family History Father Hypertension Family history of elevated blood lipids Mother Patient's mother is in good health Sibling Patient's brother is in good health Social History Social History Smoking status: Never smoker Second hand tobacco smoke exposure: Yes Alcohol intake: never Substance use: unknown Lack of Transportation: No Lack of Food: Never True Current Housing: I Have Housing Concerned About Future Housing: No Difficulty Paying Gas/Electric Bills: No Difficulty Paying for Meds: No Currently Unemployed: No Education: High School Diploma/GED Difficulty w/ Childcare or Family Care: No Gender identity (if verbalized by the patient): Female Meds Home Medications and Allergies Home Medications ?Medication ?Instructions ?Recorded ?Confirmed ?Type nifedipine 10 mg capsule 10 mg PO Q6H contractions #30 caps 02/15/24 Rx Allergies Allergy/AdvReac Type Severity Reaction Status Date / Time No Known Allergies Allergy Verified 03/30/24 15:34 Vital Signs Vital Signs - 24 hr 04/25/24 00:25 04/25/24 00:30 04/25/24 00:35 Pulse Rate 130 H Blood Pressure 118/72 Pulse Oximetry 100 98 100 04/25/24 00:40 04/25/24 00:45 04/25/24 00:50 Pulse Rate Blood Pressure Pulse Oximetry 99 99 100 04/25/24 00:55 04/25/24 01:53 04/25/24 01:55 Pulse Rate 104 H 106 H Blood Pressure 104/72 106/78 Pulse Oximetry 100 100 04/25/24 01:58 04/25/24 02:00 Pulse Rate 112 H Blood Pressure 124/84 Pulse Oximetry 100 Exam Const: General: cooperative, healthy appearing and comfortable Nutritional Appearance: average body habitus Orientation/consciousness: oriented to person, oriented to place and oriented to time HENMT: Head: normal to inspection Resp: Effort & Inspection: normal respiratory effort Cardio: Rate: regular rate Rhythm: regular rhythm Heart sounds: S1 normal heart sound present and S2 normal heart sound present GI: Inspection: normal to inspection (Gravid uterus) : External Female Exam: normal external appearance Speculum Exam - Va kervin: normal appearance of the vagina Speculum Exam - Cervix: normal appearance of the cervix (Rapid change from 4-8 with funic presentation. FHTs reassuring) H&P: Results Labs Labs: Short CBC 04/25/24 Range/Units 00:55 WBC 13.4 H (4.5-10.0) K/mm3 Hgb 13.3 (12.0-15.0) g/dL Hct 39.0 (37.0-47.0) % Plt Count 193 (150-375) k/mm3 Assessment and Plan Assessment and plan (1) PROM (premature rupture of membranes): Code(s): O42.90 - Premature rupture of membranes, unspecified as to length of time between rupture and onset of labor, unspecified weeks of gestation Status: Acute (2) Umbilical cord prolapse: Code(s): O69.0XX0 - Labor and delivery complicated by prolapse of cord, not applicable or unspecified Status: Acute Plan Proceed with emergent section
--- NOTE | 2024-04-25 02:09 | WPDANESEPPF ---
Anes - Initial Pre Proc Eval Procedure: Operation Date: 04/25/24 00:45 Proposed Procedures p Section - Macario Olivia MD Date/Time: 04/25/24 02:09 Surgeon: Macario Olivia MD Pre Op Diagnosis: 35 wk IUP with prolapsed cord Pre Op Diagnosis: LOF Patient Data Age: 33 Gender: F Height: Weight: Last Vital Signs Pulse 102 H 04/25/24 02:05 BP 119/85 04/25/24 02:05 Pulse Ox 100 04/25/24 02:08 Allergies Allergy/AdvReac Type Severity Reaction Status Date / Time No Known Allergies Allergy Verified 03/30/24 15:34 Home Medications ?Medication ?Instructions ?Recorded ?Confirmed ?Type nifedipine 10 mg capsule 10 mg PO Q6H contractions #30 caps 02/15/24 Rx Laboratory Tests 04/25/24 00:55 WBC 13.4 H K/mm3 (4.5-10.0) RBC 4.14 L M/mm3 (4.2-5.4) Hgb 13.3 g/dL (12.0-15.0) Hct 39.0 % (37.0-47.0) MCV 94.2 fl (80-100) MCH 32.1 pg (26-34) MCHC 34.1 g/dl (32-36) RDW 13.4 % (11.5-14.5) Plt Count 193 k/mm3 (150-375) MPV 10.8 H fl (7.4-10.4) Immature Gran % (Auto) 1.0 H % (0-0.5) Neut % (Auto) 71.0 % (45.5-73.1) Lymph % (Auto) 20.2 % (18.3-44.2) [place] % (Auto) 7.2 % (2.6-8.5) Eos % (Auto) 0.2 % (0-4.4) Baso % (Auto) 0.4 % (0.2-1.2) Lymph # (Auto) 2.70 K/mm3 (0.9-3.2) [place] # (Auto) 1.0 H K/mm3 (0.1-0.6) Eos # (Auto) 0.0 K/mm3 (0-0.3) Baso # (Auto) 0.1 K/mm3 (0.0-0.1) Abs Immat Gran (auto) 0.14 H K/mm3 (0.00-0.031) Absolute Neuts (auto) 9.5 H K/mm3 (1.3-6.7) Absolute Nucleated RBC 0.000 K/mm3 (0.0-0.012) Nucleated RBC % 0.0 % (0.0-0.2) RPR Titer Cancelled RPR Cancelled RPR Titer Add Testing Cancelled T.pallidum Ab (FTA-ABS) Cancelled T.pall Ab(FTA-ABS)Reflex Cancelled HIV 1&2 Ab/P24 Ag 4thGn Negative (Negative) Rubella IgG Antibody 19.6 IU/ML (10 - ) Blood Type A Positive Antibody Screen Negative : gestational age (35 weeks) Patient hx anesthesia problems: none Family hx anesthesia problems: none Results Review: All pre-operative results and documents have been reviewed as part of the pre-operative evaluation. [facility] Past Medical History Medical History RLQ abdominal pain RLQ abdominal tenderness Diverticulitis large intestine w/o perforation or abscess w/o bleeding Depression Bronchitis COVID-18 March 2021 Surgical History Surgical History H/O dilation and curettage Family History Family History Father Hypertension Family history of elevated blood lipids Mother Patient's mother is in good health Sibling Patient's brother is in good health Social History Social History Smoking status: Never smoker Second hand tobacco smoke exposure: Yes Alcohol intake: never Substance use: unknown Lack of Transportation: No Lack of Food: Never True Current Housing: I Have Housing Concerned About Future Housing: No Difficulty Paying Gas/Electric Bills: No Difficulty Paying for Meds: No Currently Unemployed: No Education: High School Diploma/GED Difficulty w/ Childcare or Family Care: No Gender identity (if verbalized by the patient): Female Anes - Eval Final PreProcedure Day of Procedure 04/25/24 02:09 Patient weight: normal Heart: regular rate and rhythm Lungs: normal air movement Airway: Mallampati scale class II Neurological: alert and oriented Last oral intake: 2 hours ASA classification: II Emergent: yes Anesthetic plan: proceed Anesthesia type and monitoring: general ETT and standard monitoring Results Review: All pre-operative results and documents have been reviewed as part of the pre-operative evaluation. Informed Consent: The patient's anesthetic plan and its attendant risks and benefits were discussed with the patient/family/POA. Questions were solicited and answers provided to the satisfaction of the patient/family/POA.
[2024-04-25] MEDS: OXYTOCIN 30 UNITS/NS 500 ML 30 UNITS/500 ML BAG 125 UNITS IV CONT (02:34)
[2024-04-25 02:47] LABS: Syphilis IgG/IgM Antibody Negative (Negative)
--- NOTE | 2024-04-25 04:37 | LDADM ---
This patient, Ying Hampton, was admitted to Labor/Delivery/Recovery 120 on 04/25/24 at 00:15. Plans for labor, pain management and were discussed with patient. Patient/family oriented to hospital policies and general routines including ID bracelet, bed and alarms, visiting hours, pain management, procedures, bathroom and other care routines, personal items, smoking policy, room service/diet and guest tray routines, infant security routines, and visiting hours. Patient/Family are encouraged to report perceived risks to care and to ask questions if they do not understand what they are told or what they should do. See [facility] for further documentation.
[2024-04-25] MEDS: LACTATED RINGERS 1,000 ML 999 ML IV CONT (04:44)
--- NOTE | 2024-04-25 05:40 | OBPPTRN ---
Patient transferred to post room #285 via stretcher. Support person present. Oriented to unit, room, information board, rooming in, admission packet and security measures. Patient verbalizes understanding.
[2024-04-25 07:45] LABS: OBXCEM ROM Plus Positive (Negative)
[2024-04-25] MEDS: KETOROLAC 15 MG/ML VIAL (*BKC) IV PUSH (08:28)
[2024-04-25] MEDS: DEXTROSE 5%/0.45% SOD CHL 1,000 ML 125 ML IV CONT (08:28)
--- NOTE | 2024-04-25 08:30 | PC.NURSE ---
Breast pump provided due to [ in level 2 nursery]. Instructions given on cleaning, care, usage, that there should be no pain, pumping schedule for milk production, collection, and storage of human milk. Patient was assessed for correct placement, flange size, to pump for comfort and nipple stretching/stimulation for adequate milk production every 3 hours (8 times in 24 hours) 1-2 times at night. Encouraged gentle breast massage to increase milk expression. Mother has pumped with her other children. Parents are encouraged to record the pumping schedule on the pumping log.?Mother voiced understanding of the education shared along with mom/baby guide for additional resource information. Reported to the Primary RN.
[2024-04-25] MEDS: ceFAZolin 1 GM/NS 50 ML 1 GM/50 ML BAG IVPB (08:33)
[2024-04-25] MEDS: ACETAMINOPHEN 325 MG TABLET 650 MG PO ×3 (08:36→21:32)
[2024-04-25] MEDS: SIMETHICONE 80 MG TAB.CHEW PO ×3 (08:38→16:23)
[2024-04-25] MEDS: LIDOCAINE 5% PATCH 1 PATCH TRANSDERM (08:40)
--- NOTE | 2024-04-25 10:38 | PC.NURSE ---
On 04/25/24, the student, Laci Perez, provided care and completed [facility] documentation on this patient. I have reviewed the student's documentation and agree with the findings.
[2024-04-25] MEDS: MULTIVIT/MIN/PREN/FOL AC/IRON TABLET 1 TAB PO (13:16)
[2024-04-25] MEDS: DOCUSATE SODIUM 100 MG CAPSULE PO (13:17)
[2024-04-25] MEDS: IBUPROFEN 600 MG TABLET PO (14:57)
[2024-04-25] MEDS: HYDROcodone/acetaminophen (*CRX) 5-325 MG TABLET 1 TAB PO ×2 (14:58→16:22)
--- NOTE | 2024-04-25 15:15 | PC.NURSE ---
Checked in with patient about how pumping is going. She just pumped a good amount of colostrum and is planning to take it with her on pass to the NICU. Labels provided and patient advised to date and time all collection bottles. She states that the pump feels good and she doesn't have any questions. Reported to primary RN.
[2024-04-25] MEDS: HYDROcodone/acetaminophen (*CRX) 10-325 MG TABLET 1 TAB PO (21:31)
[2024-04-26] MEDS: ACETAMINOPHEN 325 MG TABLET 650 MG PO ×2 (03:27→10:02)
[2024-04-26] MEDS: HYDROcodone/acetaminophen (*CRX) 10-325 MG TABLET 1 TAB PO ×2 (03:28→12:26)
[2024-04-26 03:30] VITALS: BP 108/70; PULSE 84; RESP 16; TEMP 36.5; O2SAT 98
[2024-04-26 03:40] LABS: Basophils Percent Auto 0.2 % (0.2-1.2); Eosinophils Percent Auto 0.2 % (0-4.4); Hematocrit 31.6 % (37.0-47.0); Hemoglobin 10.6 g/dL (12.0-15.0); Immature Granulocyte Absolute 0.06 K/mm3 (0.00-0.031); Immature Granulocyte Percent A 0.6 % (0-0.5); Lymphocytes Absolute Auto 1.36 K/mm3 (0.9-3.2); Lymphocytes Percent Auto 13.8 % (18.3-44.2); Mean Corpuscular HGB Conc 33.5 g/dl (32-36); Mean Corpuscular Hemoglobin 32.7 pg (26-34); Mean Corpuscular Volume 97.5 fl (80-100); Mean Platelet Volume 10.1 fl (7.4-10.4); Monocytes Absolute Auto 0.7 K/mm3 (0.1-0.6); Monocytes Percent Auto 7.3 % (2.6-8.5); Neutrophils Absolute Auto 7.7 K/mm3 (1.3-6.7); Neutrophils Percent Auto 77.9 % (45.5-73.1); Platelet Count Result 129 k/mm3 (150-375); Red Blood Count 3.24 M/mm3 (4.2-5.4); Red Cell Distribution Width 13.7 % (11.5-14.5); White Blood Count 9.8 K/mm3 (4.5-10.0)
--- NOTE | 2024-04-26 05:10 | PM.OBPNVD ---
OB - PN: Subj Subjective Date/time seen: 04/26/24 05:10 Patient comments: no complaints, pain well controlled, tolerating diet and flatus present [place] baby status: doing well (Baby was transferred) OB - PN: Obj Data Labs 04/26/24 03:31 Labs: Laboratory Results - last 24 hr 04/25/24 04/26/24 00:15 03:31 WBC 9.8 RBC 3.24 L Hgb 10.6 L Hct 31.6 L MCV 97.5 MCH 32.7 MCHC 33.5 RDW 13.7 Plt Count 129 L MPV 10.1 Immature Gran % (Auto) 0.6 H Neut % (Auto) 77.9 H Lymph % (Auto) 13.8 L [place] % (Auto) 7.3 Eos % (Auto) 0.2 Baso % (Auto) 0.2 Lymph # (Auto) 1.36 [place] # (Auto) 0.7 H Eos # (Auto) 0.0 Baso # (Auto) 0.0 Abs Immat Gran (auto) 0.06 H Absolute Neuts (auto) 7.7 H Absolute Nucleated RBC 0.000 Nucleated RBC % 0.0 Membranes Rupture Rom plus positive Imaging Radiologist's impression: Impressions Abdomen X-Ray 04/25/24 06:04 Impression: No radiopaque foreign body. No significant abnormality seen. OB - PN A/P Assessment and Plan (1) PROM (premature rupture of membranes): Code(s): O42.90 - Premature rupture of membranes, unspecified as to length of time between rupture and onset of labor, unspecified weeks of gestation Status: Acute (2) Umbilical cord prolapse: Code(s): O69.0XX0 - Labor and delivery complicated by prolapse of cord, not applicable or unspecified Status: Acute Plan Routine care Time Spent With Patient Time: Total time spent is greater than 50% in coordination of care (as documented) at patient's floor/unit and/or counseling patient: Review of Systems Review of Systems: All systems reviewed & are unremarkable except as noted in HPI and below Constitutional: Constitutional: Reports no additional constitutional complaints Eyes: Eyes: Reports no additional eye complaints ENT: Reports as per HPI, Reports otalgia, Reports nasal congestion, Reports sinus pressure and Denies sore throat Cardiovascular: Cardiovascular: Reports no additional cardiovascular complaints, Denies chest pain and Denies dyspnea Respiratory: Respiratory: Reports no additional respiratory complaints, Denies chest congestion, Denies cough and Denies dyspnea Gastrointestinal: Gastrointestinal: Reports no additional gastrointestinal complaints, Denies abdominal pain, Denies nausea and Denies vomiting Musculoskeletal: Musculoskeletal: Reports no additional musculoskeletal complaints Integumentary/Breasts: Skin/Breast: Reports system reviewed and no additional complaints, except as docu Neurologic: Reports system reviewed and no additional complaints, except as documented Psychiatric: Psychiatric: Reports no additional psychiatric complaints Allergic/Immunologic: Allergic/Immunologic: Reports no additional allergic/immunologic complaints Exam Const: General: cooperative, healthy appearing and comfortable Nutritional Appearance: average body habitus Orientation/consciousness: oriented to person, oriented to place and oriented to time HENMT: Head: normal to inspection Resp: Effort & Inspection: normal respiratory effort Cardio: Rate: regular rate Rhythm: regular rhythm Heart sounds: S1 normal heart sound present and S2 normal heart sound present GI: Inspection: normal to inspection (Fundus firm below the umbilicus) and incision (Wound is clean dry and intact)
[2024-04-26 08:00] VITALS: BP 101/70; PULSE 86; RESP 16; TEMP 36.7; O2SAT 99
[2024-04-26] MEDS: DOCUSATE SODIUM 100 MG CAPSULE PO (08:46)
[2024-04-26] MEDS: SIMETHICONE 80 MG TAB.CHEW PO ×2 (08:47→12:28)
[2024-04-26] MEDS: MULTIVIT/MIN/PREN/FOL AC/IRON TABLET 1 TAB PO (08:47)
--- NOTE | 2024-04-26 08:50 | P.PNOB_ITS ---
OB - PN: Subj Subjective Date/time seen: 04/26/24 08:50 Narrative: Pain OK. Tolerating diet. Would like to go home. OB - PN: Obj Data Labs 04/26/24 03:31 Labs: Laboratory Results - last 24 hr 04/26/24 03:31 WBC 9.8 RBC 3.24 L Hgb 10.6 L Hct 31.6 L MCV 97.5 MCH 32.7 MCHC 33.5 RDW 13.7 Plt Count 129 L MPV 10.1 Immature Gran % (Auto) 0.6 H Neut % (Auto) 77.9 H Lymph % (Auto) 13.8 L [place] % (Auto) 7.3 Eos % (Auto) 0.2 Baso % (Auto) 0.2 Lymph # (Auto) 1.36 [place] # (Auto) 0.7 H Eos # (Auto) 0.0 Baso # (Auto) 0.0 Abs Immat Gran (auto) 0.06 H Absolute Neuts (auto) 7.7 H Absolute Nucleated RBC 0.000 Nucleated RBC % 0.0 OB - PN A/P Plan day: 1 Comments: A: POD#1, doing well. Baby was transferred. P: Home to f/u 4 weeks. Exam 2 Narrative: AVSS ABD soft, nontender, fundus firm. Incision c/d/i. EXT nontender
--- NOTE | 2024-04-26 09:27 | PC.NURSE ---
Baby transferred to [facility]. No need for post f/u at [place]. Will be seen in office at 4 weeks.
[2024-04-26] MEDS: IBUPROFEN 600 MG TABLET PO (10:02)
[2024-04-26] MEDS: LIDOCAINE 5% PATCH 1 PATCH TRANSDERM (10:03)
--- NOTE | 2024-04-26 10:25 | PC.NURSE ---
Consulted with mother concerning needs and she shared her ability to independently pump without pain. Reinforced understanding of milk production, transition of milk, prevention/relief of engorgement, plugged ducts, mastitis, community resources, and when to call a provider using the resource of the feeding sheet along with the mom and baby guide. She requested an insurance pump and a Medela Pump in Style was given. Mother voiced understanding of the information shared, is confident to continue effectively her infant at home, when to call for assistance, denies any additional assistance or education at this time. Reported to the Primary RN.
== END 2024-04-26 12:35 | disposition home or self-care (01) | DRG 788 ==
LOC: ANHLDR 01:55 → ANHOB2 06:20
PROVIDERS: Admitting Provider Obstetrics & Gynecology; PCP Internal Medicine; Visit Provider Obstetrics & Gynecology
PROC: 10D00Z1 Extraction of Products of Conception, Low, Open Approach (ICD-10-PCS; CPT 59514; principal; 2024-04-25 00:45)
DX: O60.14X0 Preterm labor third trimester with preterm delivery third trimester, not applicable or unspecified (principal); O69.0XX0 Labor and delivery complicated by prolapse of cord, not applicable or unspecified; Z3A.35 35 weeks gestation of pregnancy; Z37.0 Single live birth
CPT/HCPCS: 36415; 74018; 84112; 85025; 86593; 86703; 86762; 86850; 86900; 86901; A9270; G0432; J0330; J0456; J0690; J1200; J1885; J2003; J2270; J2274; J2405; J2590; J2704; J7120

== ENCOUNTER 2024-10-17 09:22 | Emergency (ER) | payer BC, OTHER, SELFPAY ==
--- NOTE | ~2024-10-17 | XR_ITS ---
EXAMINATION: XR finger 1st RT min 2V DATE: 10/17/2024 10:11 INDICATION: Nontraumatic pain at the right first digit TECHNIQUE: Dorsal palmar, lateral and 2 oblique views of the right first digit were obtained COMPARISON: None FINDINGS: Bone alignment is normal. No fracture. Likely developmentally short right first distal phalanx. Joint spaces appear relatively preserved. No erosions to suggest inflammatory arthritis. Soft tissues are unremarkable. IMPRESSION: 1. Likely developmentally short right first distal phalanx. Otherwise unremarkable right thumb radiographs. Reviewed, dictated and finalized at location A. IMPRESSION: 1. Likely developmentally short right first distal phalanx. Otherwise unremarka ble right thumb radiographs.
--- OUTSIDE RECORDS SUMMARY | 2024-10-17 09:35 | XMS_ITS | Encounter Summary ---
Author Organization [facility] Address [address] [place] [address] Care Team Providers Care Screedman/Laborer Name Role Phone Severino Wooten Primary Care Provider [phone] Encounter Details Date Type Department Care Team (Late st Contact Info) Description 06/20/2019 Telephone [facility] [address] [place] [id number] Ivis Borden RN Social History Tobacco Use Types Packs/Day Years Used Date Smoking Tobacco: Never Smokeless Tobacco: Never Alcohol Use Standard Drinks/Week Comments No 0 (1 standard drink = 0.6 oz pur e alcohol) Comments No Sex and Gender Information Value Date Recorded Sex Assigned at Not on file Legal Sex Female 6:56 AM LABORATORY MILLER Gender Identity Not on file Sexual Orientation Not on file documented as of this encounter Functional Status * Is person deaf or have serious hearing difficulty? Answer Date of Assessment Author No 04/12/2018 10:45 AM Mando Youngblood RN * Is person blind or have serious difficulty seeing? Answer Date of Assessment Author No 04/12/2018 10:45 AM Mando Youngblood RN * Does person have serious difficulty walking/climbing stairs? Answer Date of Assessment Author No 04/12/2018 10:45 AM Mando Youngblood RN * Does person have difficulty dressing/bathing? Answer Date of Assessment Author No 04/12/2018 10:45 AM Mando Youngblood RN * Does person have difficulty doing errands alone? Answer Date of Assessment Author No 04/12/2018 10:45 AM LABORATORY MILLER Ferraro, M onica L, RN documented as of this encounter Mental Status * Does person have difficulty concentrating/remembering/making decisions? Answer Entry Date Author No 04/12/2018 10:45 AM LABORATORY MILLER Mando Ferraro RN documented in this encounter Miscellaneous Notes * Telephone Encounter - Ivis Borden RN - 06/20/2019 1:30 PM CDT Reached out to pt to let her know we are not scheduling non-emergent cases at this time due to Covid-19. Pt verbalized understanding. Pt has our contact information and encouraged to call with questions or concerns. documented in this encounter Plan of Treatment Not on file documented as of this encounter Visit Diagnoses Not on filedocumented in this encounter Additional Health Concerns Infection Onset Date Last Indicated Resolved Time COVID-19 Under Investigation 04/10/2020 04/10/2020 04/10/2020 9:17 AM LABORATORY MILLER documented as of this encounter Care Teams Screedman/Laborer Relationship Specialty Start Date End Date Severino Wooten DO [address] [place] [address] PCP - General 10/26/17 documented as of this encounter
--- OUTSIDE RECORDS SUMMARY | 2024-10-17 09:35 | XMS_ITS | Encounter Summary ---
Author Organization [facility] Address [address] [address] Care Team Providers Care Casket Inspector Name Role Phone Severino Wooten DO Primary Care Provider [phone] Reason for Visit * Reason Onset Date Comments Pain Back 03/21/2024 Side Effect 03/21/2024 Encounter Details Date Type Department Care Team (Late st Contact Info) Description 03/21/2024 Telephone [facility] [address] [place] [address] Steffanie Arnold MD [address] [place] [address] Pain Back; Side Effect Social [...] Recorded Patient Health Questionnaire-2 Score 0 03/21/2024 [facility] Occupat ional Health - Occupational Stress [...] any time in the past 12 m [facility], were you homeless or living in a fci (including now)? No 01/31/2024 Education Answer Date Recorded What is the highest level of school you have completed or the highest degree you have received? 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 Answer Date of Assessment Author No 01/31/2024 6:15 PM Bao Hansen, RN * Is person blind or have serious difficulty seeing? Answer Date of Assessment Author No 01/31/2024 6:15 PM Bao Hansen, RN * Does person have serious difficulty walking/climbing stairs? Answer Date of Assessment Author No 01/31/2024 6:15 PM Bao Hansen, RN * Does person have difficulty dressing/bathing? Answer Date of Assessment Author No 01/31/2024 6:15 PM Bao Hansen, RN * Does person have difficulty doing errands alone? Answer Date of Assessment Author No 01/31/2024 6:15 PM Bao Hansen RN * Over the past 2 weeks, how often have you been bothered by any of the following problems? Question Answer Date of Assessment Author Little interest or pleasure in doing things Not at all 03/21/2024 11:22 AM Alexandra Uribe RN Feeling down, depressed, or hopeless Not at all 03/21/2024 11:22 AM Gurinder Uribe RN Patient Health Questionnaire-2 Score 0 03/21/2024 11:22 AM Ritika Uribe RN documented as of this encounter Mental Status * Does person have difficulty concentrating/remembering/making decisions? Answer Entry Date Author No 01/31/2024 6:15 PM Bao Hansen RN documented in this encounter Miscellaneous Notes * Telephone Encounter - Jada Stuart - 03/21/2024 2:43 PM CST Pt had iron infusion and now is having a lot of back pain and wants to know is this an normal side effect from injection. CB: [phone] RONMENTAL SERVICES SPECIALIST documented in this encounter Plan of Treatment Not on file documented as of this encounter Visit Diagnoses Not on filedocumented in this encounter Care Teams Casket Inspector Relationship Specialty Start Date End Date Severino Wooten DO [address] [address] PCP - General 10/26/17 documented as of this encounter
--- OUTSIDE RECORDS SUMMARY | 2024-10-17 09:35 | XMS_ITS | Clinical Summary ---
Author Organization [facility] Address [address] [place] [address] Care Team Providers Care Senior Sales Assistant Name Role Phone Severino Wooten DO Primary Care Provider [phone] Source Comments [facility],non-owned Affiliates and Associated Physician Practices is amultiple site organization consisting of ambulatory clinics and hospital sitesin [place], [place], [place] and [place]. This disclosure is being madepursuant to the Care Everywhere program and may not contain all information available regarding this patient. Last updated 17.[facility] Allergies No known active allergies Medications * Be aware that medications may not be up to date on this document. Alwaysverify current medications with the patient. Vit-Fe Fumarate-FA ( vitamin) 28-0.8 MG tabletIndicatio ns: Take 1 (one) tablet by mouth once daily Reasons: Active NIFEdipine (Procardia) 10 MG capsuleIndicati ons:Premature Labor Take 1 (one) capsule by mouth every 6 hours Reasons: Early Labor 180 capsule 2 4 Active ferrous sulfate 325 (65 FE) MG tablet Take 1 (one) tablet by mouth once daily Active valACYclovir (Valtrex) 500 MG tablet Take 1 (one) tablet by mouth 2 times daily 60 tablet 1 5 Active Active Problems Problem Noted Date Diagnosed Date Low lying placenta with hemo rrhage in third trimester, antepartum 04/27/2024 Request for sterilization 04/18/2024 Overview (04/18/2024): Request [...] plan repeat pap smear in a year History of delivery, currently Resolved Problems Problem Noted Date Diagnosed Date Resolved Date History of PROM in p revious , currently 03/20/2024 04/03/2024 Placenta previa antepartum 02/09/2024 0 04/27/2024 Overview (04/18/2024): Admitted in early January for vaginal bleeding and contractions. S/p ANCS 01/30- 4 Vaginal bleeding in 01/31/2024 02/20/2024 Pre-op testing 01/04/2020 02/20/2024 care following vaginal delivery 04/22/2018 02/20/2024 premature rupture of membranes in third trimester 04/12/2018 04/18/2018 Lymphatic malformation 10/26/201702/19 Immunizations Immunization Administration Dates Next Due Covid Moderna primary monova lent 12+ yr 0.5mL 05/17/2020,04/19/2020 DT (AGE 0-7) 09/22/1993, 0,04/04/1989,1988,1988 HEP B VACCINE, PED/ADOL 07/14/1998,02/12/1998, HIB VACCINE 10/23/1991 INFLUENZA VACCINE, QUADR. (F LUZONE; FLULAVAL; FLUARIX; AFLURIA QUADRIVALENT; 6MO+), 0.5 ML (IIV4) 04/14/2018 INFLUENZA VACCINE, TRIV. (FL UZONE; FLULAVAL; FLUARIX; AFLURIA TRIVALENT; 6MO+), 0.5 ML (IIV3) 11/25/2023 MMR VACCINE 09/22/1993,11/21/1989 POLIO OPV 09/22/1993, 0,04/04/1989,1988,1988 RSV ABRYSVO PREG OR 60y+ 0.5mL 04/17/2024 [...] Recorded Patient Health Questionnaire-2 Score 0 03/28/2024 [facility] Occupat ional Health - Occupational [...] any time in the past 12 m [facility], were you homeless or living in a nursing home (including now)? No 04/10/2024 Education Answer Date Recorded What is the highest level of school you have completed or the highest degree you have received? 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 Not on file Not on file Last Filed Vital Signs Vital Sign Reading Time Taken Comments Blood Pressure 102/64 04/24/2024 10:21 AM RESEARCH AND DEVELOPMENT TESTER Pulse 80 04/04/2024 11:51 AM RESEARCH AND DEVELOPMENT TESTER Temperature 36.8 C (98.3 F) 04/11/2024 12:17 PM RESEARCH AND DEVELOPMENT TESTER Respiratory Rate 17 04/11/2024 12:17 PM RESEARCH AND DEVELOPMENT TESTER Oxygen Saturation 98% 04/11/2024 12:17 PM RESEARCH AND DEVELOPMENT TESTER Inhaled Oxygen Concentration - - Weight 59 kg (130 lb) 04/24/2024 10:21 AM RESEARCH AND DEVELOPMENT TESTER Height 154.9 cm (5' 1) 04/24/2024 10:21 AM RESEARCH AND DEVELOPMENT TESTER Body Mass Index 24.56 04/24/2024 10:21 AM RESEARCH AND DEVELOPMENT TESTER Plan of Treatment Health Maintenance Due Date Last Done Comments PAP SMEAR 2009 HPV VACCINE (1 - 3-dose SCDM series) 08/17/2015 COVID-19 VACCINE ( season) 2023 05/17/2020, 04/19/2020 INFLUENZA VACCINE (#1) 2024 11/25/2023, 2018 DTAP/TDAP/TD VACCINES (8 - Td or Tdap) 03/20/2034 03/20/2024, 04/15/2018, 09/22/1993, Additional history exists ZOSTER VACCINE (1 of 2) 2038 HIB VACCINE Completed 10/23/1991 HEPATITIS B VACCINE Completed 07/14/1998, 02/12/1998, 01/13/1998 HIV SCREENING Completed 02/20/2024 DEPRESSION SCREENING Completed 03/21/2024, 02/09/20 HEPATITIS C SCREENING Completed 03/21/2024 Respiratory Syncytial Virus (RSV) Vaccine Pt: or over 60 yrs Discontinued 04/17/2024 MENINGOCOCCAL (Group B) VACCINE SHARED DECISION-MAKING Aged Out No longer eligible based on patient's age to complete this topic MENINGOCOCCAL GROUPS A/C/Y/W VACCINE Aged Out No longer eligible based on patient's age to complete this topic PNEUMOCOCCAL VACCINE Aged Out No long er eligible based on patient's age to complete this topic Procedures Procedure Name Priority Date/Time Associated Diagnosis Comments CULTURE STREP B Routine 04/10/2024 8:55 AM RESEARCH AND DEVELOPMENT TESTER Abdominal cramping affecting HEPATITIS C ANTIBODY MONTY 03/21/2024 11:17 AM RESEARCH AND DEVELOPMENT TESTER Multigravida of advanced maternal age in second trimester GTT 1 HR (50G) GESTATIONAL SCREEN Routine 02/20/2024 11:06 AM RESEARCH AND DEVELOPMENT TESTER Supervision of high-risk of elderly multigravida (>= 35 years old at time of delivery) HIV-1 HIV-2 ANTIBODY + HIV P24 AG PANEL Routine 02/20/2024 11:06 AM RESEARCH AND DEVELOPMENT TESTER Supervision of high-risk of elderly multigravida (>= 35 years old at time of delivery) from Last 3 Months or Most Recently Relevant to Health Maintenance Results * CULTURE STREP B (04/10/2024 8:55 AM RESEARCH AND DEVELOPMENT TESTER) Culture Strep B Negative for beta-hemolytic Streptococcus Group B EVELIN 04/13/2024 4:37 PM RESEARCH AND DEVELOPMENT TESTER [facility] Microbiology MISCELLANEOUS SAMPLES / Unknown Collection / Unknown 04/10/2024 8:55 AM RESEARCH AND DEVELOPMENT TESTER 04/10/2024 9:05 AM RESEARCH AND DEVELOPMENT TESTER us Santos Ledezma DO LAB - MICROBIOLOGY ORDERABLES Final Result [facility] [address] [place] [address], [facility] [phone] * HEPATITIS C ANTIBODY (03/21/2024 11:17 AM RESEARCH AND DEVELOPMENT TESTER) [facility] HCV Antibody Screen Non Reactive Non Reactive 03/21/2024 12:11 PM RESEARCH AND DEVELOPMENT TESTER [facility] Blood BLOOD SPECIMEN / Unknown Venipuncture / Unknown 03/21/2024 11:17 AM RESEARCH AND DEVELOPMENT TESTER 03/21/2024 11:23 AM RESEARCH AND DEVELOPMENT TESTER Narrative [facility] - 03/21/2024 12:11 PM RESEARCH AND DEVELOPMENT TESTER Non Reactive - Antibodies to Hepatitis C virus (HCV) were not detected, result does not exclude early acute HCV infection. Adriana Redman APRN-PROJECT DEVELOPMENT MANAGER LAB - CHEMISTRY ORDERA BLES Final Result Performing Organization Address City/[facility]/ZIP Co de Phone Number [facility] [address] [place] [address] * GTT 1 HR (50G) GESTATIONAL SCREEN (02/20/2024 11:06 AM RESEARCH AND DEVELOPMENT TESTER) [facility] Glucose Gestational Screen 80 <140 mg/dL [facility] Comment: Test Performed at: [email or web address] [address] [place] [address] JAMIE WARREN MD Blood BLOOD SPECIMEN / Unknown 02/20/2024 11:06 AM RESEARCH AND DEVELOPMENT TESTER 02/20/2024 11:07 AM RESEARCH AND DEVELOPMENT TESTER Adriana Redman APRN-PROJECT DEVELOPMENT MANAGER LAB - CHEMISTRY ORDERA BLES Final Result [facility] [address] [place] [address] * HIV-1 HIV-2 ANTIBODY + HIV P24 AG PANEL (02/20/2024 11:06 AM RESEARCH AND DEVELOPMENT TESTER) [facility] HIV Screen 4th Generation w Reflex NON-REACT [...] purpose. For additional information please refer to http://education.[employer]/faq/GDZ057 (This link is being provided for informational/ educational purposes only.) The performance of this assay has not been clinically validated in patients less than 2 years old. Test Performed at: [facility] [address] [facility] [place] [address] JAMIE WARREN MD Blood BLOOD SPECIMEN / Unknown 02/20/2024 11:06 AM RESEARCH AND DEVELOPMENT TESTER 02/20/2024 11:07 AM RESEARCH AND DEVELOPMENT TESTER Adriana Redman SEALING MACHINE OPERATOR-PROJECT DEVELOPMENT MANAGER LAB - CHEMISTRY ORDERA BLES Final Result Performing Organization Address City/State/[facility] Co de Phone Number [facility] [address] [place] [address] from Last 3 Months or Most Recently Relevant to Health Maintenance Insurance [facility] Advance Directives * Full Code (Latest Code [...] 12:22 PM 04/21/2018 10:46 AM Care Teams Senior Sales Assistant Relationship Specialty Start Date End Date Severino Wooten DO [address] [place] [address] PCP - General 10/26/17
--- OUTSIDE RECORDS SUMMARY | 2024-10-17 09:35 | XMS_ITS | Clinical Summary ---
Author Organization [facility] Care Team Providers Care Maintainer Operator Name Role Phone Unavailable Primary Care Provider Unavailabl e Social History Tobacco Use Types Packs/Day Years Used Date Smoking Tobacco: Never Assessed Comments Unknown Sex and Gender Information Value Date Recorded Sex Assigned at Not on file Legal Sex Female 3:09 PM MANAGER ANDROID Gender Identity Not on file Sexual Orientation Not on file Plan of Treatment Health Maintenance Due Date Last Done Comments Hepatitis C Virus (HCV) Screening 1988 TdaP Immunization 1988 Pap Smear 2009 Human Papillomavirus (HPV) Immunization (1 - 3-dose SCDM series) 08/17/2015 Cervical Cancer Screening (CCS) 2018 HPV/Cotest 2018 SARS-COV-2 Immunization ( season) 2023 05/17/2020, 04/19/2020 Influenza Immunization (#1) 2024 Respiratory Syncytial Virus (RSV) Immunization (Adult) (1 [...]
[2024-10-17 09:38] VITALS: BP 91/68; PULSE 75; RESP 18; TEMP 36.1; O2SAT 100
--- NOTE | 2024-10-17 09:56 | ED.EXTPRO ---
HPI - Extremity Problem General Chief complaint: Extremity Problem,Nontraumatic Stated complaint: thumb pain Time Seen by Provider: 10/17/24 09:58 Source: patient Mode of arrival: ambulatory Limitations: no limitations History of Present Illness HPI Narrative: 34-year-old female presented for complaint of right thumb pain. Onset 2 weeks. Denies specific injury. Pain is worse when squeezing or lifting. States she has a baby and notes it is difficult to lift him due to the pain. Has been wearing a splint she bought online, says it is not supportive. Also taking Tylenol. She denies numbness, tingling, swelling or weakness. Patient is right-hand dominant Related Data Home Medications ?Medication ?Instructions ?Recorded ?Confirmed ?Last Taken ?Type norethindrone (contraceptive) 0.35 mg 10/17/24 Unknown History mg tablet sertraline 50 mg tablet mg 10/17/24 Unknown History Allergies Allergy/AdvReac Type Severity Reaction Status Date / Time No Known Allergies Allergy Verified 10/17/24 09:39 Review of Systems Review of Systems: CONSTITUTIONAL: Denies body aches, fever, chills EYES: Denies visual changes ENT: Denies rhinorrhea, congestion CARDIOVASCULAR: Denies chest pain, palpitations, or edema. RESPIRATORY: Denies cough or dyspnea. SKIN: Denies rash, itching, or wounds. MUSCULOSKELETAL: reports right thumb pain. NEUROLOGIC: Denies headache, numbness, tingling, or weakness. All systems reviewed & are unremarkable except as noted in HPI and below PMFSH Past Medical History Medical History RLQ abdominal pain RLQ abdominal tenderness Diverticulitis large intestine w/o perforation or abscess w/o bleeding Depression Bronchitis COVID-18 March 2021 Surgical History Surgical History H/O dilation and curettage Family History Family History Father Hypertension Family history of elevated blood lipids Mother Patient's mother is in good health Sibling Patient's brother is in good health Social History Social History Smoking status: Never smoker Second hand tobacco smoke exposure: Yes Alcohol intake: never Substance use: unknown Do You Feel Safe in your Home?: Yes Lack of Transportation: No Lack of Food: Never True Current Housing: I Have Housing Concerned About Future Housing: No Difficulty Paying Gas/Electric Bills: No Difficulty Paying for Meds: No Currently Unemployed: No Education: High School Diploma/GED Difficulty w/ Childcare or Family Care: No Gender identity (if verbalized by the patient): Female Spiritual care concerns: No Comments At time of signature, I have reviewed and agree with nursing past medical, surgical, social and family history unless otherwise noted. Please see nursing chart for further information. There is no relevant family history pertinent to the presenting complaint Exam Narrative: GENERAL: Well-appearing CHEST: Speaks in full sentences. No respiratory distress. HEART: Regular rate and rhythm. Normal and equal peripheral pulses. EXTREMITIES: Right hand and digits have normal strength and sensation. Range of motion normal but endorses pain with finger cascade touching thumb to 5th digit. tenderness with palpation over 1st metacarpal. Skin intact. median, ulnar and radial nerve intact. Can perform 'okay' sign, 'cross over finger test of index and middle fingers' and 'thumbs up' sign. No scissoring. Normal thumb opposition. Good capillary refill and radial pulse. Distal capillary refill less than 3 seconds. SKIN: Warm, dry NEURO: Alert and oriented x3. Course Course Emergency Course: Patient is aware of diagnosis, understands and agrees to treatment plan. Anticipatory guidance given. Patient agrees to follow-up as directed and is aware of reasons to seek care at the emergency department. Portions of this record may have been created with voice recognition software Level of Care: Express Care Visit Vital Signs Vital signs: Vital Signs Temperature 97.0 F L 10/17/24 09:38 Pulse Rate 75 10/17/24 09:38 Respiratory Rate 18 10/17/24 09:38 Blood Pressure 91/68 L 10/17/24 09:38 Pulse Oximetry 100 10/17/24 09:38 Oxygen Delivery Room Air 10/17/24 09:38 Temperature 97.0 F L 10/17/24 09:38 Pulse Rate 75 10/17/24 09:38 Respiratory Rate 18 10/17/24 09:38 Blood Pressure 91/68 L 10/17/24 09:38 Pulse Oximetry 100 10/17/24 09:38 Oxygen Delivery Room Air 10/17/24 09:38 Reviewed MDM - Extremity (Nontraumatic) MDM Narrative Medical decision making narrative: Discussed physical exam findings and xray. Pt has splint at home. Advised supportive measures and signs/symptoms to go to the ER. Pt is appropriate for outpt treatment and f/u. Differential Diagnosis Differential diagnosis: Likely other (sprain/strain of wrist, Colles' fracture, wrist fracture, hand fracture, finger sprain, dislocation of finger, gout, cellulitis, arthritis, tendonitis) Imaging Data Radiologist's impression: Patient: Ying Hampton : 1990 MR#: [id number] Age: 34 Acct:[id number] Loc: [facility] ADM Date: 10/17/24Attending Dr: EXAMINATION: XR finger 1st RT min 2V DATE: 10/17/2024 10:11 INDICATION: Nontraumatic pain at the right first digit TECHNIQUE: Dorsal palmar, lateral and 2 oblique views of the right first digit were obtained COMPARISON: None FINDINGS: Bone alignment is normal. No fracture. Likely developmentally short right first distal phalanx. Joint spaces appear relatively preserved. No erosions to suggest inflammatory arthritis. Soft tissues are unremarkable. IMPRESSION: 1. Likely developmentally short right first distal phalanx. Otherwise unremarkable right thumb radiographs. Discharge Plan Discharge Clinical Impression: Tendinitis of thumb Patient Disposition: Home Condition: Stable Instructions: Antibiotic Form, Tendinitis (ED) Additional Instructions: Rest -the use of the right hand especially repetitive movements such as squeezing or lifting Recommend a thumb spica splint for support and limiting mobility ice and elevate the right hand; Apply ice 15-20 minute intervals several times a day Motrin 600mg every 8 hours, alternate with Tylenol 1000mg every 8 hours as needed Follow up with your primary care provider as needed Follow up with Hand specialist as needed Go to the ER for worsening symptoms or concerns Patient Language: Ukrainian Prescriptions: New prednisone 20 mg tablet 40 mg PO DAILY 5 Days Qty: 10 0RF No Action norethindrone (contraceptive) 0.35 mg tablet sertraline 50 mg tablet Follow-up/Referrals: Angelita Becerra MD [Physician, Plastic Surgery] Tomer Machuca DO [Primary Care Provider, Internal Medicine] Time of Disposition: 10:28
== END 2024-10-17 10:30 | disposition home or self-care (01) ==
PROVIDERS: Emergency Provider Nurse Practitioner Family; PCP Internal Medicine
DX: M67.843 Other specified disorders of tendon, right hand (principal); F32.A Depression, unspecified
CPT/HCPCS: 73140; 99213; G0463

== ENCOUNTER 2024-12-02 12:25 | Emergency (ER) | payer OTHER, SELFPAY ==
--- NOTE | 2024-12-02 12:26 | ED.URI ---
HPI - URI/Sore Throat General Chief Complaint: Upper Respiratory Infection Stated Complaint: Sore throat Time Seen by Provider: 12/02/24 12:26 Source: patient Mode of arrival: ambulatory Limitations: no limitations History of Present Illness HPI Narrative: Patient is a 34-year-old female who presents with sore throat back right and ear pain that started 3 days ago. Last night had chills home he and temperature was 99?. Denies any cough, body aches, nausea, vomiting, diarrhea. Patient is currently . Also works in a [employer] Related Data Home Medications ?Medication ?Instructions ?Recorded ?Confirmed ?Last Taken ?Type norethindrone (contraceptive) 0.35 mg 10/17/24 11/19/24 Unknown History mg tablet sertraline 50 mg tablet mg 10/17/24 11/19/24 Unknown History Allergies Allergy/AdvReac Type Severity Reaction Status Date / Time No Known Allergies Allergy Verified 12/02/24 12:31 Review of Systems Review of Systems: All systems reviewed & are unremarkable except as noted in HPI and below Constitutional: Constitutional: Reports chills, Denies fatigue, Denies fever(s), Denies headache(s), Denies malaise and Denies weakness Eyes: Eyes: Denies blurry vision, Denies itchy eyes and Denies loss of vision ENT: Reports otalgia, Denies headache(s), Denies nasal congestion, Denies sinus pain and Reports sore throat Cardiovascular: Cardiovascular: Denies chest pain, Denies irregular heart rhythm and Denies dyspnea Respiratory: Respiratory: Denies cough and Denies dyspnea Gastrointestinal: Gastrointestinal: Denies abdominal pain, Denies diarrhea, Denies nausea and Denies vomiting Musculoskeletal: Musculoskeletal: Denies back pain, Denies myalgias and Denies arthralgias Integumentary/Breasts: Skin/Breast: Denies pruritus and Denies rash Neurologic: Denies headache(s), Denies loss of vision and Denies weakness Psychiatric: Psychiatric: Reports no additional psychiatric complaints Endocrine: Endocrine: Denies fatigue Allergic/Immunologic: Allergic/Immunologic: Denies itchy eyes PMFSH Past Medical History Medical History RLQ abdominal pain RLQ abdominal tenderness Diverticulitis large intestine w/o perforation or abscess w/o bleeding Depression Bronchitis COVID-18 March 2021 Surgical History Surgical History H/O dilation and curettage Family History Family History Father Hypertension Family history of elevated blood lipids Mother Patient's mother is in good health Sibling Patient's brother is in good health Social History Social History Smoking status: Never smoker Second hand tobacco smoke exposure: Yes Alcohol intake: never Substance use: unknown Do You Feel Safe in your Home?: Yes Lack of Transportation: No Lack of Food: Never True Current Housing: I Have Housing Concerned About Future Housing: No Difficulty Paying Gas/Electric Bills: No Difficulty Paying for Meds: No Currently Unemployed: No Education: High School Diploma/GED Difficulty w/ Childcare or Family Care: No Gender identity (if verbalized by the patient): Female Spiritual care concerns: No Comments At time of signature, agree with nursing past medical, surgical, social and family history. There is no relevant family history pertinent to the presenting complaint. Exam Const: General: cooperative, healthy appearing, comfortable, no acute distress and well nourished Nutritional Appearance: well nourished Orientation/consciousness: patient oriented x3 Limitations: no limitations HENMT: Head: normal to inspection, normocephalic and atraumatic Ears: hearing grossly normal bilaterally, external ears normal, TM's normal bilaterally, EAC's normal and no periauricular adenopathy Face/Nose/Sinus: Normal external nose present, Abnormal mucous membranes and turbinates present erythematous bilateral and diffuse, normal facial exam, sinuses nontender and face symmetric Face and sinus: normal facial exam, sinuses nontender and face symmetric Mouth: Yes Normal oral and palatal mucosa present, Yes lip normal, Yes tongue normal, Yes Normal salivary glands and ducts present, Yes oropharynx normal and Yes moist mucous membranes Teeth and gingiva: dentition normal Throat: uvula midline, abnormal tonsil bilateral erythema and posterior oropharynx abnormal erythema Eyes: General: appearance normal, both eyes and all related structures Alignment and Position: alignment normal and position normal Periorbital: periorbital findings normal Eyelids: eyelids normal Pupils: Equal, round and reactive pupils present Neck: Neck: normal visual inspection, full ROM, no lymphadenopathy and supple Chest: Chest palpation & inspection: normal inspection of the chest and normal palpation of entire chest wall Resp: Effort & Inspection: normal respiratory effort and able to speak in complete sentences Auscultation: clear to auscultation bilaterally, no crackles, no rales, no rhonchi and no wheezes Cardio: Rate: regular rate Rhythm: regular rhythm Heart sounds: S1 normal heart sound present and S2 normal heart sound present GI: Inspection: normal to inspection Skin: General skin exam: normal color and no rashes or lesions noted Neuro: General: patient oriented x3 and moves all extremities Cranial nerves: Yes Equal, round and reactive pupils present Speech: normal speech Gait exam (Neuro): Normal gait present Extrem: General: normal to inspection, full ROM and no edema Psych: Appearance: grossly normal and well kempt Mental Status: mental status grossly normal Speech and movement: Normal speech and movement present Affect: normal affect Attitude: cooperative Thought process: Normal thought process present Course Course Emergency Course: Discharge instructions reviewed with patient, as well as provided in writing per nursing staff. The instructions also include specific and strict return/GO TO THE ER as well as f/u information. All questions have been answered, and the patient deny any further questions with discharge and discharge plan. Portions of this record may have been created with voice recognition software Level of Care: Express Care Visit Vital Signs Vital signs: Vital Signs Temperature 36.5 C 12/02/24 12:34 Pulse Rate 91 12/02/24 12:34 Respiratory Rate 18 12/02/24 12:34 Blood Pressure 106/68 12/02/24 12:34 Pulse Oximetry 98 12/02/24 12:34 Oxygen Delivery Room Air 12/02/24 12:34 Temperature 36.5 C 12/02/24 12:34 Pulse Rate 91 12/02/24 12:34 Respiratory Rate 18 12/02/24 12:34 Blood Pressure 106/68 12/02/24 12:34 Pulse Oximetry 98 12/02/24 12:34 Oxygen Delivery Room Air 12/02/24 12:34 Reviewed MDM - URI/Sore Throat MDM Narrative Medical decision making narrative: Pt well hydrated appearing, in no respiratory distress, hemodynamically stable. Recommend supportive care. The patient is stable at time of discharge the clinical impression was discussed and the patient was given the opportunity to ask questions, which were addressed as completely as possible given the information available at present. Anticipatory guidance and return to care precautions were discussed and the importance of primary care follow-up was stressed and encouraged. The patient voiced understanding of the plan, indications to return, and the need for follow-up. Exam findings show no acute concerns or changes Patient is appropriate for outpatient treatment and follow-up. Differential diagnosis considered: Buchanan virus, strep pharyngitis, allergic rhinitis, upper respiratory tract infection, sinusitis, rhinosinusitis, nasopharyngitis. viral pharyngitis, otitis media, otitis externa, otitis effusion, foreign body, cerumen impaction, viral syndrome, and influenza.? Medical Records Attestation: I reviewed the patient's medical records. Lab Data Attestation: I reviewed the patient's lab results. Labs: Lab Results 12/02/24 Range/Units 12:39 POC Grp A Strep Screen Positive (Negative) Discharge Plan Discharge Clinical Impression: Strep throat Patient Disposition: Home Condition: Stable Instructions: Strep Throat (ED) Additional Instructions: Your rapid strep swab was positive today at [facility]. After 24 hours on antibiotics throw tooth brush away and start using a new one. Wash your sheets and cup/water bottle that is used daily. Do not share drinks. Take Motrin alternating with Tylenol for pain and fever alternating every 3 hours. 8 AM: Tylenol 11 AM: Ibuprofen 2 PM: Tylenol 5 PM: Ibuprofen 8 PM: Tylenol 11 PM: Ibuprofen 2 AM: Tylenol 5 AM: Ibuprofen Increase fluids, avoid caffeine. Other symptomatic treatments include: -Antihistamine medication such as Benadryl at night and Zyrtec/Claritin/Louise during the day can help improve symptoms. -Use Flonase twice a day for 5 days then daily to help reduce the inflammation and dry up your sinuses. -You can also use Sudafed or Mucinex. Be sure to drink plenty of water with these medications at least 8 ounces with every dose and it is important to drink 8 to 10 glasses of water per day. Water is a natural decongestant -Eat and drink things that are easy to swallow, like tea or soup, or popsicles. -Oral rinses such as: Salt water gargles and/or may use topical anesthetic (eg. Chloraseptic spray) or lozenges to relieve dryness or throat pain). -Frequent hand washing or hand oxygen equipment aide is one of the best ways to prevent spread of infection. -Using a vaporizer or humidifier at night will also help thin secretions and help with coughing up phlegm. -Follow up with primary care provider in 3-5 days if condition is not improving - For new or worsening symptoms go directly to the nearest ER Patient Language: Setswana Prescriptions: New amoxicillin 500 mg capsule 500 mg PO BID 10 Days Qty: 20 0RF No Action norethindrone (contraceptive) 0.35 mg tablet sertraline 50 mg tablet Follow-up/Referrals: Tomer Machuca DO [Primary Care Provider, Internal Medicine] - 3 Days Stand Alone Forms: Work/School Release IP Time of Disposition: 12:50
--- OUTSIDE RECORDS SUMMARY | 2024-12-02 12:28 | XMS_ITS | Clinical Summary ---
Author Organization [facility] Care Team Providers Care Histotechnician Name Role Phone Unavailable Primary Care Provider Unavailabl e Social History Tobacco Use Types Packs/Day Years Used Date Smoking Tobacco: Never Assessed Comments Unknown Sex and Gender Information Value Date Recorded Sex Assigned at Not on file Legal Sex Female 3:09 PM [employer] Gender Identity Not on file Sexual Orientation Not on file Plan of Treatment Health Maintenance Due Date Last Done Comments Hepatitis C Virus (HCV) Screening 1990 TdaP Immunization 1990 Pap Smear 2009 Human Papillomavirus (HPV) Immunization (1 - 3-dose SCDM series) 08/17/2015 Cervical Cancer Screening (CCS) 2018 HPV/Cotest 2018 Influenza Immunization (#1) 2024 SARS-COV-2 Immunization ( season) 2024 05/17/2020, 04/19/2020 Respiratory Syncytial Virus (RSV) Immunization [...]
--- OUTSIDE RECORDS SUMMARY | 2024-12-02 12:28 | XMS_ITS | Clinical Summary ---
Author Organization [facility] Address [address] [place] [address] Care Team Providers Care Milk Powder Grinder Name Role Phone Severino Wooten DO Primary Care Provider [phone] Source Comments [facility],non-owned Affiliates and Associated Physician Practices is amultiple site organization consisting of ambulatory clinics and hospital sitesin [place], [place], [place] and [place]. This disclosure is being madepursuant to the Care Everywhere program and may not contain all information available regarding this patient. Last updated 17.[facility] Allergies No known active allergies Medications * [...] Recorded Patient Health Questionnaire-2 Score 0 03/28/2024 [facility] Occupat ional Health - Occupational [...] any time in the past 12 m [facility], were you homeless or living in a custodial (including now)? No 04/10/2024 Education Answer Date Recorded What is the highest level of school you have completed or the highest degree you have received? 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 file Not on file Not on file Last Filed Vital Signs Vital Sign Reading Time Taken Comments Blood Pressure 102/64 04/24/2024 10:21 AM AUDIOVISUAL LEAD TECHNICIAN Pulse 80 04/04/2024 11:51 AM AUDIOVISUAL LEAD TECHNICIAN Temperature 36.8 C (98.3 F) 04/11/2024 12:17 PM AUDIOVISUAL LEAD TECHNICIAN Respiratory Rate 17 04/11/2024 12:17 PM AUDIOVISUAL LEAD TECHNICIAN Oxygen Saturation 98% 04/11/2024 12:17 PM AUDIOVISUAL LEAD TECHNICIAN Inhaled Oxygen Concentration - - Weight 59 kg (130 lb) 04/24/2024 10:21 AM AUDIOVISUAL LEAD TECHNICIAN Height 154.9 cm (5' 1) 04/24/2024 10:21 AM AUDIOVISUAL LEAD TECHNICIAN Body Mass Index 24.56 04/24/2024 10:21 AM AUDIOVISUAL LEAD TECHNICIAN Plan of Treatment Health Maintenance Due Date Last Done Comments PAP SMEAR 2009 HPV VACCINE (1 - 3-dose SCDM series) 08/17/2015 COVID-19 VACCINE ( - season) 2024 05/17/2020, 04/19/2020 INFLUENZA VACCINE (#1) 2024 11/25/2023, [...] CULTURE STREP B Routine 04/10/2024 8:55 AM AUDIOVISUAL LEAD TECHNICIAN Abdominal cramping affecting HEPATITIS C ANTIBODY MONTY 03/21/2024 11:17 AM AUDIOVISUAL LEAD TECHNICIAN Multigravida of advanced maternal age in second trimester GTT 1 HR (50G) GESTATIONAL SCREEN Routine 02/20/2024 11:06 AM AUDIOVISUAL LEAD TECHNICIAN Supervision of high-risk of elderly multigravida (>= 35 years old at time of delivery) HIV-1 HIV-2 ANTIBODY + HIV P24 AG PANEL Routine 02/20/2024 11:06 AM AUDIOVISUAL LEAD TECHNICIAN Supervision of high-risk of elderly multigravida (>= 35 years old at time of delivery) from Last 3 Months or Most Recently Relevant to Health Maintenance Results * CULTURE STREP B (04/10/2024 8:55 AM AUDIOVISUAL LEAD TECHNICIAN) Culture Strep B Negative for beta-hemolytic Streptococcus Group B EVELIN 04/13/2024 4:37 PM AUDIOVISUAL LEAD TECHNICIAN [facility] Microbiology MISCELLANEOUS SAMPLES / Unknown Collection / Unknown 04/10/2024 8:55 AM AUDIOVISUAL LEAD TECHNICIAN 04/10/2024 9:05 AM AUDIOVISUAL LEAD TECHNICIAN us Santos Ledezma DO LAB - MICROBIOLOGY ORDERABLES Final Result [facility] [address] [place] [address], [facility] [phone] * HEPATITIS C ANTIBODY (03/21/2024 11:17 AM AUDIOVISUAL LEAD TECHNICIAN) [facility] HCV Antibody Screen Non Reactive Non Reactive 03/21/2024 12:11 PM AUDIOVISUAL LEAD TECHNICIAN [facility] Blood BLOOD SPECIMEN / Unknown Venipuncture / Unknown 03/21/2024 11:17 AM AUDIOVISUAL LEAD TECHNICIAN 03/21/2024 11:23 AM AUDIOVISUAL LEAD TECHNICIAN Narrative [facility] - 03/21/2024 12:11 PM AUDIOVISUAL LEAD TECHNICIAN Non Reactive - Antibodies to Hepatitis C virus (HCV) were not detected, result does not exclude early acute HCV infection. Adriana Redman APRN-PAID SEARCH SPECIALIST LAB - CHEMISTRY ORDERA BLES Final Result Performing Organization Address City/[facility]/ZIP Co de Phone Number [facility] [address] [place] [address] * GTT 1 HR (50G) GESTATIONAL SCREEN (02/20/2024 11:06 AM AUDIOVISUAL LEAD TECHNICIAN) [facility] Glucose Gestational Screen 80 <140 mg/dL [facility] Comment: Test Performed at: [facility] [address] [place] [address] JAMIE WARREN MD Blood BLOOD SPECIMEN / Unknown 02/20/2024 11:06 AM AUDIOVISUAL LEAD TECHNICIAN 02/20/2024 11:07 AM AUDIOVISUAL LEAD TECHNICIAN Adriana Redman APRN-PAID SEARCH SPECIALIST LAB - CHEMISTRY ORDERA BLES Final Result [facility] [address] [place] [address] * HIV-1 HIV-2 ANTIBODY + HIV P24 AG PANEL (02/20/2024 11:06 AM AUDIOVISUAL LEAD TECHNICIAN) [facility] HIV Screen 4th Generation w Reflex NON-REACT [...] purpose. For additional information please refer to http://education.Inuvo/faq/MZJ703 (This link is being provided for informational/ educational purposes only.) The performance of this assay has not been clinically validated in patients less than 2 years old. Test Performed at: [facility] [address] [address] JAMIE WARREN MD Blood BLOOD SPECIMEN / Unknown 02/20/2024 11:06 AM AUDIOVISUAL LEAD TECHNICIAN 02/20/2024 11:07 AM AUDIOVISUAL LEAD TECHNICIAN Adriana Redman POLICY INTERN-PAID SEARCH SPECIALIST LAB - CHEMISTRY ORDERA BLES Final Result Performing Organization Address City/State/[facility] Co de Phone Number [facility] [address] [place] [address] from Last 3 Months or Most Recently Relevant to Health Maintenance Insurance [facility] Advance Directives * Full Code (Latest [...] 12:22 PM 04/21/2018 10:46 AM Care Teams Milk Powder Grinder Relationship Specialty Start Date End Date Severino Wooten DO [address] [place] [address] PCP - General 10/26/17
--- OUTSIDE RECORDS SUMMARY | 2024-12-02 12:28 | XMS_ITS | Encounter Summary ---
Author Organization [facility] Address [address] [address] Care Team Providers Care Lawyer Probate Name Role Phone Severino Wooten Primary Care Provider [phone] Encounter Details Date Type Department Care Team (Late st Contact Info) Description 06/20/2019 Telephone [facility] [address] [place] [id number] Ivis Borden RN Social History Tobacco Use Types Packs/Day Years Used Date Smoking Tobacco: Never Smokeless Tobacco: Never Alcohol Use Standard Drinks/Week Comments No 0 (1 standard drink = 0.6 oz pur e alcohol) Comments No Sex and Gender Information Value Date Recorded Sex Assigned at Not on file Legal Sex Female 6:56 AM HAT AND CAP PARTS CUTTER HAND Gender Identity Not on file Sexual Orientation [...] of Assessment Author No 04/12/2018 10:45 AM HAT AND CAP PARTS CUTTER HAND Ferraro, M onica L, RN documented as of this encounter Mental Status * Does person have difficulty concentrating/remembering/making decisions? Answer Entry Date Author No 04/12/2018 10:45 AM HAT AND CAP PARTS CUTTER HAND Mando Ferraro RN documented in this encounter [...] Under Investigation 04/10/2020 04/10/2020 04/10/2020 9:17 AM HAT AND CAP PARTS CUTTER HAND documented as of this encounter Care Teams Lawyer Probate Relationship Specialty Start Date End Date Severino Wooten DO [address] [place] [address] PCP - General 10/26/17 documented as of this encounter
[2024-12-02 12:34] VITALS: BP 106/68; PULSE 91; RESP 18; TEMP 36.5; O2SAT 98
[2024-12-02 12:41] LABS: EDSTREPNEGPOS1 Positive (Negative)
== END 2024-12-02 12:51 | disposition home or self-care (01) ==
PROVIDERS: Emergency Provider Nurse Practitioner Family; PCP Internal Medicine
DX: J02.0 Streptococcal pharyngitis (principal); F32.A Depression, unspecified; Z86.16 Personal history of COVID-19
CPT/HCPCS: 87880; 99213; G0463

== ENCOUNTER 2025-01-30 15:12 | Outpatient (CLI) | payer OTHER, SELFPAY ==
[2025-01-30 15:29] LABS: Hematocrit 40.5 % (37.0-47.0); Hemoglobin 13.2 g/dL (12.0-15.0); Mean Corpuscular HGB Conc 32.6 g/dl (32-36); Mean Corpuscular Hemoglobin 30.3 pg (26-34); Mean Corpuscular Volume 93.1 fl (80-100); Platelet Count Result 231 k/mm3 (150-375); Red Blood Count 4.35 M/mm3 (4.2-5.4); White Blood Count 6.5 K/mm3 (4.5-10.0)
[2025-01-30 15:35] LABS: Add Urine Microscopic? YES; Appearance Urine Cloudy (Clear); Glucose Urine UA Negative (Negative); Leukocyte Esterase Ur Negative LEU/UL (Negative); Nitrate Urine Negative (Negative); Non Pathogenic Casts 0-2; Specific Grav Ur 1.009 (1.001-1.035)
[2025-01-30 16:02] LABS: Alanine Aminotransferase 17 U/L (6-35); Albumin Level 4.5 g/dL (3.5-5.1); Alkaline Phosphatase 84 U/L (38-126); Anion Gap 2 mmol/L (4-12); Aspartate Amino Transferase 25 U/L (14-36); Bilirubin,Total 0.4 mg/dL (0.2-1.3); Blood Urea Nitrogen 9 mg/dL (7-17); CRP < 0.5 mg/dL (<1.0); Calcium 8.5 mg/dL (8.4-10.2); Carbon Dioxide 30 mmol/L (22-30); Chloride 105 mmol/L (98-107); Estimated Glomerular Filt Rate > 60; Glucose 95 mg/dL (65-110); Potassium 3.9 mmol/L (3.4-5.0); Sodium 137 mmol/L (137-145); Total Protein 7.1 g/dL (6.3-8.2)
--- OUTSIDE RECORDS SUMMARY | 2025-01-30 16:34 | XMS_ITS | Encounter Summary ---
Author Organization [facility] Address [address] [place] [address] Care Team Providers Care Machine Skiver Name Role Phone Severino Wooten DO Primary Care Provider [phone] Reason for Visit * Reason Onset Date Comments Pain Back 03/21/2024 Side Effect 03/21/2024 Encounter Details Date Type Department Care Team (Late st Contact Info) Description 03/21/2024 Telephone [facility] [employer] [facility] [facility] [address] [place] [address] Steffanie Arnold MD Pain Back; Side Effect Social History Tobacco [...] Recorded Patient Health Questionnaire-2 Score 0 03/21/2024 [facility] of Occupat ional Health - Occupational Stress [...] any time in the past 12 m [facility], were you homeless or living in a care home (including now)? No 01/31/2024 Education Answer Date Recorded What is the highest level of school you have completed or the highest degree you have received? Some college, no degree 02/09/2024 Comments Yes Sex and Gender Information Value Date Recorded Sex Assigned at Not on file Legal Sex Female 6:56 AM STRUCTURAL STEEL WORKER Gender Identity Not on file Sexual Orientation [...] of Assessment Author No 01/31/2024 6:15 PM STRUCTURAL STEEL WORKER Bao Tirado, RN * Does person have serious difficulty walking/climbing stairs? Answer Date of Assessment Author No 01/31/2024 6:15 PM STRUCTURAL STEEL WORKER Bao Tirado, RN * Does person have difficulty dressing/bathing? Answer Date of Assessment Author No 01/31/2024 6:15 PM Bao Hansen, RN * Does person have difficulty doing errands alone? Answer Date of Assessment Author No 01/31/2024 6:15 PM STRUCTURAL STEEL WORKER Bao Tirado, RN * Over the past 2 weeks, how often have you been bothered by any of the following problems? Question Answer Date of Assessment Author Little interest or pleasure in doing things Not at all 03/21/2024 11:22 AM Alexandra Uribe RN Feeling down, depressed, or hopeless Not at all 03/21/2024 11:22 AM Gurinder Uribe RN Patient Health Questionnaire-2 Score 0 03/21/2024 11:22 AM STRUCTURAL STEEL WORKER Ritika Gabriel RN documented as of this encounter Mental Status * Does person have difficulty concentrating/remembering/making decisions? Answer Entry Date Author No 01/31/2024 6:15 PM STRUCTURAL STEEL WORKER Bao Tirado RN documented in this encounter Miscellaneous Notes * Telephone Encounter - Jada Stuart - 03/21/2024 2:43 PM CST Pt had iron infusion and now is having a lot of back pain and wants to know is this an normal side effect from injection. CB: [phone] CTURAL STEEL WORKER documented in this encounter Plan of Treatment Not on file documented as of this encounter Visit Diagnoses Not on filedocumented in this encounter Care Teams Machine Skiver Relationship Specialty Start Date End Date Severino Wooten DO [address] [address] PCP - General 10/26/17 documented as of this encounter
--- OUTSIDE RECORDS SUMMARY | 2025-01-30 16:34 | XMS_ITS | Encounter Summary ---
Author Organization [facility] Address [address] [place] [address] Care Team Providers Care Senior Cost Accountant Name Role Phone Severino Wooten Primary Care Provider [phone] Encounter Details Date Type Department Care Team (Late st Contact Info) Description 06/20/2019 Telephone [facility] [address] [place] [phone] Ivis Borden RN Social History Tobacco Use Types Packs/Day Years Used Date Smoking Tobacco: Never Smokeless Tobacco: Never Alcohol Use Standard Drinks/Week Comments No 0 (1 standard drink = 0.6 oz pur e alcohol) Comments No Sex and Gender Information Value Date Recorded Sex Assigned at Not on file Legal Sex Female 6:56 AM DOUBLE BACK OPERATOR Gender Identity Not on file Sexual Orientation [...] of Assessment Author No 04/12/2018 10:45 AM DOUBLE BACK OPERATOR Ferraro, M onica L, RN documented as of this encounter Mental Status * Does person have difficulty concentrating/remembering/making decisions? Answer Entry Date Author No 04/12/2018 10:45 AM DOUBLE BACK OPERATOR Mando Ferraro RN documented in this encounter [...] Under Investigation 04/10/2020 04/10/2020 04/10/2020 9:17 AM DOUBLE BACK OPERATOR documented as of this encounter Care Teams Senior Cost Accountant Relationship Specialty Start Date End Date Severino Wooten DO [address] [place] [address] PCP - General 10/26/17 documented as of this encounter
--- OUTSIDE RECORDS SUMMARY | 2025-01-30 16:34 | XMS_ITS | Clinical Summary ---
Author Organization [employer] [facility] [employer] [facility] Address [address] [place] [address] Care Team Providers Care Caser Up Name Role Phone Severino Wooten DO Primary Care Provider [phone] Source Comments [employer] [facility] [facility] [employer] [facility],non-owned Affiliates and Associated Physician Practices is amultiple site organization consisting of ambulatory clinics and hospital sitesin [place], [place], [place] and [place]. This disclosure is being madepursuant to the Care Everywhere program and may not contain all information available regarding this patient. Last updated 17.[employer] [facility] Allergies No known active allergies Medications * [...] Recorded Patient Health Questionnaire-2 Score 0 03/28/2024 [facility] of Occupat ional Health - Occupational [...] any time in the past 12 m [facility], were you homeless or living in a group home (including now)? No 04/10/2024 Education Answer Date Recorded What is the highest level of school you have completed or the highest degree you have received? 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 file Not on file Not on file Last Filed Vital Signs Vital Sign Reading Time Taken Comments Blood Pressure 102/64 04/24/2024 10:21 AM DEBEADER Pulse 80 04/04/2024 11:51 AM DEBEADER Temperature 36.8 C (98.3 F) 04/11/2024 12:17 PM DEBEADER Respiratory Rate 17 04/11/2024 12:17 PM DEBEADER Oxygen Saturation 98% 04/11/2024 12:17 PM DEBEADER Inhaled Oxygen Concentration - - Weight 59 kg (130 lb) 04/24/2024 10:21 AM DEBEADER Height 154.9 cm (5' 1) 04/24/2024 10:21 AM DEBEADER Body Mass Index 24.56 04/24/2024 10:21 AM DEBEADER Plan of Treatment Health Maintenance Due Date [...] CULTURE STREP B Routine 04/10/2024 8:55 AM DEBEADER Abdominal cramping affecting HEPATITIS C ANTIBODY MONTY 03/21/2024 11:17 AM DEBEADER Multigravida of advanced maternal age in second trimester GTT 1 HR (50G) GESTATIONAL SCREEN Routine 02/20/2024 11:06 AM DEBEADER Supervision of high-risk of elderly multigravida (>= 35 years old at time of delivery) HIV-1 HIV-2 ANTIBODY + HIV P24 AG PANEL Routine 02/20/2024 11:06 AM DEBEADER Supervision of high-risk of elderly multigravida (>= 35 years old at time of delivery) from Last 3 Months or Most Recently Relevant to Health Maintenance Results * CULTURE STREP B (04/10/2024 8:55 AM DEBEADER) Culture Strep B Negative for beta-hemolytic Streptococcus Group B EVELIN 04/13/2024 4:37 PM DEBEADER [facility]CRO[facility] Microbiology MISCELLANEOUS SAMPLES / Unknown Collection / Unknown 04/10/2024 8:55 AM DEBEADER 04/10/2024 9:05 AM DEBEADER us Santos Ledezma DO LAB - MICROBIOLOGY ORDERABLES Final Result [facility] [address] [place] [address], [facility] [phone] * HEPATITIS C ANTIBODY (03/21/2024 11:17 AM DEBEADER) [facility] HCV Antibody Screen Non Reactive Non Reactive 03/21/2024 12:11 PM DEBEADER [facility] Blood BLOOD SPECIMEN / Unknown Venipuncture / Unknown 03/21/2024 11:17 AM DEBEADER 03/21/2024 11:23 AM DEBEADER Narrative [facility] - 03/21/2024 12:11 PM DEBEADER Non Reactive - Antibodies to Hepatitis C virus (HCV) were not detected, result does not exclude early acute HCV infection. Adriana Redman APRN-PIERCING MILL OPERATOR LAB - CHEMISTRY ORDERA BLES Final Result Performing Organization Address City/[facility]/ZIP Co de Phone Number [facility] [address] [place] [address] * GTT 1 HR (50G) GESTATIONAL SCREEN (02/20/2024 11:06 AM DEBEADER) [facility] Glucose Gestational Screen 80 <140 mg/dL [facility] Comment: Test Performed at: [email or web address] [address] [place] [address] JAMIE WARREN MD Blood BLOOD SPECIMEN / Unknown 02/20/2024 11:06 AM DEBEADER 02/20/2024 11:07 AM DEBEADER Adriana Redman APRN-PIERCING MILL OPERATOR LAB - CHEMISTRY ORDERA BLES Final Result [facility] [address] [place] [address] * HIV-1 HIV-2 ANTIBODY + HIV P24 AG PANEL (02/20/2024 11:06 AM DEBEADER) [facility] HIV Screen 4th Generation w Reflex NON-REACT [...] purpose. For additional information please refer to http://education.[employer]./faq/IRH030 (This link is being provided for informational/ educational purposes only.) The performance of this assay has not been clinically validated in patients less than 2 years old. Test Performed at: [employer] [address] [address] JAMIE WARREN MD Blood BLOOD SPECIMEN / Unknown 02/20/2024 11:06 AM DEBEADER 02/20/2024 11:07 AM DEBEADER Adriana Redman POWER BRAKE REBUILDER-PIERCING MILL OPERATOR LAB - CHEMISTRY ORDERA BLES Final Result Performing Organization Address City/State/[facility] Co de Phone Number [facility] [address] [place] [address] from Last 3 Months or Most Recently Relevant to Health Maintenance Insurance [facility] Advance Directives * Full Code (Latest [...] 12:22 PM 04/21/2018 10:46 AM Care Teams Caser Up Relationship Specialty Start Date End Date Severino Wooten DO [address] [address] [address] [place] [address] PCP - General 10/26/17
--- OUTSIDE RECORDS SUMMARY | 2025-01-30 16:34 | XMS_ITS | Clinical Summary ---
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
== END 2025-01-30 15:13 | disposition home or self-care (01) ==
LOC: ANHLAB 15:14
PROVIDERS: PCP Internal Medicine; Visit Provider Nurse Practitioner
DX: R10.31 Right lower quadrant pain (principal)
CPT/HCPCS: 36415; 80053; 81001; 85027; 86140